=== PATIENT | female | born 1935 | race Caucasian/White ===

== ENCOUNTER 2017-03-17 23:42 | Inpatient (IN) | payer OTHER ==
[~2017-03-17] VITALS: Ht 160 cm; Wt 70.0 kg
[2017-03-17] MEDS ORDERED: LEVO88TA3 PO (23:57)
[2017-03-17] MEDS ORDERED: ATOR-26 PO (23:58)
[2017-03-17] MEDS ORDERED: FRS/40 PO (23:58)
[2017-03-17] MEDS ORDERED: CLOP1TAB15 PO (23:59)
[2017-03-17] MEDS ORDERED: SENN-65 PO (23:59)
[2017-03-17] MEDS ORDERED: CHOL1000 PO (23:59)
[2017-03-18] VITALS (16 sets, daily range): BP systolic 107–155; BP diastolic 60–94; PULSE 68–91; TEMP 36.4–36.7; O2SAT 91–100; Ht 160 cm; Wt 70.0 kg
[2017-03-18] MEDS ORDERED: FENTANYL CITRATE INJ 50 MCG/1 ML 2 ML VIAL IV ONE
[2017-03-18] MEDS ORDERED: AMLO-110 PO
[2017-03-18] MEDS: NITROGLYCERIN 0.4 MG SL PER TAB CHARGE SL PRN ×3 (00:02→00:23)
[2017-03-18] MEDS ORDERED: CARV6.252 PO (00:02)
[2017-03-18] MEDS ORDERED: OXGN (00:04)
[2017-03-18] MEDS ORDERED: CYAN10005 PO (00:04)
[2017-03-18] MEDS ORDERED: NTRGSL/4 UT (00:04)
[2017-03-18] MEDS ORDERED: ISOS60TA2 PO (00:04)
[2017-03-18 00:08] LABS: ISTAT CREATININE 2.8 mg/dl (0.6-1.3); ISTAT HEMOGLOBIN 12.2 g/dl (12.0-16.0); ISTAT IONIZED CALCIUM 1.15 mmol/l (1.12-1.32)
[2017-03-18 00:09] LABS: BASO % 0.2 %; BASO ABS # 0.02 K/uL (0-0.2); COMPLETE YES; EOS % 2.5 %; HEMATOCRIT 36.3 % (37-47); IG% 0.2 %; LYMPH ABS # 1.57 K/uL (1.2-3.4); MEAN CELL VOLUME 95.5 fL (80-100); MEAN CORPUSCULAR HEMOGLOBIN 31.3 pg (25-34); MEAN CORPUSCULAR HGB CONC 32.8 g/dl (32-36); MEAN PLATELET VOLUME 11.3 fL (7.4-10.4); MONO % 8.7 %; NEUT % 69.4 %; PLATELET COUNT 225 K/uL (130-400); WHITE BLOOD COUNT 8.27 K/uL (4.8-10.8)
[2017-03-18 00:21] LABS: PROTHROMBIN TIME (PATIENT) 10.7 SECONDS (9.0-12.0)
[2017-03-18 00:28] LABS: BUN/CREATININE RATIO 19.3 (10-20); CALCIUM 9.4 mg/dl (8.5-10.1); CREATININE 2.8 mg/dl (0.60-1.20); MAGNESIUM 2.3 mg/dl (1.8-2.4); POTASSIUM 5.1 mmol/L (3.5-5.1)
[2017-03-18] MEDS ORDERED: HEPARIN SOD (PORCINE) 1000 UNIT/ML 10 ML VIAL ONE (00:38)
[2017-03-18] MEDS ORDERED: MIDAZOLAM HCL 1 MG/ML 2ML VIAL ONE (00:38)
[2017-03-18] MEDS ORDERED: NiCARDipine HCL INJ 2.5 MG/ML 10 ML AMP ONE (00:38)
[2017-03-18] MEDS ORDERED: NITROGLYCERIN/D5W 100MCG/ML 20ML SYR ONE (00:39)
[2017-03-18 00:40] LABS: CKMB/CK RATIO 5.5 (0-3.0)
[2017-03-18] MEDS ORDERED: FUROSEMIDE 40 MG/4 ML VIAL IV STA (00:56)
[2017-03-18] MEDS ORDERED: NITROGLYCERIN/D5W 100 MCG/ML 500 ML IV STA (00:56)
[2017-03-18] MEDS ORDERED: HEPARIN SOD 5000 UNIT/0.5 ML CARP ONE (01:25)
[2017-03-18] MEDS ORDERED: HEPARIN 25000 UNIT/500 ML D5W ONE (01:25)
--- NOTE | 2017-03-18 01:29 | Critical Care Consultation ---
Critical Care Consultation Date of Consultation: Mar 18, 2017. Attending Physician: Family History No pertinent family history Social History Smoking Status: Never Smoker Allergies Coded Allergies: No Known Allergies (Unverified , 03/17/17) Home Medications Scheduled Amlodipine (Norvasc), 5 MG PO DAILY Atorvastatin (Lipitor), 80 MG PO DAILY Carvedilol (Coreg), 6.25 MG PO AMPM Cholecalciferol (Vitamin D3), 2,000 UNIT PO DAILY Clopidogrel (Plavix), 75 MG PO DAILY Cyanocobalamin (Vitamin B-12), 1,000 MCG PO DAILY Furosemide (Lasix), 40 MG PO DAILY Home O2 Therapy (Oxygen), 2 LITERS NA HS Isosorbide Mononitrate (Imdur Ext Rel), 60 MG PO QAM Levothyroxine Sodium (Levothyroxine Sodium), 88 MCG PO DAILY Senna/Docusate Sod (Senokot S), 2 TAB PO DAILY Scheduled PRN Nitroglycerin (Nitrostat), 0.4 MG UT UD PRN for Chest Pain Current Inpatient Medications Current Inpatient Medications Medications (Trade) Dose Ordered Sig/Izaiah Route Start Time Stop Time Status Last Admin Dose Admin Nitroglycerin (Nitrostat Tab) 0.4 mg PRN PRN SL 03/18/17 00:00 04/17/17 00:00 03/18/17 00:23 0.4 MG Physical Exam Date Time Temp Pulse Resp B/P (MAP) Pulse Ox O2 Delivery O2 Flow Rate FiO2 03/18/17 00:39 89 98 30 03/18/17 00:32 BiPAP 03/18/17 00:27 92 22 97 03/18/17 00:26 128/85 03/18/17 00:24 140/83 Oxymask 8.0 03/18/17 00:22 94 27 92 03/18/17 00:21 126/76 03/18/17 00:17 90 18 134/87 91 03/18/17 00:15 95 Nasal Cannula 4.0 03/18/17 00:14 121/66 03/18/17 00:12 88 21 95 03/18/17 00:07 92 18 94 03/18/17 00:03 115/77 03/18/17 00:02 98 23 91 Nasal Cannula 4.0 03/17/17 23:59 103 03/17/17 23:58 36.3 97 26 129/80 92 Nasal Cannula 4.0 03/17/17 23:58 91 Nasal Cannula 4.0 03/17/17 23:57 102 19 95 High Flow Oxygen 15.0 03/17/17 23:56 129/80 Laboratory Results Last 24 Hours Test 03/17/17 23:21 03/17/17 23:57 03/18/17 01:23 White Blood Count 8.27 K/uL Red Blood Count 3.80 M/uL Hemoglobin 11.9 g/dL Hematocrit 36.3 % Mean Corpuscular Volume 95.5 fL Mean Corpuscular Hemoglobin 31.3 pg Mean Corpuscular Hemoglobin Concent 32.8 g/dl Platelet Count 225 K/uL Mean Platelet Volume 11.3 fL Neutrophils (%) (Auto) 69.4 % Lymphocytes (%) (Auto) 19.0 % Monocytes (%) (Auto) 8.7 % Eosinophils (%) (Auto) 2.5 % Basophils (%) (Auto) 0.2 % Neutrophils # (Auto) 5.73 K/uL Lymphocytes # (Auto) 1.57 K/uL Monocytes # (Auto) 0.72 K/uL Eosinophils # (Auto) 0.21 K/uL Basophils # (Auto) 0.02 K/uL RDW Standard Deviation 47.4 fL RDW Coefficient of Variation 13.7 % Immature Granulocyte % (Auto) 0.2 % Immature Granulocyte # (Auto) 0.02 K/uL Prothrombin Time 10.7 SECONDS Prothromb Time International Ratio 1.0 Activated Partial Thromboplast Time 26.0 SECONDS Partial Thromboplastin Ratio 1.0 Sodium Level 140 mmol/L Potassium Level 5.1 mmol/L Chloride Level 103 mmol/L Carbon Dioxide Level 28 mmol/L Anion Gap 9.0 mmol/L 16.0 mmol/L Blood Urea Nitrogen 54 mg/dl Creatinine 2.80 mg/dl Est Creatinine Clear Calc Drug Dose 14.9 ml/min Estimated GFR () 17.6 Estimated GFR (Non- 15.2 BUN/Creatinine Ratio 19.3 Random Glucose 171 mg/dl Calcium Level 9.4 mg/dl Magnesium Level 2.3 mg/dl Total Creatine Kinase 40 U/L Creatine Kinase MB 2.2 ng/ml Creatine Kinase MB Ratio 5.5 Troponin I 0.933 ng/ml Bedside Hemoglobin 12.2 g/dl Bedside Hematocrit 36 % Bedside Sodium 139 mEq/L Bedside Potassium 4.9 mEq/L Bedside Chloride 102 mEq/L Bedside Total CO2 28 mEq/l Bedside Blood Urea Nitrogen 48 mg/dl Bedside Creatinine 2.8 mg/dl Bedside Glucose (other) 177 mg/dl Bedside Ionized Calcium (Zeynep) 1.15 mmol/l
[2017-03-18] MEDS ORDERED: NITROGLYCERIN OINT 2% 1GM PACKET ONE (01:46)
[2017-03-18 02:08] LABS: ARTERIAL BLD GAS O2 SATURATION 95.1 % (90-95); ARTERIAL BLOOD GAS BASE EXCESS 0.9 mEq/L (-9-1.8); ARTERIAL BLOOD GAS HCO3 26 mmol/L (19-24); ARTERIAL BLOOD GAS PO2 84 mm/Hg (80-95); ARTERIAL BLOOD GAS pH 7.37 (7.35-7.45)
[2017-03-18 02:10] LABS: ALLEN TEST POS (POS); O2 ADMINISTRATION 30% BIPAP
[2017-03-18] MEDS ORDERED: ALBUT/IPRATROP 3MG/0.5MG NEB 3 ML VIAL INH STA (02:21)
[2017-03-18] MEDS ORDERED: ONDANSETRON INJ 2 MG/ML 2 ML VIAL IV PRN (02:30)
[2017-03-18] MEDS ORDERED: DEXTROSE 50% 50 ML SYR IV PRN (02:30)
[2017-03-18] MEDS ORDERED: GLUCOSE 40% GEL 15 GM TUBE PO PRN (02:30)
[2017-03-18] MEDS ORDERED: NITROGLYCERIN 0.4 MG SL PER TAB CHARGE SL PRN (02:30)
[2017-03-18] MEDS ORDERED: GLUCAGON FOR INJ 1 MG VIAL SQ PRN (02:30)
[2017-03-18] MEDS ORDERED: GLUCOSE 10 TABS/TUBE PO PRN (02:30)
[2017-03-18] MEDS ORDERED: HEPARIN IV LOW DOSE NO BOLUS STA (03:16)
[2017-03-18] MEDS ORDERED: HEPARIN 25,000 UNIT/500ML D5W 500 ML IV PRN (03:30)
--- NOTE | 2017-03-18 04:39 | CARDIOLOGY CONSULTATION ---
DATE OF CONSULTATION: 03/18/2017 CONSULTATION REQUESTED BY: Dr. Webber. REASON FOR CONSULTATION: Heart alert/suspected acute coronary syndrome. HISTORY OF PRESENT ILLNESS: Ms. Perdue is an 81-year-old woman with a complex past medical history who presented tonight to the Emergency Department in the setting of intermittent chest pain over the better part of last 3 days and worsening shortness of breath. Cardiac history is long with the majority of her prior care having been done in [place]. The patient recently moved to the area. She has known severe multivessel coronary disease with prior multivessel stenting. Her most recent cardiac course occurred in November 2016 at [facility] where she presented with an NSTEMI with troponin up to 33. She underwent cardiac catheterization and was found to have severe mid left main ostial LAD and ostial circumflex disease as well as severe 99% RCA disease with in-stent restenosis. She eventually underwent high risk PCI after deemed to be not a surgical candidate due to comorbidities. With the assistance of an Impella device had 2 drug-eluting stents placed from her left main and LAD and into ostial circumflex. The procedure was complicated by a small residual mid LAD dissection which was managed without further stenting. She had a prolonged hospitalization following her PCI in part due to heart failure, and her chronic kidney disease with a baseline creatinine around 2-2.5. She also had issues with anemia and thrombocytopenia. She was diuresed during last hospitalization and last echocardiogram reportedly showed an EF of 40% with moderate aortic stenosis, moderate mitral regurgitation, mild AI and moderate to severe pulmonary hypertension with an estimated PASP of 61. Since over the last 3 days to a week, the patient has noted increased chest tightness. She is a difficult historian but states this is similar to what she has had in the past, although seems to endorse that her shortness of breath is her worst symptom at this time. Her daughter who was at her bedside tonight states that she has noticed worsening swelling in her legs over this time period. The patient denies any fevers, chills, palpitations or presyncope. PAST MEDICAL HISTORY: 1. Coronary artery disease as discussed above. 2. Moderate aortic stenosis. 3. Moderate mitral regurgitation. 4. Type 2 diabetes. 5. Chronic kidney disease, stage IV, baseline creatinine around 2-2.5. 6. Chronic systolic heart failure, EF around 40% with inferior apical and mid septum akinetic segment on last echocardiogram, anemia and thrombocytopenia. 7. Hypothyroidism. 8. Dyslipidemia. ALLERGIES: CAPTOPRIL. HOME MEDICATIONS: Include amlodipine 5, atorvastatin 80, carvedilol 6.25, cholecalciferol, Plavix 75, vitamin B12, furosemide 40 daily, isosorbide mononitrate 60 mg, levothyroxine 88 mcg, nitro tabs and aspirin 81 mg. FAMILY HISTORY: Noncontributory due to patient's age and known severe disease. SOCIAL HISTORY: Currently living with her daughter, unable to provide any other significant relevant social history. PHYSICAL EXAMINATION: VITAL SIGNS: Temperature on admission 36.3. Her pulse was 97. Her blood pressure was 129/80. She was satting 91% on 4 liters. She is now on BiPAP. GENERAL: The patient appears in mild respiratory distress. HEENT: Sclerae are anicteric. Her oropharynx is clear. NECK: JVD difficult to assess. LUNGS: She has decreased breath sounds at her bases bilaterally and has crackles anteriorly. CARDIAC: She has a regular rate and rhythm with a 2/6 systolic ejection murmur heard best at the right upper sternal border. ABDOMEN: Soft, nontender with positive bowel sounds. EXTREMITIES: Warm. She has intact radial and DP pulses. She has 1+ lower extremity edema up to her mid [place] and signs of chronic venous stasis. NEUROLOGIC: Nonfocal. PSYCHIATRIC: She is alert and oriented. LABORATORY DATA: Sodium 139, potassium 5.1, BUN 54, creatinine of 2.8. Her CK-MB was 2.2. Her troponin was 9.33. Hemoglobin 11.9, platelets of 225, her INR was 1.0. Chest x-ray shows bilateral pulmonary edema. EKG shows sinus rhythm with a ventricular rate of 98. She had evidence of inferior infarct as well as anterior old infarct. She has ST elevations in V1 through V3 on some T-wave inversions in I, aVL and V5 and V6. In comparison to old EKG from [facility] in November of 2016, there is minimal change, although Q waves in inferior leads are more pronounced. IMPRESSION AND PLAN: 1. Acute respiratory distress. 2. Acute coronary syndrome. 3. Acute systolic heart failure. 4. Known severe multivessel coronary artery disease status post recent high risk complex percutaneous coronary intervention to left main, LAD and circumflex, and known residual severe RCA disease. 5. Acute on chronic renal insufficiency. 6. Type 2 diabetes. 7. Anemia. The patient here with worsening shortness of breath, chest pain over the last week or so. Initially, heart alert team was activated in the setting of questionable ST elevations in V1 and V3. Review of prior EKGs shows that ST findings appear to be chronic. The patient does have an elevated troponin, although CK-MB is within normal limits. Suspicion that this represents late stent thrombosis/ACS is relatively low and at present the patient is hemodynamically and electrically stable. As such, no emergent indication for cardiac catheterization at this time. We will defer in the setting of patient's comorbidities, most notably her renal insufficiency with a creatinine of 2.8. I do feel that the patient is in acute heart failure with pulmonary and systemic venous congestion on exam. Recommend starting IV diuresis. I agree with initiation of nitroglycerin infusion, as well as continuation of BiPAP. Reasonable to start on heparin infusion as trending troponins overnight. Would repeat echo in a.m. Continue dual antiplatelet therapy with aspirin and Plavix. Cardiology to continue to follow while in hospital. If EKG changes/hemodynamic instability, please recontact regarding need for cardiac catheterization. SANDRO
--- NOTE | 2017-03-18 05:04 | EMERGENCY ROOM VISIT NOTE ---
History Report prepared by Sarahy: Annita Lawrence Under the Supervision of: Dr. Byron Webber M.D. First contact with patient: 23:46 Chief Complaint: CHEST PAIN Stated Complaint: CHEST PAIN History of Present Illness The patient is an 81 year old female who presents to the Emergency Room with complaints of worsening chest pain over the past 3 days. The patient states that she has been having chest pain for a few weeks now, but states that it has increasingly worsened over the past few days. She reports that the pain is central and feels like a pressure. She reports that she took several Nitroglycerin and Aspirin with mild relief. She states that she has not been to see her PCP because she moved to the area 2 months ago. The patient reports that she has a cardiac history. She states that she had stents placed in November of this year at [facility] in [place]. The patient complains of shortness of breath, fatigue, and weakness. The patient denies the pain radiating elsewhere and loss of consciousness. Source of History: patient Onset: 3 days Position: chest Quality: pressure Timing: worsening Modifying Factors (Relieving): other (Nitroglycerin, Aspirin) Associated Symptoms: + SOB, + fatigue, + weakness, No LOC Note: The patient denies pain radiating elsewhere. Review of Systems See HPI for pertinent positives & negatives. A total of 10 systems reviewed and were otherwise negative. Past Medical & Surgical Medical Problems: (1) Diabetes (2) History of heart disease (3) Myocardial infarction (4) Renal failure (5) Respiratory failure, acute Surgical Problems: (1) History of intravascular stent placement Family History No pertinent family history Social History Drug Use: none Marital Status: single Housing Status: lives alone Current/Historical Medications Scheduled Amlodipine (Norvasc), 5 MG PO DAILY Atorvastatin (Lipitor), 80 MG PO DAILY Carvedilol (Coreg), 6.25 MG PO AMPM Cholecalciferol (Vitamin D3), 2,000 UNIT PO DAILY Clopidogrel (Plavix), 75 MG PO DAILY Cyanocobalamin (Vitamin B-12), 1,000 MCG PO DAILY Furosemide (Lasix), 40 MG PO DAILY Home O2 Therapy (Oxygen), 2 LITERS NA HS Isosorbide Mononitrate (Imdur Ext Rel), 60 MG PO QAM Levothyroxine Sodium (Levothyroxine Sodium), 88 MCG PO DAILY Senna/Docusate Sod (Senokot S), 2 TAB PO DAILY Scheduled PRN Nitroglycerin (Nitrostat), 0.4 MG UT UD PRN for Chest Pain Allergies Coded Allergies: No Known Allergies (Unverified , 03/17/17) Physical Exam Vital Signs Date Time Temp Pulse Resp B/P (MAP) Pulse Ox O2 Delivery O2 Flow Rate FiO2 03/18/17 01:26 86 19 140/74 94 03/18/17 01:21 82 15 142/85 03/18/17 01:16 85 17 158/73 96 03/18/17 01:11 87 19 134/97 94 03/18/17 01:11 86 17 134/97 96 03/18/17 01:06 88 21 140/87 94 03/18/17 01:01 124/83 03/18/17 00:58 142/74 03/18/17 00:57 89 19 96 03/18/17 00:52 92 20 129/80 96 03/18/17 00:47 91 23 95 03/18/17 00:46 138/90 03/18/17 00:42 90 18 98 03/18/17 00:41 139/91 03/18/17 00:39 89 98 30 03/18/17 00:37 89 22 98 03/18/17 00:36 127/81 03/18/17 00:32 BiPAP 03/18/17 00:32 90 21 97 03/18/17 00:27 92 22 97 03/18/17 00:26 128/85 03/18/17 00:24 140/83 Oxymask 8.0 03/18/17 00:22 94 27 92 03/18/17 00:21 126/76 03/18/17 00:17 90 18 134/87 91 03/18/17 00:15 95 Nasal Cannula 4.0 03/18/17 00:14 121/66 03/18/17 00:12 88 21 95 03/18/17 00:07 92 18 94 03/18/17 00:03 115/77 03/18/17 00:02 98 23 91 Nasal Cannula 4.0 03/17/17 23:59 103 03/17/17 23:58 36.3 97 26 129/80 92 Nasal Cannula 4.0 03/17/17 23:58 91 Nasal Cannula 4.0 03/17/17 23:57 102 19 95 High Flow Oxygen 15.0 03/17/17 23:56 129/80 Physical Exam GENERAL: Patient is anxious appearing and in moderate distress. Deconditioned. HEENT: No acute trauma, normocephalic atraumatic, mucous membranes moist, no nasal congestion, no scleral icterus. NECK: No stridor, no adenopathy, no meningismus, trachea is midline. LUNGS: Tachypneic, dyspnea. Tight lung sounds bilaterally at the bases. Mild wheezing at apexes, no rhonchi. HEART: Regular rate and rhythm. No murmurs, rubs, gallops appreciated. ABDOMEN: Soft, nontender, bowel sounds positive, no masses appreciated, no peritonitis. BACK: No midline tenderness, no CVA tenderness EXTREMITIES: Normal motion all extremities, no cyanosis, no edema. NEUROLOGIC: Alert and oriented, no acute motor or sensory deficits, no focal weakness, cranial nerves grossly intact. SKIN: No rash, no jaundice, no diaphoresis. Medical Decision & Procedures ER Provider Diagnostic Interpretation: CHEST X-RAY 1 VIEW: Findings: The results were interpreted by me. Enlarged heart. Diffuse congestive findings. Bilateral effusions. Unable to appreciate if underlying infiltrates. Laboratory Results Test 03/17/17 23:21 03/17/17 23:57 RDW Standard Deviation 47.4 fL (36.4-46.3) RDW Coefficient of Variation 13.7 % (11.5-14.5) White Blood Count 8.27 K/uL (4.8-10.8) Red Blood Count 3.80 M/uL (4.2-5.4) Hemoglobin 11.9 g/dL (12.0-16.0) Hematocrit 36.3 % (37-47) Mean Corpuscular Volume 95.5 fL (80-100) Mean Corpuscular Hemoglobin 31.3 pg (25-34) Mean Corpuscular Hemoglobin Concent 32.8 g/dl (32-36) Platelet Count 225 K/uL (130-400) Mean Platelet Volume 11.3 fL (7.4-10.4) Neutrophils (%) (Auto) 69.4 % Lymphocytes (%) (Auto) 19.0 % Monocytes (%) (Auto) 8.7 % Eosinophils (%) (Auto) 2.5 % Basophils (%) (Auto) 0.2 % Neutrophils # (Auto) 5.73 K/uL (1.4-6.5) Lymphocytes # (Auto) 1.57 K/uL (1.2-3.4) Monocytes # (Auto) 0.72 K/uL (0.11-0.59) Eosinophils # (Auto) 0.21 K/uL (0-0.5) Basophils # (Auto) 0.02 K/uL (0-0.2) Immature Granulocyte % (Auto) 0.2 % Immature Granulocyte # (Auto) 0.02 K/uL (0.00-0.02) Prothrombin Time 10.7 SECONDS (9.0-12.0) Prothromb Time International Ratio 1.0 (0.9-1.1) Activated Partial Thromboplast Time 26.0 SECONDS (21.0-31.0) Partial Thromboplastin Ratio 1.0 Est Creatinine Clear Calc Drug Dose 14.9 ml/min Magnesium Level 2.3 mg/dl (1.8-2.4) Total Creatine Kinase 40 U/L (26-192) Creatine Kinase MB 2.2 ng/ml (0.5-3.6) Creatine Kinase MB Ratio 5.5 (0-3.0) Bedside Hemoglobin 12.2 g/dl (12.0-16.0) Bedside Hematocrit 36 % (37-47) Bedside Sodium 139 mEq/L (135-144) Bedside Potassium 4.9 mEq/L (3.3-5.0) Bedside Chloride 102 mEq/L (101-112) Bedside Total CO2 28 mEq/l (24-31) Bedside Blood Urea Nitrogen 48 mg/dl (7-18) Bedside Creatinine 2.8 mg/dl (0.6-1.3) Bedside Glucose (other) 177 mg/dl (70-99) Bedside Ionized Calcium (Zeynep) 1.15 mmol/l (1.12-1.32) Laboratory results as reviewed by me. Medications Administered Medications (Trade) Dose Ordered Sig/Izaiah Route Start Time Stop Time Status Last Admin Dose Admin Nitroglycerin (Nitrostat Tab) 0.4 mg PRN PRN SL 03/18/17 00:00 03/18/17 02:49 DC 03/18/17 00:23 0.4 MG Fentanyl Citrate (Fentanyl Inj) 50 mcg NOW ONCE IV 03/18/17 00:00 03/18/17 00:01 DC 03/18/17 00:02 50 MCG Nitroglycerin/ Dextrose 500 ml @ 0 mls/hr Q0M STAT IV 03/18/17 00:56 03/18/17 00:57 DC 03/18/17 01:05 6 MLS/HR Furosemide (Lasix Inj) 40 mg NOW STAT IV 03/18/17 00:56 03/18/17 00:57 DC 03/18/17 01:03 40 MG Heparin Sodium (Porcine) (Heparin Sq 5000 Unit/0.5ml) 5,000 unit STK-MED ONCE .ROUTE 03/18/17 01:25 03/18/17 01:26 DC 03/18/17 01:34 4,000 UNIT Heparin Sodium/ Dextrose (Heparin 25,000 Unit/500ml D5W) 25,000 unit STK-MED ONCE .ROUTE 03/18/17 01:25 03/18/17 01:26 DC 03/18/17 01:25 700 UNIT ECG Indication: chest pain Rate (beats per minute): 98 Rhythm: normal sinus Findings: Q waves (significant), ST depression (Septal), ST elevation (Septal) , no ectopy, other (questionable flipped leads between lead I, II, III) Comparison ECG Date: no prior available ED Course 2347: The patient was evaluated in room C9. A complete history and physical exam was performed. 0000: Ordered Fentanyl Inj 50 mcg IV, Nitroglycerin 0.4 mg PRN SL Chest Pain. 0004: I discussed the patient's case with Dr. Amato- Cardiology. The plan is to await troponin levels and if significant, to call a Heart Alert. 0021: I talked to the patient's daughter who reports that her mother has been taking multiple Nitroglycerin for the past 3 days. She states that her mother has been seen by Dr. Hercules. The patient notes that she is feeling better after a sublingual nitroglycerin and Fentanyl. Her daughter states that her mother has had multiple myocardial infarctions and many stents. She reports that she has been told many times that she is too ill to have open heart surgery. She states that in November she had a cardiac catheterization done with possible stenting. The daughter notes that they had to use a any tip drill to open her arteries. She states her mother is diabetic, in renal failure, and has chronic breathing issues, though it is unknown if she has COPD or CHF. 0022: Case management is attempting to get information on the patient's history from [facility]. 0032: I placed the patient on Bi-PAP. She is still quite dyspneic with tight lung sounds. She has increasing wheezing though. 0039: Ordered Heparin Drip 3000 unit .ROUTE, Nitro Drip 2000 mcg .ROUTE. 0043: Dr. Amato is currently at bedside. 0056: Ordered Lasix Inj 40 mg IV, Nitroglycerin/ Dextrose 500 ml @ 0 mls/hr IV. 0057: I reviewed at length the patient's previous admission to [facility]. Dr. Amato advised a Nitro drip and IV Lasix. 0107: Dr. Amato advised that we start a Heparin drip. 0108: Ordered Heparin Sodium/ Dextrose 1 ea N/A. 0124: I spoke with MONY Paulino on the patient's case to make her aware of the patient. 0140: Discussed the patient's case with Dr. Sam. The patient will be evaluated for further treatment and disposition. Medical Decision Differential: Cardiac Ischemia (STEMI, NSTEMI, Unstable Angina, etc), Aortic Dissection, Arrhythmia, Pulmonary Embolism, Pneumonia, Pneumothorax, MSK, Infectious, Pericarditis/Myocarditis, Esophageal Rupture, Gastrointestinal, amongst other pathologies entertained. 81 yr old female with complex PMH though minimal knowledge of it due to her just moving to area and not having records. Arrives with ST elevation in septal leads and reciprocal changes without previous EKG for comparison. Pain ongoing for at least 3 days with recurrent use of SLNTG to keep under control. She is in acute respiratory failure with very poor lung exam. CXR consistent with pulm edema and after SL Nitro and continued SHOB felt the BiPAP necessary which greatly improved her breathing. May have element COPD though with improvement on BiPAP and not wanting to add further confusion will hold on steroids/nebs. She has modestly elevated Trop, though Cr is 2.8. I called Heart Alert after reviewing case over phone with Dr Amato while still awaiting info from outside hospital. He was shortly at bedside and further reviewed case. By this time special education secretary had been able to get patient's recent DC summary from [facility] in [place] and by comparing EKGs it is clear that it is only mildly changed from previous, furthermore her cath summary makes clear she is very high risk. At this point it was decided to hold on emergent cath, medically manage with nitro, heparin, etc. Multiple rechecks of patient and she is doing much better, breathing comfortably on bipap and tachypnea resolved. Notes periodic discomfort, but not persistent and clearly much improved from earlier. Medication Reconcilliation Current Medication List: was personally reviewed by me Blood Pressure Screening Patient's blood pressure: Normal blood pressure Consults Time Called: [phone] Consulting Physician: Dr. Amato- Cardiology Returned Call: [phone] I discussed the patient's case with Dr. Amato- Cardiology. The plan is to await troponin levels and if significant, to call a Heart Alert. Additional Consults: Time Called: [phone] Consulted Physician: MONY Paulino Returned Call: [phone] Additional Comments: I spoke with MONY Paulino on the patient's case to make her aware of the patient. Time Called: [phone] Consulted Physician: Dr. Sam Returned Call: [phone] Additional Comments: Discussed the patient's case with Dr. Sam. The patient will be evaluated for further treatment and disposition. Impression Primary Impression: Respiratory failure, acute Additional Impressions: Acute myocardial infarction Pulmonary edema Renal failure (ARF), acute on chronic Critical Care I have personally spent greater than 90 minutes of critical care time in the direct management of this patient. This was a life/limb threatening event. This includes time spent evaluating patient, direct bedside care, chart review, placing orders, interpretation of diagnostic studies, discussion with consultants, patient, and family members, as well as other required patient management activities. This 90 minutes is in excess of all separately billable procedures. Scribe Attestation The scribe's documentation has been prepared under my direction and personally reviewed by me in its entirety. I confirm that the note above accurately reflects all work, treatment, procedures, and medical decision making performed by me. Departure Information Dispostion Being Evaluated By Hospitalist Patient Instructions My [facility] Problem Qualifiers
[2017-03-18 05:32] LABS: URINE APPEARANCE CLEAR (CLEAR); URINE BILIRUBIN NEG (NEG); URINE COLOR YELLOW; URINE EPITHELIAL CELL AUTO >30 /lpf (0-5); URINE NITRITE NEG (NEG); URINE SPECIFIC GRAVITY 1.016 (1.000-1.030); UROBILINOGEN NEG (NEG); ZZUR CULT IF INDIC CLEAN CATCH YES
[2017-03-18 05:37] LABS: MANUAL MICROSCOPIC REQUIRED? NO; REVIEW REQ? NO
[2017-03-18] MEDS: NITROGLYCERIN OINT 2% 1GM PACKET EXT SCH ×3 (06:02→17:54)
[2017-03-18] MEDS: LEVOTHYROXINE 88 MCG TAB PO SCH (06:02)
[2017-03-18] MEDS: INSULIN ASPART 100 UNITS/ML 3 ML PEN SC SCH ×4 (07:00→20:19)
[2017-03-18 07:13] LABS: BASO % 0.2 %; BASO ABS # 0.01 K/uL (0-0.2); COMPLETE YES; EOS % 0.7 %; HEMATOCRIT 30.7 % (37-47); IG% 0.4 %; LYMPH % 16.4 %; LYMPH ABS # 0.88 K/uL (1.2-3.4); MEAN CELL VOLUME 93.3 fL (80-100); MEAN CORPUSCULAR HEMOGLOBIN 30.7 pg (25-34); MEAN CORPUSCULAR HGB CONC 32.9 g/dl (32-36); MEAN PLATELET VOLUME 10.8 fL (7.4-10.4); MONO % 8.2 %; NEUT % 74.1 %; PLATELET COUNT 148 K/uL (130-400); RED BLOOD COUNT 3.29 M/uL (4.2-5.4); WHITE BLOOD COUNT 5.38 K/uL (4.8-10.8)
--- NOTE | 2017-03-18 07:14 | DIAGNOSTIC IMAGING REPORT ---
CHEST ONE VIEW PORTABLE CLINICAL HISTORY: 81 years-old Female presenting with Chest Pain. TECHNIQUE: Portable upright AP view of the chest was obtained. COMPARISON: None. FINDINGS: Prominent pulmonary vasculature. Cardiomediastinal silhouette otherwise normal. Bibasilar hazy opacities with bilateral small pleural effusions. Pleural thickening noted at the lung apices. No pneumothorax. Osseous structures normal. Upper abdomen normal. IMPRESSION: 1. Apparent pulmonary vascular congestion with bibasilar opacities and bilateral effusions concerning for volume overload with mild pulmonary edema. Differential considerations include aspiration and infection. Electronically signed by: Jorge Luis Richardson M.D. 03/18/2017 7:12 AM Dictated Date/Time: 03/18/2017 7:11 AM
[2017-03-18 07:30] LABS: BUN/CREATININE RATIO 21.6 (10-20); CALCIUM 9.1 mg/dl (8.5-10.1); CREATININE 2.6 mg/dl (0.60-1.20); POTASSIUM 4.3 mmol/L (3.5-5.1)
[2017-03-18 07:36] LABS: PARTIAL THROMBOPLASTIN RATIO 1.9
[2017-03-18 07:39] LABS: FERRITIN 40.9 ng/ml (8.0-388.0)
[2017-03-18] MEDS ORDERED: FUROSEMIDE INJ 80 MG in SYRINGE 0 ML IV ONE (08:00)
--- NOTE | 2017-03-18 08:12 | HISTORY & PHYSICAL EXAMINATION ---
DATE OF ADMISSION: 03/18/2017 PRIMARY CARE DOCTOR: Avila Hercules MD CHIEF COMPLAINT: Chest pain and shortness of breath. HISTORY OF PRESENT ILLNESS: History obtained from patient and records. Medical history significant for chronic systolic heart failure secondary to ischemic cardiomyopathy (EF of 40% from a 2D echo from November 2016); CAD status post stenting, hypertension, hyperlipidemia, hypothyroidism, chronic renal insufficiency (baseline creatinine of 2 to 2.5), chronic anemia (baseline hemoglobin 10). nocturnal hypoxemia on home O2 at night as per records. Shaw is a previous resident of [place] who moved moved to [place] to be with her daughter in December 2016. Recent confinement at [facility] in [place] in October 2016 for non-ST elevation MD. 2D echo at that time showed LVH, EF of 40%, hypokinetic LV in the inferior and mid segment, mild MS, moderate MR, moderate . Emergent catheterization done showed left main calcification 70%, luminal irregularities proximal LAD, discrete calcified 90% ostial lesion; left circumflex, in-stent restenosis; proximal RCA in 1998. CABG was recommended, but the patient was deemed to be poor surgical candidate. High-risk PCI done. Successful PCI of the distal left main. Patient underwent high-risk PCI of left main, LAD, and left circumflex. Post PCI course complicated by CHF. Shaw subsequently transferred to rehab facility then relocated to [place] under the care of her daughter in December 2016. In the last few days; anginal episodes, chest discomfort, worsening, short-term incomplete relief with nitroglycerin tabs. No unusual cough symptoms. Patient admits to some leg swelling. Patient brought to the Emergency Room, noted to be in respiratory distress. BiPAP initiated, Lasix given for CHF. IV Heparin, Nitroglycerin drip initiated for ACS. Patient currently more comfortable. Nitro drip currently being down titrated. MEDICAL HISTORY: As above. SURGERIES: Hysterectomy. HOME MEDICATIONS: Include amlodipine, Lipitor, Coreg, vitamin D3, Plavix, vitamin B12, Lasix, home O2, Imdur ER, levothyroxine, Nitrostat, Senokot-S. ALLERGIES: No known drug allergies. FAMILY HISTORY: Diabetes, hypertension. PERSONAL AND SOCIAL HISTORY: Nonsmoker, no chronic intake of alcohol. 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 REVIEW OF SYSTEMS: As per HPI. All other ROS negative. PHYSICAL EXAMINATION: VITAL SIGNS: Blood pressure was noted to be 129/80, pulse 102, RR 26 later 18, temperature 37 sats 91 on 4 liters, later 97 on BiPAP. GENERAL: Noted to be anxious. Minimal respiratory distress SKIN: Pallor. HEENT: Pale palpebral mucosa. Dry buccal mucosa. BiPAP in place. NECK: Short neck. LUNGS: Decreased breath sounds. HEART: Regular rate and rhythm, systolic murmur. ABDOMEN: Some distention. NT EXTREMITIES: Some lower extremity edema, no tenderness. NEUROLOGIC: No gross focality. LABS: Hemoglobin was noted to be 11.9, hematocrit 36.2, white blood cell 8.37, and platelets 225. Sodium 140, potassium 5.1, chloride 103, CO2 28, BUN 54, creatinine 2.8, glucose 171. Troponin was noted to be 0.923. ABG; pH 7.37, pCO2 46, pO2 84, 95 on 30% BiPAP. Outpatient hemoglobin A1c in December 2015 was 5.7. Lipid profile : cholesterol 148, triglycerides 135, HDL 56, LDL 65. Chest x-ray per my interpretation; congestion, right greater than the left with effusion, bilateral right greater than the left; and cardiomegaly. EKG as per my interpretation; rate 100, normal sinus rhythm, normal axis, Q-waves in the inferior leads and anterior leads, T-wave inversion lateral leads , PRWP. ASSESSMENT: 1. Acute hypoxemic respiratory failure secondary to decompensated heart failure. hx ischemic cardiomyopathy (ejection fraction 40%, TTE 10/2016) 2. Acute coronary syndrome. History of coronary artery disease, status post recent high-risk PCI at [facility], [place], [place] last 10/2016) Patient was deemed to be a poor surgical candidate for CABG for multivessel CAD found on diagnostic cardiac cath.) 3. Hypertension, stable 4. Hyperlipidemia on statin therapy 5. Moderate aortic stenosis on recent TTE 6. DM2, diet controlled, well controlled as of recent HgA1c. 7. Hypothyroidism, abnormal TFTs on recent outpatient testing status post recent adjustment in dose by PCP. Repeat TSH recommended next month. 8. Acute renal failure on CRI. Question of cardiorenal syndrome. 9. Anemia secondary to CKD, hemoglobin at baseline. PLAN: PCU continue BiPAP diuretic therapy Daily renal function strict IOs, daily weights, CHF education. Follow troponin. Continue antiplatelets, beta-brian, statins meds Topical Nitro for now in place of Nitro drip. 2D echo, Cardiology consult. RE ACS, CHF. (Patient has already been seen by Dr. Amato at the Emergency Room.) ISS BG goal 140-180 DVT prophylaxis, Heparin. Full code. MTDD
--- NOTE | 2017-03-18 09:04 | Progress Note ---
Subjective Date of Service: Mar 18, 2017. Subjective Pt evaluation today including: conversation w/ patient, physical exam, lab review, review of studies, review of inpatient medication list Saw/examined the patient in room 240 She is off of bipap and on supplemental O2 via nasal cannula In no respiratory distress, states her breathing is much improved from yesterday Denies chest pain/palpitations c/o abdominal cramping/bloating - states she needs a laxative or stool softener Problem List Medical Problems: (1) Acute myocardial infarction Status: Acute (2) Pulmonary edema Status: Acute (3) Renal failure (ARF), acute on chronic Status: Acute Review of Systems Constitutional: + weakness, No fever, No chills Respiratory: + shortness of breath (improving), + dyspnea on exertion, + dyspnea at rest, No cough, No sputum, No wheezing, No hemoptysis Cardiac: No chest pain, No edema, No palpitations Abdomen: + pain (crampy epigastric/midabdominal pain), + constipation, No nausea, No vomiting, No diarrhea Heme: No abnormal bleeding/bruising Medications Current Inpatient Medications Medications (Trade) Dose Ordered Sig/Izaiah Route Start Time Stop Time Status Last Admin Dose Admin Nitroglycerin (Nitroglycerin 2% Oint) 0.5 inch Q6H EXT 03/18/17 06:00 04/17/17 05:59 03/18/17 06:02 0.5 INCH Albuterol/ Ipratropium (Duoneb) 3 ml Q2H PRN INH 03/18/17 02:30 04/17/17 02:29 Acetaminophen (Tylenol Tab) 650 mg Q4H PRN PO 03/18/17 02:30 04/17/17 02:29 Nitroglycerin (Nitrostat Tab) 0.4 mg UD PRN SL 03/18/17 02:30 04/17/17 02:29 Insulin Aspart (novoLOG ASPART) SLIDING SCALE If C... ACHS SC 03/18/17 07:00 04/17/17 06:59 Glucose (Glucose 40% Gel) 15-30 GRAMS 15 GRAMS... UD PRN PO 03/18/17 02:30 04/17/17 02:29 Glucose (Glucose Chew Tab) 4-8 Tablets 4 Tabl... UD PRN PO 03/18/17 02:30 04/17/17 02:29 Dextrose (Dextrose 50% 50ML Syringe) 25-50ML OF 50% DW IV FOR... UD PRN IV 03/18/17 02:30 04/17/17 02:29 Glucagon (Glucagon Inj) 1 mg UD PRN SQ 03/18/17 02:30 04/17/17 02:29 Hydromorphone HCl (Dilaudid Inj) 0.5 mg Q3H PRN IV 03/18/17 02:30 04/01/17 02:29 Tramadol HCl (Ultram Tab) 25 mg Q6H PRN PO 03/18/17 02:30 04/17/17 02:29 Ondansetron HCl (Zofran Inj) 4 mg Q6H PRN IV 03/18/17 02:30 04/17/17 02:29 Amlodipine Besylate (Norvasc Tab) 5 mg DAILY PO 03/18/17 09:00 04/17/17 08:59 Atorvastatin Calcium (Lipitor Tab) 80 mg DAILY PO 03/18/17 09:00 04/17/17 08:59 Carvedilol (Coreg Tab) 6.25 mg BID PO 03/18/17 09:00 04/17/17 08:59 Clopidogrel Bisulfate (plAVix TAB) 75 mg DAILY PO 03/18/17 09:00 04/17/17 08:59 Isosorbide Mononitrate (Imdur Ext Rel Tab) 60 mg QAM PO 03/18/17 09:00 04/17/17 08:59 Levothyroxine Sodium (Synthroid Tab) 88 mcg DAILYBB PO 03/18/17 06:00 04/17/17 06:59 03/18/17 06:02 88 MCG Senna/Docusate Sodium (Senokot S Tab) 2 tab DAILY PO 03/18/17 09:00 04/17/17 08:59 Heparin Sodium/ Dextrose 500 ml @ 14 mls/hr Q24H PRN IV 03/18/17 03:30 04/17/17 03:29 Objective Vital Signs Date Time Temp Pulse Resp B/P (MAP) Pulse Ox O2 Delivery O2 Flow Rate FiO2 03/18/17 07:45 Nasal Cannula 4.0 03/18/17 07:36 36.6 79 19 108/70 (83) 96 Nasal Cannula 4.0 03/18/17 05:45 97 BiPAP 4.0 03/18/17 05:30 36.7 75 24 135/85 (102) 97 BiPAP 30 03/18/17 05:16 74 97 30 03/18/17 03:10 36.7 89 24 155/94 100 BiPAP 30 03/18/17 02:59 91 24 98 BiPAP/CPAP 30 03/18/17 02:26 84 15 130/75 03/18/17 02:26 87 96 30 03/18/17 02:21 88 17 96 03/18/17 02:16 88 25 96 03/18/17 02:11 85 27 95 03/18/17 02:06 84 14 136/74 95 03/18/17 02:01 80 14 138/81 96 03/18/17 01:56 83 21 136/75 96 03/18/17 01:51 83 16 122/68 94 03/18/17 01:46 84 16 130/88 96 03/18/17 01:41 88 17 115/73 95 03/18/17 01:36 83 19 141/78 96 03/18/17 01:31 84 17 146/75 03/18/17 01:26 86 19 140/74 94 03/18/17 01:21 82 15 142/85 03/18/17 01:16 85 17 158/73 96 03/18/17 01:11 87 19 134/97 94 03/18/17 01:11 86 17 134/97 96 03/18/17 01:06 88 21 140/87 94 03/18/17 01:01 124/83 03/18/17 00:58 142/74 03/18/17 00:57 89 19 96 03/18/17 00:52 92 20 129/80 96 03/18/17 00:47 91 23 95 03/18/17 00:46 138/90 03/18/17 00:42 90 18 98 03/18/17 00:41 139/91 03/18/17 00:39 89 98 30 03/18/17 00:37 89 22 98 03/18/17 00:36 127/81 03/18/17 00:32 BiPAP 03/18/17 00:32 90 21 97 03/18/17 00:27 92 22 97 03/18/17 00:26 128/85 03/18/17 00:24 140/83 Oxymask 8.0 03/18/17 00:22 94 27 92 03/18/17 00:21 126/76 03/18/17 00:17 90 18 134/87 91 03/18/17 00:15 95 Nasal Cannula 4.0 03/18/17 00:14 121/66 03/18/17 00:12 88 21 95 03/18/17 00:07 92 18 94 03/18/17 00:03 115/77 03/18/17 00:02 98 23 91 Nasal Cannula 4.0 03/17/17 23:59 103 03/17/17 23:58 36.3 97 26 129/80 92 Nasal Cannula 4.0 03/17/17 23:58 91 Nasal Cannula 4.0 03/17/17 23:57 102 19 95 High Flow Oxygen 15.0 03/17/17 23:56 129/80 Physical Exam General Appearance: no apparent distress Respiratory/Chest: no respiratory distress, no accessory muscle use, + decreased breath sounds Cardiovascular: regular rate, rhythm, no edema, no murmur Abdomen: normal bowel sounds, non tender, soft Extremities: + pertinent finding (venous stasis dermatitis, no edema) Neurologic/Psychiatric: no motor/sensory deficits, alert, normal mood/affect Skin: normal color Laboratory Results Last 24 Hours Test 03/17/17 23:21 03/17/17 23:57 03/18/17 01:59 03/18/17 05:10 White Blood Count 8.27 K/uL Red Blood Count 3.80 M/uL Hemoglobin 11.9 g/dL Hematocrit 36.3 % Mean Corpuscular Volume 95.5 fL Mean Corpuscular Hemoglobin 31.3 pg Mean Corpuscular Hemoglobin Concent 32.8 g/dl Platelet Count 225 K/uL Mean Platelet Volume 11.3 fL Neutrophils (%) (Auto) 69.4 % Lymphocytes (%) (Auto) 19.0 % Monocytes (%) (Auto) 8.7 % Eosinophils (%) (Auto) 2.5 % Basophils (%) (Auto) 0.2 % Neutrophils # (Auto) 5.73 K/uL Lymphocytes # (Auto) 1.57 K/uL Monocytes # (Auto) 0.72 K/uL Eosinophils # (Auto) 0.21 K/uL Basophils # (Auto) 0.02 K/uL RDW Standard Deviation 47.4 fL RDW Coefficient of Variation 13.7 % Immature Granulocyte % (Auto) 0.2 % Immature Granulocyte # (Auto) 0.02 K/uL Prothrombin Time 10.7 SECONDS Prothromb Time International Ratio 1.0 Activated Partial Thromboplast Time 26.0 SECONDS Partial Thromboplastin Ratio 1.0 Sodium Level 140 mmol/L Potassium Level 5.1 mmol/L Chloride Level 103 mmol/L Carbon Dioxide Level 28 mmol/L Anion Gap 9.0 mmol/L 16.0 mmol/L Blood Urea Nitrogen 54 mg/dl Creatinine 2.80 mg/dl Est Creatinine Clear Calc Drug Dose 14.9 ml/min Estimated GFR () 17.6 Estimated GFR (Non- 15.2 BUN/Creatinine Ratio 19.3 Random Glucose 171 mg/dl Calcium Level 9.4 mg/dl Magnesium Level 2.3 mg/dl Total Creatine Kinase 40 U/L Creatine Kinase MB 2.2 ng/ml Creatine Kinase MB Ratio 5.5 Troponin I 0.933 ng/ml 0.933 ng/ml Bedside Hemoglobin 12.2 g/dl Bedside Hematocrit 36 % Bedside Sodium 139 mEq/L Bedside Potassium 4.9 mEq/L Bedside Chloride 102 mEq/L Bedside Total CO2 28 mEq/l Bedside Blood Urea Nitrogen 48 mg/dl Bedside Creatinine 2.8 mg/dl Bedside Glucose (other) 177 mg/dl Bedside Ionized Calcium (Zeynep) 1.15 mmol/l Arterial Blood pH 7.37 Arterial Blood Partial Pressure CO2 46 mmHg Arterial Blood Partial Pressure O2 84 mm/Hg Arterial Blood HCO3 26 mmol/L Arterial Blood Oxygen Saturation 95.1 % Arterial Blood Base Excess 0.9 mEq/L Arterial Blood Gas Delivery 30% BIPAP Alfredo Test POS Urine Color YELLOW Urine Appearance CLEAR Urine pH 5.0 Urine Specific [place] 1.016 Urine Protein 2+ Urine Glucose (UA) NEG Urine Ketones NEG Urine Occult Blood NEG Urine Nitrite NEG Urine Bilirubin NEG Urine Urobilinogen NEG Urine Leukocyte Esterase MODERATE Urine WBC (Auto) >30 /hpf Urine RBC (Auto) 0-4 /hpf Urine Hyaline Casts (Auto) 5-10 /lpf Urine Epithelial Cells (Auto) >30 /lpf Urine Bacteria (Auto) NEG Test 03/18/17 06:55 White Blood Count 5.38 K/uL Red Blood Count 3.29 M/uL Hemoglobin 10.1 g/dL Hematocrit 30.7 % Mean Corpuscular Volume 93.3 fL Mean Corpuscular Hemoglobin 30.7 pg Mean Corpuscular Hemoglobin Concent 32.9 g/dl Platelet Count 148 K/uL Mean Platelet Volume 10.8 fL Neutrophils (%) (Auto) 74.1 % Lymphocytes (%) (Auto) 16.4 % Monocytes (%) (Auto) 8.2 % Eosinophils (%) (Auto) 0.7 % Basophils (%) (Auto) 0.2 % Neutrophils # (Auto) 3.99 K/uL Lymphocytes # (Auto) 0.88 K/uL Monocytes # (Auto) 0.44 K/uL Eosinophils # (Auto) 0.04 K/uL Basophils # (Auto) 0.01 K/uL RDW Standard Deviation 46.8 fL RDW Coefficient of Variation 13.6 % Immature Granulocyte % (Auto) 0.4 % Immature Granulocyte # (Auto) 0.02 K/uL Absolute Reticulocyte Count 0.05 10^6/uL Percent Reticulocyte Count 1.5 % Activated Partial Thromboplast Time 49.5 SECONDS Partial Thromboplastin Ratio 1.9 Sodium Level 140 mmol/L Potassium Level 4.3 mmol/L Chloride Level 105 mmol/L Carbon Dioxide Level 28 mmol/L Anion Gap 7.0 mmol/L Blood Urea Nitrogen 56 mg/dl Creatinine 2.60 mg/dl Est Creatinine Clear Calc Drug Dose 14.8 ml/min Estimated GFR () 19.3 Estimated GFR (Non- 16.6 BUN/Creatinine Ratio 21.6 Random Glucose 133 mg/dl Calcium Level 9.1 mg/dl Iron Level 31 mcg/dl Total Iron Binding Capacity 280 mcg/dl Transferrin 223 mg/dl Transferrin % Saturation 10 % Ferritin 40.9 ng/ml Troponin I 1.050 ng/ml Assessment and Plan This is an 81 year old female with a PMH of CAD s/p stenting, ischemic cardiomyopathy, chronic systolic CHF with EF ~40%, HTN, HLD, Hypothyroidism, CKD stage 4 with baseline creatinine around mid 2's presents with shortness of breath and weakness Acute Hypoxemic Respiratory Failure secondary to Acute on Chronic Systolic CHF underlying ischemic cardiomyopathy with hx. of CAD patient presented to the ER with acute shortness of breath placed on bipap initially, nitroglycerin drip was started the nitro drip has since been weaned off, bipap has been weaned off currently with a nitro patch IV Lasix given Matos placed for accurate I's and O's and for patient comfort clinically improving Acute Coronary Syndrome in the setting of CAD s/p stenting patient has elevated troponin level; multifactorial, including acute coronary disease, CHF exacerbation, kidney disease placed on IV heparin for now continue current medications for CAD, including aspirin, Plavix, statin, Imdur, Coreg appreciate cardiology input CKD stage 4 patient with creatinine up to 2.8 on admission improved with Lasix likely due to mobilizing fluids monitor kidney function, avoid nephrotoxic agents if possible if further diuresis required, may need nephrology consulted HTN blood pressure stable currently has a nitro patch on continue amlodipine and Coreg Hypothyroidism continue Synthroid DVT ppx IV heparin FULL CODE
[2017-03-18] MEDS: DOCUSATE SODIUM/SENNA 50/8.6MG TAB PO SCH (09:41)
[2017-03-18] MEDS: ASPIRIN 81 MG ECTAB PO SCH (09:41)
[2017-03-18] MEDS: CLOPIDOGREL BISULFATE 75 MG TAB PO SCH (09:42)
[2017-03-18] MEDS: AMLODIPINE BESYLATE 5 MG TAB PO SCH (09:42)
[2017-03-18] MEDS: CARVEDILOL 6.25 MG TAB PO SCH ×2 (09:42→20:12)
[2017-03-18] MEDS: ISOSORBIDE MONONITRATE 60 MG TABCR PO SCH (09:42)
[2017-03-18] MEDS: ATORVASTATIN 40 MG TAB PO SCH (09:43)
--- NOTE | 2017-03-18 17:09 | Cardiology Follow-Up ---
Subjective Subjective Date of Service: Mar 18, 2017. Pt evaluation today including: conversation w/ patient, physical exam, chart review, lab review, review of studies, review of inpatient medication list Additional Details: Breathing improved this AM. Now off Bipap No recurrent chest pain. Tele reviewed -- no events overnight Problem List Medical Problems: (1) Acute myocardial infarction Status: Acute (2) Pulmonary edema Status: Acute (3) Renal failure (ARF), acute on chronic Status: Acute Review of Systems Constitutional: + weakness, No fever, No chills Respiratory: + shortness of breath (improving), + dyspnea on exertion, + dyspnea at rest, No cough, No sputum, No wheezing, No hemoptysis Cardiac: No chest pain, No edema, No palpitations Abdomen: + pain (crampy epigastric/midabdominal pain), + constipation, No nausea, No vomiting, No diarrhea Heme: No abnormal bleeding/bruising Objective Vital Signs Last Vital Signs Documentation Date Time Temp Pulse Resp B/P (MAP) Pulse Ox O2 Delivery O2 Flow Rate FiO2 03/18/17 16:00 Nasal Cannula 4.0 03/18/17 15:28 36.4 69 20 107/60 (76) 96 03/18/17 05:30 30 Physical Exam: General Appearance: no apparent distress ENT: hearing grossly normal Neck: no JVD (difficult to assess) Respiratory/Chest: no respiratory distress, no accessory muscle use, + decreased breath sounds, + crackles (at bases bilaterally) Cardiovascular: regular rate, rhythm, no edema, + systolic murmur Abdomen: normal bowel sounds, non tender, soft Extremities: + pertinent finding (well perfused, intact distal pulses, trace-1 + LE edema) Neurologic/Psychiatric: no motor/sensory deficits, alert, normal mood/affect Skin: normal color Assessment and Plan 1. Acute respiratory distress. 2. Acute systolic heart failure 3. Acute on chronic renal insufficiency 4. NSTEMI 5. Known severe multivessel coronary artery disease status post recent high risk complex percutaneous coronary intervention to left main, LAD and circumflex, and known residual severe RCA disease. 6. Type 2 diabetes. 7. Anemia. Respiratory status improved this AM after diuresis. Now off bypass. Well perfused today, still with mild pulmonary congestion. Troponin trend flat. Elevation unlikely to represent true plaque rupture/stent thrombosis ACS. -- Continue diuresis with 40 IV daily -- Follow-up I/Os, BMP -- Continue heparin infusion for 48 hours -- Continue DAPT with ASA/Plavix -- Continue beta-brian, nitrates -- repeat echo at some point. Will continue to follow. Medications: Current Inpatient Medications Medications (Trade) Dose Ordered Sig/Izaiah Route Start Time Stop Time Status Last Admin Dose Admin Nitroglycerin (Nitroglycerin 2% Oint) 0.5 inch Q6H EXT 03/18/17 06:00 04/17/17 05:59 03/18/17 12:43 0.5 INCH Albuterol/ Ipratropium (Duoneb) 3 ml Q2H PRN INH 03/18/17 02:30 04/17/17 02:29 Acetaminophen (Tylenol Tab) 650 mg Q4H PRN PO 03/18/17 02:30 04/17/17 02:29 Nitroglycerin (Nitrostat Tab) 0.4 mg UD PRN SL 03/18/17 02:30 04/17/17 02:29 Insulin Aspart (novoLOG ASPART) SLIDING SCALE If C... ACHS SC 03/18/17 07:00 04/17/17 06:59 Glucose (Glucose 40% Gel) 15-30 GRAMS 15 GRAMS... UD PRN PO 03/18/17 02:30 04/17/17 02:29 Glucose (Glucose Chew Tab) 4-8 Tablets 4 Tabl... UD PRN PO 03/18/17 02:30 04/17/17 02:29 Dextrose (Dextrose 50% 50ML Syringe) 25-50ML OF 50% DW IV FOR... UD PRN IV 03/18/17 02:30 04/17/17 02:29 Glucagon (Glucagon Inj) 1 mg UD PRN SQ 03/18/17 02:30 04/17/17 02:29 Hydromorphone HCl (Dilaudid Inj) 0.5 mg Q3H PRN IV 03/18/17 02:30 04/01/17 02:29 Tramadol HCl (Ultram Tab) 25 mg Q6H PRN PO 03/18/17 02:30 04/17/17 02:29 Ondansetron HCl (Zofran Inj) 4 mg Q6H PRN IV 03/18/17 02:30 04/17/17 02:29 Amlodipine Besylate (Norvasc Tab) 5 mg DAILY PO 03/18/17 09:00 04/17/17 08:59 03/18/17 09:42 5 MG Atorvastatin Calcium (Lipitor Tab) 80 mg DAILY PO 03/18/17 09:00 04/17/17 08:59 03/18/17 09:43 80 MG Carvedilol (Coreg Tab) 6.25 mg BID PO 03/18/17 09:00 04/17/17 08:59 03/18/17 09:42 6.25 MG Clopidogrel Bisulfate (plAVix TAB) 75 mg DAILY PO 03/18/17 09:00 04/17/17 08:59 03/18/17 09:42 75 MG Isosorbide Mononitrate (Imdur Ext Rel Tab) 60 mg QAM PO 03/18/17 09:00 04/17/17 08:59 03/18/17 09:42 60 MG Levothyroxine Sodium (Synthroid Tab) 88 mcg DAILYBB PO 03/18/17 06:00 04/17/17 06:59 03/18/17 06:02 88 MCG Senna/Docusate Sodium (Senokot S Tab) 2 tab DAILY PO 03/18/17 09:00 04/17/17 08:59 03/18/17 09:41 2 TAB Heparin Sodium/ Dextrose 500 ml @ 14 mls/hr Q24H PRN IV 03/18/17 03:30 04/17/17 03:29 Aspirin (Ecotrin Tab) 81 mg QAM PO 03/18/17 09:00 04/17/17 08:59 03/18/17 09:41 81 MG Lab Results: 03/18/17 06:55 Red Blood Count 3.29, Mean Corpuscular Volume 93.3, Mean Corpuscular Hemoglobin 30.7, Mean Corpuscular Hemoglobin Concent 32.9, Mean Platelet Volume 10.8, Neutrophils (%) (Auto) 74.1, Lymphocytes (%) (Auto) 16.4, Monocytes (%) (Auto) 8.2, Eosinophils (%) (Auto) 0.7, Basophils (%) (Auto) 0.2, Neutrophils # (Auto) 3.99, Lymphocytes # (Auto) 0.88, Monocytes # (Auto) 0.44, Eosinophils # (Auto) 0.04, Basophils # (Auto) 0.01 03/18/17 06:55 Test 03/17/17 23:21 03/17/17 23:57 03/18/17 01:59 03/18/17 05:10 Prothrombin Time 10.7 SECONDS (9.0-12.0) Prothromb Time International Ratio 1.0 (0.9-1.1) Magnesium Level 2.3 mg/dl (1.8-2.4) Total Creatine Kinase 40 U/L (26-192) Creatine Kinase MB 2.2 ng/ml (0.5-3.6) Creatine Kinase MB Ratio 5.5 (0-3.0) Bedside Hemoglobin 12.2 g/dl (12.0-16.0) Bedside Hematocrit 36 % (37-47) Bedside Sodium 139 mEq/L (135-144) Bedside Potassium 4.9 mEq/L (3.3-5.0) Bedside Chloride 102 mEq/L (101-112) Bedside Total CO2 28 mEq/l (24-31) Bedside Blood Urea Nitrogen 48 mg/dl (7-18) Bedside Creatinine 2.8 mg/dl (0.6-1.3) Bedside Glucose (other) 177 mg/dl (70-99) Bedside Ionized Calcium (Zeynep) 1.15 mmol/l (1.12-1.32) Bedside Troponin I 0.980 ng/ml (0-0.045) Arterial Blood pH 7.37 (7.35-7.45) Arterial Blood Partial Pressure CO2 46 mmHg (35-46) Arterial Blood Partial Pressure O2 84 mm/Hg (80-95) Arterial Blood HCO3 26 mmol/L (19-24) Arterial Blood Oxygen Saturation 95.1 % (90-95) Arterial Blood Base Excess 0.9 mEq/L (-9-1.8) Arterial Blood Gas Delivery 30% BIPAP Alfredo Test POS (POS) Urine Color YELLOW Urine Appearance CLEAR (CLEAR) Urine pH 5.0 (4.5-7.5) Urine Specific [place] 1.016 (1.000-1.030) Urine Protein 2+ (NEG) Urine Glucose (UA) NEG (NEG) Urine Ketones NEG (NEG) Urine Occult Blood NEG (NEG) Urine Nitrite NEG (NEG) Urine Bilirubin NEG (NEG) Urine Urobilinogen NEG (NEG) Urine Leukocyte Esterase MODERATE (NEG) Urine WBC (Auto) >30 /hpf (0-5) Urine RBC (Auto) 0-4 /hpf (0-4) Urine Hyaline Casts (Auto) 5-10 /lpf (0-5) Urine Epithelial Cells (Auto) >30 /lpf (0-5) Urine Bacteria (Auto) NEG (NEG) Test 03/18/17 06:55 03/18/17 11:11 White Blood Count 5.38 K/uL (4.8-10.8) Red Blood Count 3.29 M/uL (4.2-5.4) Hemoglobin 10.1 g/dL (12.0-16.0) Hematocrit 30.7 % (37-47) Mean Corpuscular Volume 93.3 fL (80-100) Mean Corpuscular Hemoglobin 30.7 pg (25-34) Mean Corpuscular Hemoglobin Concent 32.9 g/dl (32-36) Platelet Count 148 K/uL (130-400) Mean Platelet Volume 10.8 fL (7.4-10.4) Neutrophils (%) (Auto) 74.1 % Lymphocytes (%) (Auto) 16.4 % Monocytes (%) (Auto) 8.2 % Eosinophils (%) (Auto) 0.7 % Basophils (%) (Auto) 0.2 % Neutrophils # (Auto) 3.99 K/uL (1.4-6.5) Lymphocytes # (Auto) 0.88 K/uL (1.2-3.4) Monocytes # (Auto) 0.44 K/uL (0.11-0.59) Eosinophils # (Auto) 0.04 K/uL (0-0.5) Basophils # (Auto) 0.01 K/uL (0-0.2) RDW Standard Deviation 46.8 fL (36.4-46.3) RDW Coefficient of Variation 13.6 % (11.5-14.5) Immature Granulocyte % (Auto) 0.4 % Immature Granulocyte # (Auto) 0.02 K/uL (0.00-0.02) Absolute Reticulocyte Count 0.05 10^6/uL (0.02-0.10) Percent Reticulocyte Count 1.5 % (0.5-2.0) Activated Partial Thromboplast Time 49.5 SECONDS (21.0-31.0) Partial Thromboplastin Ratio 1.9 Anion Gap 7.0 mmol/L (3-11) Est Creatinine Clear Calc Drug Dose 14.8 ml/min Estimated GFR () 19.3 Estimated GFR (Non- 16.6 BUN/Creatinine Ratio 21.6 (10-20) Calcium Level 9.1 mg/dl (8.5-10.1) Iron Level 31 mcg/dl (35-150) Total Iron Binding Capacity 280 mcg/dl (250-450) Transferrin 223 mg/dl (200-360) Transferrin % Saturation 10 % (15-50) Ferritin 40.9 ng/ml (8.0-388.0) Troponin I 1.050 ng/ml (0-0.045) Vitamin B12 Level > 2000 pg/mL (211-911) Folate 15.10 ng/mL (>5.38) Bedside Glucose 118 mg/dl (70-90)
[2017-03-18] MEDS ORDERED: PANTOprazole SOD 40 MG TAB PO STA (17:59)
--- NOTE | 2017-03-18 18:20 | ECHOCARDIOGRAM REPORT ---
*NOTICE TO RECEIVING [employer] This information is strictly Confidential and protected under [place] law. [place] law prohibits you from making any further disclosure of this information unless further disclosure is expressly permitted by the written consent of the person to whom it pertains or is authorized by law. A general authorization for the release of medical or other information is not sufficient for this purpose. Hospital accepts no responsibility if the information is made available to any other person, INCLUDING THE PATIENT. Interpretation Summary * Name: RENEE LARIOS Study Date: 03/18/2017 01:31 PM BP: 111/65 mmHg * Patient Location: C.2T\S\S240\S\2 * : 1935 (M/d/yyyy) Gender: Female Height: 60 in * Age: 81 yrs Ethnicity: [place] Weight: 154 lb * Ordering Physician: Rafi Up * Referring Physician: Self, Referred * Performed By: Taylor Benoit RCS * * Reason For Study: CHF * BSA: 1.7 m2 * -- Conclusions -- * The left ventricle is mildly dilated. * There is mild concentric left ventricular hypertrophy. * Grade I diastolic dysfunction, (abnormal relaxation pattern). * Left ventricular systolic function is severely reduced. * There are regional wall motion abnormalities as specified. * The left atrium is moderately dilated. * The right atrium is mildly dilated. * Mild to moderate aortic regurgitation. * Mild valvular aortic stenosis. * There is mild to moderate mitral regurgitation. * Right ventricular systolic pressure is elevated at 50-60mmHg. Procedure Details * A complete two-dimensional transthoracic echocardiogram was performed (2D, M-mode, Doppler and color flow Doppler). Left Ventricle * The left ventricle is mildly dilated. * There is mild concentric left ventricular hypertrophy. * Left ventricular systolic function is severely reduced. * Grade I diastolic dysfunction, (abnormal relaxation pattern). * Ejection Fraction = 25-30%. * There are regional wall motion abnormalities as specified. * The patient is moderately hypokinetic but the basal anterior wall is moderately hypokinetic with akinetic distal portion. The lateral wall is moderately hypokinetic with akinesis of the apex. The septum is moderately hypokinetic Right Ventricle * The right ventricle is normal in size and function. Atria * The left atrium is moderately dilated. * The right atrium is mildly dilated. Mitral Valve * The mitral valve leaflets appear thickened, but open well. * There is mild to moderate mitral regurgitation. Tricuspid Valve * The tricuspid valve is not well visualized, but is grossly normal. * There is mild tricuspid regurgitation. * Right ventricular systolic pressure is elevated at 50-60mmHg. Aortic Valve * Aortic valve is moderately calcified * Mild valvular aortic stenosis. * Mild to moderate aortic regurgitation. * There is an eccentric jet of aortic insufficiency directed against the anterior mitral leaflet. Great Vessels * The aortic root is normal size. Pericardium/Pleural * There is no pericardial effusion. Great Vessels * The inferior vena cava is mildly dilated. MMode 2D Measurements and Calculations IVSd 1.4 cm IVSs 1.5 cm LVIDd 5.9 cm LVIDs 5.1 cm LVPWd 1.2 cm LVPWs 1.4 cm IVS/LVPW 1.2 FS 14.0 % EDV(Teich) 174.4 ml ESV(Teich) 123.1 ml EF(Teich) 29.4 % EDV(cubed) 207.3 ml ESV(cubed) 131.7 ml EF(cubed) 36.5 % % IVS thick 4.5 % % LVPW thick 8.6 % LV mass(C)d 358.2 grams LV mass(C)dI 214.4 grams/m\S\2 LV mass(C)s 308.6 grams LV mass(C)sI 184.7 grams/m\S\2 SV(Teich) 51.3 ml SI(Teich) 30.7 ml/m\S\2 SV(cubed) 75.6 ml SI(cubed) 45.3 ml/m\S\2 Ao root diam 2.7 cm Ao root area 5.9 cm\S\2 LA dimension 5.1 cm LA/Ao 1.9 LVOT diam 2.0 cm LVOT area 3.0 cm\S\2 Doppler Measurements and Calculations Ao V2 max 261.4 cm/sec Ao max PG 27.4 mmHg Ao max PG (full) 23.3 mmHg NESTOR(V,A) 1.2 cm\S\2 NESTOR(V,D) 1.2 cm\S\2 AI max jelena 320.6 cm/sec AI max PG 41.1 mmHg AI dec slope 286.4 cm/sec\S\2 AI P1/2t 327.9 msec LV V1 max PG 4.1 mmHg LV V1 max 100.8 cm/sec MR max jelena 473.4 cm/sec MR max PG 89.6 mmHg TR max jelena 344.6 cm/sec
[2017-03-18] MEDS: ALBUT/IPRATROP 3MG/0.5MG NEB 3 ML VIAL INH PRN (19:59)
[2017-03-19] VITALS (14 sets, daily range): BP systolic 109–143; BP diastolic 64–84; PULSE 68–81; TEMP 36–36.9; O2SAT 90–100
[2017-03-19] MEDS: NITROGLYCERIN OINT 2% 1GM PACKET EXT SCH ×4 (01:08→17:08)
[2017-03-19] MEDS: LEVOTHYROXINE 88 MCG TAB PO SCH (06:23)
[2017-03-19 06:39] LABS: BASO % 0.4 %; BASO ABS # 0.02 K/uL (0-0.2); COMPLETE YES; EOS % 2.5 %; HEMATOCRIT 29.9 % (37-47); IG% 0.4 %; LYMPH % 11.2 %; LYMPH ABS # 0.59 K/uL (1.2-3.4); MEAN CELL VOLUME 94.6 fL (80-100); MEAN CORPUSCULAR HGB CONC 32.8 g/dl (32-36); MEAN PLATELET VOLUME 10.6 fL (7.4-10.4); NEUT % 75.5 %; PLATELET COUNT 141 K/uL (130-400); RED BLOOD COUNT 3.16 M/uL (4.2-5.4); WHITE BLOOD COUNT 5.28 K/uL (4.8-10.8)
[2017-03-19 06:52] LABS: PARTIAL THROMBOPLASTIN RATIO 1.4
[2017-03-19 07:13] LABS: BUN/CREATININE RATIO 21.8 (10-20); CREATININE 2.7 mg/dl (0.60-1.20); POTASSIUM 4.2 mmol/L (3.5-5.1)
[2017-03-19] MEDS ORDERED: HEPARIN IV BOLUS 4,000 UNIT in SYRINGE 0 ML IV ONE (08:00)
[2017-03-19] MEDS: ATORVASTATIN 40 MG TAB PO SCH (08:43)
[2017-03-19] MEDS: DOCUSATE SODIUM/SENNA 50/8.6MG TAB PO SCH (08:43)
[2017-03-19] MEDS: ASPIRIN 81 MG ECTAB PO SCH (08:43)
[2017-03-19] MEDS: CARVEDILOL 6.25 MG TAB PO SCH ×2 (08:43→21:36)
[2017-03-19] MEDS: CLOPIDOGREL BISULFATE 75 MG TAB PO SCH (08:43)
[2017-03-19] MEDS: AMLODIPINE BESYLATE 5 MG TAB PO SCH (08:43)
[2017-03-19] MEDS: ISOSORBIDE MONONITRATE 60 MG TABCR PO SCH (08:44)
[2017-03-19] MEDS: PANTOprazole SOD 40 MG TAB PO SCH (08:44)
[2017-03-19] MEDS: INSULIN ASPART 100 UNITS/ML 3 ML PEN SC SCH ×4 (08:45→20:59)
--- NOTE | 2017-03-19 12:16 | Cardiology Follow-Up ---
Subjective Subjective Date of Service: Mar 19, 2017. Pt evaluation today including: conversation w/ patient, physical exam, lab review, review of studies, review of inpatient medication list Additional Details: Increased dyspnea this AM. Denies idalmis chest pain. Back on Bipap overnight. Tele reviewed -- occasional PVCs Echo reviewed -- severe LV dysfunction. LAD distribution wall motion abnormalities. Problem List Medical Problems: (1) Acute myocardial infarction Status: Acute (2) Pulmonary edema Status: Acute (3) Renal failure (ARF), acute on chronic Status: Acute Review of Systems Constitutional: + weakness, No fever, No chills Respiratory: + shortness of breath (improving), + dyspnea on exertion, + dyspnea at rest, No cough, No sputum, No wheezing, No hemoptysis Cardiac: No chest pain, No edema, No palpitations Abdomen: + pain (crampy epigastric/midabdominal pain), + constipation, No nausea, No vomiting, No diarrhea Heme: No abnormal bleeding/bruising Objective Vital Signs Last Vital Signs Documentation Date Time Temp Pulse Resp B/P (MAP) Pulse Ox O2 Delivery O2 Flow Rate FiO2 03/19/17 11:26 78 96 30 03/19/17 08:25 36.5 20 127/77 (94) Diffusion Mask 5.0 Physical Exam: General Appearance: no apparent distress ENT: hearing grossly normal Neck: no JVD (difficult to assess) Respiratory/Chest: + decreased breath sounds (at bases bilaterally left > right ), + accessory muscle use, + crackles (scant ) Cardiovascular: regular rate, rhythm, no edema, + systolic murmur Abdomen: normal bowel sounds, non tender, soft Extremities: + pertinent finding (well perfused, intact distal pulses, trace LE edema) Neurologic/Psychiatric: no motor/sensory deficits, alert, normal mood/affect Skin: normal color Assessment and Plan 1. Acute respiratory distress. 2. Acute systolic heart failure/ICM -- severe LV dysfunction with LAD distribution infarc 3. Acute on chronic renal insufficiency 4. NSTEMI 5. Known severe multivessel coronary artery disease status post recent high risk complex percutaneous coronary intervention to left main, LAD and circumflex, and known residual severe RCA disease. 6. Type 2 diabetes. 7. Anemia. Breathing more difficult this AM. Back on Bipap She remains well perfused today. Persistent mild pulmonary congestion. Troponin trend flat. ECG unchanged, largely chest pain free. Renal function stable -- Continued medical management of patients ACS/CAD -- heparin infusion for 48 hrs, continued nitrates -- Recommend additional diuresis --> repeat 40 mg IV today -- Continued close follow-up I/Os, BMP -- Continue DAPT with ASA/Plavix -- Continue beta-brian Will continue to follow. Medications: Current Inpatient Medications Medications (Trade) Dose Ordered Sig/Izaiah Route Start Time Stop Time Status Last Admin Dose Admin Nitroglycerin (Nitroglycerin 2% Oint) 0.5 inch Q6H EXT 03/18/17 06:00 04/17/17 05:59 03/19/17 11:40 0.5 INCH Albuterol/ Ipratropium (Duoneb) 3 ml Q2H PRN INH 03/18/17 02:30 04/17/17 02:29 03/18/17 19:59 3 ML Acetaminophen (Tylenol Tab) 650 mg Q4H PRN PO 03/18/17 02:30 04/17/17 02:29 Nitroglycerin (Nitrostat Tab) 0.4 mg UD PRN SL 03/18/17 02:30 04/17/17 02:29 Insulin Aspart (novoLOG ASPART) SLIDING SCALE If C... ACHS SC 03/18/17 07:00 04/17/17 06:59 Glucose (Glucose 40% Gel) 15-30 GRAMS 15 GRAMS... UD PRN PO 03/18/17 02:30 04/17/17 02:29 Glucose (Glucose Chew Tab) 4-8 Tablets 4 Tabl... UD PRN PO 03/18/17 02:30 04/17/17 02:29 Dextrose (Dextrose 50% 50ML Syringe) 25-50ML OF 50% DW IV FOR... UD PRN IV 03/18/17 02:30 04/17/17 02:29 Glucagon (Glucagon Inj) 1 mg UD PRN SQ 03/18/17 02:30 04/17/17 02:29 Hydromorphone HCl (Dilaudid Inj) 0.5 mg Q3H PRN IV 03/18/17 02:30 04/01/17 02:29 Tramadol HCl (Ultram Tab) 25 mg Q6H PRN PO 03/18/17 02:30 04/17/17 02:29 Ondansetron HCl (Zofran Inj) 4 mg Q6H PRN IV 03/18/17 02:30 04/17/17 02:29 Amlodipine Besylate (Norvasc Tab) 5 mg DAILY PO 03/18/17 09:00 04/17/17 08:59 03/19/17 08:43 5 MG Atorvastatin Calcium (Lipitor Tab) 80 mg DAILY PO 03/18/17 09:00 04/17/17 08:59 03/19/17 08:43 80 MG Carvedilol (Coreg Tab) 6.25 mg BID PO 03/18/17 09:00 04/17/17 08:59 03/19/17 08:43 6.25 MG Clopidogrel Bisulfate (plAVix TAB) 75 mg DAILY PO 03/18/17 09:00 04/17/17 08:59 03/19/17 08:43 75 MG Isosorbide Mononitrate (Imdur Ext Rel Tab) 60 mg QAM PO 03/18/17 09:00 04/17/17 08:59 03/19/17 08:44 60 MG Levothyroxine Sodium (Synthroid Tab) 88 mcg DAILYBB PO 03/18/17 06:00 04/17/17 06:59 03/19/17 06:23 88 MCG Senna/Docusate Sodium (Senokot S Tab) 2 tab DAILY PO 03/18/17 09:00 04/17/17 08:59 03/19/17 08:43 2 TAB Heparin Sodium/ Dextrose 500 ml @ 16 mls/hr Q24H PRN IV 03/18/17 03:30 04/17/17 03:29 03/19/17 09:31 16 MLS/HR Aspirin (Ecotrin Tab) 81 mg QAM PO 03/18/17 09:00 04/17/17 08:59 03/19/17 08:43 81 MG Pantoprazole Sodium (Protonix Tab) 40 mg QAM PO 03/19/17 09:00 04/18/17 08:59 03/19/17 08:44 40 MG Lab Results: 03/19/17 06:14 Red Blood Count 3.16, Mean Corpuscular Volume 94.6, Mean Corpuscular Hemoglobin 31.0, Mean Corpuscular Hemoglobin Concent 32.8, Mean Platelet Volume 10.6, Neutrophils (%) (Auto) 75.5, Lymphocytes (%) (Auto) 11.2, Monocytes (%) (Auto) 10.0, Eosinophils (%) (Auto) 2.5, Basophils (%) (Auto) 0.4, Neutrophils # (Auto ) 3.99, Lymphocytes # (Auto) 0.59, Monocytes # (Auto) 0.53, Eosinophils # (Auto ) 0.13, Basophils # (Auto) 0.02 03/19/17 06:14 Test 03/19/17 06:14 03/19/17 11:15 White Blood Count 5.28 K/uL (4.8-10.8) Red Blood Count 3.16 M/uL (4.2-5.4) Hemoglobin 9.8 g/dL (12.0-16.0) Hematocrit 29.9 % (37-47) Mean Corpuscular Volume 94.6 fL (80-100) Mean Corpuscular Hemoglobin 31.0 pg (25-34) Mean Corpuscular Hemoglobin Concent 32.8 g/dl (32-36) Platelet Count 141 K/uL (130-400) Mean Platelet Volume 10.6 fL (7.4-10.4) Neutrophils (%) (Auto) 75.5 % Lymphocytes (%) (Auto) 11.2 % Monocytes (%) (Auto) 10.0 % Eosinophils (%) (Auto) 2.5 % Basophils (%) (Auto) 0.4 % Neutrophils # (Auto) 3.99 K/uL (1.4-6.5) Lymphocytes # (Auto) 0.59 K/uL (1.2-3.4) Monocytes # (Auto) 0.53 K/uL (0.11-0.59) Eosinophils # (Auto) 0.13 K/uL (0-0.5) Basophils # (Auto) 0.02 K/uL (0-0.2) RDW Standard Deviation 47.3 fL (36.4-46.3) RDW Coefficient of Variation 13.8 % (11.5-14.5) Immature Granulocyte % (Auto) 0.4 % Immature Granulocyte # (Auto) 0.02 K/uL (0.00-0.02) Activated Partial Thromboplast Time 36.0 SECONDS (21.0-31.0) Partial Thromboplastin Ratio 1.4 Anion Gap 7.0 mmol/L (3-11) Est Creatinine Clear Calc Drug Dose 15.1 ml/min Estimated GFR () 18.4 Estimated GFR (Non- 15.9 BUN/Creatinine Ratio 21.8 (10-20) Calcium Level 9.0 mg/dl (8.5-10.1) Bedside Glucose 147 mg/dl (70-90)
[2017-03-19] MEDS ORDERED: LORAZEPAM INJ 0.5 MG in SYRINGE 0.75 ML IV PRN (13:30)
[2017-03-19] MEDS ORDERED: FUROSEMIDE 40 MG/4 ML VIAL IV ONE (13:30)
[2017-03-19] MEDS ORDERED: LORAZEPAM 2 MG/ML 1 ML VIAL IV ONE (13:30)
--- NOTE | 2017-03-19 14:08 | Progress Note ---
Subjective Date of Service: Mar 19, 2017. Subjective Pt evaluation today including: conversation w/ patient, physical exam, lab review, review of studies, review of inpatient medication list Saw/examined the patient in room 240-2 She is short of breath; had bipap on, but did not tolerate it, now with simple mask She is using her accessory muscles to breath - but tells me she feels better than she did the day she came in +respiratory distress +chest congestion States she feels very anxious Problem List Medical Problems: (1) Acute myocardial infarction Status: Acute (2) Pulmonary edema Status: Acute (3) Renal failure (ARF), acute on chronic Status: Acute Review of Systems Constitutional: No fever, No chills Respiratory: + cough, + sputum, + shortness of breath, + dyspnea on exertion, + dyspnea at rest Cardiac: + edema, No chest pain, No palpitations Abdomen: No pain, No nausea, No vomiting, No diarrhea Psychiatric: + anxiety Medications Current Inpatient Medications Medications (Trade) Dose Ordered Sig/Izaiah Route Start Time Stop Time Status Last Admin Dose Admin Nitroglycerin (Nitroglycerin 2% Oint) 0.5 inch Q6H EXT 03/18/17 06:00 04/17/17 05:59 03/19/17 11:40 0.5 INCH Albuterol/ Ipratropium (Duoneb) 3 ml Q2H PRN INH 03/18/17 02:30 04/17/17 02:29 03/18/17 19:59 3 ML Acetaminophen (Tylenol Tab) 650 mg Q4H PRN PO 03/18/17 02:30 04/17/17 02:29 Nitroglycerin (Nitrostat Tab) 0.4 mg UD PRN SL 03/18/17 02:30 04/17/17 02:29 Insulin Aspart (novoLOG ASPART) SLIDING SCALE If C... ACHS SC 03/18/17 07:00 04/17/17 06:59 Glucose (Glucose 40% Gel) 15-30 GRAMS 15 GRAMS... UD PRN PO 03/18/17 02:30 04/17/17 02:29 Glucose (Glucose Chew Tab) 4-8 Tablets 4 Tabl... UD PRN PO 03/18/17 02:30 04/17/17 02:29 Dextrose (Dextrose 50% 50ML Syringe) 25-50ML OF 50% DW IV FOR... UD PRN IV 03/18/17 02:30 04/17/17 02:29 Glucagon (Glucagon Inj) 1 mg UD PRN SQ 03/18/17 02:30 04/17/17 02:29 Hydromorphone HCl (Dilaudid Inj) 0.5 mg Q3H PRN IV 03/18/17 02:30 04/01/17 02:29 Tramadol HCl (Ultram Tab) 25 mg Q6H PRN PO 03/18/17 02:30 04/17/17 02:29 Ondansetron HCl (Zofran Inj) 4 mg Q6H PRN IV 03/18/17 02:30 04/17/17 02:29 Amlodipine Besylate (Norvasc Tab) 5 mg DAILY PO 03/18/17 09:00 04/17/17 08:59 03/19/17 08:43 5 MG Atorvastatin Calcium (Lipitor Tab) 80 mg DAILY PO 03/18/17 09:00 04/17/17 08:59 03/19/17 08:43 80 MG Carvedilol (Coreg Tab) 6.25 mg BID PO 03/18/17 09:00 04/17/17 08:59 03/19/17 08:43 6.25 MG Clopidogrel Bisulfate (plAVix TAB) 75 mg DAILY PO 03/18/17 09:00 04/17/17 08:59 03/19/17 08:43 75 MG Isosorbide Mononitrate (Imdur Ext Rel Tab) 60 mg QAM PO 03/18/17 09:00 04/17/17 08:59 03/19/17 08:44 60 MG Levothyroxine Sodium (Synthroid Tab) 88 mcg DAILYBB PO 03/18/17 06:00 04/17/17 06:59 03/19/17 06:23 88 MCG Senna/Docusate Sodium (Senokot S Tab) 2 tab DAILY PO 03/18/17 09:00 04/17/17 08:59 03/19/17 08:43 2 TAB Heparin Sodium/ Dextrose 500 ml @ 16 mls/hr Q24H PRN IV 03/18/17 03:30 04/17/17 03:29 03/19/17 09:31 16 MLS/HR Aspirin (Ecotrin Tab) 81 mg QAM PO 03/18/17 09:00 04/17/17 08:59 03/19/17 08:43 81 MG Pantoprazole Sodium (Protonix Tab) 40 mg QAM PO 03/19/17 09:00 04/18/17 08:59 03/19/17 08:44 40 MG Lorazepam (Ativan Inj) 0.5 mg Q4H PRN IV 03/19/17 13:15 04/18/17 13:14 Lorazepam 0.5 mg/ Syringe 1 ml @ 1 mls/min Q4H PRN IV 03/19/17 13:30 04/18/17 13:29 Objective Vital Signs Date Time Temp Pulse Resp B/P (MAP) Pulse Ox O2 Delivery O2 Flow Rate FiO2 03/19/17 12:39 36.0 68 20 135/84 (101) 96 BiPAP 68 03/19/17 12:00 BiPAP 30 03/19/17 11:26 78 96 30 03/19/17 08:25 36.5 73 20 127/77 (94) 100 Diffusion Mask 5.0 73 03/19/17 08:15 BiPAP 30 03/19/17 07:35 81 95 30 03/19/17 05:15 75 96 30 03/19/17 04:00 Nasal Cannula 4.0 30 BiPAP 03/19/17 03:35 36.5 69 20 109/71 (84) 96 BiPAP 03/19/17 02:08 77 95 30 03/19/17 00:00 Nasal Cannula 4.0 30 BiPAP 03/18/17 23:22 36.7 74 20 124/79 (94) 97 BiPAP 03/18/17 22:32 74 93 30 03/18/17 20:01 85 93 30 03/18/17 20:00 85 26 94 BiPAP/CPAP 30 03/18/17 20:00 Nasal Cannula 4.0 03/18/17 19:48 36.7 89 22 113/70 (84) 91 Nasal Cannula 4.0 03/18/17 16:00 Nasal Cannula 4.0 03/18/17 15:28 36.4 69 20 107/60 (76) 96 Nasal Cannula 3.0 Physical Exam General Appearance: + moderate distress (respiratory distress), + obese Respiratory/Chest: + respiratory distress, + decreased breath sounds, + accessory muscle use, + wheezing Cardiovascular: regular rate, rhythm Abdomen: normal bowel sounds, non tender, soft Extremities: + pertinent finding (trace pitting edema) Neurologic/Psychiatric: no motor/sensory deficits, alert, + pertinent finding ( +anxious) Laboratory Results Last 24 Hours Test 03/18/17 16:06 03/18/17 20:19 03/19/17 06:14 03/19/17 06:33 Bedside Glucose 132 mg/dl 130 mg/dl 141 mg/dl White Blood Count 5.28 K/uL Red Blood Count 3.16 M/uL Hemoglobin 9.8 g/dL Hematocrit 29.9 % Mean Corpuscular Volume 94.6 fL Mean Corpuscular Hemoglobin 31.0 pg Mean Corpuscular Hemoglobin Concent 32.8 g/dl Platelet Count 141 K/uL Mean Platelet Volume 10.6 fL Neutrophils (%) (Auto) 75.5 % Lymphocytes (%) (Auto) 11.2 % Monocytes (%) (Auto) 10.0 % Eosinophils (%) (Auto) 2.5 % Basophils (%) (Auto) 0.4 % Neutrophils # (Auto) 3.99 K/uL Lymphocytes # (Auto) 0.59 K/uL Monocytes # (Auto) 0.53 K/uL Eosinophils # (Auto) 0.13 K/uL Basophils # (Auto) 0.02 K/uL RDW Standard Deviation 47.3 fL RDW Coefficient of Variation 13.8 % Immature Granulocyte % (Auto) 0.4 % Immature Granulocyte # (Auto) 0.02 K/uL Activated Partial Thromboplast Time 36.0 SECONDS Partial Thromboplastin Ratio 1.4 Sodium Level 138 mmol/L Potassium Level 4.2 mmol/L Chloride Level 102 mmol/L Carbon Dioxide Level 29 mmol/L Anion Gap 7.0 mmol/L Blood Urea Nitrogen 59 mg/dl Creatinine 2.70 mg/dl Est Creatinine Clear Calc Drug Dose 15.1 ml/min Estimated GFR () 18.4 Estimated GFR (Non- 15.9 BUN/Creatinine Ratio 21.8 Random Glucose 132 mg/dl Calcium Level 9.0 mg/dl Test 03/19/17 11:15 Bedside Glucose 147 mg/dl Assessment and Plan This is an 81 year old female with a PMH of CAD s/p stenting, ischemic cardiomyopathy, chronic systolic CHF with EF ~40%, HTN, HLD, Hypothyroidism, CKD stage 4 with baseline creatinine around mid 2's presents with shortness of breath and weakness Acute Hypoxemic Respiratory Failure secondary to Acute on Chronic Systolic CHF 03/19 patient's breathing status worsened overnight and today will give one dose of Lasix 40mg IV added Ativan continue IV heparin for one day, then d/c as per cardio 03/18 underlying ischemic cardiomyopathy with hx. of CAD patient presented to the ER with acute shortness of breath placed on bipap initially, nitroglycerin drip was started the nitro drip has since been weaned off, bipap has been weaned off currently with a nitro patch IV Lasix given Matos placed for accurate I's and O's and for patient comfort clinically improving Acute Coronary Syndrome in the setting of CAD s/p stenting 03/19 IV heparin drip for 48 hours then we'll stop (at the end of today) continue aspirin and Plavix 03/18 patient has elevated troponin level; multifactorial, including acute coronary disease, CHF exacerbation, kidney disease placed on IV heparin for now continue current medications for CAD, including aspirin, Plavix, statin, Imdur, Coreg appreciate cardiology input CKD stage 4 03/19 monitor kidney function giving another dose of IV Lasix 03/18 patient with creatinine up to 2.8 on admission improved with Lasix likely due to mobilizing fluids monitor kidney function, avoid nephrotoxic agents if possible if further diuresis required, may need nephrology consulted HTN blood pressure stable currently has a nitro patch on continue amlodipine and Coreg Hypothyroidism continue Synthroid DVT ppx IV heparin FULL CODE
[2017-03-19 16:16] LABS: PARTIAL THROMBOPLASTIN RATIO 2.3
[2017-03-19] MEDS: LORAZEPAM 2 MG/ML 1 ML VIAL IV PRN (21:43)
[2017-03-19] MEDS: ALBUT/IPRATROP 3MG/0.5MG NEB 3 ML VIAL INH PRN (21:47)
[2017-03-20] VITALS (12 sets, daily range): BP systolic 106–122; BP diastolic 69–77; PULSE 61–84; TEMP 36.3–36.9; O2SAT 91–98
[2017-03-20] MEDS: LEVOTHYROXINE 88 MCG TAB PO SCH ×2 (06:00→07:55)
[2017-03-20] MEDS: NITROGLYCERIN OINT 2% 1GM PACKET EXT SCH ×4 (06:33→17:23)
[2017-03-20 06:52] LABS: BASO % 0.2 %; BASO ABS # 0.01 K/uL (0-0.2); COMPLETE YES; EOS % 2.8 %; HEMATOCRIT 29.7 % (37-47); IG% 0.4 %; LYMPH % 16.9 %; LYMPH ABS # 0.79 K/uL (1.2-3.4); MEAN CELL VOLUME 93.1 fL (80-100); MEAN CORPUSCULAR HEMOGLOBIN 30.7 pg (25-34); MEAN PLATELET VOLUME 10.6 fL (7.4-10.4); MONO % 11.1 %; NEUT % 68.6 %; PLATELET COUNT 137 K/uL (130-400); RED BLOOD COUNT 3.19 M/uL (4.2-5.4); WHITE BLOOD COUNT 4.67 K/uL (4.8-10.8)
[2017-03-20 07:10] LABS: PARTIAL THROMBOPLASTIN RATIO 1.8
[2017-03-20 07:29] LABS: BUN/CREATININE RATIO 22.9 (10-20); CALCIUM 8.9 mg/dl (8.5-10.1); CREATININE 2.7 mg/dl (0.60-1.20); POTASSIUM 4.1 mmol/L (3.5-5.1)
[2017-03-20] MEDS: DOCUSATE SODIUM/SENNA 50/8.6MG TAB PO SCH (07:54)
[2017-03-20] MEDS: CARVEDILOL 6.25 MG TAB PO SCH ×2 (07:54→21:00)
[2017-03-20] MEDS: AMLODIPINE BESYLATE 5 MG TAB PO SCH (07:54)
[2017-03-20] MEDS: CLOPIDOGREL BISULFATE 75 MG TAB PO SCH (07:55)
[2017-03-20] MEDS: ATORVASTATIN 40 MG TAB PO SCH (07:55)
[2017-03-20] MEDS: ASPIRIN 81 MG ECTAB PO SCH (07:55)
[2017-03-20] MEDS: PANTOprazole SOD 40 MG TAB PO SCH (07:56)
[2017-03-20] MEDS: ISOSORBIDE MONONITRATE 60 MG TABCR PO SCH (07:56)
[2017-03-20] MEDS: LORAZEPAM 2 MG/ML 1 ML VIAL IV PRN ×2 (08:02→17:23)
[2017-03-20] MEDS: INSULIN ASPART 100 UNITS/ML 3 ML PEN SC SCH ×4 (08:08→20:54)
[2017-03-20] MEDS ORDERED: FUROSEMIDE INJ 40 MG in SYRINGE 0 ML IV ONE (09:15)
--- NOTE | 2017-03-20 09:16 | Progress Note ---
Subjective Date of Service: Mar 20, 2017. Subjective Pt evaluation today including: conversation w/ patient, physical exam, lab review, review of studies, review of inpatient medication list Saw/examined the patient in room 240 Simple mask is on her face She denies chest pain Tells me she feels better than yesterday; still using accessory muscle for respiration Denies fevers/chills Problem List Medical Problems: (1) Acute myocardial infarction Status: Acute (2) Pulmonary edema Status: Acute (3) Renal failure (ARF), acute on chronic Status: Acute Review of Systems Constitutional: No fever, No chills Respiratory: + shortness of breath, + dyspnea on exertion, + dyspnea at rest Cardiac: No chest pain, No edema, No palpitations Medications Current Inpatient Medications Medications (Trade) Dose Ordered Sig/Izaiah Route Start Time Stop Time Status Last Admin Dose Admin Nitroglycerin (Nitroglycerin 2% Oint) 0.5 inch Q6H EXT 03/18/17 06:00 04/17/17 05:59 03/20/17 06:33 0.5 INCH Albuterol/ Ipratropium (Duoneb) 3 ml Q2H PRN INH 03/18/17 02:30 04/17/17 02:29 03/19/17 21:47 3 ML Acetaminophen (Tylenol Tab) 650 mg Q4H PRN PO 03/18/17 02:30 04/17/17 02:29 Nitroglycerin (Nitrostat Tab) 0.4 mg UD PRN SL 03/18/17 02:30 04/17/17 02:29 Insulin Aspart (novoLOG ASPART) SLIDING SCALE If C... ACHS SC 03/18/17 07:00 04/17/17 06:59 Glucose (Glucose 40% Gel) 15-30 GRAMS 15 GRAMS... UD PRN PO 03/18/17 02:30 04/17/17 02:29 Glucose (Glucose Chew Tab) 4-8 Tablets 4 Tabl... UD PRN PO 03/18/17 02:30 04/17/17 02:29 Dextrose (Dextrose 50% 50ML Syringe) 25-50ML OF 50% DW IV FOR... UD PRN IV 03/18/17 02:30 04/17/17 02:29 Glucagon (Glucagon Inj) 1 mg UD PRN SQ 03/18/17 02:30 04/17/17 02:29 Hydromorphone HCl (Dilaudid Inj) 0.5 mg Q3H PRN IV 03/18/17 02:30 04/01/17 02:29 Tramadol HCl (Ultram Tab) 25 mg Q6H PRN PO 03/18/17 02:30 04/17/17 02:29 Ondansetron HCl (Zofran Inj) 4 mg Q6H PRN IV 03/18/17 02:30 04/17/17 02:29 Amlodipine Besylate (Norvasc Tab) 5 mg DAILY PO 03/18/17 09:00 04/17/17 08:59 03/20/17 07:54 5 MG Atorvastatin Calcium (Lipitor Tab) 80 mg DAILY PO 03/18/17 09:00 04/17/17 08:59 03/20/17 07:55 80 MG Carvedilol (Coreg Tab) 6.25 mg BID PO 03/18/17 09:00 04/17/17 08:59 03/20/17 07:54 6.25 MG Clopidogrel Bisulfate (plAVix TAB) 75 mg DAILY PO 03/18/17 09:00 04/17/17 08:59 03/20/17 07:55 75 MG Isosorbide Mononitrate (Imdur Ext Rel Tab) 60 mg QAM PO 03/18/17 09:00 04/17/17 08:59 03/20/17 07:56 60 MG Levothyroxine Sodium (Synthroid Tab) 88 mcg DAILYBB PO 03/18/17 06:00 04/17/17 06:59 03/20/17 07:55 88 MCG Senna/Docusate Sodium (Senokot S Tab) 2 tab DAILY PO 03/18/17 09:00 04/17/17 08:59 03/20/17 07:54 2 TAB Aspirin (Ecotrin Tab) 81 mg QAM PO 03/18/17 09:00 04/17/17 08:59 03/20/17 07:55 81 MG Pantoprazole Sodium (Protonix Tab) 40 mg QAM PO 03/19/17 09:00 04/18/17 08:59 03/20/17 07:56 40 MG Lorazepam (Ativan Inj) 0.5 mg Q4H PRN IV 03/19/17 13:15 04/18/17 13:14 03/20/17 08:02 0.5 MG Lorazepam 0.5 mg/ Syringe 1 ml @ 1 mls/min Q4H PRN IV 03/19/17 13:30 04/18/17 13:29 Objective Vital Signs Date Time Temp Pulse Resp B/P (MAP) Pulse Ox O2 Delivery O2 Flow Rate FiO2 03/20/17 07:55 36.4 68 22 119/72 (88) 94 BiPAP 30 03/20/17 07:17 64 93 30 03/20/17 05:19 67 94 30 03/20/17 04:55 36.5 61 20 106/73 (84) 91 BiPAP 03/20/17 04:00 BiPAP 30 03/20/17 02:03 68 93 30 03/20/17 00:00 BiPAP 30 03/19/17 23:29 36.3 75 20 116/64 (81) 90 BiPAP 03/19/17 23:00 74 94 30 03/19/17 21:49 78 97 30 03/19/17 21:48 78 19 97 BiPAP/CPAP 30 03/19/17 20:00 BiPAP 30 03/19/17 19:04 36.7 71 18 143/83 (103) 96 BiPAP 03/19/17 19:00 70 96 30 03/19/17 16:00 Oxymask 03/19/17 15:48 36.9 77 20 121/76 (91) 99 Mask 11.0 03/19/17 12:39 36.0 68 20 135/84 (101) 96 BiPAP 68 03/19/17 12:00 BiPAP 30 03/19/17 11:26 78 96 30 Physical Exam General Appearance: + mild distress (respiratory distress) Respiratory/Chest: + respiratory distress, + decreased breath sounds, + accessory muscle use Cardiovascular: regular rate, rhythm, no edema, no JVD, no murmur Abdomen: normal bowel sounds, non tender, soft Neurologic/Psychiatric: no motor/sensory deficits, alert, normal mood/affect Laboratory Results Last 24 Hours Test 03/19/17 11:15 03/19/17 15:39 03/19/17 16:56 03/19/17 20:13 Bedside Glucose 147 mg/dl 110 mg/dl 117 mg/dl Activated Partial Thromboplast Time 59.8 SECONDS Partial Thromboplastin Ratio 2.3 Test 03/20/17 06:14 03/20/17 06:50 White Blood Count 4.67 K/uL Red Blood Count 3.19 M/uL Hemoglobin 9.8 g/dL Hematocrit 29.7 % Mean Corpuscular Volume 93.1 fL Mean Corpuscular Hemoglobin 30.7 pg Mean Corpuscular Hemoglobin Concent 33.0 g/dl Platelet Count 137 K/uL Mean Platelet Volume 10.6 fL Neutrophils (%) (Auto) 68.6 % Lymphocytes (%) (Auto) 16.9 % Monocytes (%) (Auto) 11.1 % Eosinophils (%) (Auto) 2.8 % Basophils (%) (Auto) 0.2 % Neutrophils # (Auto) 3.20 K/uL Lymphocytes # (Auto) 0.79 K/uL Monocytes # (Auto) 0.52 K/uL Eosinophils # (Auto) 0.13 K/uL Basophils # (Auto) 0.01 K/uL RDW Standard Deviation 46.5 fL RDW Coefficient of Variation 13.6 % Immature Granulocyte % (Auto) 0.4 % Immature Granulocyte # (Auto) 0.02 K/uL Activated Partial Thromboplast Time 46.5 SECONDS Partial Thromboplastin Ratio 1.8 Sodium Level 139 mmol/L Potassium Level 4.1 mmol/L Chloride Level 102 mmol/L Carbon Dioxide Level 29 mmol/L Anion Gap 8.0 mmol/L Blood Urea Nitrogen 62 mg/dl Creatinine 2.70 mg/dl Est Creatinine Clear Calc Drug Dose 15.1 ml/min Estimated GFR () 18.4 Estimated GFR (Non- 15.9 BUN/Creatinine Ratio 22.9 Random Glucose 107 mg/dl Calcium Level 8.9 mg/dl Bedside Glucose 117 mg/dl Assessment and Plan This is an 81 year old female with a PMH of CAD s/p stenting, ischemic cardiomyopathy, chronic systolic CHF with EF ~40%, HTN, HLD, Hypothyroidism, CKD stage 4 with baseline creatinine around mid 2's presents with shortness of breath and weakness Acute Hypoxemic Respiratory Failure secondary to Acute on Chronic Systolic CHF 03/20 continues to have shortness of breath Ativan has helped her will give one more dose of IV Lasix, but cautiously, due to her kidney function stopped IV heparin 9/2 patient's breathing status worsened overnight and today will give one dose of Lasix 40mg IV added Ativan continue IV heparin for one day, then d/c as per cardio 03/18 underlying ischemic cardiomyopathy with hx. of CAD patient presented to the ER with acute shortness of breath placed on bipap initially, nitroglycerin drip was started the nitro drip has since been weaned off, bipap has been weaned off currently with a nitro patch IV Lasix given Matos placed for accurate I's and O's and for patient comfort clinically improving Elevated Troponin in the setting of CAD s/p stenting 03/20 unlikely related to an acute coronary syndrome either way, stopped IV heparin continue aspirin + Plavix appreciate cardiology input 03/19 IV heparin drip for 48 hours then we'll stop (at the end of today) continue aspirin and Plavix 03/18 patient has elevated troponin level; multifactorial, including acute coronary disease, CHF exacerbation, kidney disease placed on IV heparin for now continue current medications for CAD, including aspirin, Plavix, statin, Imdur, Coreg appreciate cardiology input CKD stage 4 03/19 monitor kidney function giving another dose of IV Lasix 03/18 patient with creatinine up to 2.8 on admission improved with Lasix likely due to mobilizing fluids monitor kidney function, avoid nephrotoxic agents if possible if further diuresis required, may need nephrology consulted HTN blood pressure stable currently has a nitro patch on continue amlodipine and Coreg Hypothyroidism continue Synthroid DVT ppx IV heparin FULL CODE
[2017-03-20] MEDS: DOXYCYCLINE IV 100 MG in DEXTROSE 5% 100ML 100 ML IV SCH ×2 (10:29→20:53)
--- NOTE | 2017-03-20 14:55 | Cardiology Follow-Up ---
Subjective Subjective Date of Service: Mar 20, 2017. Pt evaluation today including: conversation w/ patient, physical exam, chart review, lab review, review of studies, review of inpatient medication list Additional Details: Still dyspneic. Increased work of breathing currently on face mask. Denies chest pain. Tele Problem List Medical Problems: (1) Acute myocardial infarction Status: Acute (2) Pulmonary edema Status: Acute (3) Renal failure (ARF), acute on chronic Status: Acute Review of Systems Constitutional: No fever, No chills Respiratory: + shortness of breath, + dyspnea on exertion, + dyspnea at rest Cardiac: No chest pain, No edema, No palpitations Abdomen: No pain, No nausea, No vomiting, No diarrhea Neurologic: No numbness/tingling Psychiatric: + anxiety Heme: No abnormal bleeding/bruising Skin: No rash Objective Vital Signs Last Vital Signs Documentation Date Time Temp Pulse Resp B/P (MAP) Pulse Ox O2 Delivery O2 Flow Rate FiO2 03/20/17 12:15 BiPAP 30 03/20/17 12:05 36.5 70 24 116/69 (85) 94 5.0 Physical Exam: General Appearance: + moderate distress ENT: hearing grossly normal Neck: no JVD (difficult to assess) Respiratory/Chest: + respiratory distress, + decreased breath sounds, + accessory muscle use Cardiovascular: regular rate, rhythm, no edema, no JVD, no murmur Abdomen: normal bowel sounds, non tender, soft Extremities: + pertinent finding (extremities are warm) Neurologic/Psychiatric: no motor/sensory deficits, alert, normal mood/affect Skin: normal color Assessment and Plan 1. Acute respiratory distress. 2. Acute systolic heart failure/ICM -- severe LV dysfunction with LAD distribution infarc 3. Acute on chronic renal insufficiency 4. NSTEMI 5. Known severe multivessel coronary artery disease status post recent high risk complex percutaneous coronary intervention to left main, LAD and circumflex, and known residual severe RCA disease. 6. Type 2 diabetes. 7. Anemia. Decreased breath sounds/air movement bilaterally. Increased work of breathing on face mask. Persistent respiratory symptoms despite diuresis She remains well perfused today, with minimal congestion on exam. Renal function stable Do not feel respiratory symptoms are all heart failure. -- will begin work-up with repeat chest xray, ABG; may need higher level of care. Full code -- Continued gentle diuresis but approaching euvolemia --> repeat 40 mg IV today -- Continued close follow-up I/Os, BMP -- Continue DAPT with ASA/Plavix. Heparin discontinued Discussed with Dr. Carlin. Will continue to follow. Medications: Current Inpatient Medications Medications (Trade) Dose Ordered Sig/Izaiah Route Start Time Stop Time Status Last Admin Dose Admin Nitroglycerin (Nitroglycerin 2% Oint) 0.5 inch Q6H EXT 03/18/17 06:00 04/17/17 05:59 03/20/17 11:51 0.5 INCH Albuterol/ Ipratropium (Duoneb) 3 ml Q2H PRN INH 03/18/17 02:30 04/17/17 02:29 03/19/17 21:47 3 ML Acetaminophen (Tylenol Tab) 650 mg Q4H PRN PO 03/18/17 02:30 04/17/17 02:29 Nitroglycerin (Nitrostat Tab) 0.4 mg UD PRN SL 03/18/17 02:30 04/17/17 02:29 Insulin Aspart (novoLOG ASPART) SLIDING SCALE If C... ACHS SC 03/18/17 07:00 04/17/17 06:59 Glucose (Glucose 40% Gel) 15-30 GRAMS 15 GRAMS... UD PRN PO 03/18/17 02:30 04/17/17 02:29 Glucose (Glucose Chew Tab) 4-8 Tablets 4 Tabl... UD PRN PO 03/18/17 02:30 04/17/17 02:29 Dextrose (Dextrose 50% 50ML Syringe) 25-50ML OF 50% DW IV FOR... UD PRN IV 03/18/17 02:30 04/17/17 02:29 Glucagon (Glucagon Inj) 1 mg UD PRN SQ 03/18/17 02:30 04/17/17 02:29 Hydromorphone HCl (Dilaudid Inj) 0.5 mg Q3H PRN IV 03/18/17 02:30 04/01/17 02:29 Tramadol HCl (Ultram Tab) 25 mg Q6H PRN PO 03/18/17 02:30 04/17/17 02:29 Ondansetron HCl (Zofran Inj) 4 mg Q6H PRN IV 03/18/17 02:30 04/17/17 02:29 Amlodipine Besylate (Norvasc Tab) 5 mg DAILY PO 03/18/17 09:00 04/17/17 08:59 03/20/17 07:54 5 MG Atorvastatin Calcium (Lipitor Tab) 80 mg DAILY PO 03/18/17 09:00 04/17/17 08:59 03/20/17 07:55 80 MG Carvedilol (Coreg Tab) 6.25 mg BID PO 03/18/17 09:00 04/17/17 08:59 03/20/17 07:54 6.25 MG Clopidogrel Bisulfate (plAVix TAB) 75 mg DAILY PO 03/18/17 09:00 04/17/17 08:59 03/20/17 07:55 75 MG Isosorbide Mononitrate (Imdur Ext Rel Tab) 60 mg QAM PO 03/18/17 09:00 04/17/17 08:59 03/20/17 07:56 60 MG Levothyroxine Sodium (Synthroid Tab) 88 mcg DAILYBB PO 03/18/17 06:00 04/17/17 06:59 03/20/17 07:55 88 MCG Senna/Docusate Sodium (Senokot S Tab) 2 tab DAILY PO 03/18/17 09:00 04/17/17 08:59 03/20/17 07:54 2 TAB Aspirin (Ecotrin Tab) 81 mg QAM PO 03/18/17 09:00 04/17/17 08:59 03/20/17 07:55 81 MG Pantoprazole Sodium (Protonix Tab) 40 mg QAM PO 03/19/17 09:00 04/18/17 08:59 03/20/17 07:56 40 MG Lorazepam (Ativan Inj) 0.5 mg Q4H PRN IV 03/19/17 13:15 04/18/17 13:14 03/20/17 08:02 0.5 MG Lorazepam 0.5 mg/ Syringe 1 ml @ 1 mls/min Q4H PRN IV 03/19/17 13:30 04/18/17 13:29 Doxycycline Hyclate 100 mg/ Dextrose 110 ml @ 50 mls/hr BID@1000,2200 IV 03/20/17 10:00 03/27/17 09:59 03/20/17 10:29 50 MLS/HR Lab Results: 03/20/17 06:14 Red Blood Count 3.19, Mean Corpuscular Volume 93.1, Mean Corpuscular Hemoglobin 30.7, Mean Corpuscular Hemoglobin Concent 33.0, Mean Platelet Volume 10.6, Neutrophils (%) (Auto) 68.6, Lymphocytes (%) (Auto) 16.9, Monocytes (%) (Auto) 11.1, Eosinophils (%) (Auto) 2.8, Basophils (%) (Auto) 0.2, Neutrophils # (Auto ) 3.20, Lymphocytes # (Auto) 0.79, Monocytes # (Auto) 0.52, Eosinophils # (Auto ) 0.13, Basophils # (Auto) 0.01 03/20/17 06:14 Test 03/20/17 06:14 03/20/17 11:12 03/20/17 14:44 White Blood Count 4.67 K/uL (4.8-10.8) Red Blood Count 3.19 M/uL (4.2-5.4) Hemoglobin 9.8 g/dL (12.0-16.0) Hematocrit 29.7 % (37-47) Mean Corpuscular Volume 93.1 fL (80-100) Mean Corpuscular Hemoglobin 30.7 pg (25-34) Mean Corpuscular Hemoglobin Concent 33.0 g/dl (32-36) Platelet Count 137 K/uL (130-400) Mean Platelet Volume 10.6 fL (7.4-10.4) Neutrophils (%) (Auto) 68.6 % Lymphocytes (%) (Auto) 16.9 % Monocytes (%) (Auto) 11.1 % Eosinophils (%) (Auto) 2.8 % Basophils (%) (Auto) 0.2 % Neutrophils # (Auto) 3.20 K/uL (1.4-6.5) Lymphocytes # (Auto) 0.79 K/uL (1.2-3.4) Monocytes # (Auto) 0.52 K/uL (0.11-0.59) Eosinophils # (Auto) 0.13 K/uL (0-0.5) Basophils # (Auto) 0.01 K/uL (0-0.2) RDW Standard Deviation 46.5 fL (36.4-46.3) RDW Coefficient of Variation 13.6 % (11.5-14.5) Immature Granulocyte % (Auto) 0.4 % Immature Granulocyte # (Auto) 0.02 K/uL (0.00-0.02) Activated Partial Thromboplast Time 46.5 SECONDS (21.0-31.0) Partial Thromboplastin Ratio 1.8 Anion Gap 8.0 mmol/L (3-11) Est Creatinine Clear Calc Drug Dose 15.1 ml/min Estimated GFR () 18.4 Estimated GFR (Non- 15.9 BUN/Creatinine Ratio 22.9 (10-20) Calcium Level 8.9 mg/dl (8.5-10.1) Bedside Glucose 143 mg/dl (70-90)
[2017-03-20] MEDS ORDERED: METHYLPREDNISOLONE IV 40 MG in SYRINGE 0 ML IV ONE (15:00)
--- NOTE | 2017-03-20 15:07 | DIAGNOSTIC IMAGING REPORT ---
CHEST ONE VIEW PORTABLE HISTORY: dyspnea COMPARISON: Chest 03/18/2017. FINDINGS: The heart remains mildly enlarged. Small bilateral pleural effusions and mild interstitial pulmonary edema have slightly improved. Bibasilar densities persist. No pneumothorax. A few scattered calcified granulomas within the lungs. IMPRESSION: Improvement in the mild pulmonary edema and small bilateral pleural effusions. Bibasilar densities persist and may represent atelectasis from the pleural effusions. Electronically signed by: Rivera Gambino M.D. 03/20/2017 3:06 PM Dictated Date/Time: 03/20/2017 3:05 PM
[2017-03-20 15:16] LABS: ARTERIAL BLD GAS O2 SATURATION 87.9 % (90-95); ARTERIAL BLOOD GAS BASE EXCESS 2.8 mEq/L (-9-1.8); ARTERIAL BLOOD GAS HCO3 28 mmol/L (19-24); ARTERIAL BLOOD GAS PO2 61 mm/Hg (80-95); ARTERIAL BLOOD GAS pH 7.41 (7.35-7.45)
[2017-03-20 15:17] LABS: O2 ADMINISTRATION 6L
[2017-03-20 15:18] LABS: ALLEN TEST POS (POS)
--- NOTE | 2017-03-20 17:42 | Pulmonary Consultation ---
History General Date of Service: Mar 20, 2017. Stated Complaint: Respiratory Failure, Acute HPI The patient is a 81 year old female who presents to [facility] with complaints of Respiratory Failure, Acute. The patient's primary care provider is No Doctor, Assigned. Ms. Perdue is 81-year-old female who presented to the ER on 03/17/2017 with complaints of intermittent chest pain lasting 3 days associated with shortness of breath. Per EMR, patient had increased chest tightness associated with bilateral lower extremity swelling. She had no fevers, chills, palpitations, or coughing. She denied any recent travel or sick contacts. She has a complex cardiac history associated with CAD, moderate aortic stenosis, moderate mitral regurgitation, elevated pulmonary artery pressures, non-STEMI in October 2016 status post cardiac catheterization with severe LAD and ostial circumflex disease. At that time, underwent PCI, however bypass surgery was deferred due to comorbidities. She is status post 2 drug-eluting stent in the left main or LAD. She also has history of chronic kidney disease with a baseline creatinine of around 2-2.5, anemia and thrombocytopenia. Upon arrival to the ER her vital signs were temperature 36.3, pulse 97, blood pressure 129/80, saturating 91% on 4 L. Laboratory data on admission showed a sodium 139, potassium 5.1 and was also significant for BUNs of 54 and creatinine of 2.8. Hemoglobin 11.99, platelets 225. Her troponin was elevated to 0.933 which increased to 1.05 A Heart alert CODE was activated secondary to possible ST elevations in leads V1 and V3, associated with T-wave inversions in lead 1 aVL, V5 and V6. This was canceled due to patient's comorbidities and increased creatinine of 2.8. Initial, Chest x-ray showed bilateral pulmonary edema. Patient was admitted for acute respiratory distress secondary to acute systolic heart failure. She was placed on BiPAP and given Lasix, heparin and nitroglycerin drip. She was admitted to telemetry for further monitoring. Pulmonary consultation today for worsening respiratory distress. She is now currently on BiPAP of FiO2 30%, 10/5 with a respiratory rate of 12. ABG this morning showed 7.4/45/61/28/87.9% on 6L NC Most recent vital signs show temperature is 36.3, pulse 65, blood pressure 122/ 77, respiratory rate of 24, saturating 91-95%. Repeat chest x-ray reviewed by me shows bilateral pulmonary edema with improving pleural effusions. Medications reviewed. From a respiratory standpoint she is currently on DuoNeb every 6 hours, and doxycycline 100 mg twice a day. Heparin drip was discontinued on 03/19/2017 Lasix drip was discontinued today. Her cumulative output has about 2725 ML since admission. She is currently 1200 mL negative balance. Historian: other Onset: last week Severity: moderate Complaint Status: persistent Modifying Factors: none Review of Systems Constitutional: reports: as stated in HPI Eyes: reports: as stated in HPI ENT: reports: as stated in HPI Cardiovascular: reports: as stated in HPI Respiratory: reports: as stated in HPI Gastrointestinal: reports: as stated in HPI Genitourinary - Female: reports: as stated in HPI Musculoskeletal: reports: as stated in HPI Neurologic: reports: as stated in HPI Psychiatric: reports: as stated in HPI Endocrine: as stated in HPI Hematologic / Lymphatic: as stated in HPI Allergic / Immunologic: as stated in HPI All Other Symptoms All Other Systems: Reviewed and Negative Past Medical History Past Medical History: 1. Coronary artery disease status post stent 2. Moderate aortic stenosis. 3. Moderate mitral regurgitation. 4. Type 2 diabetes. 5. Chronic kidney disease, stage IV, baseline creatinine around 2-2.5. 6. Chronic systolic heart failure. 7. Hypothyroidism. 8. Dyslipidemia. 9. Nocturnal hypoxemia 10. Hypertension 11. Anemia 12. Thrombocytopenia. Past Surgical History: Hysterectomy Family History No pertinent family history Diabetes and hypertension. Social History Currently lives with daughter. Recently moved from [place] in December 2016. She is a nonsmoker, denies any alcohol or illicit drug use. 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 Hx Tobacco Use In Past Year?: No Smoking Status: Never Smoker Marital status: single Allergies Coded Allergies: No Known Allergies (Unverified , 03/17/17) Current Medications Reported Home Medications Medications Dose Route/Sig Max Daily Dose Days Date Category Dose Instructions Nitrostat (Nitroglycerin) 0.4 Mg Tab 0.4 Mg UT UD PRN 03/18/17 Reported Imdur Ext Rel (Isosorbide Mononitrate) 60 Mg Tab 60 Mg PO QAM 03/18/17 Reported Oxygen Gas 2 Liters NA HS 03/18/17 Reported Vitamin B-12 (Cyanocobalamin) 1,000 Mcg Tab 1,000 Mcg PO DAILY 03/18/17 Reported Coreg (Carvedilol) 6.25 Mg Tab 6.25 Mg PO AMPM 03/18/17 Reported take with meals hold for sbp <100 or hr <60 Norvasc (Amlodipine Besylate) 5 Mg Tab 5 Mg PO DAILY 03/18/17 Reported hold for sbp <90 mmhg Vitamin D3 (Cholecalciferol) 1,000 Unit Tab 2,000 Unit PO DAILY 03/17/17 Reported Senokot S (Senna/Docusate Sodium) 1 Tab Tab 2 Tab PO DAILY 03/17/17 Reported Plavix (Clopidogrel Bisulfate) 75 Mg Tab 75 Mg PO DAILY 03/17/17 Reported Lasix (Furosemide) 40 Mg Tab 40 Mg PO DAILY 03/17/17 Reported Lipitor (Atorvastatin Calcium) 80 Mg Tab 80 Mg PO DAILY 03/17/17 Reported Levothyroxine Sodium 88 Mcg Tab 88 Mcg PO DAILY 03/17/17 Reported Physical Physical Exam Vital Signs: Date Time Temp Pulse Resp B/P (MAP) Pulse Ox O2 Delivery O2 Flow Rate FiO2 03/20/17 16:22 36.3 65 20 122/77 (92) 95 BiPAP 30 03/20/17 16:15 BiPAP 30 03/20/17 12:15 BiPAP 30 03/20/17 12:05 36.5 70 24 116/69 (85) 94 Nasal Cannula 5.0 03/20/17 11:15 71 92 30 03/20/17 08:00 Oxymask 12.0 03/20/17 07:55 36.4 68 22 119/72 (88) 94 BiPAP 30 03/20/17 07:17 64 93 30 03/20/17 05:19 67 94 30 03/20/17 04:55 36.5 61 20 106/73 (84) 91 BiPAP 03/20/17 04:00 BiPAP 30 03/20/17 02:03 68 93 30 03/20/17 00:00 BiPAP 30 03/19/17 23:29 36.3 75 20 116/64 (81) 90 BiPAP 03/19/17 23:00 74 94 30 03/19/17 21:49 78 97 30 03/19/17 21:48 78 19 97 BiPAP/CPAP 30 03/19/17 20:00 BiPAP 30 03/19/17 19:04 36.7 71 18 143/83 (103) 96 BiPAP 03/19/17 19:00 70 96 30 General Appearance: NO APPARENT DISTRESS Head: NORMOCEPHALIC, ATRAUMATIC Eyes: PERRLA Neck: SUPPLE, other (no JVD) Respiratory: NO RESPIRATORY DISTRESS, other (Decreased breath sounds ) Cardiovasular: REGULAR RATE/RHYTHM, NORMAL S1S2, NORMAL PERIPHERAL PULSES Abdomen: NON TENDER, NORMAL BOWEL SOUNDS Upper Extremities: other (No cyanosis, No clubbing) Edema: Bilateral LE (trace edema, with bilateral chronic venous changes.) Pulses: dorsalis pedis (R) (2+), dorsalis pedis (L) (2+) Neuro: lethargic Diagnostics Labs Results Past 24 Hours Test 03/19/17 16:56 03/19/17 20:13 03/20/17 06:14 03/20/17 06:50 Range/Units Bedside Glucose 110 117 117 70-90 mg/dl White Blood Count 4.67 4.8-10.8 K/uL Red Blood Count 3.19 4.2-5.4 M/uL Hemoglobin 9.8 12.0-16.0 g/dL Hematocrit 29.7 37-47 % Mean Corpuscular Volume 93.1 80-100 fL Mean Corpuscular Hemoglobin 30.7 25-34 pg Mean Corpuscular Hemoglobin Concent 33.0 32-36 g/dl Platelet Count 137 130-400 K/uL Mean Platelet Volume 10.6 7.4-10.4 fL Neutrophils (%) (Auto) 68.6 % Lymphocytes (%) (Auto) 16.9 % Monocytes (%) (Auto) 11.1 % Eosinophils (%) (Auto) 2.8 % Basophils (%) (Auto) 0.2 % Neutrophils # (Auto) 3.20 1.4-6.5 K/uL Lymphocytes # (Auto) 0.79 1.2-3.4 K/uL Monocytes # (Auto) 0.52 0.11-0.59 K/uL Eosinophils # (Auto) 0.13 0-0.5 K/uL Basophils # (Auto) 0.01 0-0.2 K/uL RDW Standard Deviation 46.5 36.4-46.3 fL RDW Coefficient of Variation 13.6 11.5-14.5 % Immature Granulocyte % (Auto) 0.4 % Immature Granulocyte # (Auto) 0.02 0.00-0.02 K/uL Activated Partial Thromboplast Time 46.5 21.0-31.0 SECONDS Partial Thromboplastin Ratio 1.8 Sodium Level 139 136-145 mmol/L Potassium Level 4.1 3.5-5.1 mmol/L Chloride Level 102 98-107 mmol/L Carbon Dioxide Level 29 21-32 mmol/L Anion Gap 8.0 3-11 mmol/L Blood Urea Nitrogen 62 7-18 mg/dl Creatinine 2.70 0.60-1.20 mg/dl Est Creatinine Clear Calc Drug Dose 15.1 ml/min Estimated GFR () 18.4 Estimated GFR (Non- 15.9 BUN/Creatinine Ratio 22.9 10-20 Random Glucose 107 70-99 mg/dl Calcium Level 8.9 8.5-10.1 mg/dl Test 03/20/17 11:12 03/20/17 14:55 Range/Units Bedside Glucose 143 70-90 mg/dl Arterial Blood pH 7.41 7.35-7.45 Arterial Blood Partial Pressure CO2 45 35-46 mmHg Arterial Blood Partial Pressure O2 61 80-95 mm/Hg Arterial Blood HCO3 28 19-24 mmol/L Arterial Blood Oxygen Saturation 87.9 90-95 % Arterial Blood Base Excess 2.8 -9-1.8 mEq/L Arterial Blood Gas Delivery 6L Alfredo Test POS POS Diagnostic Radiology Chest x-ray 03/20/2017 FINDINGS: The heart remains mildly enlarged. Small bilateral pleural effusions and mild interstitial pulmonary edema have slightly improved. Bibasilar densities persist. No pneumothorax. A few scattered calcified granulomas within the lungs. IMPRESSION: Improvement in the mild pulmonary edema and small bilateral pleural effusions. Bibasilar densities persist and may represent atelectasis from the pleural effusions. Chest x-ray 03/18/2017 FINDINGS: Prominent pulmonary vasculature. Cardiomediastinal silhouette otherwise normal. Bibasilar hazy opacities with bilateral small pleural effusions. Pleural thickening noted at the lung apices. No pneumothorax. Osseous structures normal. Upper abdomen normal. IMPRESSION: 1. Apparent pulmonary vascular congestion with bibasilar opacities and bilateral effusions concerning for volume overload with mild pulmonary edema. Differential considerations include aspiration and infection. TTE 03/18/2017 * -- Conclusions -- * The left ventricle is mildly dilated. * There is mild concentric left ventricular hypertrophy. * Grade I diastolic dysfunction, (abnormal relaxation pattern). * Left ventricular systolic function is severely reduced. * There are regional wall motion abnormalities as specified. * The left atrium is moderately dilated. * The right atrium is mildly dilated. * Mild to moderate aortic regurgitation. * Mild valvular aortic stenosis. * There is mild to moderate mitral regurgitation. * Right ventricular systolic pressure is elevated at 50-60mmHg. Impression Assessment and Plan Hypoxic respiratory failure Pulmonary edema Pleural effusion Combined systolic and diastolic heart failure Elevated troponins Pulmonary hypertension Acute on chronic kidney insufficiency History of nocturnal hypoxemia Patient has acute hypoxic respiratory failure most likely secondary to underlying cardiac disease. She has a component of systolic and diastolic heart failure which may be contributing to elevated troponins. Patient's cardiac status is being optimized by cardiology who is actively following. She also has elevated pulmonary artery pressures seen on most recent transthoracic echocardiogram. I suppose this is most likely a combination of type II and type III she does have a significant cardiac history as well as nocturnal hypoxemia. She has been on heparin drip since admission so pulmonary embolism is lower on the differential for hypoxemia with respiratory distress, however I would like to rule out DVT with LE doppler. Continue with BiPAP settings as this will help give positive pressure, decrease preload and also assist with the work of breathing. She appears to be comfortable. Patient's status is tenuous as she also has a combined acute on chronic kidney insufficiency and does not appear to be diuresing adequately. At this point I would recommend a nephrology consult optimize kidney function. Patient is currently a full code so if respiratory status further declines a trial of intubation should be considered. I appreciate the consult. Dr. Concepcion will be taking over service as of tomorrow and will continue to follow.
--- NOTE | 2017-03-20 19:46 | DIAGNOSTIC IMAGING REPORT ---
BILATERAL LOWER EXTREMITY VENOUS DOPPLER HISTORY: rule of DVT COMPARISON STUDY: None. FINDINGS: There is normal compressibility, flow, and augmentation within the right lower extremity deep venous system. The left common femoral, superficial femoral, popliteal, posterior tibial, and anterior tibial veins are patent. There is thrombus identified within the proximal to mid left peroneal veins. IMPRESSION: No DVT within the right lower extremity. Thrombus identified within the left peroneal veins consistent with deep vein thrombosis. Electronically signed by: Rivera Gambino M.D. 03/20/2017 7:44 PM Dictated Date/Time: 03/20/2017 7:44 PM
[2017-03-20] MEDS ORDERED: ALBUT/IPRATROP 3MG/0.5MG NEB 3 ML VIAL INH STA (19:54)
[2017-03-20 20:16] LABS: ALLEN TEST POS (POS); ARTERIAL BLOOD GAS BASE EXCESS 1.4 mEq/L (-9-1.8); ARTERIAL BLOOD GAS HCO3 26 mmol/L (19-24); ARTERIAL BLOOD GAS PO2 94 mm/Hg (80-95); ARTERIAL BLOOD GAS pH 7.43 (7.35-7.45)
--- NOTE | 2017-03-20 20:17 | DIAGNOSTIC IMAGING REPORT ---
CHEST ONE VIEW PORTABLE HISTORY: Respiratory distress. COMPARISON: Chest 03/20/2017 FINDINGS: No pneumothorax. Mild pulmonary edema, small bilateral pleural effusions, bibasilar densities, and cardiomegaly are not significantly changed. No new focal lung consolidations. Calcified hilar lymph nodes. IMPRESSION: No change in the mild pulmonary edema, small bilateral pleural effusions, and bibasilar densities. Electronically signed by: Rivera Gambino M.D. 03/20/2017 8:16 PM Dictated Date/Time: 03/20/2017 8:15 PM
[2017-03-20] MEDS: ALBUT/IPRATROP 3MG/0.5MG NEB 3 ML VIAL INH SCH (20:22)
[2017-03-20 20:27] LABS: O2 ADMINISTRATION 30%
[2017-03-20] MEDS ORDERED: FUROSEMIDE INJ 80 MG in SYRINGE 0 ML IV ONE (20:30)
[2017-03-20 20:42] LABS: BUN/CREATININE RATIO 24.5 (10-20); CALCIUM 8.9 mg/dl (8.5-10.1); CREATININE 2.7 mg/dl (0.60-1.20); MAGNESIUM 2.1 mg/dl (1.8-2.4); POTASSIUM 4.4 mmol/L (3.5-5.1)
[2017-03-20 21:12] LABS: PARTIAL THROMBOPLASTIN RATIO 1.1
[2017-03-20] MEDS ORDERED: LORAZEPAM 2 MG/ML 1 ML VIAL IV PRN (21:15)
[2017-03-20 23:45] LABS: THYROID STIMULATING HORMONE 0.23 uIu/ml (0.300-4.500)
[2017-03-21] VITALS (12 sets, daily range): BP systolic 108–143; BP diastolic 68–83; PULSE 62–80; TEMP 36–36.7; O2SAT 93–100
[2017-03-21] MEDS: NITROGLYCERIN OINT 2% 1GM PACKET EXT SCH ×4 (00:49→16:49)
[2017-03-21] MEDS: HEPARIN SOD 5000 UNIT/0.5 ML CARP SQ SCH ×2 (00:50→05:53)
[2017-03-21] MEDS ORDERED: hydrOXYzine HCL 10 MG TAB PO ONE (05:00)
[2017-03-21 05:22] LABS: URINE APPEARANCE CLOUDY (CLEAR); URINE BILIRUBIN NEG (NEG); URINE COLOR YELLOW; URINE EPITHELIAL CELL AUTO >30 /lpf (0-5); URINE NITRITE NEG (NEG); UROBILINOGEN NEG (NEG); ZZUR CULT IF INDIC CLEAN CATCH YES
[2017-03-21 05:42] LABS: MANUAL MICROSCOPIC REQUIRED? NO; REVIEW REQ? YES
[2017-03-21] MEDS: LEVOTHYROXINE 75 MCG TAB PO SCH (05:50)
[2017-03-21 06:24] LABS: COMPLETE YES; HEMATOCRIT 30.9 % (37-47); IG% 0.3 %; LYMPH ABS # 0.39 K/uL (1.2-3.4); MEAN CELL VOLUME 93.1 fL (80-100); MEAN CORPUSCULAR HEMOGLOBIN 30.7 pg (25-34); MEAN PLATELET VOLUME 10.6 fL (7.4-10.4); MONO % 2.5 %; NEUT % 86.2 %; PLATELET COUNT 161 K/uL (130-400); RED BLOOD COUNT 3.32 M/uL (4.2-5.4); WHITE BLOOD COUNT 3.56 K/uL (4.8-10.8)
[2017-03-21 06:53] LABS: BUN/CREATININE RATIO 26.7 (10-20); CALCIUM 9.2 mg/dl (8.5-10.1); CREATININE 2.9 mg/dl (0.60-1.20); POTASSIUM 4.3 mmol/L (3.5-5.1)
[2017-03-21] MEDS: ALBUT/IPRATROP 3MG/0.5MG NEB 3 ML VIAL INH SCH ×4 (07:15→19:30)
[2017-03-21] MEDS: INSULIN ASPART 100 UNITS/ML 3 ML PEN SC SCH ×4 (08:21→21:52)
[2017-03-21] MEDS: ASPIRIN 81 MG ECTAB PO SCH (08:23)
[2017-03-21] MEDS: ISOSORBIDE MONONITRATE 60 MG TABCR PO SCH (08:23)
[2017-03-21] MEDS: CARVEDILOL 6.25 MG TAB PO SCH ×2 (08:23→20:14)
[2017-03-21] MEDS: DOCUSATE SODIUM/SENNA 50/8.6MG TAB PO SCH (08:24)
[2017-03-21] MEDS: PANTOprazole SOD 40 MG TAB PO SCH (08:24)
[2017-03-21] MEDS: AMLODIPINE BESYLATE 5 MG TAB PO SCH (08:24)
[2017-03-21] MEDS: ATORVASTATIN 40 MG TAB PO SCH (08:24)
[2017-03-21] MEDS: CLOPIDOGREL BISULFATE 75 MG TAB PO SCH (08:24)
[2017-03-21] MEDS: DOXYCYCLINE IV 100 MG in DEXTROSE 5% 100ML 100 ML IV SCH ×2 (09:04→22:45)
--- NOTE | 2017-03-21 10:16 | Progress Note ---
Subjective Date of Service: Mar 21, 2017. Subjective Pt evaluation today including: conversation w/ patient, physical exam, lab review, review of studies, review of inpatient medication list Saw/examined the patient in room 240-2 Patient had breathing difficulties at night Was given an extra dose of Lasix She feels more comfortable this morning States she has continued chest pain; since the beginning of the admission Currently on a face mask, tolerating it better than bipap Problem List Medical Problems: (1) Acute myocardial infarction Status: Acute (2) Pulmonary edema Status: Acute (3) Renal failure (ARF), acute on chronic Status: Acute Review of Systems Constitutional: No fever, No chills Respiratory: + cough, + sputum, + shortness of breath Cardiac: + chest pain Abdomen: No pain, No nausea, No vomiting, No diarrhea Medications Current Inpatient Medications Medications (Trade) Dose Ordered Sig/Izaiah Route Start Time Stop Time Status Last Admin Dose Admin Nitroglycerin (Nitroglycerin 2% Oint) 0.5 inch Q6H EXT 03/18/17 06:00 04/17/17 05:59 03/21/17 05:50 0.5 INCH Albuterol/ Ipratropium (Duoneb) 3 ml Q2H PRN INH 03/18/17 02:30 04/17/17 02:29 03/19/17 21:47 3 ML Acetaminophen (Tylenol Tab) 650 mg Q4H PRN PO 03/18/17 02:30 04/17/17 02:29 Nitroglycerin (Nitrostat Tab) 0.4 mg UD PRN SL 03/18/17 02:30 04/17/17 02:29 Insulin Aspart (novoLOG ASPART) SLIDING SCALE If C... ACHS SC 03/18/17 07:00 04/17/17 06:59 Glucose (Glucose 40% Gel) 15-30 GRAMS 15 GRAMS... UD PRN PO 03/18/17 02:30 04/17/17 02:29 Glucose (Glucose Chew Tab) 4-8 Tablets 4 Tabl... UD PRN PO 03/18/17 02:30 04/17/17 02:29 Dextrose (Dextrose 50% 50ML Syringe) 25-50ML OF 50% DW IV FOR... UD PRN IV 03/18/17 02:30 04/17/17 02:29 Glucagon (Glucagon Inj) 1 mg UD PRN SQ 03/18/17 02:30 04/17/17 02:29 Hydromorphone HCl (Dilaudid Inj) 0.5 mg Q3H PRN IV 03/18/17 02:30 04/01/17 02:29 Tramadol HCl (Ultram Tab) 25 mg Q6H PRN PO 03/18/17 02:30 04/17/17 02:29 Ondansetron HCl (Zofran Inj) 4 mg Q6H PRN IV 03/18/17 02:30 04/17/17 02:29 Amlodipine Besylate (Norvasc Tab) 5 mg DAILY PO 03/18/17 09:00 04/17/17 08:59 03/21/17 08:24 5 MG Atorvastatin Calcium (Lipitor Tab) 80 mg DAILY PO 03/18/17 09:00 04/17/17 08:59 03/21/17 08:24 80 MG Carvedilol (Coreg Tab) 6.25 mg BID PO 03/18/17 09:00 04/17/17 08:59 03/21/17 08:23 6.25 MG Clopidogrel Bisulfate (plAVix TAB) 75 mg DAILY PO 03/18/17 09:00 04/17/17 08:59 03/21/17 08:24 75 MG Isosorbide Mononitrate (Imdur Ext Rel Tab) 60 mg QAM PO 03/18/17 09:00 04/17/17 08:59 03/21/17 08:23 60 MG Senna/Docusate Sodium (Senokot S Tab) 2 tab DAILY PO 03/18/17 09:00 04/17/17 08:59 03/21/17 08:24 2 TAB Aspirin (Ecotrin Tab) 81 mg QAM PO 03/18/17 09:00 04/17/17 08:59 03/21/17 08:23 81 MG Pantoprazole Sodium (Protonix Tab) 40 mg QAM PO 03/19/17 09:00 04/18/17 08:59 03/21/17 08:24 40 MG Doxycycline Hyclate 100 mg/ Dextrose 110 ml @ 50 mls/hr BID@1000,2200 IV 03/20/17 10:00 03/27/17 09:59 03/21/17 09:04 50 MLS/HR Albuterol/ Ipratropium (Duoneb) 3 ml QIDR INH 03/20/17 20:00 04/19/17 19:59 03/21/17 07:15 3 ML Heparin Sodium (Porcine) (Heparin Sq 5000 Unit/0.5ml) 5,000 unit Q8 SQ 03/20/17 22:00 04/19/17 21:59 03/21/17 05:53 5,000 UNIT Levothyroxine Sodium (Synthroid Tab) 75 mcg DAILYBB PO 03/21/17 06:00 04/17/17 06:59 03/21/17 05:50 75 MCG Objective Vital Signs Date Time Temp Pulse Resp B/P (MAP) Pulse Ox O2 Delivery O2 Flow Rate FiO2 03/21/17 08:00 Mask 6.0 03/21/17 07:56 36.5 80 22 143/83 (103) 99 Oxymask 9.0 03/21/17 07:16 80 22 98 Mask 9.0 03/21/17 05:24 74 96 30 03/21/17 04:00 BiPAP 30 03/21/17 03:57 36.0 67 16 114/68 (83) 95 BiPAP 40 03/21/17 01:37 62 93 30 03/21/17 00:00 BiPAP 30 03/21/17 00:00 36.6 64 14 122/69 (86) 96 BiPAP 30 03/20/17 22:23 66 93 30 03/20/17 20:12 84 20 98 BiPAP/CPAP 30 03/20/17 20:00 BiPAP 30 03/20/17 19:40 36.9 72 20 118/76 (90) 93 BiPAP 03/20/17 19:20 65 94 30 03/20/17 16:22 36.3 65 20 122/77 (92) 95 BiPAP 30 03/20/17 16:15 BiPAP 30 03/20/17 12:15 BiPAP 30 03/20/17 12:05 36.5 70 24 116/69 (85) 94 Nasal Cannula 5.0 03/20/17 11:15 71 92 30 Physical Exam General Appearance: + mild distress (respiratory distress with accessory muscle use) Respiratory/Chest: + respiratory distress, + decreased breath sounds, + accessory muscle use Cardiovascular: regular rate, rhythm, no edema, no murmur Laboratory Results Last 24 Hours Test 03/20/17 11:12 03/20/17 14:55 03/20/17 16:40 03/20/17 20:06 Bedside Glucose 143 mg/dl 113 mg/dl Arterial Blood pH 7.41 7.43 Arterial Blood Partial Pressure CO2 45 mmHg 40 mmHg Arterial Blood Partial Pressure O2 61 mm/Hg 94 mm/Hg Arterial Blood HCO3 28 mmol/L 26 mmol/L Arterial Blood Oxygen Saturation 87.9 % 96.0 % Arterial Blood Base Excess 2.8 mEq/L 1.4 mEq/L Arterial Blood Gas Delivery 6L 30% Alfredo Test POS POS Activated Partial Thromboplast Time 27.8 SECONDS Partial Thromboplastin Ratio 1.1 Sodium Level 137 mmol/L Potassium Level 4.4 mmol/L Chloride Level 100 mmol/L Carbon Dioxide Level 28 mmol/L Anion Gap 9.0 mmol/L Blood Urea Nitrogen 66 mg/dl Creatinine 2.70 mg/dl Est Creatinine Clear Calc Drug Dose 15.1 ml/min Estimated GFR () 18.4 Estimated GFR (Non- 15.9 BUN/Creatinine Ratio 24.5 Random Glucose 152 mg/dl Calcium Level 8.9 mg/dl Magnesium Level 2.1 mg/dl Troponin I 1.150 ng/ml Thyroid Stimulating Hormone (TSH) 0.230 uIu/ml Free Thyroxine 1.66 ng/dl Test 03/20/17 20:11 03/20/17 23:13 03/21/17 00:00 03/21/17 06:11 Bedside Glucose 168 mg/dl Ammonia < 10.0 umol/L Troponin I 0.985 ng/ml 0.812 ng/ml Urine Color YELLOW Urine Appearance CLOUDY Urine pH 5.0 Urine Specific [place] 1.020 Urine Protein 1+ Urine Glucose (UA) NEG Urine Ketones NEG Urine Occult Blood NEG Urine Nitrite NEG Urine Bilirubin NEG Urine Urobilinogen NEG Urine Leukocyte Esterase MODERATE Urine WBC (Auto) >30 /hpf Urine RBC (Auto) 5-10 /hpf Urine Hyaline Casts (Auto) 5-10 /lpf Urine Epithelial Cells (Auto) >30 /lpf Urine Bacteria (Auto) NEG Urine Renal Epithelial Cells /lpf Urine Pathogenic Casts /lpf Urine Yeast (Auto) White Blood Count 3.56 K/uL Red Blood Count 3.32 M/uL Hemoglobin 10.2 g/dL Hematocrit 30.9 % Mean Corpuscular Volume 93.1 fL Mean Corpuscular Hemoglobin 30.7 pg Mean Corpuscular Hemoglobin Concent 33.0 g/dl Platelet Count 161 K/uL Mean Platelet Volume 10.6 fL Neutrophils (%) (Auto) 86.2 % Lymphocytes (%) (Auto) 11.0 % Monocytes (%) (Auto) 2.5 % Eosinophils (%) (Auto) 0.0 % Basophils (%) (Auto) 0.0 % Neutrophils # (Auto) 3.07 K/uL Lymphocytes # (Auto) 0.39 K/uL Monocytes # (Auto) 0.09 K/uL Eosinophils # (Auto) 0.00 K/uL Basophils # (Auto) 0.00 K/uL RDW Standard Deviation 45.7 fL RDW Coefficient of Variation 13.5 % Immature Granulocyte % (Auto) 0.3 % Immature Granulocyte # (Auto) 0.01 K/uL Activated Partial Thromboplast Time 26.2 SECONDS Partial Thromboplastin Ratio 1.0 Sodium Level 137 mmol/L Potassium Level 4.3 mmol/L Chloride Level 98 mmol/L Carbon Dioxide Level 28 mmol/L Anion Gap 11.0 mmol/L Blood Urea Nitrogen 78 mg/dl Creatinine 2.90 mg/dl Est Creatinine Clear Calc Drug Dose 14.0 ml/min Estimated GFR () 16.9 Estimated GFR (Non- 14.6 BUN/Creatinine Ratio 26.7 Random Glucose 146 mg/dl Calcium Level 9.2 mg/dl Total Triiodothyronine 0.49 ng/ml Test 03/21/17 06:50 Bedside Glucose 148 mg/dl Assessment and Plan This is an 81 year old female with a PMH of CAD s/p stenting, ischemic cardiomyopathy, chronic systolic CHF with EF ~40%, HTN, HLD, Hypothyroidism, CKD stage 4 with baseline creatinine around mid 2's presents with shortness of breath and weakness Acute Hypoxemic Respiratory Failure secondary to Acute on Chronic Systolic CHF 03/21 appreciate cardiology and pulmonary input she continues to have shortness of breath; currently on face mask was given IV Lasix x2 yesterday seems euvolemic, there is no edema, no rhonchi, no crackles or wheezing noted consult nephrology due to kidney disease and Lasix use was given one dose of Solu-medrol yesterday; may need steroids? Started IV Doxycycline for now, though no obvious sign of infection is noted 03/20 continues to have shortness of breath Ativan has helped her will give one more dose of IV Lasix, but cautiously, due to her kidney function stopped IV heparin 03/19 patient's breathing status worsened overnight and today will give one dose of Lasix 40mg IV added Ativan continue IV heparin for one day, then d/c as per cardio 03/18 underlying ischemic cardiomyopathy with hx. of CAD patient presented to the ER with acute shortness of breath placed on bipap initially, nitroglycerin drip was started the nitro drip has since been weaned off, bipap has been weaned off currently with a nitro patch IV Lasix given Matos placed for accurate I's and O' s and for patient comfort clinically improving NSTEMI, likely demand ischemia in the setting of CAD s/p stenting 03/21 appreciate cardiology input on this IV heparin is now stopped continue dual antiplatets - aspirin and Plavix continue Coreg & Lipitor as well Nitro paste 03/20 unlikely related to an acute coronary syndrome either way, stopped IV heparin continue aspirin + Plavix appreciate cardiology input 03/19 IV heparin drip for 48 hours then we'll stop (at the end of today) continue aspirin and Plavix 03/18 patient has elevated troponin level; multifactorial, including acute coronary disease, CHF exacerbation, kidney disease placed on IV heparin for now continue current medications for CAD, including aspirin, Plavix, statin, Imdur, Coreg appreciate cardiology input CKD stage 4 03/21 trending up with diuretic use holding further diuresis for now nephrology consulted 03/19 monitor kidney function giving another dose of IV Lasix 03/18 patient with creatinine up to 2.8 on admission improved with Lasix likely due to mobilizing fluids monitor kidney function, avoid nephrotoxic agents if possible if further diuresis required, may need nephrology consulted HTN blood pressure stable currently has a nitro patch on continue amlodipine and Coreg Hypothyroidism TSH is low Synthroid decreased to 75mcg DVT ppx subq heparin FULL CODE
--- NOTE | 2017-03-21 12:09 | Cardiology Follow-Up ---
Subjective Subjective Date of Service: Mar 21, 2017. Pt evaluation today including: conversation w/ patient, physical exam, chart review, lab review, review of studies, review of inpatient medication list Additional Details: Still dyspneic but states feels a little better this AM. Still feels tired and weak. Off bipap on facemask. Tele reviewed -- no events. Problem List Medical Problems: (1) Acute myocardial infarction Status: Acute (2) Pulmonary edema Status: Acute (3) Renal failure (ARF), acute on chronic Status: Acute Review of Systems Constitutional: No fever, No chills Respiratory: + cough, + sputum, + shortness of breath Cardiac: + chest pain Abdomen: No pain, No nausea, No vomiting, No diarrhea Neurologic: No numbness/tingling Psychiatric: + anxiety Heme: No abnormal bleeding/bruising Skin: No rash Objective Vital Signs Last Vital Signs Documentation Date Time Temp Pulse Resp B/P (MAP) Pulse Ox O2 Delivery O2 Flow Rate FiO2 03/21/17 11:30 75 24 98 Mask 6.0 03/21/17 07:56 36.5 143/83 (103) 03/21/17 05:24 30 Physical Exam: General Appearance: + mild distress (respiratory distress with accessory muscle use) ENT: hearing grossly normal Neck: no JVD (difficult to assess) Respiratory/Chest: + respiratory distress, + decreased breath sounds ( increased air movement from yesterday), + accessory muscle use, + crackles (few at basess) Cardiovascular: regular rate, rhythm, no edema, + systolic murmur (2/6 systolic murmur) Abdomen: normal bowel sounds, non tender, soft Extremities: + pertinent finding (extremities are warm) Neurologic/Psychiatric: no motor/sensory deficits, alert, normal mood/affect Skin: normal color Assessment and Plan 1. Respiratory failure 2. Acute systolic heart failure/ICM -- severe LV dysfunction with LAD distribution infarct 3. Acute on chronic renal insufficiency 4. NSTEMI -- demand ischemia in setting of known severe multivessel coronary artery disease status post recent high risk complex PCI to left main/LAD/circumflex, and known residual severe RCA disease. 5. Type 2 diabetes. 6. Anemia. Mild improvement in respiratory status today. Improved air movement on exam. Remains well perfused. Minimal congestion on exam. Mild residual edema/effusions on chest xray BUN/Scr trending up -- Agree with holding on further diuretics today. -- Continue DAPT with ASA/Plavix. Heparin discontinued -- Pulmonary and renal consulted -- Possible RHC at some point to evaluate filling pressures/cardiac output. Will continue to follow. Medications: Current Inpatient Medications Medications (Trade) Dose Ordered Sig/Izaiah Route Start Time Stop Time Status Last Admin Dose Admin Nitroglycerin (Nitroglycerin 2% Oint) 0.5 inch Q6H EXT 03/18/17 06:00 04/17/17 05:59 03/21/17 05:50 0.5 INCH Albuterol/ Ipratropium (Duoneb) 3 ml Q2H PRN INH 03/18/17 02:30 04/17/17 02:29 03/19/17 21:47 3 ML Acetaminophen (Tylenol Tab) 650 mg Q4H PRN PO 03/18/17 02:30 04/17/17 02:29 Nitroglycerin (Nitrostat Tab) 0.4 mg UD PRN SL 03/18/17 02:30 04/17/17 02:29 Insulin Aspart (novoLOG ASPART) SLIDING SCALE If C... ACHS SC 03/18/17 07:00 04/17/17 06:59 Glucose (Glucose 40% Gel) 15-30 GRAMS 15 GRAMS... UD PRN PO 03/18/17 02:30 04/17/17 02:29 Glucose (Glucose Chew Tab) 4-8 Tablets 4 Tabl... UD PRN PO 03/18/17 02:30 04/17/17 02:29 Dextrose (Dextrose 50% 50ML Syringe) 25-50ML OF 50% DW IV FOR... UD PRN IV 03/18/17 02:30 04/17/17 02:29 Glucagon (Glucagon Inj) 1 mg UD PRN SQ 03/18/17 02:30 04/17/17 02:29 Hydromorphone HCl (Dilaudid Inj) 0.5 mg Q3H PRN IV 03/18/17 02:30 04/01/17 02:29 Tramadol HCl (Ultram Tab) 25 mg Q6H PRN PO 03/18/17 02:30 04/17/17 02:29 Ondansetron HCl (Zofran Inj) 4 mg Q6H PRN IV 03/18/17 02:30 04/17/17 02:29 Amlodipine Besylate (Norvasc Tab) 5 mg DAILY PO 03/18/17 09:00 04/17/17 08:59 03/21/17 08:24 5 MG Atorvastatin Calcium (Lipitor Tab) 80 mg DAILY PO 03/18/17 09:00 04/17/17 08:59 03/21/17 08:24 80 MG Carvedilol (Coreg Tab) 6.25 mg BID PO 03/18/17 09:00 04/17/17 08:59 03/21/17 08:23 6.25 MG Clopidogrel Bisulfate (plAVix TAB) 75 mg DAILY PO 03/18/17 09:00 04/17/17 08:59 03/21/17 08:24 75 MG Isosorbide Mononitrate (Imdur Ext Rel Tab) 60 mg QAM PO 03/18/17 09:00 04/17/17 08:59 03/21/17 08:23 60 MG Senna/Docusate Sodium (Senokot S Tab) 2 tab DAILY PO 03/18/17 09:00 04/17/17 08:59 03/21/17 08:24 2 TAB Aspirin (Ecotrin Tab) 81 mg QAM PO 03/18/17 09:00 04/17/17 08:59 03/21/17 08:23 81 MG Pantoprazole Sodium (Protonix Tab) 40 mg QAM PO 03/19/17 09:00 04/18/17 08:59 03/21/17 08:24 40 MG Doxycycline Hyclate 100 mg/ Dextrose 110 ml @ 50 mls/hr BID@1000,2200 IV 03/20/17 10:00 03/27/17 09:59 03/21/17 09:04 50 MLS/HR Albuterol/ Ipratropium (Duoneb) 3 ml QIDR INH 03/20/17 20:00 04/19/17 19:59 03/21/17 11:30 3 ML Heparin Sodium (Porcine) (Heparin Sq 5000 Unit/0.5ml) 5,000 unit Q8 SQ 03/20/17 22:00 04/19/17 21:59 03/21/17 05:53 5,000 UNIT Levothyroxine Sodium (Synthroid Tab) 75 mcg DAILYBB PO 03/21/17 06:00 04/17/17 06:59 03/21/17 05:50 75 MCG Lab Results: 03/21/17 06:11 Red Blood Count 3.32, Mean Corpuscular Volume 93.1, Mean Corpuscular Hemoglobin 30.7, Mean Corpuscular Hemoglobin Concent 33.0, Mean Platelet Volume 10.6, Neutrophils (%) (Auto) 86.2, Lymphocytes (%) (Auto) 11.0, Monocytes (%) (Auto) 2.5, Eosinophils (%) (Auto) 0.0, Basophils (%) (Auto) 0.0, Neutrophils # (Auto) 3.07, Lymphocytes # (Auto) 0.39, Monocytes # (Auto) 0.09, Eosinophils # (Auto) 0.00, Basophils # (Auto) 0.00 03/21/17 06:11 Test 03/20/17 20:06 03/20/17 23:13 03/21/17 00:00 03/21/17 06:11 Arterial Blood pH 7.43 (7.35-7.45) Arterial Blood Partial Pressure CO2 40 mmHg (35-46) Arterial Blood Partial Pressure O2 94 mm/Hg (80-95) Arterial Blood HCO3 26 mmol/L (19-24) Arterial Blood Oxygen Saturation 96.0 % (90-95) Arterial Blood Base Excess 1.4 mEq/L (-9-1.8) Arterial Blood Gas Delivery 30% Alfredo Test POS (POS) Magnesium Level 2.1 mg/dl (1.8-2.4) Thyroid Stimulating Hormone (TSH) 0.230 uIu/ml (0.300-4.500) Free Thyroxine 1.66 ng/dl (0.80-1.60) Ammonia < 10.0 umol/L (11-32) Urine Color YELLOW Urine Appearance CLOUDY (CLEAR) Urine pH 5.0 (4.5-7.5) Urine Specific [place] 1.020 (1.000-1.030) Urine Protein 1+ (NEG) Urine Glucose (UA) NEG (NEG) Urine Ketones NEG (NEG) Urine Occult Blood NEG (NEG) Urine Nitrite NEG (NEG) Urine Bilirubin NEG (NEG) Urine Urobilinogen NEG (NEG) Urine Leukocyte Esterase MODERATE (NEG) Urine WBC (Auto) >30 /hpf (0-5) Urine RBC (Auto) 5-10 /hpf (0-4) Urine Hyaline Casts (Auto) 5-10 /lpf (0-5) Urine Epithelial Cells (Auto) >30 /lpf (0-5) Urine Bacteria (Auto) NEG (NEG) Urine Renal Epithelial Cells /lpf (0-5) Urine Pathogenic Casts /lpf (0) Urine Yeast (Auto) (NONE PRSENT) White Blood Count 3.56 K/uL (4.8-10.8) Red Blood Count 3.32 M/uL (4.2-5.4) Hemoglobin 10.2 g/dL (12.0-16.0) Hematocrit 30.9 % (37-47) Mean Corpuscular Volume 93.1 fL (80-100) Mean Corpuscular Hemoglobin 30.7 pg (25-34) Mean Corpuscular Hemoglobin Concent 33.0 g/dl (32-36) Platelet Count 161 K/uL (130-400) Mean Platelet Volume 10.6 fL (7.4-10.4) Neutrophils (%) (Auto) 86.2 % Lymphocytes (%) (Auto) 11.0 % Monocytes (%) (Auto) 2.5 % Eosinophils (%) (Auto) 0.0 % Basophils (%) (Auto) 0.0 % Neutrophils # (Auto) 3.07 K/uL (1.4-6.5) Lymphocytes # (Auto) 0.39 K/uL (1.2-3.4) Monocytes # (Auto) 0.09 K/uL (0.11-0.59) Eosinophils # (Auto) 0.00 K/uL (0-0.5) Basophils # (Auto) 0.00 K/uL (0-0.2) RDW Standard Deviation 45.7 fL (36.4-46.3) RDW Coefficient of Variation 13.5 % (11.5-14.5) Immature Granulocyte % (Auto) 0.3 % Immature Granulocyte # (Auto) 0.01 K/uL (0.00-0.02) Activated Partial Thromboplast Time 26.2 SECONDS (21.0-31.0) Partial Thromboplastin Ratio 1.0 Anion Gap 11.0 mmol/L (3-11) Est Creatinine Clear Calc Drug Dose 14.0 ml/min Estimated GFR () 16.9 Estimated GFR (Non- 14.6 BUN/Creatinine Ratio 26.7 (10-20) Calcium Level 9.2 mg/dl (8.5-10.1) Troponin I 0.812 ng/ml (0-0.045) Total Triiodothyronine 0.49 ng/ml (0.60-1.81) Test 03/21/17 11:06 Bedside Glucose 155 mg/dl (70-90)
[2017-03-21] MEDS ORDERED: HEPARIN 25,000 UNIT/500ML D5W 500 ML IV PRN (13:30)
--- NOTE | 2017-03-21 13:44 | Pulmonology Progress Note ---
Pulmonary Progress Note Date of Service Mar 21, 2017. Attending Dr. Concepcion Subjective Patient notes continued dyspnea even at rest but appears most associated with anxiety. She does note overall improvement in the last 24 hours per Objective Patient showing any signs respiratory fatigue or failure during our conversation. There is no signs of tachypnea or excessive work of breathing. She still is requiring aggressive mount of oxygen support. I/O: -1.5L WT: 67.4Kg RR: 14-24 SaO2: 93-98% FiO2: 6-9L HR: 60-80 RESP: Crackles at the bases bilaterally CARD: S1-S2 distant heart sounds ABD: Positive bowel sounds soft nontender EXT: Stasis dermatitis but no clubbing cyanosis or edema noted Medications 1. Furosemide 2. Metolazone 3. Heparin drip 4. Levothyroxine 5. DuoNeb 6. Doxycycline 100 milligrams p.o. b.i.d. 7. Plavix 75 milligrams daily Labs: Cr: 2.90 Radiology Bilateral lower extremity venous Doppler studies 03/20/2017: Left lower extremity primarily vein thrombosis/deep venous thrombosis Assessment & Plan 81-year-old female admitted acute on chronic respiratory insufficiency and notable hypoxemia: 1. Hypoxemia: Patient's hypoxemia is most likely combination of volume overload with chronic CHF, renal insufficiency as well as possible pneumonia and now positive distal DVT study in the left lower extremity. I should also at the lowest pulmonary hypertension from group 2, group 3 and now possibly group 4/chronic thromboembolic pulmonary hypertension is adding to our patients hypoxia. As there is a distal DVT on this patient in the left lower extremity in the can probably gait to significant proximal possibly even pulmonary emboli in 20-25% of the cases I suggest we initiate Coumadin at this time. I have spoken to the patient's primary hospitalist and he agrees so I will write the order. Data Medications: Current Inpatient Medications Medications (Trade) Dose Ordered Sig/Izaiah Route Start Time Stop Time Status Last Admin Dose Admin Nitroglycerin (Nitroglycerin 2% Oint) 0.5 inch Q6H EXT 03/18/17 06:00 04/17/17 05:59 03/21/17 12:27 0.5 INCH Albuterol/ Ipratropium (Duoneb) 3 ml Q2H PRN INH 03/18/17 02:30 04/17/17 02:29 03/19/17 21:47 3 ML Acetaminophen (Tylenol Tab) 650 mg Q4H PRN PO 03/18/17 02:30 04/17/17 02:29 Nitroglycerin (Nitrostat Tab) 0.4 mg UD PRN SL 03/18/17 02:30 04/17/17 02:29 Insulin Aspart (novoLOG ASPART) SLIDING SCALE If C... ACHS SC 03/18/17 07:00 04/17/17 06:59 Glucose (Glucose 40% Gel) 15-30 GRAMS 15 GRAMS... UD PRN PO 03/18/17 02:30 04/17/17 02:29 Glucose (Glucose Chew Tab) 4-8 Tablets 4 Tabl... UD PRN PO 03/18/17 02:30 04/17/17 02:29 Dextrose (Dextrose 50% 50ML Syringe) 25-50ML OF 50% DW IV FOR... UD PRN IV 03/18/17 02:30 04/17/17 02:29 Glucagon (Glucagon Inj) 1 mg UD PRN SQ 03/18/17 02:30 04/17/17 02:29 Hydromorphone HCl (Dilaudid Inj) 0.5 mg Q3H PRN IV 03/18/17 02:30 04/01/17 02:29 Tramadol HCl (Ultram Tab) 25 mg Q6H PRN PO 03/18/17 02:30 04/17/17 02:29 Ondansetron HCl (Zofran Inj) 4 mg Q6H PRN IV 03/18/17 02:30 04/17/17 02:29 Atorvastatin Calcium (Lipitor Tab) 80 mg DAILY PO 03/18/17 09:00 04/17/17 08:59 03/21/17 08:24 80 MG Carvedilol (Coreg Tab) 6.25 mg BID PO 03/18/17 09:00 04/17/17 08:59 03/21/17 08:23 6.25 MG Clopidogrel Bisulfate (plAVix TAB) 75 mg DAILY PO 03/18/17 09:00 04/17/17 08:59 03/21/17 08:24 75 MG Isosorbide Mononitrate (Imdur Ext Rel Tab) 60 mg QAM PO 03/18/17 09:00 04/17/17 08:59 03/21/17 08:23 60 MG Senna/Docusate Sodium (Senokot S Tab) 2 tab DAILY PO 03/18/17 09:00 04/17/17 08:59 03/21/17 08:24 2 TAB Aspirin (Ecotrin Tab) 81 mg QAM PO 03/18/17 09:00 04/17/17 08:59 03/21/17 08:23 81 MG Pantoprazole Sodium (Protonix Tab) 40 mg QAM PO 03/19/17 09:00 04/18/17 08:59 03/21/17 08:24 40 MG Doxycycline Hyclate 100 mg/ Dextrose 110 ml @ 50 mls/hr BID@1000,2200 IV 03/20/17 10:00 03/27/17 09:59 03/21/17 09:04 50 MLS/HR Albuterol/ Ipratropium (Duoneb) 3 ml QIDR INH 03/20/17 20:00 04/19/17 19:59 03/21/17 11:30 3 ML Levothyroxine Sodium (Synthroid Tab) 75 mcg DAILYBB PO 03/21/17 06:00 04/17/17 06:59 03/21/17 05:50 75 MCG Furosemide 100 mg/ Syringe 10 ml @ 4 mls/min TODAY@1345 IV 03/21/17 13:45 03/21/17 13:48 Metolazone (Zaroxolyn Tab) 5 mg 1345 ONCE PO 03/21/17 13:45 03/21/17 13:46 Heparin Sodium/ Dextrose 500 ml @ 21 mls/hr [id number] PRN IV 03/21/17 13:30 04/20/17 13:29 Vital Signs: Date Time Temp Pulse Resp B/P (MAP) Pulse Ox O2 Delivery O2 Flow Rate FiO2 03/21/17 12:07 36.6 73 18 108/69 (82) 98 Oxymask 6.0 03/21/17 12:00 Mask 6.0 03/21/17 11:30 75 24 98 Mask 6.0 03/21/17 08:00 Mask 6.0 03/21/17 07:56 36.5 80 22 143/83 (103) 99 Oxymask 9.0 03/21/17 07:16 80 22 98 Mask 9.0 03/21/17 05:24 74 96 30 03/21/17 04:00 BiPAP 30 03/21/17 03:57 36.0 67 16 114/68 (83) 95 BiPAP 40 03/21/17 01:37 62 93 30 03/21/17 00:00 BiPAP 30 03/21/17 00:00 36.6 64 14 122/69 (86) 96 BiPAP 30 03/20/17 22:23 66 93 30 03/20/17 20:12 84 20 98 BiPAP/CPAP 30 03/20/17 20:00 BiPAP 30 03/20/17 19:40 36.9 72 20 118/76 (90) 93 BiPAP 03/20/17 19:20 65 94 30 03/20/17 16:22 36.3 65 20 122/77 (92) 95 BiPAP 30 03/20/17 16:15 BiPAP 30 Laboratory Results: Last 24 Hours Test 03/20/17 14:55 03/20/17 16:40 03/20/17 20:06 03/20/17 20:11 Arterial Blood pH 7.41 7.43 Arterial Blood Partial Pressure CO2 45 mmHg 40 mmHg Arterial Blood Partial Pressure O2 61 mm/Hg 94 mm/Hg Arterial Blood HCO3 28 mmol/L 26 mmol/L Arterial Blood Oxygen Saturation 87.9 % 96.0 % Arterial Blood Base Excess 2.8 mEq/L 1.4 mEq/L Arterial Blood Gas Delivery 6L 30% Alfredo Test POS POS Bedside Glucose 113 mg/dl 168 mg/dl Activated Partial Thromboplast Time 27.8 SECONDS Partial Thromboplastin Ratio 1.1 Sodium Level 137 mmol/L Potassium Level 4.4 mmol/L Chloride Level 100 mmol/L Carbon Dioxide Level 28 mmol/L Anion Gap 9.0 mmol/L Blood Urea Nitrogen 66 mg/dl Creatinine 2.70 mg/dl Est Creatinine Clear Calc Drug Dose 15.1 ml/min Estimated GFR () 18.4 Estimated GFR (Non- 15.9 BUN/Creatinine Ratio 24.5 Random Glucose 152 mg/dl Calcium Level 8.9 mg/dl Magnesium Level 2.1 mg/dl Troponin I 1.150 ng/ml Thyroid Stimulating Hormone (TSH) 0.230 uIu/ml Free Thyroxine 1.66 ng/dl Test 03/20/17 23:13 03/21/17 00:00 03/21/17 06:11 03/21/17 06:50 Ammonia < 10.0 umol/L Troponin I 0.985 ng/ml 0.812 ng/ml Urine Color YELLOW Urine Appearance CLOUDY Urine pH 5.0 Urine Specific [place] 1.020 Urine Protein 1+ Urine Glucose (UA) NEG Urine Ketones NEG Urine Occult Blood NEG Urine Nitrite NEG Urine Bilirubin NEG Urine Urobilinogen NEG Urine Leukocyte Esterase MODERATE Urine WBC (Auto) >30 /hpf Urine RBC (Auto) 5-10 /hpf Urine Hyaline Casts (Auto) 5-10 /lpf Urine Epithelial Cells (Auto) >30 /lpf Urine Bacteria (Auto) NEG Urine Renal Epithelial Cells /lpf Urine Pathogenic Casts /lpf Urine Yeast (Auto) White Blood Count 3.56 K/uL Red Blood Count 3.32 M/uL Hemoglobin 10.2 g/dL Hematocrit 30.9 % Mean Corpuscular Volume 93.1 fL Mean Corpuscular Hemoglobin 30.7 pg Mean Corpuscular Hemoglobin Concent 33.0 g/dl Platelet Count 161 K/uL Mean Platelet Volume 10.6 fL Neutrophils (%) (Auto) 86.2 % Lymphocytes (%) (Auto) 11.0 % Monocytes (%) (Auto) 2.5 % Eosinophils (%) (Auto) 0.0 % Basophils (%) (Auto) 0.0 % Neutrophils # (Auto) 3.07 K/uL Lymphocytes # (Auto) 0.39 K/uL Monocytes # (Auto) 0.09 K/uL Eosinophils # (Auto) 0.00 K/uL Basophils # (Auto) 0.00 K/uL RDW Standard Deviation 45.7 fL RDW Coefficient of Variation 13.5 % Immature Granulocyte % (Auto) 0.3 % Immature Granulocyte # (Auto) 0.01 K/uL Activated Partial Thromboplast Time 26.2 SECONDS Partial Thromboplastin Ratio 1.0 Sodium Level 137 mmol/L Potassium Level 4.3 mmol/L Chloride Level 98 mmol/L Carbon Dioxide Level 28 mmol/L Anion Gap 11.0 mmol/L Blood Urea Nitrogen 78 mg/dl Creatinine 2.90 mg/dl Est Creatinine Clear Calc Drug Dose 14.0 ml/min Estimated GFR () 16.9 Estimated GFR (Non- 14.6 BUN/Creatinine Ratio 26.7 Random Glucose 146 mg/dl Calcium Level 9.2 mg/dl Total Triiodothyronine 0.49 ng/ml Bedside Glucose 148 mg/dl Test 03/21/17 11:06 03/21/17 13:16 Bedside Glucose 155 mg/dl
[2017-03-21] MEDS ORDERED: FUROSEMIDE INJ 100 MG in SYRINGE 0 ML IV SCH (13:45)
[2017-03-21] MEDS ORDERED: METOLAZONE 5 MG TAB PO ONE (13:45)
--- NOTE | 2017-03-21 13:45 | NEPHROLOGY CONSULTATION ---
DATE OF CONSULTATION: 03/21/2017 REASON FOR CONSULT: Acute renal failure on a background CKD 4. HISTORY OF PRESENT ILLNESS: The patient is an 81-year-old female who recently moved to [place] from the [facility] 3 months ago to live with her daughter. The patient has known extensive medical problems including chronic kidney disease stage 4 with a baseline creatinine of around 2.5, ischemic cardiomyopathy with an ejection fraction of 40% as well as diastolic congestive heart failure, coronary artery disease, history of nocturnal hypoxemia on home oxygen at night. The patient presented to the hospital 3 days ago with a chief complaint of chest pain and shortness of breath. It appears patient was getting progressively more short of breath for the week preceding the hospital admission and was requiring more and more oxygen.She was in fact using oxygen even during the daytime. The patient is too short of breath to give me history and history was constructed by asking the daughter who was at the bedside. The patient was having cough with some sputum, but denied having any fever, chills or rigors. Her appetite has been poor and she has not been gaining any weight. In fact, for the last 1 year, she has lost a lot of weight. Since admission, the patient was put on IV heparin as well as nitroglycerin drip for acute coronary syndrome. Troponin was elevated and she was felt to have non-ST elevation ID too. She did have an echocardiogram done which showed ejection fraction had dropped to 25%. All the cardiac chambers were dilated. Since admission, the patient has received some Lasix but her diuresis has been almost nonexistent. In the last 4 days, she has only made 2700 mL of urine. Her last dose of Lasix was last night and was 80 mg IV x1 dose. Creatinine was 2.8 at the time of admission and is 2.9 today. She essentially has fluctuated between 2.6 and 2.9 for the last 5 days. The patient only reports she is about 10% better than on admission. She is still requiring significantly high-flow oxygen and looks ill. REVIEW OF SYSTEMS: As detailed in HPI unless stated otherwise, 12 systems reviewed. PAST MEDICAL AND SURGICAL HISTORY: Coronary artery disease status post stent, ischemic cardiomyopathy with a previous ejection fraction of 40%, but it seems it is down to 25% on the most recent echo 3 days ago; type 2 diabetes, previously on insulin, now not so; history of hypertension in the past; congestive heart failure, both systolic and diastolic; hypothyroidism; nocturnal hypoxemia; hypertension anemia, most likely related with chronic kidney disease; history of thrombocytopenia; history of hysterectomy. FAMILY HISTORY: Negative for renal disease or dialysis. SOCIAL HISTORY: She is currently living with her daughter, recently moved from [place] in December 2016. She is a nonsmoker, denies any alcohol or illicit drugs. 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 ALLERGIES: None. HOME MEDICATIONS: Included nitroglycerin as needed, Imdur, oxygen at nighttime 2 liters, vitamin B12, Coreg 6.25 twice daily, amlodipine 5 daily, vitamin D, Senokot, Plavix, Lasix 40 mg once daily, Lipitor, levothyroxine 88 mcg daily. PHYSICAL EXAMINATION: GENERAL: Elderly white female who appears ill. She is short of breath and really could not speak a long sentence. She is requiring 6 liters of oxygen at this time. She was just on BiPAP few hours ago. HEENT: Normocephalic, atraumatic. NECK: Supple. No jugular venous distension noted. RESPIRATORY: Decreased breath sounds bilateral with basal crackles. CARDIOVASCULAR: Regular rate and rhythm, normal S1 and S2. ABDOMEN: Soft, nontender. EXTREMITIES: Shows bilateral trace edema with chronic venous skin changes. NEUROLOGIC: She is generalized weak. LABORATORY TESTS AND IMAGING DATA: From this morning shows sodium 137, potassium 4.3, BUN 78, creatinine 2.9, calcium 9.2. Troponin was positive. Chest x-ray still shows clear cut congestive heart failure as pulmonary edema. A venous Doppler that was done yesterday showed no DVT within the right lower extremity, but there was a thrombus in the left peroneal vein consistent with DVT. Echocardiogram done on March 18 during this hospitalization was reviewed and there has been significant drop in her left ventricular ejection fraction from 40%-25%. Right ventricular systolic pressure is elevated. ASSESSMENT AND PLAN: An 81-year-old female who has known baseline chronic kidney disease stage 4 with a baseline creatinine of around 2.5, presented with chest pain as well as shortness of breath. She did have acute non-ST elevation myocardial infarction as well as possible pulmonary embolism, deep venous thrombosis and was noted to have pulmonary edema. She is still requiring lot higher oxygen than baseline. I was called for evaluation of acute renal failure on the background chronic kidney disease 4. 1. Acute renal failure. The acute component of her underlying kidney disease is very minimal as from a baseline of 2.5 it has gone to 2.9 in the setting of non-ST elevation myocardial infarction, congestive heart failure and possible pulmonary embolism and deep venous thrombosis. But she is still struggling to breathe. She can barely speak 2 sentences. She thinks she is only better by 10% and she has really had had no diuresis. In the last 4 days, a 2700 urine output in 4 days is not adequate diuresis. I would not stop the Lasix yet. I will give 100 mg IV Lasix 1 dose now with metolazone 5 mg. She is not responding to diuretics very well which is not a good sign. I think the big reason why her kidneys are somewhat worse now is because of the big drop in the ejection fraction from 40% to 25% and there is definitely pulmonary hypertension secondary to possible acute pulmonary embolism and because of these 2 new events, her renal function is not the same and may continue to get worse. MTDD
[2017-03-21 13:58] LABS: BASO % 0.2 %; BASO ABS # 0.01 K/uL (0-0.2); HEMATOCRIT 29.4 % (37-47); IG% 0.4 %; LYMPH % 10.1 %; LYMPH ABS # 0.53 K/uL (1.2-3.4); MEAN CELL VOLUME 93.3 fL (80-100); MEAN CORPUSCULAR HEMOGLOBIN 30.8 pg (25-34); MEAN PLATELET VOLUME 10.4 fL (7.4-10.4); MONO % 6.6 %; NEUT % 82.7 %; PLATELET COUNT 171 K/uL (130-400); RED BLOOD COUNT 3.15 M/uL (4.2-5.4); WHITE BLOOD COUNT 5.27 K/uL (4.8-10.8)
[2017-03-21 14:11] LABS: COMPLETE YES
[2017-03-21] MEDS: LOW INTENSITY WARFARIN NOMOGRAM SCH (14:11)
[2017-03-21] MEDS ORDERED: WARFARIN SOD 3 MG TAB PO SCH (16:00)
[2017-03-21 20:46] LABS: PARTIAL THROMBOPLASTIN RATIO 1.9
[2017-03-22] VITALS (31 sets, daily range): BP systolic 95–131; BP diastolic 51–73; PULSE 62–82; TEMP 36.4–36.8; O2SAT 92–99
--- NOTE | 2017-03-22 00:27 | Progress Note ---
Internal Med Progress Note Date of Service: Mar 22, 2017. Provider Documentation: Made aware by RN of "bleeding" IV and venipuncture sites. Hold heparin, Coumadin for now. Check CBC, coags now. Vital Signs: Date Time Temp Pulse Resp B/P (MAP) Pulse Ox O2 Delivery O2 Flow Rate FiO2 03/22/17 07:40 36.7 68 20 114/73 (87) 99 BiPAP 30 03/22/17 06:17 74 95 30 03/22/17 05:55 82 18 95 Nasal Cannula 3.0 03/22/17 04:00 BiPAP 30 03/22/17 03:51 36.4 75 22 108/70 (83) 94 BiPAP 03/22/17 00:09 36.4 80 26 111/72 (85) 93 Nasal Cannula 6.0 03/22/17 00:00 BiPAP 30 03/21/17 20:23 36.5 80 18 117/71 (86) 99 Nasal Cannula 3.0 03/21/17 20:00 Nasal Cannula 3.0 03/21/17 19:30 80 18 95 Nasal Cannula 3.0 03/21/17 16:00 Nasal Cannula 3.0 03/21/17 15:27 36.7 76 18 121/72 (88) 100 Nasal Cannula 3.0 03/21/17 14:34 71 20 96 Mask 3.0 03/21/17 12:07 36.6 73 18 108/69 (82) 98 Oxymask 6.0 03/21/17 12:00 Mask 6.0 03/21/17 11:30 75 24 98 Mask 6.0 Lab Results: Results Past 24 Hours Test 03/21/17 11:06 03/21/17 13:43 03/21/17 16:13 03/21/17 19:58 Range/Units Bedside Glucose 155 182 70-90 mg/dl White Blood Count 5.27 4.8-10.8 K/uL Red Blood Count 3.15 4.2-5.4 M/uL Hemoglobin 9.7 12.0-16.0 g/dL Hematocrit 29.4 37-47 % Mean Corpuscular Volume 93.3 80-100 fL Mean Corpuscular Hemoglobin 30.8 25-34 pg Mean Corpuscular Hemoglobin Concent 33.0 32-36 g/dl Platelet Count 171 130-400 K/uL Mean Platelet Volume 10.4 7.4-10.4 fL Neutrophils (%) (Auto) 82.7 % Lymphocytes (%) (Auto) 10.1 % Monocytes (%) (Auto) 6.6 % Eosinophils (%) (Auto) 0.0 % Basophils (%) (Auto) 0.2 % Neutrophils # (Auto) 4.36 1.4-6.5 K/uL Lymphocytes # (Auto) 0.53 1.2-3.4 K/uL Monocytes # (Auto) 0.35 0.11-0.59 K/uL Eosinophils # (Auto) 0.00 0-0.5 K/uL Basophils # (Auto) 0.01 0-0.2 K/uL RDW Standard Deviation 46.3 36.4-46.3 fL RDW Coefficient of Variation 13.7 11.5-14.5 % Immature Granulocyte % (Auto) 0.4 % Immature Granulocyte # (Auto) 0.02 0.00-0.02 K/uL Prothrombin Time 11.0 9.0-12.0 SECONDS Prothromb Time International Ratio 1.0 0.9-1.1 Activated Partial Thromboplast Time 25.7 48.9 21.0-31.0 SECONDS Partial Thromboplastin Ratio 1.0 1.9 Test 03/21/17 20:42 03/22/17 00:33 03/22/17 06:36 03/22/17 06:56 Range/Units Bedside Glucose 205 157 70-90 mg/dl White Blood Count 7.48 5.40 4.8-10.8 K/uL Red Blood Count 3.06 3.38 4.2-5.4 M/uL Hemoglobin 9.5 10.1 12.0-16.0 g/dL Hematocrit 28.1 31.6 37-47 % Mean Corpuscular Volume 91.8 93.5 80-100 fL Mean Corpuscular Hemoglobin 31.0 29.9 25-34 pg Mean Corpuscular Hemoglobin Concent 33.8 32.0 32-36 g/dl Platelet Count 183 173 130-400 K/uL Mean Platelet Volume 10.2 10.8 7.4-10.4 fL Neutrophils (%) (Auto) 77.0 76.0 % Lymphocytes (%) (Auto) 12.0 11.7 % Monocytes (%) (Auto) 9.6 10.2 % Eosinophils (%) (Auto) 0.9 1.5 % Basophils (%) (Auto) 0.1 0.2 % Neutrophils # (Auto) 5.75 4.11 1.4-6.5 K/uL Lymphocytes # (Auto) 0.90 0.63 1.2-3.4 K/uL Monocytes # (Auto) 0.72 0.55 0.11-0.59 K/uL Eosinophils # (Auto) 0.07 0.08 0-0.5 K/uL Basophils # (Auto) 0.01 0.01 0-0.2 K/uL RDW Standard Deviation 45.7 46.3 36.4-46.3 fL RDW Coefficient of Variation 13.9 13.9 11.5-14.5 % Immature Granulocyte % (Auto) 0.4 0.4 % Immature Granulocyte # (Auto) 0.03 0.02 0.00-0.02 K/uL Prothrombin Time 11.3 10.9 9.0-12.0 SECONDS Prothromb Time International Ratio 1.1 1.0 0.9-1.1 Activated Partial Thromboplast Time 57.4 25.7 21.0-31.0 SECONDS Partial Thromboplastin Ratio 2.2 1.0 Sodium Level 135 136-145 mmol/L Potassium Level 3.7 3.5-5.1 mmol/L Chloride Level 95 98-107 mmol/L Carbon Dioxide Level 27 21-32 mmol/L Anion Gap 13.0 3-11 mmol/L Blood Urea Nitrogen 88 7-18 mg/dl Creatinine 3.20 0.60-1.20 mg/dl Est Creatinine Clear Calc Drug Dose 12.8 ml/min Estimated GFR () 15.0 Estimated GFR (Non- 12.9 BUN/Creatinine Ratio 27.6 10-20 Random Glucose 152 70-99 mg/dl Calcium Level 9.1 8.5-10.1 mg/dl
[2017-03-22 00:49] LABS: BASO % 0.1 %; BASO ABS # 0.01 K/uL (0-0.2); COMPLETE YES; EOS % 0.9 %; HEMATOCRIT 28.1 % (37-47); IG% 0.4 %; MEAN CELL VOLUME 91.8 fL (80-100); MEAN CORPUSCULAR HGB CONC 33.8 g/dl (32-36); MEAN PLATELET VOLUME 10.2 fL (7.4-10.4); MONO % 9.6 %; PLATELET COUNT 183 K/uL (130-400); RED BLOOD COUNT 3.06 M/uL (4.2-5.4); WHITE BLOOD COUNT 7.48 K/uL (4.8-10.8)
[2017-03-22 01:15] LABS: INR 1.1 (0.9-1.1); PARTIAL THROMBOPLASTIN RATIO 2.2; PROTHROMBIN TIME (PATIENT) 11.3 SECONDS (9.0-12.0)
[2017-03-22] MEDS: NITROGLYCERIN OINT 2% 1GM PACKET EXT SCH ×3 (05:42→11:28)
[2017-03-22] MEDS: LEVOTHYROXINE 75 MCG TAB PO SCH (05:43)
[2017-03-22] MEDS: ALBUT/IPRATROP 3MG/0.5MG NEB 3 ML VIAL INH SCH ×2 (05:55→11:24)
[2017-03-22 06:56] LABS: BASO % 0.2 %; BASO ABS # 0.01 K/uL (0-0.2); COMPLETE YES; EOS % 1.5 %; HEMATOCRIT 31.6 % (37-47); IG% 0.4 %; LYMPH % 11.7 %; LYMPH ABS # 0.63 K/uL (1.2-3.4); MEAN CELL VOLUME 93.5 fL (80-100); MEAN CORPUSCULAR HEMOGLOBIN 29.9 pg (25-34); MEAN PLATELET VOLUME 10.8 fL (7.4-10.4); MONO % 10.2 %; PLATELET COUNT 173 K/uL (130-400); RED BLOOD COUNT 3.38 M/uL (4.2-5.4)
[2017-03-22 07:04] LABS: PROTHROMBIN TIME (PATIENT) 10.9 SECONDS (9.0-12.0)
[2017-03-22 07:31] LABS: BUN/CREATININE RATIO 27.6 (10-20); CALCIUM 9.1 mg/dl (8.5-10.1); CREATININE 3.2 mg/dl (0.60-1.20); POTASSIUM 3.7 mmol/L (3.5-5.1)
[2017-03-22] MEDS: INSULIN ASPART 100 UNITS/ML 3 ML PEN SC SCH ×4 (08:49→20:40)
--- NOTE | 2017-03-22 09:08 | Nephrology Progress Note ---
Nephrology Progress Note Date of Service: Mar 22, 2017. Subjective got 100mg iV lasix yesterday and 5 mg metolazone and some UOP but minimal with this. remains very tired and dyspneic this am. heparin/coumadin on hold d/t at IV sites bleeding overnight. Objective Date Time Temp Pulse Resp B/P (MAP) Pulse Ox O2 Delivery O2 Flow Rate FiO2 03/22/17 08:00 Nasal Cannula 6.0 03/22/17 07:40 36.7 68 20 114/73 (87) 99 BiPAP 30 03/22/17 06:17 74 95 30 03/22/17 05:55 82 18 95 Nasal Cannula 3.0 03/22/17 04:00 BiPAP 30 03/22/17 03:51 36.4 75 22 108/70 (83) 94 BiPAP 03/22/17 00:09 36.4 80 26 111/72 (85) 93 Nasal Cannula 6.0 03/22/17 00:00 BiPAP 30 03/21/17 20:23 36.5 80 18 117/71 (86) 99 Nasal Cannula 3.0 03/21/17 20:00 Nasal Cannula 3.0 03/21/17 19:30 80 18 95 Nasal Cannula 3.0 03/21/17 16:00 Nasal Cannula 3.0 03/21/17 15:27 36.7 76 18 121/72 (88) 100 Nasal Cannula 3.0 03/21/17 14:34 71 20 96 Mask 3.0 03/21/17 12:07 36.6 73 18 108/69 (82) 98 Oxymask 6.0 03/21/17 12:00 Mask 6.0 03/21/17 11:30 75 24 98 Mask 6.0 Physical Exam: GEN: ill appearing F w/ increased wob, mild resp distress, tired, cant finish sentence w/o taking a breath HEENT: Normocephalic, atraumatic. NECK: Supple. RESPIRATORY: Decreased breath sounds bilaterally sigrid R with crackles 1[address] CARDIOVASCULAR: Regular rate and rhythm, distant ABDOMEN: Soft, nontender, goodson w/ some urine EXTREMITIES: at most trace edema with chronic venous skin changes. NEUROLOGIC: generalized weakness, tired, oriented x 3 but not ready/able to interact much Current Inpatient Medications Medications (Trade) Dose Ordered Sig/Izaiah Route Start Time Stop Time Status Last Admin Dose Admin Nitroglycerin (Nitroglycerin 2% Oint) 0.5 inch Q6H EXT 03/18/17 06:00 04/17/17 05:59 03/22/17 05:42 0.5 INCH Albuterol/ Ipratropium (Duoneb) 3 ml Q2H PRN INH 03/18/17 02:30 04/17/17 02:29 03/19/17 21:47 3 ML Acetaminophen (Tylenol Tab) 650 mg Q4H PRN PO 03/18/17 02:30 04/17/17 02:29 Nitroglycerin (Nitrostat Tab) 0.4 mg UD PRN SL 03/18/17 02:30 04/17/17 02:29 Insulin Aspart (novoLOG ASPART) SLIDING SCALE If C... ACHS SC 03/18/17 07:00 04/17/17 06:59 03/21/17 21:52 1 UNITS Glucose (Glucose 40% Gel) 15-30 GRAMS 15 GRAMS... UD PRN PO 03/18/17 02:30 04/17/17 02:29 Glucose (Glucose Chew Tab) 4-8 Tablets 4 Tabl... UD PRN PO 03/18/17 02:30 04/17/17 02:29 Dextrose (Dextrose 50% 50ML Syringe) 25-50ML OF 50% DW IV FOR... UD PRN IV 03/18/17 02:30 04/17/17 02:29 Glucagon (Glucagon Inj) 1 mg UD PRN SQ 03/18/17 02:30 04/17/17 02:29 Hydromorphone HCl (Dilaudid Inj) 0.5 mg Q3H PRN IV 03/18/17 02:30 04/01/17 02:29 Tramadol HCl (Ultram Tab) 25 mg Q6H PRN PO 03/18/17 02:30 04/17/17 02:29 Ondansetron HCl (Zofran Inj) 4 mg Q6H PRN IV 03/18/17 02:30 04/17/17 02:29 Atorvastatin Calcium (Lipitor Tab) 80 mg DAILY PO 03/18/17 09:00 04/17/17 08:59 03/21/17 08:24 80 MG Carvedilol (Coreg Tab) 6.25 mg BID PO 03/18/17 09:00 04/17/17 08:59 03/21/17 20:14 6.25 MG Clopidogrel Bisulfate (plAVix TAB) 75 mg DAILY PO 03/18/17 09:00 04/17/17 08:59 03/21/17 08:24 75 MG Isosorbide Mononitrate (Imdur Ext Rel Tab) 60 mg QAM PO 03/18/17 09:00 04/17/17 08:59 03/21/17 08:23 60 MG Senna/Docusate Sodium (Senokot S Tab) 2 tab DAILY PO 03/18/17 09:00 04/17/17 08:59 03/21/17 08:24 2 TAB Aspirin (Ecotrin Tab) 81 mg QAM PO 03/18/17 09:00 04/17/17 08:59 03/21/17 08:23 81 MG Pantoprazole Sodium (Protonix Tab) 40 mg QAM PO 03/19/17 09:00 04/18/17 08:59 03/21/17 08:24 40 MG Doxycycline Hyclate 100 mg/ Dextrose 110 ml @ 50 mls/hr BID@1000,2200 IV 03/20/17 10:00 03/27/17 09:59 03/21/17 22:45 50 MLS/HR Albuterol/ Ipratropium (Duoneb) 3 ml QIDR INH 03/20/17 20:00 04/19/17 19:59 03/22/17 05:55 3 ML Levothyroxine Sodium (Synthroid Tab) 75 mcg DAILYBB PO 03/21/17 06:00 04/17/17 06:59 03/22/17 05:43 75 MCG Heparin Sodium/ Dextrose 500 ml @ 21 mls/hr [id number] PRN IV 03/21/17 13:30 04/20/17 13:29 Future Hold 03/21/17 13:52 21 MLS/HR Miscellaneous Information (Low Intensity Warfarin Nomogram) 1 ea DAILY@14 N/A 03/21/17 14:00 03/27/17 13:59 03/21/17 14:11 1 EA Warfarin Sodium (Coumadin Tab) 3 mg DAILY@16 PO 03/21/17 16:00 03/22/17 23:59 Future Hold 03/21/17 16:21 3 MG Last 24 Hours Test 03/21/17 11:06 03/21/17 13:43 03/21/17 16:13 03/21/17 19:58 Bedside Glucose 155 mg/dl 182 mg/dl White Blood Count 5.27 K/uL Red Blood Count 3.15 M/uL Hemoglobin 9.7 g/dL Hematocrit 29.4 % Mean Corpuscular Volume 93.3 fL Mean Corpuscular Hemoglobin 30.8 pg Mean Corpuscular Hemoglobin Concent 33.0 g/dl Platelet Count 171 K/uL Mean Platelet Volume 10.4 fL Neutrophils (%) (Auto) 82.7 % Lymphocytes (%) (Auto) 10.1 % Monocytes (%) (Auto) 6.6 % Eosinophils (%) (Auto) 0.0 % Basophils (%) (Auto) 0.2 % Neutrophils # (Auto) 4.36 K/uL Lymphocytes # (Auto) 0.53 K/uL Monocytes # (Auto) 0.35 K/uL Eosinophils # (Auto) 0.00 K/uL Basophils # (Auto) 0.01 K/uL RDW Standard Deviation 46.3 fL RDW Coefficient of Variation 13.7 % Immature Granulocyte % (Auto) 0.4 % Immature Granulocyte # (Auto) 0.02 K/uL Prothrombin Time 11.0 SECONDS Prothromb Time International Ratio 1.0 Activated Partial Thromboplast Time 25.7 SECONDS 48.9 SECONDS Partial Thromboplastin Ratio 1.0 1.9 Test 03/21/17 20:42 03/22/17 00:33 03/22/17 06:36 03/22/17 06:56 Bedside Glucose 205 mg/dl 157 mg/dl White Blood Count 7.48 K/uL 5.40 K/uL Red Blood Count 3.06 M/uL 3.38 M/uL Hemoglobin 9.5 g/dL 10.1 g/dL Hematocrit 28.1 % 31.6 % Mean Corpuscular Volume 91.8 fL 93.5 fL Mean Corpuscular Hemoglobin 31.0 pg 29.9 pg Mean Corpuscular Hemoglobin Concent 33.8 g/dl 32.0 g/dl Platelet Count 183 K/uL 173 K/uL Mean Platelet Volume 10.2 fL 10.8 fL Neutrophils (%) (Auto) 77.0 % 76.0 % Lymphocytes (%) (Auto) 12.0 % 11.7 % Monocytes (%) (Auto) 9.6 % 10.2 % Eosinophils (%) (Auto) 0.9 % 1.5 % Basophils (%) (Auto) 0.1 % 0.2 % Neutrophils # (Auto) 5.75 K/uL 4.11 K/uL Lymphocytes # (Auto) 0.90 K/uL 0.63 K/uL Monocytes # (Auto) 0.72 K/uL 0.55 K/uL Eosinophils # (Auto) 0.07 K/uL 0.08 K/uL Basophils # (Auto) 0.01 K/uL 0.01 K/uL RDW Standard Deviation 45.7 fL 46.3 fL RDW Coefficient of Variation 13.9 % 13.9 % Immature Granulocyte % (Auto) 0.4 % 0.4 % Immature Granulocyte # (Auto) 0.03 K/uL 0.02 K/uL Prothrombin Time 11.3 SECONDS 10.9 SECONDS Prothromb Time International Ratio 1.1 1.0 Activated Partial Thromboplast Time 57.4 SECONDS 25.7 SECONDS Partial Thromboplastin Ratio 2.2 1.0 Sodium Level 135 mmol/L Potassium Level 3.7 mmol/L Chloride Level 95 mmol/L Carbon Dioxide Level 27 mmol/L Anion Gap 13.0 mmol/L Blood Urea Nitrogen 88 mg/dl Creatinine 3.20 mg/dl Est Creatinine Clear Calc Drug Dose 12.8 ml/min Estimated GFR () 15.0 Estimated GFR (Non- 12.9 BUN/Creatinine Ratio 27.6 Random Glucose 152 mg/dl Calcium Level 9.1 mg/dl Assessment & Plan 81-year-old female with chronic kidney disease stage 4 with a baseline creatinine of around 2.5, DM, severe CAD w/ recent high risk lad stent presented 03/18 with chest pain as well as shortness of breath and found to have acute non-ST elevation myocardial infarction as well as possible pulmonary embolism, + deep venous thrombosis and pulmonary edema/hypoxemic respiratory failure. -acute on advanced chronic renal failure. from a baseline of 2.5 her creatinine has increased to 3.2; minimal acute failure in setting of very severe illness. -I have ordered standing lasix 80 mg IV tid and 5 mg daily metolazone -She is not responding to diuretics very well so far which is not a good sign > > high risk to need dialysis and other invasive care; she is in no condition to discuss this currently; will reach out to hospitalist -cont daily bmp and strict I/O -not currently on a fluid limit >> she is however hardly eating -acute heart failure/ ischemic WELLNESS RN she has had a drop in the ejection fraction from 40% to 25%; severe underlying CAD w/ recent intervention and still diffuse disease -multifactorial hypoxemia pulm following appreciate consult; will follow with you. care coordinated w/ Dr Cruz
[2017-03-22] MEDS ORDERED: METOLAZONE 5 MG TAB PO ONE (09:45)
[2017-03-22] MEDS: DOXYCYCLINE IV 100 MG in DEXTROSE 5% 100ML 100 ML IV SCH ×2 (09:59→22:10)
[2017-03-22] MEDS ORDERED: FUROSEMIDE INJ 80 MG in SYRINGE 0 ML IV ONE (10:00)
[2017-03-22] MEDS: ISOSORBIDE MONONITRATE 60 MG TABCR PO SCH (10:58)
[2017-03-22] MEDS: ATORVASTATIN 40 MG TAB PO SCH (10:58)
[2017-03-22] MEDS: CLOPIDOGREL BISULFATE 75 MG TAB PO SCH (10:58)
[2017-03-22] MEDS: CARVEDILOL 6.25 MG TAB PO SCH (10:58)
[2017-03-22] MEDS: ASPIRIN 81 MG ECTAB PO SCH (10:58)
[2017-03-22] MEDS: PANTOprazole SOD 40 MG TAB PO SCH (10:59)
[2017-03-22] MEDS: DOCUSATE SODIUM/SENNA 50/8.6MG TAB PO SCH (10:59)
--- NOTE | 2017-03-22 11:12 | Cardiology Follow-Up ---
Subjective Subjective Date of Service: Mar 22, 2017. Pt evaluation today including: conversation w/ patient, physical exam, chart review, lab review, review of studies, review of inpatient medication list Additional Details: Remains dyspneic. States he just feels tired. This morning on 6 liters nasal cannula alone, BiPAP overnight. Denies any chest pain. Reports decreased appetite. Tele reviewed--brief episode of SVT overnight, 12 beats Problem List Medical Problems: (1) Acute myocardial infarction Status: Acute (2) Pulmonary edema Status: Acute (3) Renal failure (ARF), acute on chronic Status: Acute Review of Systems Constitutional: No fever, No chills Respiratory: + cough, + sputum, + shortness of breath Abdomen: No pain, No nausea, No vomiting, No diarrhea Neurologic: No numbness/tingling Psychiatric: + anxiety Heme: No abnormal bleeding/bruising Skin: No rash Objective Vital Signs Last Vital Signs Documentation Date Time Temp Pulse Resp B/P (MAP) Pulse Ox O2 Delivery O2 Flow Rate FiO2 03/22/17 08:00 Nasal Cannula 6.0 03/22/17 07:40 36.7 68 20 114/73 (87) 99 30 Physical Exam: General Appearance: + mild distress (respiratory distress with accessory muscle use) ENT: hearing grossly normal Neck: no JVD (difficult to assess) Respiratory/Chest: + respiratory distress, + decreased breath sounds (at bases bilaterally), + crackles (few at basess) Cardiovascular: regular rate, rhythm, no edema, + systolic murmur (2/6 systolic murmur) Abdomen: normal bowel sounds, non tender, soft Extremities: + pertinent finding (extremities are warm) Neurologic/Psychiatric: no motor/sensory deficits, alert, normal mood/affect Skin: normal color Assessment and Plan 1. Hypoxemic respiratory failure 2. Acute systolic heart failure/ICM -- severe LV dysfunction with LAD distribution infarct 3. Acute on chronic renal insufficiency 4. NSTEMI demand ischemia in setting of severe multivessel disease 5. Distal left lower extremity DVT 6. Type 2 diabetes. 7. Anemia. 8 Paroxysmal SVT Escalating diuretics per renal, now on lasix 80 milligrams t.i.d. and metolazone --limited urine output, BUN/creatinine trending up Respiratory status mildly improved, tolerating nasal cannula this morning On exam appears well perfused with minimal congestion -- follow-up response to escalating diuretics -- if limited urine output/continued worsening renal function will consider right heart catheterization tomorrow to assess intracardiac filling pressures and cardiac output -- for now continue DAPT with ASA/Plavix. Heparin on hold in the setting bleeding overnight -- no other changes to cardiac regimen Will continue to follow. Medications: Current Inpatient Medications Medications (Trade) Dose Ordered Sig/Izaiah Route Start Time Stop Time Status Last Admin Dose Admin Nitroglycerin (Nitroglycerin 2% Oint) 0.5 inch Q6H EXT 03/18/17 06:00 04/17/17 05:59 03/22/17 05:42 0.5 INCH Albuterol/ Ipratropium (Duoneb) 3 ml Q2H PRN INH 03/18/17 02:30 04/17/17 02:29 03/19/17 21:47 3 ML Acetaminophen (Tylenol Tab) 650 mg Q4H PRN PO 03/18/17 02:30 04/17/17 02:29 Nitroglycerin (Nitrostat Tab) 0.4 mg UD PRN SL 03/18/17 02:30 04/17/17 02:29 Insulin Aspart (novoLOG ASPART) SLIDING SCALE If C... ACHS SC 03/18/17 07:00 04/17/17 06:59 03/21/17 21:52 1 UNITS Glucose (Glucose 40% Gel) 15-30 GRAMS 15 GRAMS... UD PRN PO 03/18/17 02:30 04/17/17 02:29 Glucose (Glucose Chew Tab) 4-8 Tablets 4 Tabl... UD PRN PO 03/18/17 02:30 04/17/17 02:29 Dextrose (Dextrose 50% 50ML Syringe) 25-50ML OF 50% DW IV FOR... UD PRN IV 03/18/17 02:30 04/17/17 02:29 Glucagon (Glucagon Inj) 1 mg UD PRN SQ 03/18/17 02:30 04/17/17 02:29 Hydromorphone HCl (Dilaudid Inj) 0.5 mg Q3H PRN IV 03/18/17 02:30 04/01/17 02:29 Tramadol HCl (Ultram Tab) 25 mg Q6H PRN PO 03/18/17 02:30 04/17/17 02:29 Ondansetron HCl (Zofran Inj) 4 mg Q6H PRN IV 03/18/17 02:30 04/17/17 02:29 Atorvastatin Calcium (Lipitor Tab) 80 mg DAILY PO 03/18/17 09:00 04/17/17 08:59 03/21/17 08:24 80 MG Carvedilol (Coreg Tab) 6.25 mg BID PO 03/18/17 09:00 04/17/17 08:59 03/21/17 20:14 6.25 MG Clopidogrel Bisulfate (plAVix TAB) 75 mg DAILY PO 03/18/17 09:00 04/17/17 08:59 03/21/17 08:24 75 MG Isosorbide Mononitrate (Imdur Ext Rel Tab) 60 mg QAM PO 03/18/17 09:00 04/17/17 08:59 03/21/17 08:23 60 MG Senna/Docusate Sodium (Senokot S Tab) 2 tab DAILY PO 03/18/17 09:00 04/17/17 08:59 03/21/17 08:24 2 TAB Aspirin (Ecotrin Tab) 81 mg QAM PO 03/18/17 09:00 04/17/17 08:59 03/21/17 08:23 81 MG Pantoprazole Sodium (Protonix Tab) 40 mg QAM PO 03/19/17 09:00 04/18/17 08:59 03/21/17 08:24 40 MG Doxycycline Hyclate 100 mg/ Dextrose 110 ml @ 50 mls/hr BID@1000,2200 IV 03/20/17 10:00 03/27/17 09:59 03/22/17 09:59 50 MLS/HR Albuterol/ Ipratropium (Duoneb) 3 ml QIDR INH 03/20/17 20:00 04/19/17 19:59 03/22/17 05:55 3 ML Levothyroxine Sodium (Synthroid Tab) 75 mcg DAILYBB PO 03/21/17 06:00 04/17/17 06:59 03/22/17 05:43 75 MCG Heparin Sodium/ Dextrose 500 ml @ 21 mls/hr [id number] PRN IV 03/21/17 13:30 04/20/17 13:29 Future Hold 03/21/17 13:52 21 MLS/HR Miscellaneous Information (Low Intensity Warfarin Nomogram) 1 ea DAILY@14 N/A 03/21/17 14:00 03/27/17 13:59 03/21/17 14:11 1 EA Warfarin Sodium (Coumadin Tab) 3 mg DAILY@16 PO 03/21/17 16:00 03/22/17 23:59 Future Hold 03/21/17 16:21 3 MG Furosemide 80 mg/ Syringe 8 ml @ 4 mls/min TID IV 03/22/17 14:00 04/21/17 13:59 Metolazone (Zaroxolyn Tab) 5 mg QAM PO 03/23/17 09:00 04/22/17 08:59 Lab Results: 03/22/17 06:36 Red Blood Count 3.38, Mean Corpuscular Volume 93.5, Mean Corpuscular Hemoglobin 29.9, Mean Corpuscular Hemoglobin Concent 32.0, Mean Platelet Volume 10.8, Neutrophils (%) (Auto) 76.0, Lymphocytes (%) (Auto) 11.7, Monocytes (%) (Auto) 10.2, Eosinophils (%) (Auto) 1.5, Basophils (%) (Auto) 0.2, Neutrophils # (Auto ) 4.11, Lymphocytes # (Auto) 0.63, Monocytes # (Auto) 0.55, Eosinophils # (Auto ) 0.08, Basophils # (Auto) 0.01 03/22/17 06:36 Test 03/22/17 06:36 03/22/17 06:56 White Blood Count 5.40 K/uL (4.8-10.8) Red Blood Count 3.38 M/uL (4.2-5.4) Hemoglobin 10.1 g/dL (12.0-16.0) Hematocrit 31.6 % (37-47) Mean Corpuscular Volume 93.5 fL (80-100) Mean Corpuscular Hemoglobin 29.9 pg (25-34) Mean Corpuscular Hemoglobin Concent 32.0 g/dl (32-36) Platelet Count 173 K/uL (130-400) Mean Platelet Volume 10.8 fL (7.4-10.4) Neutrophils (%) (Auto) 76.0 % Lymphocytes (%) (Auto) 11.7 % Monocytes (%) (Auto) 10.2 % Eosinophils (%) (Auto) 1.5 % Basophils (%) (Auto) 0.2 % Neutrophils # (Auto) 4.11 K/uL (1.4-6.5) Lymphocytes # (Auto) 0.63 K/uL (1.2-3.4) Monocytes # (Auto) 0.55 K/uL (0.11-0.59) Eosinophils # (Auto) 0.08 K/uL (0-0.5) Basophils # (Auto) 0.01 K/uL (0-0.2) RDW Standard Deviation 46.3 fL (36.4-46.3) RDW Coefficient of Variation 13.9 % (11.5-14.5) Immature Granulocyte % (Auto) 0.4 % Immature Granulocyte # (Auto) 0.02 K/uL (0.00-0.02) Prothrombin Time 10.9 SECONDS (9.0-12.0) Prothromb Time International Ratio 1.0 (0.9-1.1) Activated Partial Thromboplast Time 25.7 SECONDS (21.0-31.0) Partial Thromboplastin Ratio 1.0 Anion Gap 13.0 mmol/L (3-11) Est Creatinine Clear Calc Drug Dose 12.8 ml/min Estimated GFR () 15.0 Estimated GFR (Non- 12.9 BUN/Creatinine Ratio 27.6 (10-20) Calcium Level 9.1 mg/dl (8.5-10.1) Bedside Glucose 157 mg/dl (70-90)
--- NOTE | 2017-03-22 11:51 | PULMONARY PROGRESS NOTE ---
DATE: 03/22/2017 TIME: 11:05 a.m. SUBJECTIVE: The patient is very short of breath. This morning, she was taken off BiPAP. She was placed on 6-liter nasal cannula for a period of time. Within the past hour, she developed accessory muscle use and shortness of breath with saturations into the 80s according to her nurse. She was then put back on BiPAP. The patient wants to have a fan running quite high in addition to the BiPAP because of her discomfort. She was barely able to talk to us while having the BiPAP mask in place. Her BiPAP pressures were 15/5 with 30% oxygen. She denies chest pains. She just says she feels heavy in the chest. OBJECTIVE: GENERAL: The patient kept her eyes closed during most of the exam. She looked fairly comfortable now. The BiPAP was in place and thus, we could not examine the nasal passages or the oropharynx. NECK: Palpation of the neck reveals no lymph nodes. VITAL SIGNS: Temperature is 36.7. Heart rate is 70 beats per minute. The rhythm is regular. A systolic murmur grade 2/6 was heard. Blood pressure is 114/73. LUNGS: Lung brown revealed significantly decreased breath sounds bilaterally. No active wheezing was heard. Her respiratory rate at present is 20 breaths per minute. Her saturation at present is 95%. ABDOMEN: Soft and nontender. EXTREMITIES: Showed trace edema. LABORATORY DATA: White count today is 5.4. Hemoglobin 10.1. Platelets 173,000. INR today is 1 and PTT is 25.7. Electrolytes show sodium 135, potassium 3.7, chloride 95, and bicarbonate 27. The BUN was 88 with a creatinine of 3.2. IMPRESSIONS: 1. Acute respiratory failure with hypoxia. 2. Congestive heart failure. 3. Pleural effusions. 4. Renal failure. COMMENTS AND RECOMMENDATIONS: The patient is being seen by myself for the first time. Reportedly, she had a very good day yesterday and was sitting up for several hours. She has had marked worsening this morning such that she had to be put back on BiPAP. She does have some worsening in her renal status. Problem is likely a combination of congestive heart failure and renal failure. Would continue the BiPAP for now and see how she does. Nephrology is considering doing dialysis. Cardiology is also seeing this patient.
--- NOTE | 2017-03-22 12:01 | Progress Note ---
Internal Med Progress Note Date of Service: Mar 22, 2017. Provider Documentation: SUBJECTIVE: developed worsening of respiratory distress this AM using accessory muscles while on 6 L 02 via nasal canula ; became hypoxic spo2 86 % pt is placed on BiPAP evaluated by Nephrology and Cardiology this AM pt continues to have minimum urine out put Lasix dose increased 80 mg IV Q 8hrs /added Metolazone had brisk bleeding episode with Subq heparin site , all anticoagulations were kept on hold very poor prognosis in the morning Movement Therapist briefly discussed regarding Dialysis , pt refused , later wanted to think about it during my interview , she nodded her head , and willing to have dialysis if needed transferred to ICU for ongoing care pt remains full code OBJECTIVE: Vital Signs-as noted below Exam: General-chronically ill appearing elderly female , remains in respiratory distress Eyes-sclera non icteric ENT-no BiPAP Neck-no JVD noted Lungs-diminished with rales at base Heart-regular Abdomen-soft Extremities-+ 1 -2 bilat edema Neuro-no focal deficit . remains in respiratory distress Lab data as noted below. ASSESSMENT & PLAN: Acute Hypoxemic Respiratory Failure-Multifactorial Acute on Chronic Systolic CHF/SEVERE ICM /CARLOS ON CKD Stage 4 /vol overload -developed progressive hypoxia , respiratory distress this AM -pt is placed on BiPAP Diuretics increase to Lasix 80 mg IV Q 8hrs /Metolazone urine out put remains low transferred to ICU for progressive decline in clinical status D/w Cardiology and Nephrology appreciate input very poor prognosis with advance CAD ,decline in EF , progressive renal failure treatment options remains -emergent dialysis , mechanical ventilation if further decline in respiratory failure while on Bipap given pt's multi co morbidities aggressive measures -may not provided favorable out come -D/w Daughter ,aware of the poor prognosis will be in Hospital later today to discuss regarding treatment plan Experimental Psychologist updated regarding transfer of pt SEVERE CAD /ISCHEMIC CARDIOMYOPATHY /NSTEMI multivessel CAD s/p recent high risk PCI to left main /LAD /Circumflex has residual severe RCA disease presented with SOB /Hypoxia, elevated troponin repeat ECHO -shows diminished EF 20 % ( was 40 % on 10/2016 ) was treated on IV heparin for 48 hrs now on Dual antiplatelet - aspirin and Plavix ( pt unable to take PO meds this AM due to hypoxia /respiratory distress) on Coreg /statin will hold Nitro paste for borderline hypotension appreciate cardiology input -possible demand ischemia causing cardiac compromise recommend continue cardiac meds and supportive care no emergent Cardiac intervention -high risk in setting of advanced CKD risk out weights the benefit CARLOS on CKD stage 4 Cr progressively worsening with minimum urine out put - Diuretics dose increased appreciate Nephrology eval if renal function /urine out put dose not improve -may need HD pt is being transferred to ICU for close monitoring of hemodynamics HTN BP borderline low on Coreg and Norvasc ordered for high dose of diuretics will hold Nitro paste for now monitor in ICU Hypothyroidism TSH is low Synthroid decreased to 75mcg DVT ppx hold Sub q as pt had bleeding for sub q heparin site and venipunctures sites last night ordered for SCD and teds FULL CODE DVT PROPHYLAXIS scd and teds Sub q heparin D/cristina due to bleeding episode DISPOSITION to be determined critically ill with on going respiratory and multi organ failure transferred to ICU plan of care D/W daughter Jayshree aware of poor prognosis -pt may not have a good outcome with Mechanical ventilation /Dialysis -aggressive measures pt does not have a living will , no advance directive no active POA remains in full code as per admission assessment will continue to discuss with Pt and family regarding goal of treatment and pt' s prognosis Vital Signs: Date Time Temp Pulse Resp B/P (MAP) Pulse Ox O2 Delivery O2 Flow Rate FiO2 03/22/17 11:36 36.7 68 20 99 6.0 03/22/17 08:00 Nasal Cannula 6.0 03/22/17 07:40 36.7 68 20 114/73 (87) 99 BiPAP 30 03/22/17 06:17 74 95 30 03/22/17 05:55 82 18 95 Nasal Cannula 3.0 03/22/17 04:00 BiPAP 30 03/22/17 03:51 36.4 75 22 108/70 (83) 94 BiPAP 03/22/17 00:09 36.4 80 26 111/72 (85) 93 Nasal Cannula 6.0 03/22/17 00:00 BiPAP 30 03/21/17 20:23 36.5 80 18 117/71 (86) 99 Nasal Cannula 3.0 03/21/17 20:00 Nasal Cannula 3.0 03/21/17 19:30 80 18 95 Nasal Cannula 3.0 03/21/17 16:00 Nasal Cannula 3.0 03/21/17 15:27 36.7 76 18 121/72 (88) 100 Nasal Cannula 3.0 03/21/17 14:34 71 20 96 Mask 3.0 03/21/17 12:07 36.6 73 18 108/69 (82) 98 Oxymask 6.0 Lab Results: Results Past 24 Hours Test 03/21/17 13:43 03/21/17 16:13 03/21/17 19:58 03/21/17 20:42 Range/Units White Blood Count 5.27 4.8-10.8 K/uL Red Blood Count 3.15 4.2-5.4 M/uL Hemoglobin 9.7 12.0-16.0 g/dL Hematocrit 29.4 37-47 % Mean Corpuscular Volume 93.3 80-100 fL Mean Corpuscular Hemoglobin 30.8 25-34 pg Mean Corpuscular Hemoglobin Concent 33.0 32-36 g/dl Platelet Count 171 130-400 K/uL Mean Platelet Volume 10.4 7.4-10.4 fL Neutrophils (%) (Auto) 82.7 % Lymphocytes (%) (Auto) 10.1 % Monocytes (%) (Auto) 6.6 % Eosinophils (%) (Auto) 0.0 % Basophils (%) (Auto) 0.2 % Neutrophils # (Auto) 4.36 1.4-6.5 K/uL Lymphocytes # (Auto) 0.53 1.2-3.4 K/uL Monocytes # (Auto) 0.35 0.11-0.59 K/uL Eosinophils # (Auto) 0.00 0-0.5 K/uL Basophils # (Auto) 0.01 0-0.2 K/uL RDW Standard Deviation 46.3 36.4-46.3 fL RDW Coefficient of Variation 13.7 11.5-14.5 % Immature Granulocyte % (Auto) 0.4 % Immature Granulocyte # (Auto) 0.02 0.00-0.02 K/uL Prothrombin Time 11.0 9.0-12.0 SECONDS Prothromb Time International Ratio 1.0 0.9-1.1 Activated Partial Thromboplast Time 25.7 48.9 21.0-31.0 SECONDS Partial Thromboplastin Ratio 1.0 1.9 Bedside Glucose 182 205 70-90 mg/dl Test 03/22/17 00:33 03/22/17 06:36 03/22/17 06:56 03/22/17 12:02 Range/Units White Blood Count 7.48 5.40 4.8-10.8 K/uL Red Blood Count 3.06 3.38 4.2-5.4 M/uL Hemoglobin 9.5 10.1 12.0-16.0 g/dL Hematocrit 28.1 31.6 37-47 % Mean Corpuscular Volume 91.8 93.5 80-100 fL Mean Corpuscular Hemoglobin 31.0 29.9 25-34 pg Mean Corpuscular Hemoglobin Concent 33.8 32.0 32-36 g/dl Platelet Count 183 173 130-400 K/uL Mean Platelet Volume 10.2 10.8 7.4-10.4 fL Neutrophils (%) (Auto) 77.0 76.0 % Lymphocytes (%) (Auto) 12.0 11.7 % Monocytes (%) (Auto) 9.6 10.2 % Eosinophils (%) (Auto) 0.9 1.5 % Basophils (%) (Auto) 0.1 0.2 % Neutrophils # (Auto) 5.75 4.11 1.4-6.5 K/uL Lymphocytes # (Auto) 0.90 0.63 1.2-3.4 K/uL Monocytes # (Auto) 0.72 0.55 0.11-0.59 K/uL Eosinophils # (Auto) 0.07 0.08 0-0.5 K/uL Basophils # (Auto) 0.01 0.01 0-0.2 K/uL RDW Standard Deviation 45.7 46.3 36.4-46.3 fL RDW Coefficient of Variation 13.9 13.9 11.5-14.5 % Immature Granulocyte % (Auto) 0.4 0.4 % Immature Granulocyte # (Auto) 0.03 0.02 0.00-0.02 K/uL Prothrombin Time 11.3 10.9 9.0-12.0 SECONDS Prothromb Time International Ratio 1.1 1.0 0.9-1.1 Activated Partial Thromboplast Time 57.4 25.7 21.0-31.0 SECONDS Partial Thromboplastin Ratio 2.2 1.0 Sodium Level 135 136-145 mmol/L Potassium Level 3.7 3.5-5.1 mmol/L Chloride Level 95 98-107 mmol/L Carbon Dioxide Level 27 21-32 mmol/L Anion Gap 13.0 3-11 mmol/L Blood Urea Nitrogen 88 7-18 mg/dl Creatinine 3.20 0.60-1.20 mg/dl Est Creatinine Clear Calc Drug Dose 12.8 ml/min Estimated GFR () 15.0 Estimated GFR (Non- 12.9 BUN/Creatinine Ratio 27.6 10-20 Random Glucose 152 70-99 mg/dl Calcium Level 9.1 8.5-10.1 mg/dl Bedside Glucose 157 70-90 mg/dl Test 03/22/17 12:03 Range/Units
[2017-03-22] MEDS ORDERED: NITROGLYCERIN/D5W 100 MCG/ML BTL ONE (12:10)
--- NOTE | 2017-03-22 13:03 | DIAGNOSTIC IMAGING REPORT ---
CHEST ONE VIEW PORTABLE HISTORY: Short of breath. COMPARISON: Chest 03/20/2017. FINDINGS: Cardiomegaly, pulmonary edema, and small bilateral pleural effusions persist. Bibasilar densities are again noted. No pneumothorax. IMPRESSION: No change in the pulmonary edema and small bilateral pleural effusions. Bibasilar densities are also unchanged and favor atelectasis from the pleural effusions. Electronically signed by: Rivera Gambino M.D. 03/22/2017 12:33 PM Dictated Date/Time: 03/22/2017 12:33 PM
[2017-03-22] MEDS ORDERED: HEPARIN IV LOW DOSE NO BOLUS SCH (13:07)
[2017-03-22] MEDS: HYDROmorphone INJ 0.5 MG/0.5 ML SYR IV PRN (13:10)
[2017-03-22] MEDS: LOW INTENSITY WARFARIN NOMOGRAM SCH (14:00)
--- NOTE | 2017-03-22 14:01 | Critical Care Consultation ---
Critical Care Consultation Date of Consultation: Mar 22, 2017. Attending Physician: Nehal Cruz M.D. Reason for Consultation: respiratory failure History of Present Illness Ms. Perdue is 81-year-old female whowas initially admitted 03/17/2017 with complaints of intermittent chest pain lasting 3 days associated with shortness of breath in addition to bilateral lower extremity swelling. Her PMHx is positive for extensive CAD with valvular disease: moderate aortic stenosis, moderate mitral regurgitation, elevated pulmonary artery pressures. She had NSTEMI in October 2016 status post cardiac catheterization in [place] with severe LAD and ostial circumflex disease. She is s/p 2DES and bypass surgery was deferred due to comorbidities. She also has history of chronic kidney disease with a baseline creatinine of around 2-2.5, anemia and thrombocytopenia. [facility] and found to have a STEMI with troponin was elevated to 0.933 which increased to 1.05; ST elevations in leads V1 and V3, associated with T-wave inversions in lead 1 aVL, V5 and V6. Given Cr 2.8 no angiography was performed. Her course has been complicated with pulmonary edema necessitating on and off BIPAP and bilateral pleural effusions. She was placed on BiPAP and given Lasix, heparin and nitroglycerin drip. She was admitted to telemetry for further monitoring. The medical team was unable to transition her to O2 supplementation on sustained basis, she would become hypoxic. Meanwhile her creatinine continued to worsened to 3.2 She was placed on a lasix drip which was then stopped. Dr Fink of nephrology was consulted and started her on lasix 80 mg TID as well as metalozone. Her cumulative fluid balance has been - 2229 since admission. Her weight had dropped by 3.4 Kg over the last 5 days. She was transferred to MICU for refractory respiratory failure CARLOS on CKD and was in chest pain when she came in. The pain is oppressive on the substernal area with SOB and nausea no sweating. She is on BIPAP and lungs are clear. She apparently had bleeding yesterday and her heparin was stopped but given DVT and coumadin is on board with subtherapeutic INR overlap with heparin for 48 hours is imperative. We are restarting the heparin drip. I had a prolonged discussion with her daughter who is not ready yet to change code status to DNR/DNI. She wants to give her mother a chance at intubation and HD if need be. Meanwhile we restarted her NTG drip heparin increased carvidelol t 12,5 BID since BP is 120/65. She is on high dose statin. Essentially she is maxed out on medical therapy BIPAP is 15/5 with decent tidal volumes of 400-650. FiO2 30% and patient has SpO2 94%. Past Medical/Surgical History 1. Coronary artery disease status post stent 2. Moderate aortic stenosis. 3. Moderate mitral regurgitation. 4. Type 2 diabetes. 5. Chronic kidney disease, stage IV, baseline creatinine around 2-2.5. 6. Chronic systolic heart failure. 7. Hypothyroidism. 8. Dyslipidemia. 9. Nocturnal hypoxemia 10. Hypertension 11. Anemia 12. Thrombocytopenia. Past Surgical History: Hysterectomy Family History No pertinent family history No pertinent family history Diabetes and hypertension. Social History Smoking Status: Never Smoker Drug Use: none Marital Status: single Housing Status: lives alone Allergies Coded Allergies: Lorazepam (Verified Adverse Reaction, Mild, 0, 03/21/17) excessive sedation Home Medications Scheduled Amlodipine (Norvasc), 5 MG PO DAILY Atorvastatin (Lipitor), 80 MG PO DAILY Carvedilol (Coreg), 6.25 MG PO AMPM Cholecalciferol (Vitamin D3), 2,000 UNIT PO DAILY Clopidogrel (Plavix), 75 MG PO DAILY Cyanocobalamin (Vitamin B-12), 1,000 MCG PO DAILY Furosemide (Lasix), 40 MG PO DAILY Home O2 Therapy (Oxygen), 2 LITERS NA HS Isosorbide Mononitrate (Imdur Ext Rel), 60 MG PO QAM Levothyroxine Sodium (Levothyroxine Sodium), 88 MCG PO DAILY Senna/Docusate Sod (Senokot S), 2 TAB PO DAILY Scheduled PRN Nitroglycerin (Nitrostat), 0.4 MG UT UD PRN for Chest Pain Current Inpatient Medications Current Inpatient Medications Medications (Trade) Dose Ordered Sig/Izaiah Route Start Time Stop Time Status Last Admin Dose Admin Nitroglycerin (Nitroglycerin 2% Oint) 0.5 inch Q6H EXT 03/18/17 06:00 04/17/17 05:59 Future Hold 03/22/17 05:42 0.5 INCH Acetaminophen (Tylenol Tab) 650 mg Q4H PRN PO 03/18/17 02:30 04/17/17 02:29 Nitroglycerin (Nitrostat Tab) 0.4 mg UD PRN SL 03/18/17 02:30 04/17/17 02:29 Future Hold Insulin Aspart (novoLOG ASPART) SLIDING SCALE If C... ACHS SC 03/18/17 07:00 04/17/17 06:59 03/21/17 21:52 1 UNITS Glucose (Glucose 40% Gel) 15-30 GRAMS 15 GRAMS... UD PRN PO 03/18/17 02:30 04/17/17 02:29 Glucose (Glucose Chew Tab) 4-8 Tablets 4 Tabl... UD PRN PO 03/18/17 02:30 04/17/17 02:29 Dextrose (Dextrose 50% 50ML Syringe) 25-50ML OF 50% DW IV FOR... UD PRN IV 03/18/17 02:30 04/17/17 02:29 Glucagon (Glucagon Inj) 1 mg UD PRN SQ 03/18/17 02:30 04/17/17 02:29 Hydromorphone HCl (Dilaudid Inj) 0.5 mg Q3H PRN IV 03/18/17 02:30 04/01/17 02:29 Tramadol HCl (Ultram Tab) 25 mg Q6H PRN PO 03/18/17 02:30 04/17/17 02:29 Ondansetron HCl (Zofran Inj) 4 mg Q6H PRN IV 03/18/17 02:30 04/17/17 02:29 Atorvastatin Calcium (Lipitor Tab) 80 mg DAILY PO 03/18/17 09:00 04/17/17 08:59 03/21/17 08:24 80 MG Carvedilol (Coreg Tab) 6.25 mg BID PO 03/18/17 09:00 04/17/17 08:59 03/21/17 20:14 6.25 MG Clopidogrel Bisulfate (plAVix TAB) 75 mg DAILY PO 03/18/17 09:00 04/17/17 08:59 03/21/17 08:24 75 MG Isosorbide Mononitrate (Imdur Ext Rel Tab) 60 mg QAM PO 03/18/17 09:00 04/17/17 08:59 03/21/17 08:23 60 MG Senna/Docusate Sodium (Senokot S Tab) 2 tab DAILY PO 03/18/17 09:00 04/17/17 08:59 03/21/17 08:24 2 TAB Aspirin (Ecotrin Tab) 81 mg QAM PO 03/18/17 09:00 04/17/17 08:59 03/21/17 08:23 81 MG Pantoprazole Sodium (Protonix Tab) 40 mg QAM PO 03/19/17 09:00 04/18/17 08:59 03/21/17 08:24 40 MG Doxycycline Hyclate 100 mg/ Dextrose 110 ml @ 50 mls/hr BID@1000,2200 IV 03/20/17 10:00 03/27/17 09:59 03/22/17 09:59 50 MLS/HR Levothyroxine Sodium (Synthroid Tab) 75 mcg DAILYBB PO 03/21/17 06:00 04/17/17 06:59 03/22/17 05:43 75 MCG Heparin Sodium/ Dextrose 500 ml @ 21 mls/hr [id number] PRN IV 03/21/17 13:30 04/20/17 13:29 Future Hold 03/21/17 13:52 21 MLS/HR Miscellaneous Information (Low Intensity Warfarin Nomogram) 1 ea DAILY@14 N/A 03/21/17 14:00 03/27/17 13:59 03/21/17 14:11 1 EA Warfarin Sodium (Coumadin Tab) 3 mg DAILY@16 PO 03/21/17 16:00 03/22/17 23:59 Future Hold 03/21/17 16:21 3 MG Furosemide 80 mg/ Syringe 8 ml @ 4 mls/min TID IV 03/22/17 14:00 04/21/17 13:59 Metolazone (Zaroxolyn Tab) 5 mg QAM PO 03/23/17 09:00 04/22/17 08:59 Nitroglycerin/ Dextrose 250 ml @ 0 mls/hr Q0M PRN IV 03/22/17 12:15 04/21/17 12:14 Heparin Sodium/ Dextrose 1 ea NOW STAT N/A 03/22/17 12:37 03/22/17 12:38 UNV Review of Systems 10 point ROS negative except for what is mentioned in the HPI Physical Exam Date Time Temp Pulse Resp B/P (MAP) Pulse Ox O2 Delivery O2 Flow Rate FiO2 03/22/17 11:36 36.7 68 20 99 6.0 03/22/17 11:25 70 95 30 03/22/17 11:24 70 16 95 BiPAP/CPAP 30 03/22/17 08:00 Nasal Cannula 6.0 03/22/17 07:40 36.7 68 20 114/73 (87) 99 BiPAP 30 03/22/17 06:17 74 95 30 03/22/17 05:55 82 18 95 Nasal Cannula 3.0 03/22/17 04:00 BiPAP 30 03/22/17 03:51 36.4 75 22 108/70 (83) 94 BiPAP 03/22/17 00:09 36.4 80 26 111/72 (85) 93 Nasal Cannula 6.0 03/22/17 00:00 BiPAP 30 03/21/17 20:23 36.5 80 18 117/71 (86) 99 Nasal Cannula 3.0 03/21/17 20:00 Nasal Cannula 3.0 03/21/17 19:30 80 18 95 Nasal Cannula 3.0 03/21/17 16:00 Nasal Cannula 3.0 03/21/17 15:27 36.7 76 18 121/72 (88) 100 Nasal Cannula 3.0 03/21/17 14:34 71 20 96 Mask 3.0 General Appearance: mild distress Head: normocephalic, atraumatic Eyes: PERRLA, no discharge ENT: normal ear exam, other (JVD at 30 degrees up to [address] pale looking; BIPAP mask on.) Neck: normal range of motion, no stridor, supple Respiratory: clear to auscultation, other (her anterior chest auscultation is clear posteriorly on the basis there is diminished air entry) Cardiovasular: regular rate/rhythm, normal S1S2, no M/G/R Abdomen: RUQ TTP, other (substernal tenderness and normal BS) Back: normal inspection Upper Extremities: no edema, normal ROM Lower Extremities: no edema, no deformity Pulses: carotid (R) (2+), carotid (L) (2+), radial (R) (2+), radial (L) (2+), dorsalis pedis (R) (1+), dorsalis pedis (L) (1+) Neuro: alert, oriented x 3, normal motor exam Laboratory Results Last 24 Hours Test 03/21/17 13:43 03/21/17 16:13 03/21/17 19:58 03/21/17 20:42 White Blood Count 5.27 K/uL Red Blood Count 3.15 M/uL Hemoglobin 9.7 g/dL Hematocrit 29.4 % Mean Corpuscular Volume 93.3 fL Mean Corpuscular Hemoglobin 30.8 pg Mean Corpuscular Hemoglobin Concent 33.0 g/dl Platelet Count 171 K/uL Mean Platelet Volume 10.4 fL Neutrophils (%) (Auto) 82.7 % Lymphocytes (%) (Auto) 10.1 % Monocytes (%) (Auto) 6.6 % Eosinophils (%) (Auto) 0.0 % Basophils (%) (Auto) 0.2 % Neutrophils # (Auto) 4.36 K/uL Lymphocytes # (Auto) 0.53 K/uL Monocytes # (Auto) 0.35 K/uL Eosinophils # (Auto) 0.00 K/uL Basophils # (Auto) 0.01 K/uL RDW Standard Deviation 46.3 fL RDW Coefficient of Variation 13.7 % Immature Granulocyte % (Auto) 0.4 % Immature Granulocyte # (Auto) 0.02 K/uL Prothrombin Time 11.0 SECONDS Prothromb Time International Ratio 1.0 Activated Partial Thromboplast Time 25.7 SECONDS 48.9 SECONDS Partial Thromboplastin Ratio 1.0 1.9 Bedside Glucose 182 mg/dl 205 mg/dl Test 03/22/17 00:33 03/22/17 06:36 03/22/17 06:56 03/22/17 12:14 White Blood Count 7.48 K/uL 5.40 K/uL Red Blood Count 3.06 M/uL 3.38 M/uL Hemoglobin 9.5 g/dL 10.1 g/dL Hematocrit 28.1 % 31.6 % Mean Corpuscular Volume 91.8 fL 93.5 fL Mean Corpuscular Hemoglobin 31.0 pg 29.9 pg Mean Corpuscular Hemoglobin Concent 33.8 g/dl 32.0 g/dl Platelet Count 183 K/uL 173 K/uL Mean Platelet Volume 10.2 fL 10.8 fL Neutrophils (%) (Auto) 77.0 % 76.0 % Lymphocytes (%) (Auto) 12.0 % 11.7 % Monocytes (%) (Auto) 9.6 % 10.2 % Eosinophils (%) (Auto) 0.9 % 1.5 % Basophils (%) (Auto) 0.1 % 0.2 % Neutrophils # (Auto) 5.75 K/uL 4.11 K/uL Lymphocytes # (Auto) 0.90 K/uL 0.63 K/uL Monocytes # (Auto) 0.72 K/uL 0.55 K/uL Eosinophils # (Auto) 0.07 K/uL 0.08 K/uL Basophils # (Auto) 0.01 K/uL 0.01 K/uL RDW Standard Deviation 45.7 fL 46.3 fL RDW Coefficient of Variation 13.9 % 13.9 % Immature Granulocyte % (Auto) 0.4 % 0.4 % Immature Granulocyte # (Auto) 0.03 K/uL 0.02 K/uL Prothrombin Time 11.3 SECONDS 10.9 SECONDS Prothromb Time International Ratio 1.1 1.0 Activated Partial Thromboplast Time 57.4 SECONDS 25.7 SECONDS Partial Thromboplastin Ratio 2.2 1.0 Sodium Level 135 mmol/L Potassium Level 3.7 mmol/L Chloride Level 95 mmol/L Carbon Dioxide Level 27 mmol/L Anion Gap 13.0 mmol/L Blood Urea Nitrogen 88 mg/dl Creatinine 3.20 mg/dl Est Creatinine Clear Calc Drug Dose 12.8 ml/min Estimated GFR () 15.0 Estimated GFR (Non- 12.9 BUN/Creatinine Ratio 27.6 Random Glucose 152 mg/dl Calcium Level 9.1 mg/dl Bedside Glucose 157 mg/dl Troponin I 1.310 ng/ml Diagnostic Results ECG still shows ST-t elevation in V3. Q waves in III and aVF, also Q waves in V1 -V2. CXR bilateral costophrenic angle blunting. 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 Patient has a poor prognosis and is not a candidate for cardiac intervention ( discussed with Dr Amato) due to comorbidities and high risk/benefit ratio. Appreciate nephrology input. Extensive end of life care was carried out with her daughter and at this time the patient remains full code pain control with hydromorphone is on board BIPAP 15/5 and titrate FiO2 for SpO2>=94% repeat ABG change duonebs to levalbuterol/ipratropium continue with aspirin and plavix increase carvidelol to 12.5 mg PO BID hold if SBP <100 or HR <55 NTG drip to pain 1-2/10 heparin drip to PTT 49-60 renal lasix and metalozone per nephrology will send urine for FeUrea inotropic support for possible cardiorenal syndrome is contraindicated given the ongoing demand ischemia picture ID UA appears to have + LE will send UCx and treat accordingly. patient seems asymptomatic DVT on heparin drip and coumadin GI heart healthy diet 2 gm Na when off BIPAP will add zantac endocrine maintian BS 140-180 levothyroxine was decreased from 88 to 75 mcg since admission. Will check TSH again. Although she is critically ill and that may alter TSH. However, overtreating with L-thyroxine is imprudent in the setting of cardiac ischemia. no decubiti ulcers she has a goodson and she needs it. no central lines code status she is full code I spent a total of 65 minutes of CCTime managing this lady today exclusive of any procedures.
[2017-03-22] MEDS: HEPARIN 25,000 UNIT/500ML D5W 500 ML IV PRN ×2 (14:35→23:24)
[2017-03-22] MEDS: FUROSEMIDE INJ 80 MG in SYRINGE 0 ML IV SCH ×2 (14:36→20:42)
[2017-03-22] MEDS ORDERED: NURSING VERBAL MED ORDER ONE (14:45)
[2017-03-22 14:58] LABS: IPAP 15; ISTAT ALLEN TEST Pass; ISTAT ARTERIAL BLOOD GAS HCO3 28 meq/L (19-24); ISTAT ARTERIAL BLOOD GAS PCO2 38 mmHg (35-46); ISTAT ARTERIAL BLOOD GAS PO2 72 mmHg (80-95); ISTAT ARTERIAL BLOOD GAS pH 7.47 (7.35-7.45); ISTAT CARBON DIOXIDE 29 mEq/l (24-31); ISTAT DELIVERY SYSTEM BIPAP; ISTAT FIO2 30 %; ISTAT SITE L Radial
[2017-03-22] MEDS ORDERED: WARFARIN SOD 3 MG TAB PO SCH (16:00)
[2017-03-22 19:47] LABS: CKMB/CK RATIO 4.3 (0-3.0)
[2017-03-22] MEDS: IPRATROPIUM BROMIDE NEB SOLN 0.02% 2.5 ML VIAL INH SCH (20:08)
[2017-03-22] MEDS: LEVALBUTEROL 0.63MG/3 ML NEB INH SCH (20:08)
[2017-03-22] MEDS: CARVEDILOL 12.5 MG TAB PO SCH (20:42)
[2017-03-22] MEDS ORDERED: HEPARIN IV BOLUS 4,000 UNIT in SYRINGE 0 ML IV STA (22:58)
[2017-03-23] VITALS (29 sets, daily range): BP systolic 92–133; BP diastolic 42–79; PULSE 58–70; TEMP 36.4–36.9; O2SAT 93–99
[2017-03-23] MEDS: LEVALBUTEROL 0.63MG/3 ML NEB INH SCH ×4 (02:12→20:04)
[2017-03-23] MEDS: IPRATROPIUM BROMIDE NEB SOLN 0.02% 2.5 ML VIAL INH SCH ×4 (02:12→20:04)
[2017-03-23 04:13] LABS: BASO % 0.2 %; BASO ABS # 0.01 K/uL (0-0.2); COMPLETE YES; EOS % 2.9 %; IG% 0.5 %; LYMPH % 18.7 %; LYMPH ABS # 1.02 K/uL (1.2-3.4); MEAN CELL VOLUME 91.8 fL (80-100); MEAN CORPUSCULAR HEMOGLOBIN 30.5 pg (25-34); MEAN CORPUSCULAR HGB CONC 33.2 g/dl (32-36); MEAN PLATELET VOLUME 10.7 fL (7.4-10.4); MONO % 12.3 %; NEUT % 65.4 %; PLATELET COUNT 153 K/uL (130-400); RED BLOOD COUNT 3.05 M/uL (4.2-5.4); WHITE BLOOD COUNT 5.46 K/uL (4.8-10.8)
[2017-03-23 04:31] LABS: INR 1.2 (0.9-1.1); PARTIAL THROMBOPLASTIN RATIO 2.6; PROTHROMBIN TIME (PATIENT) 12.5 SECONDS (9.0-12.0)
[2017-03-23 04:33] LABS: BLOOD UREA NITROGEN 89 mg/dl (7-18); BUN/CREATININE RATIO 28.7 (10-20); CALCIUM 8.7 mg/dl (8.5-10.1); CARBON DIOXIDE 30 mmol/L (21-32); CHLORIDE 94 mmol/L (98-107); GLUCOSE 123 mg/dl (70-99); POTASSIUM 3.6 mmol/L (3.5-5.1); SODIUM 135 mmol/L (136-145)
[2017-03-23 04:46] LABS: CKMB/CK RATIO 3.7 (0-3.0)
[2017-03-23] MEDS: NITROGLYCERIN/D5W 100 MCG/ML 250 ML IV PRN (04:56)
[2017-03-23] MEDS: LEVOTHYROXINE 75 MCG TAB PO SCH (06:13)
[2017-03-23] MEDS: INSULIN ASPART 100 UNITS/ML 3 ML PEN SC SCH ×4 (07:37→21:00)
[2017-03-23] MEDS: CLOPIDOGREL BISULFATE 75 MG TAB PO SCH (07:38)
[2017-03-23] MEDS: CARVEDILOL 12.5 MG TAB PO SCH ×2 (07:38→21:15)
[2017-03-23] MEDS: DOCUSATE SODIUM/SENNA 50/8.6MG TAB PO SCH (07:38)
[2017-03-23] MEDS: ISOSORBIDE MONONITRATE 60 MG TABCR PO SCH (07:38)
[2017-03-23] MEDS: PANTOprazole SOD 40 MG TAB PO SCH (07:38)
[2017-03-23] MEDS: ASPIRIN 81 MG ECTAB PO SCH (07:39)
[2017-03-23] MEDS: METOLAZONE 5 MG TAB PO SCH (07:39)
[2017-03-23] MEDS: ATORVASTATIN 40 MG TAB PO SCH (07:39)
[2017-03-23] MEDS: FUROSEMIDE INJ 80 MG in SYRINGE 0 ML IV SCH ×3 (07:44→21:15)
--- NOTE | 2017-03-23 09:47 | DIAGNOSTIC IMAGING REPORT ---
CHEST ONE VIEW PORTABLE HISTORY: 81 years-old Female CHF acute respiratory failure with history of congestive heart failure. COMPARISON: Chest radiograph 03/22/2017 TECHNIQUE: Portable upright AP view of the chest FINDINGS: Cardiac silhouette is again moderately enlarged. There is atherosclerosis of the aorta. Pulmonary vascular congestion is again noted with mild background interstitial coarsening. There are small bilateral pleural effusions with hazy bibasilar opacities, not significantly changed. There is no pneumothorax identified. The bones are grossly intact. IMPRESSION: Stable exam with cardiomegaly, mild pulmonary edema with small pleural effusions and bibasilar opacities suggesting atelectasis. The above report was generated using voice recognition software. It may contain grammatical, syntax or spelling errors. Electronically signed by: Den Lees M.D. 03/23/2017 9:46 AM Dictated Date/Time: 03/23/2017 9:44 AM
[2017-03-23] MEDS ORDERED: DOBUTamine 500MG / 250ML D5W ONE (10:26)
[2017-03-23 11:08] LABS: ISTAT ARTERIAL BLOOD GAS HCO3 30 meq/L (19-24); ISTAT ARTERIAL BLOOD GAS PCO2 44 mmHg (35-46); ISTAT ARTERIAL BLOOD GAS PO2 < 32 mmHg (80-95); ISTAT ARTERIAL BLOOD GAS pH 7.44 (7.35-7.45); ISTAT CARBON DIOXIDE 31 mEq/l (24-31)
--- NOTE | 2017-03-23 11:16 | Procedure Note ---
Procedure Note Procedure Date Mar 23, 2017. Procedure Description Procedure Name: Right Heart Catheterization Procedure time out: side/site verified, patient ID confirmed, correct procedure Consent obtained: written Time of procedure: 10:00 Indications: diagnostic Contraindications: none Description: Right Heart Catheterization - Ultrasound guided access of right basilic vein with 6Fr slender sheath. - 6Fr swan catheter to heart under fluoroscopic guidance Findings -- RA 5 RV 45/7 PA 43/10 (25) PCW 15 AoSat 97% PaSat 53% Hgb 9.3 HR 59 Mikki CO/CI 3.8/2.2 TPG 10 PVR 2.6 wood units on 5 mcg/kg/min Dobutamine PaSat 57% (JACINDA/CI 4.2/2.5). Summary: 1. Borderline elevated right and left sided filling pressures. 2. Mild pulmonary hypertension (PA mean 25 mmHg) 3. Marginal cardiac output Recommendations: Approaching euvolemia - continue diuresis today, suspect transition to maintenance diuretics soon. Complications: none Patient tolerated procedure: well Post-procedure vital signs: reviewed and stable
[2017-03-23] MEDS: DOXYCYCLINE IV 100 MG in DEXTROSE 5% 100ML 100 ML IV SCH ×2 (11:44→22:36)
--- NOTE | 2017-03-23 14:23 | Cardiology Follow-Up ---
Subjective Subjective Date of Service: Mar 23, 2017. Pt evaluation today including: conversation w/ patient, conversation w/ family , physical exam, chart review, lab review, review of studies, conversation w/ clinical sales consultant, review of inpatient medication list Additional Details: Still fatigued but shortness of breath notably improved. Chest pain resolved this morning. Negative almost 1.5 liters yesterday Telemetry reviewed--no events Problem List Medical Problems: (1) Acute myocardial infarction Status: Acute (2) Pulmonary edema Status: Acute (3) Renal failure (ARF), acute on chronic Status: Acute Review of Systems Constitutional: No fever, No chills Respiratory: + shortness of breath Cardiac: No chest pain Abdomen: No pain, No nausea, No vomiting, No diarrhea Neurologic: No numbness/tingling Psychiatric: + anxiety Heme: No abnormal bleeding/bruising Skin: No rash Objective Vital Signs Last Vital Signs Documentation Date Time Temp Pulse Resp B/P (MAP) Pulse Ox O2 Delivery O2 Flow Rate FiO2 03/23/17 12:00 36.9 65 18 103/53 (70) 98 Nasal Cannula 2.0 03/23/17 05:20 30 Physical Exam: General Appearance: no apparent distress ENT: hearing grossly normal Neck: no JVD (difficult to assess) Respiratory/Chest: + decreased breath sounds, + crackles (few) Cardiovascular: regular rate, rhythm, no edema, + systolic murmur (2/6 systolic murmur) Abdomen: normal bowel sounds, non tender, soft Extremities: + pertinent finding (extremities are warm) Neurologic/Psychiatric: no motor/sensory deficits, alert, normal mood/affect Skin: normal color Assessment and Plan 1. Hypoxemic respiratory failure 2. Acute systolic heart failure/ICM -- severe LV dysfunction with LAD distribution infarct 3. Acute on chronic renal insufficiency 4. NSTEMI demand ischemia in setting of severe multivessel disease 5. Distal left lower extremity DVT 6. Type 2 diabetes. 7. Anemia. 8 Paroxysmal SVT Significant improvement in shortness of breath post diuresis yesterday, now on only 2 liters nasal cannula. Renal function stable Right heart catheterization today shows only minimally elevated left and right- sided filling pressures. Cardiac output marginal Troponin up slightly yesterday. Now chest pain-free. -- additional diuresis today, looks to be approaching euvolemia, possible transition to maintenance diuretics tomorrow -- continue current nitrates and heparin drip for 48 hours -- continue DAPT with ASA/Plavix. --if renal function stabilizes will consider diagnostic coronary angiography at some point. No urgent indication Will continue to follow. Medications: Current Inpatient Medications Medications (Trade) Dose Ordered Sig/Izaiah Route Start Time Stop Time Status Last Admin Dose Admin Nitroglycerin (Nitroglycerin 2% Oint) 0.5 inch Q6H EXT 03/18/17 06:00 04/17/17 05:59 Future Hold 03/22/17 05:42 0.5 INCH Acetaminophen (Tylenol Tab) 650 mg Q4H PRN PO 03/18/17 02:30 04/17/17 02:29 Nitroglycerin (Nitrostat Tab) 0.4 mg UD PRN SL 03/18/17 02:30 04/17/17 02:29 Future Hold Insulin Aspart (novoLOG ASPART) SLIDING SCALE If C... ACHS SC 03/18/17 07:00 04/17/17 06:59 03/21/17 21:52 1 UNITS Glucose (Glucose 40% Gel) 15-30 GRAMS 15 GRAMS... UD PRN PO 03/18/17 02:30 04/17/17 02:29 Glucose (Glucose Chew Tab) 4-8 Tablets 4 Tabl... UD PRN PO 03/18/17 02:30 04/17/17 02:29 Dextrose (Dextrose 50% 50ML Syringe) 25-50ML OF 50% DW IV FOR... UD PRN IV 03/18/17 02:30 04/17/17 02:29 Glucagon (Glucagon Inj) 1 mg UD PRN SQ 03/18/17 02:30 04/17/17 02:29 Hydromorphone HCl (Dilaudid Inj) 0.5 mg Q3H PRN IV 03/18/17 02:30 04/01/17 02:29 03/22/17 13:10 0.5 MG Tramadol HCl (Ultram Tab) 25 mg Q6H PRN PO 03/18/17 02:30 04/17/17 02:29 Ondansetron HCl (Zofran Inj) 4 mg Q6H PRN IV 03/18/17 02:30 04/17/17 02:29 Atorvastatin Calcium (Lipitor Tab) 80 mg DAILY PO 03/18/17 09:00 10/1/17 08:59 03/23/17 07:39 80 MG Clopidogrel Bisulfate (plAVix TAB) 75 mg DAILY PO 03/18/17 09:00 04/17/17 08:59 03/23/17 07:38 75 MG Isosorbide Mononitrate (Imdur Ext Rel Tab) 60 mg QAM PO 03/18/17 09:00 04/17/17 08:59 03/23/17 07:38 60 MG Senna/Docusate Sodium (Senokot S Tab) 2 tab DAILY PO 03/18/17 09:00 04/17/17 08:59 03/23/17 07:38 2 TAB Aspirin (Ecotrin Tab) 81 mg QAM PO 03/18/17 09:00 04/17/17 08:59 03/23/17 07:39 81 MG Pantoprazole Sodium (Protonix Tab) 40 mg QAM PO 03/19/17 09:00 04/18/17 08:59 03/23/17 07:38 40 MG Doxycycline Hyclate 100 mg/ Dextrose 110 ml @ 50 mls/hr BID@1000,2200 IV 03/20/17 10:00 03/27/17 09:59 03/23/17 11:44 50 MLS/HR Levothyroxine Sodium (Synthroid Tab) 75 mcg DAILYBB PO 03/21/17 06:00 04/17/17 06:59 03/23/17 06:13 75 MCG Miscellaneous Information (Low Intensity Warfarin Nomogram) 1 ea DAILY@14 N/A 03/21/17 14:00 03/27/17 13:59 03/22/17 14:00 1 EA Furosemide 80 mg/ Syringe 8 ml @ 4 mls/min TID IV 03/22/17 14:00 04/21/17 13:59 03/23/17 13:49 4 MLS/MIN Metolazone (Zaroxolyn Tab) 5 mg QAM PO 03/23/17 09:00 04/22/17 08:59 03/23/17 07:39 5 MG Nitroglycerin/ Dextrose 250 ml @ 0 mls/hr Q0M PRN IV 03/22/17 12:15 04/21/17 12:14 03/23/17 04:56 15 MLS/HR Carvedilol (Coreg Tab) 12.5 mg BID PO 03/22/17 21:00 04/17/17 08:59 03/23/17 07:38 12.5 MG Heparin Sodium/ Dextrose 500 ml @ 16 mls/hr Q24H PRN IV 03/22/17 14:00 04/21/17 13:59 03/22/17 23:24 16 MLS/HR Levalbuterol (Xopenex 0.63 Mg/ 3 Ml Neb) 0.63 mg Q6R INH 03/22/17 21:00 04/21/17 20:59 03/23/17 07:38 0.63 MG Ipratropium [place] (Atrovent 0.02% 0.5MG/2.5ML Neb) 0.5 mg Q6R INH 03/22/17 21:00 04/21/17 20:59 03/23/17 07:38 0.5 MG Lab Results: 03/23/17 04:05 Red Blood Count 3.05, Mean Corpuscular Volume 91.8, Mean Corpuscular Hemoglobin 30.5, Mean Corpuscular Hemoglobin Concent 33.2, Mean Platelet Volume 10.7, Neutrophils (%) (Auto) 65.4, Lymphocytes (%) (Auto) 18.7, Monocytes (%) (Auto) 12.3, Eosinophils (%) (Auto) 2.9, Basophils (%) (Auto) 0.2, Neutrophils # (Auto ) 3.57, Lymphocytes # (Auto) 1.02, Monocytes # (Auto) 0.67, Eosinophils # (Auto ) 0.16, Basophils # (Auto) 0.01 03/23/17 04:05 Test 03/22/17 14:45 03/22/17 18:00 03/23/17 04:05 03/23/17 10:37 Blood Gas Sample Site L Radial Alfredo Test Pass Oxygen Delivery Device BIPAP Bedside FiO2 30 % Blood Gas IPAP 15 Urine Random Creatinine 27.0 mg/dl Urine Random Urea Nitrogen 188 mg/dl White Blood Count 5.46 K/uL (4.8-10.8) Red Blood Count 3.05 M/uL (4.2-5.4) Hemoglobin 9.3 g/dL (12.0-16.0) Hematocrit 28.0 % (37-47) Mean Corpuscular Volume 91.8 fL (80-100) Mean Corpuscular Hemoglobin 30.5 pg (25-34) Mean Corpuscular Hemoglobin Concent 33.2 g/dl (32-36) Platelet Count 153 K/uL (130-400) Mean Platelet Volume 10.7 fL (7.4-10.4) Neutrophils (%) (Auto) 65.4 % Lymphocytes (%) (Auto) 18.7 % Monocytes (%) (Auto) 12.3 % Eosinophils (%) (Auto) 2.9 % Basophils (%) (Auto) 0.2 % Neutrophils # (Auto) 3.57 K/uL (1.4-6.5) Lymphocytes # (Auto) 1.02 K/uL (1.2-3.4) Monocytes # (Auto) 0.67 K/uL (0.11-0.59) Eosinophils # (Auto) 0.16 K/uL (0-0.5) Basophils # (Auto) 0.01 K/uL (0-0.2) RDW Standard Deviation 44.7 fL (36.4-46.3) RDW Coefficient of Variation 13.6 % (11.5-14.5) Immature Granulocyte % (Auto) 0.5 % Immature Granulocyte # (Auto) 0.03 K/uL (0.00-0.02) Prothrombin Time 12.5 SECONDS (9.0-12.0) Prothromb Time International Ratio 1.2 (0.9-1.1) Activated Partial Thromboplast Time 67.4 SECONDS (21.0-31.0) Partial Thromboplastin Ratio 2.6 Anion Gap 11.0 mmol/L (3-11) Est Creatinine Clear Calc Drug Dose 13.2 ml/min Estimated GFR () 15.6 Estimated GFR (Non- 13.4 BUN/Creatinine Ratio 28.7 (10-20) Calcium Level 8.7 mg/dl (8.5-10.1) Total Creatine Kinase 82 U/L (26-192) Creatine Kinase MB 3.0 ng/ml (0.5-3.6) Creatine Kinase MB Ratio 3.7 (0-3.0) Troponin I 2.180 ng/ml (0-0.045) Pro-B-Type Natriuretic Peptide > 95282 pg/ml (0-1800) Bedside Blood Gas pH (LAB) 7.44 (7.35-7.45) Bedside Blood Gas pCO2 (LAB) 44 mmHg (35-46) Bedside Blood Gas pO2 (LAB) < 32 mmHg (80-95) Bedside Blood Gas HCO3 (LAB) 30 meq/L (19-24) Bedside Blood Gas Total CO2 31 mEq/l (24-31) Bedside Blood Gas Base Excess (LAB) 6.0 meq/L (-9-1.8) Bedside Blood Gas O2 Saturation 57.0 % (90-95) Test 03/23/17 11:50 Bedside Glucose 168 mg/dl (70-90) Date/Time Source Procedure Growth Status 03/22/17 16:20 Nasal MRSA DNA Surveillance Screen - Final Specimen Negative for MRSA by DNA Probe Complete
--- NOTE | 2017-03-23 16:19 | Progress Note ---
Internal Med Progress Note Date of Service: Mar 23, 2017. Provider Documentation: SUBJECTIVE: had right heart cath today breathing much better urine output improved with IV diuretics OBJECTIVE: Vital Signs-as noted below Exam: General-chronically ill appearing elderly female , no sign of distress Eyes-sclera non icteric Neck-no JVD noted Lungs-diminished with rales at base Heart-regular Abdomen-soft Extremities-+ 1 -2 bilat edema Neuro-no focal deficit . remains in respiratory distress Lab data as noted below. ASSESSMENT & PLAN: Acute Hypoxemic Respiratory Failure-Multifactorial Acute on Chronic Systolic CHF/SEVERE ICM /CARLOS ON CKD Stage 4 /vol overload -respiratory status improved with aggressive diuresis off Bipap cont on Lasix 80 mg IV Q 8hrs /Metolazone SEVERE CAD /ISCHEMIC CARDIOMYOPATHY /NSTEMI multivessel CAD s/p recent high risk PCI to left main /LAD /Circumflex has residual severe RCA disease presented with SOB /Hypoxia, elevated troponin repeat ECHO -shows diminished EF 20 % ( was 40 % on 10/2016 ) cont Dual antiplatelet - aspirin and Plavix on Coreg /statin started on Iv nitro gtt as pt continues to have chest heaviness /SOB appreciate cardiology input -possible demand ischemia causing cardiac compromise recommend continue cardiac meds and supportive care no emergent Cardiac intervention -high risk in setting of advanced CKD risk out weights the benefit CARLOS on CKD stage 4 Diuretics dose increased appreciate Nephrology eval if renal function /urine out put dose not improve -may need HD HTN on Coreg and Norvasc on large dose of diuretics for CHF /respiratory failure started on IV Nitro gtt for ongoing angina monitor in tele Hypothyroidism TSH is low Synthroid decreased to 75mcg DVT ppx heparin FULL CODE-as per D/w pt and daughter DISPOSITION plan of care D/W daughter Jayshree by [facility] wants everything to be done -including dialysis pt will continued to be monitored in [facility] Vital Signs: Date Time Temp Pulse Resp B/P (MAP) Pulse Ox O2 Delivery O2 Flow Rate FiO2 03/24/17 13:55 36.7 64 24 106/61 96 BiPAP 3.0 30 03/24/17 13:21 36.7 64 24 101/59 (73) 96 Nasal Cannula 3.0 03/24/17 11:25 92 Nasal Cannula 3.0 30 03/24/17 11:25 36.6 58 24 91/60 (70) 99 Nasal Cannula 3.0 03/24/17 11:01 60 16 94/57 (69) 92 03/24/17 11:00 60 15 92 03/24/17 10:01 57 15 91/60 (70) 03/24/17 10:00 57 15 94 03/24/17 09:30 36.5 57 22 105/66 (79) 99 Nasal Cannula 3.0 03/24/17 09:01 66 19 105/66 (79) 96 03/24/17 09:00 64 20 99 03/24/17 08:01 59 21 105/64 (78) 94 03/24/17 08:00 63 24 96 03/24/17 07:30 36.5 63 26 111/57 (75) 99 Nasal Cannula 3.0 03/24/17 07:30 92 Nasal Cannula 3.0 30 03/24/17 07:15 72 18 96 Nasal Cannula 3.0 03/24/17 07:01 63 29 111/57 (75) 03/24/17 07:00 60 15 97 03/24/17 06:01 61 20 112/60 (77) 92 Nasal Cannula 3.0 61 03/24/17 05:14 55 95 30 03/24/17 05:01 59 14 107/60 (76) BiPAP 30 03/24/17 04:01 36.5 62 16 117/50 (72) 92 BiPAP 30 03/24/17 04:00 BiPAP 30 03/24/17 03:02 66 22 111/60 (77) 93 BiPAP 30 03/24/17 02:01 63 16 115/59 (77) 96 Nasal Cannula 3.0 03/24/17 01:59 64 18 95 Nasal Cannula 3.0 03/24/17 01:01 65 18 115/49 (71) 93 Nasal Cannula 3.0 03/24/17 00:01 36.4 63 22 109/62 (78) Nasal Cannula 3.0 03/24/17 00:00 Nasal Cannula 3.0 03/23/17 23:01 62 19 102/62 (75) 94 Nasal Cannula 3.0 03/23/17 22:01 66 17 109/62 (78) 94 Nasal Cannula 3.0 03/23/17 21:01 70 21 112/68 (83) 94 Nasal Cannula 3.0 03/23/17 20:06 66 18 96 Nasal Cannula 3.0 03/23/17 20:01 36.7 70 18 111/58 (75) 94 Nasal Cannula 3.0 03/23/17 20:00 Nasal Cannula 3.0 03/23/17 19:01 69 18 115/60 (78) 95 Nasal Cannula 3.0 03/23/17 16:00 36.8 67 15 103/54 (70) 97 Nasal Cannula 2.0 Lab Results: Results Past 24 Hours Test 03/23/17 16:22 03/23/17 21:10 03/24/17 06:01 03/24/17 06:07 Range/Units Bedside Glucose 149 135 135 70-90 mg/dl White Blood Count 5.92 4.8-10.8 K/uL Red Blood Count 3.50 4.2-5.4 M/uL Hemoglobin 10.3 12.0-16.0 g/dL Hematocrit 31.9 37-47 % Mean Corpuscular Volume 91.1 80-100 fL Mean Corpuscular Hemoglobin 29.4 25-34 pg Mean Corpuscular Hemoglobin Concent 32.3 32-36 g/dl Platelet Count 183 130-400 K/uL Mean Platelet Volume 11.3 7.4-10.4 fL Neutrophils (%) (Auto) 62.5 % Lymphocytes (%) (Auto) 21.1 % Monocytes (%) (Auto) 11.8 % Eosinophils (%) (Auto) 3.9 % Basophils (%) (Auto) 0.2 % Neutrophils # (Auto) 3.70 1.4-6.5 K/uL Lymphocytes # (Auto) 1.25 1.2-3.4 K/uL Monocytes # (Auto) 0.70 0.11-0.59 K/uL Eosinophils # (Auto) 0.23 0-0.5 K/uL Basophils # (Auto) 0.01 0-0.2 K/uL RDW Standard Deviation 44.4 36.4-46.3 fL RDW Coefficient of Variation 13.4 11.5-14.5 % Immature Granulocyte % (Auto) 0.5 % Immature Granulocyte # (Auto) 0.03 0.00-0.02 K/uL Prothrombin Time 17.0 9.0-12.0 SECONDS Prothromb Time International Ratio 1.6 0.9-1.1 Activated Partial Thromboplast Time 54.9 21.0-31.0 SECONDS Partial Thromboplastin Ratio 2.1 Sodium Level 130 136-145 mmol/L Potassium Level 3.5 3.5-5.1 mmol/L Chloride Level 88 98-107 mmol/L Carbon Dioxide Level 30 21-32 mmol/L Anion Gap 12.0 3-11 mmol/L Blood Urea Nitrogen 93 7-18 mg/dl Creatinine 3.20 0.60-1.20 mg/dl Est Creatinine Clear Calc Drug Dose 12.5 ml/min Estimated GFR () 15.0 Estimated GFR (Non- 12.9 BUN/Creatinine Ratio 29.1 10-20 Random Glucose 110 70-99 mg/dl Calcium Level 8.5 8.5-10.1 mg/dl Phosphorus Level 5.7 2.5-4.9 mg/dl Magnesium Level 1.8 1.8-2.4 mg/dl Total Bilirubin 0.7 0.2-1 mg/dl Direct Bilirubin 0.2 0-0.2 mg/dl Aspartate Amino Transf (AST/SGOT) 20 15-37 U/L Alanine Aminotransferase (ALT/SGPT) 20 12-78 U/L Alkaline Phosphatase 73 45-117 U/L Total Protein 6.5 6.4-8.2 gm/dl Albumin 2.9 3.4-5.0 gm/dl Thyroid Stimulating Hormone (TSH) 1.010 0.300-4.500 uIu/ml Test 03/24/17 10:52 03/24/17 14:04 Range/Units Bedside Glucose 180 70-90 mg/dl Troponin I 1.080 0-0.045 ng/ml
[2017-03-23] MEDS ORDERED: POLYETHYLENE (MIRALAX) 17 GM PACK ONE (16:49)
[2017-03-23] MEDS: LOW INTENSITY WARFARIN NOMOGRAM SCH (17:05)
--- NOTE | 2017-03-23 17:42 | Nephrology Progress Note ---
Nephrology Progress Note Date of Service: Mar 23, 2017. Subjective moved to ICU yesterday for closer monitoring of respiratory status particularly as we try to diurese her and possibly in preparation for urgent dialysis; goals of care being carefully d/w pt and family; 900mL negative yesterday on standing lasix; taking pills better today; for RHCath as well Objective Date Time Temp Pulse Resp B/P (MAP) Pulse Ox O2 Delivery O2 Flow Rate FiO2 03/23/17 07:52 36.8 65 14 121/79 (93) 03/23/17 07:38 63 18 99 Nasal Cannula 4.0 03/23/17 06:10 61 21 101/46 (64) 98 03/23/17 05:31 59 14 105/42 (63) 95 03/23/17 05:20 58 96 30 03/23/17 04:31 59 13 101/54 (70) 95 03/23/17 04:02 36.4 66 15 110/55 (73) 96 BiPAP 30 03/23/17 03:31 61 12 112/56 (74) 96 BiPAP 30 03/23/17 03:01 59 15 92/50 (64) 94 BiPAP 30 03/23/17 02:31 60 14 92/52 (65) 99 BiPAP 30 03/23/17 02:14 65 95 30 03/23/17 02:14 65 15 95 BiPAP/CPAP 30 03/23/17 02:01 62 16 105/54 (71) 98 BiPAP 30 03/23/17 01:31 62 13 102/56 (71) 94 BiPAP 30 03/23/17 01:01 64 14 97/57 (70) 93 BiPAP 30 03/23/17 00:01 36.4 63 15 98/54 (69) 95 BiPAP 30 03/22/17 23:31 62 13 95/55 (68) 95 Nasal Cannula 5.0 03/22/17 23:25 65 95 30 03/22/17 23:01 65 21 103/54 (70) 96 Nasal Cannula 5.0 03/22/17 22:31 65 14 104/52 (69) 95 Nasal Cannula 5.0 03/22/17 22:02 67 16 95/51 (66) 92 Nasal Cannula 5.0 03/22/17 21:01 80 21 109/62 (78) 98 Nasal Cannula 5.0 03/22/17 20:32 72 18 99/61 (74) 97 Nasal Cannula 5.0 03/22/17 20:11 72 16 95 Nasal Cannula 4.0 03/22/17 20:01 36.7 71 13 106/54 (71) 96 Nasal Cannula 5.0 03/22/17 18:00 69 12 104/52 (69) 95 BiPAP 30 03/22/17 16:00 BiPAP 30 03/22/17 16:00 36.8 65 13 109/51 (70) 97 BiPAP 30 03/22/17 15:29 68 95 30 03/22/17 14:00 64 21 118/60 (79) 95 BiPAP 30 03/22/17 12:56 67 18 122/70 (87) 94 BiPAP 30 03/22/17 12:51 68 14 131/61 (84) 93 BiPAP 30 03/22/17 12:46 63 18 119/71 (87) 97 BiPAP 30 03/22/17 12:41 65 14 120/64 (82) 96 BiPAP 30 03/22/17 12:36 66 14 124/64 (84) 96 BiPAP 30 03/22/17 12:31 64 16 120/66 (84) 95 BiPAP 30 03/22/17 12:26 67 16 124/62 (82) 96 BiPAP 30 03/22/17 12:23 69 16 126/64 (84) 96 BiPAP 30 03/22/17 12:01 36.8 70 18 120/68 (85) 94 BiPAP 30 03/22/17 12:00 70 15 95 BiPAP 30 03/22/17 12:00 BiPAP 30 03/22/17 11:36 36.7 68 20 99 6.0 03/22/17 11:25 70 95 30 03/22/17 11:24 70 16 95 BiPAP/CPAP 30 Physical Exam: GEN: ill appearing F w/ today no longer w/ increased wob, still tired but calmer HEENT: Normocephalic, atraumatic. NECK: Supple. RESPIRATORY: Decreased breath sounds bilaterally with finer crackles today compared to yesterday CARDIOVASCULAR: Regular rate and rhythm, distant ABDOMEN: Soft, nontender, goodson w/ some urine EXTREMITIES: at most trace edema with chronic venous skin changes. NEUROLOGIC: generalized weakness, tired, oriented x 3 Current Inpatient Medications Medications (Trade) Dose Ordered Sig/Izaiah Route Start Time Stop Time Status Last Admin Dose Admin Nitroglycerin (Nitroglycerin 2% Oint) 0.5 inch Q6H EXT 03/18/17 06:00 04/17/17 05:59 Future Hold 03/22/17 05:42 0.5 INCH Acetaminophen (Tylenol Tab) 650 mg Q4H PRN PO 03/18/17 02:30 04/17/17 02:29 Nitroglycerin (Nitrostat Tab) 0.4 mg UD PRN SL 03/18/17 02:30 04/17/17 02:29 Future Hold Insulin Aspart (novoLOG ASPART) SLIDING SCALE If C... ACHS SC 03/18/17 07:00 04/17/17 06:59 03/21/17 21:52 1 UNITS Glucose (Glucose 40% Gel) 15-30 GRAMS 15 GRAMS... UD PRN PO 03/18/17 02:30 04/17/17 02:29 Glucose (Glucose Chew Tab) 4-8 Tablets 4 Tabl... UD PRN PO 03/18/17 02:30 04/17/17 02:29 Dextrose (Dextrose 50% 50ML Syringe) 25-50ML OF 50% DW IV FOR... UD PRN IV 03/18/17 02:30 04/17/17 02:29 Glucagon (Glucagon Inj) 1 mg UD PRN SQ 03/18/17 02:30 04/17/17 02:29 Hydromorphone HCl (Dilaudid Inj) 0.5 mg Q3H PRN IV 03/18/17 02:30 04/01/17 02:29 03/22/17 13:10 0.5 MG Tramadol HCl (Ultram Tab) 25 mg Q6H PRN PO 03/18/17 02:30 04/17/17 02:29 Ondansetron HCl (Zofran Inj) 4 mg Q6H PRN IV 03/18/17 02:30 04/17/17 02:29 Atorvastatin Calcium (Lipitor Tab) 80 mg DAILY PO 03/18/17 09:00 04/17/17 08:59 03/23/17 07:39 80 MG Clopidogrel Bisulfate (plAVix TAB) 75 mg DAILY PO 03/18/17 09:00 04/17/17 08:59 03/23/17 07:38 75 MG Isosorbide Mononitrate (Imdur Ext Rel Tab) 60 mg QAM PO 03/18/17 09:00 04/17/17 08:59 03/23/17 07:38 60 MG Senna/Docusate Sodium (Senokot S Tab) 2 tab DAILY PO 03/18/17 09:00 04/17/17 08:59 03/23/17 07:38 2 TAB Aspirin (Ecotrin Tab) 81 mg QAM PO 03/18/17 09:00 04/17/17 08:59 03/23/17 07:39 81 MG Pantoprazole Sodium (Protonix Tab) 40 mg QAM PO 03/19/17 09:00 04/18/17 08:59 03/23/17 07:38 40 MG Doxycycline Hyclate 100 mg/ Dextrose 110 ml @ 50 mls/hr BID@1000,2200 IV 03/20/17 10:00 03/27/17 09:59 03/22/17 22:10 50 MLS/HR Levothyroxine Sodium (Synthroid Tab) 75 mcg DAILYBB PO 03/21/17 06:00 04/17/17 06:59 03/23/17 06:13 75 MCG Miscellaneous Information (Low Intensity Warfarin Nomogram) 1 ea DAILY@14 N/A 03/21/17 14:00 03/27/17 13:59 03/22/17 14:00 1 EA Furosemide 80 mg/ Syringe 8 ml @ 4 mls/min TID IV 03/22/17 14:00 04/21/17 13:59 03/23/17 07:44 4 MLS/MIN Metolazone (Zaroxolyn Tab) 5 mg QAM PO 03/23/17 09:00 04/22/17 08:59 03/23/17 07:39 5 MG Nitroglycerin/ Dextrose 250 ml @ 0 mls/hr Q0M PRN IV 03/22/17 12:15 04/21/17 12:14 03/23/17 04:56 15 MLS/HR Carvedilol (Coreg Tab) 12.5 mg BID PO 03/22/17 21:00 04/17/17 08:59 03/23/17 07:38 12.5 MG Heparin Sodium/ Dextrose 500 ml @ 16 mls/hr Q24H PRN IV 03/22/17 14:00 04/21/17 13:59 03/22/17 23:24 16 MLS/HR Levalbuterol (Xopenex 0.63 Mg/ 3 Ml Neb) 0.63 mg Q6R INH 03/22/17 21:00 04/21/17 20:59 03/23/17 07:38 0.63 MG Ipratropium [place] (Atrovent 0.02% 0.5MG/2.5ML Neb) 0.5 mg Q6R INH 03/22/17 21:00 04/21/17 20:59 03/23/17 07:38 0.5 MG Last 24 Hours Test 03/22/17 10:38 03/22/17 12:14 03/22/17 14:45 03/22/17 17:52 Bedside Glucose 169 mg/dl 141 mg/dl Troponin I 1.310 ng/ml Heparin-PF4 Antibody Screen NEG Blood Gas Sample Site L Radial Bedside Blood Gas pH (LAB) 7.47 Bedside Blood Gas pCO2 (LAB) 38 mmHg Bedside Blood Gas pO2 (LAB) 72 mmHg Bedside Blood Gas HCO3 (LAB) 28 meq/L Bedside Blood Gas Total CO2 29 mEq/l Bedside Blood Gas Base Excess (LAB) 4.0 meq/L Bedside Blood Gas O2 Saturation 95.0 % Alfredo Test Pass Oxygen Delivery Device BIPAP Bedside FiO2 30 % Blood Gas IPAP 15 Test 03/22/17 18:00 03/22/17 19:00 03/22/17 20:38 03/22/17 22:03 Urine Random Creatinine 27.0 mg/dl Urine Random Urea Nitrogen 188 mg/dl Total Creatine Kinase 89 U/L Creatine Kinase MB 3.8 ng/ml Creatine Kinase MB Ratio 4.3 Troponin I 2.210 ng/ml Bedside Glucose 136 mg/dl Activated Partial Thromboplast Time 26.8 SECONDS Partial Thromboplastin Ratio 1.0 Test 03/23/17 04:05 03/23/17 06:15 White Blood Count 5.46 K/uL Red Blood Count 3.05 M/uL Hemoglobin 9.3 g/dL Hematocrit 28.0 % Mean Corpuscular Volume 91.8 fL Mean Corpuscular Hemoglobin 30.5 pg Mean Corpuscular Hemoglobin Concent 33.2 g/dl Platelet Count 153 K/uL Mean Platelet Volume 10.7 fL Neutrophils (%) (Auto) 65.4 % Lymphocytes (%) (Auto) 18.7 % Monocytes (%) (Auto) 12.3 % Eosinophils (%) (Auto) 2.9 % Basophils (%) (Auto) 0.2 % Neutrophils # (Auto) 3.57 K/uL Lymphocytes # (Auto) 1.02 K/uL Monocytes # (Auto) 0.67 K/uL Eosinophils # (Auto) 0.16 K/uL Basophils # (Auto) 0.01 K/uL RDW Standard Deviation 44.7 fL RDW Coefficient of Variation 13.6 % Immature Granulocyte % (Auto) 0.5 % Immature Granulocyte # (Auto) 0.03 K/uL Prothrombin Time 12.5 SECONDS Prothromb Time International Ratio 1.2 Activated Partial Thromboplast Time 67.4 SECONDS Partial Thromboplastin Ratio 2.6 Sodium Level 135 mmol/L Potassium Level 3.6 mmol/L Chloride Level 94 mmol/L Carbon Dioxide Level 30 mmol/L Anion Gap 11.0 mmol/L Blood Urea Nitrogen 89 mg/dl Creatinine 3.10 mg/dl Est Creatinine Clear Calc Drug Dose 13.2 ml/min Estimated GFR () 15.6 Estimated GFR (Non- 13.4 BUN/Creatinine Ratio 28.7 Random Glucose 123 mg/dl Calcium Level 8.7 mg/dl Total Creatine Kinase 82 U/L Creatine Kinase MB 3.0 ng/ml Creatine Kinase MB Ratio 3.7 Troponin I 2.180 ng/ml Pro-B-Type Natriuretic Peptide > 70860 pg/ml Bedside Glucose 134 mg/dl Date/Time Source Procedure Growth Status 03/22/17 16:20 Nasal MRSA DNA Surveillance Screen - Final Specimen Negative for MRSA by DNA Probe Complete 03/22/17 18:00 Urine,Catheterized Urine Culture Pending Received Assessment & Plan 81-year-old female with chronic kidney disease stage 4 with a baseline creatinine of around 2.5, DM, severe CAD w/ recent high risk lad stent presented 03/18 with chest pain as well as shortness of breath and found to have acute non-ST elevation myocardial infarction as well as possible pulmonary embolism, + deep venous thrombosis and pulmonary edema/hypoxemic respiratory failure. -acute on advanced chronic renal failure. from a baseline of 2.5 her creatinine has increased to peak yesterday at 3.2; now with stable renal function as we have intensified diuretics. very severe illness and may yet need dialysis -continue standing lasix 80 mg IV tid and 5 mg daily metolazone -She and daughter have been discussing goals of care > pt remains full code for now; may not tolerate dialysis well should need arise but for now remains a possibility -cont daily bmp and strict I/O -not currently on a fluid limit >> she is however hardly eating -acute heart failure/ ischemic [employer] she has had a drop in the ejection fraction from 40% to 25%; severe underlying CAD w/ recent intervention and still diffuse disease > f/u results of RHC and cardiac caths -multifactorial hypoxemia pulm following appreciate consult; will follow with you. care coordinated w/ Dr Birmingham
--- NOTE | 2017-03-23 17:43 | Critical Care Progress Note ---
Critical Care Progress Note Date of Service Mar 23, 2017. Attending Dr. Genao Subjective The patient feels better. Her pain is totally gone but she is on 20 mcg of NTG and on heparin. Her Carvidelol was increased to 12.5 and her Hr is in the low 60s. Creatinine stabilized 3.1-3.2 level. UO is 1125 ml since am. She is 23 ml positive only so far today and was in negative balance over the prior 24 hours. She is on 3 lit/min O2 saturating 97% She asked not to be placed on BIPAP at night. I explained she would benefit from it in terms of augmenting her cardiac output and maintaining good oxygenation. She agrees to use BIPAP tonight She had right sided heart cath with PCWP of 15, MPAP of 25. Objective General no acute distress Lungs b/l CTA with basal decrease in breath sounds heart nl s1 s2 no murmurs heard abdomen soft non tender no megalies. ext she has no pitting edema in the LE. 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 Patient is on medical therapy per cardiology recommendation given risk benefit ratio. Appreciate nephrology input. Extensive end of life care was carried out with her daughter and at this time the patient remains full code pain control with hydromorphone is on board On 3 lit/min O2. Will use BIPAP at night 10/5 with FiO2 28% levalbuterol/ipratropium continue with aspirin and plavix continue carvidelol to 12.5 mg PO BID hold if SBP <100 or HR <55 NTG drip to pain 1-2/10 heparin drip to PTT 49-60 renal lasix and metalozone per nephrology FeUrea was 24.7 suggesting prerenal which is what effectively cardiorenal syndrome may produce. inotropic support for possible cardiorenal syndrome is contraindicated given the ongoing demand ischemia picture ID UA appears to have + LE will resend UCx and treat accordingly. patient seems asymptomatic. She had a contaminated culture 03/21/17 DVT on heparin drip and coumadin GI heart healthy diet 2 gm Na when off BIPAP on pantoprazole endocrine maintian BS 140-180 levothyroxine was decreased from 88 to 75 mcg since admission. Will check TSH again. Although she is critically ill and that may alter TSH. However, overtreating with L-thyroxine is imprudent in the setting of cardiac ischemia. no decubiti ulcers she has a goodson and she needs it. no central lines code status she is full code I spent a total of 45 minutes of CCTime managing this lady today exclusive of any procedures. Consults & Procedures Consultants: cardiology pulmonary Procedures: right sided heart cath Data Medications: Current Inpatient Medications Medications (Trade) Dose Ordered Sig/Izaiah Route Start Time Stop Time Status Last Admin Dose Admin Nitroglycerin (Nitroglycerin 2% Oint) 0.5 inch Q6H EXT 03/18/17 06:00 04/17/17 05:59 Future Hold 03/22/17 05:42 0.5 INCH Acetaminophen (Tylenol Tab) 650 mg Q4H PRN PO 03/18/17 02:30 04/17/17 02:29 Nitroglycerin (Nitrostat Tab) 0.4 mg UD PRN SL 03/18/17 02:30 04/17/17 02:29 Future Hold Insulin Aspart (novoLOG ASPART) SLIDING SCALE If C... ACHS SC 03/18/17 07:00 04/17/17 06:59 03/21/17 21:52 1 UNITS Glucose (Glucose 40% Gel) 15-30 GRAMS 15 GRAMS... UD PRN PO 03/18/17 02:30 04/17/17 02:29 Glucose (Glucose Chew Tab) 4-8 Tablets 4 Tabl... UD PRN PO 03/18/17 02:30 04/17/17 02:29 Dextrose (Dextrose 50% 50ML Syringe) 25-50ML OF 50% DW IV FOR... UD PRN IV 03/18/17 02:30 04/17/17 02:29 Glucagon (Glucagon Inj) 1 mg UD PRN SQ 03/18/17 02:30 04/17/17 02:29 Hydromorphone HCl (Dilaudid Inj) 0.5 mg Q3H PRN IV 03/18/17 02:30 04/01/17 02:29 03/22/17 13:10 0.5 MG Tramadol HCl (Ultram Tab) 25 mg Q6H PRN PO 03/18/17 02:30 04/17/17 02:29 Ondansetron HCl (Zofran Inj) 4 mg Q6H PRN IV 03/18/17 02:30 04/17/17 02:29 Atorvastatin Calcium (Lipitor Tab) 80 mg DAILY PO 03/18/17 09:00 04/17/17 08:59 03/23/17 07:39 80 MG Clopidogrel Bisulfate (plAVix TAB) 75 mg DAILY PO 03/18/17 09:00 04/17/17 08:59 03/23/17 07:38 75 MG Isosorbide Mononitrate (Imdur Ext Rel Tab) 60 mg QAM PO 03/18/17 09:00 04/17/17 08:59 03/23/17 07:38 60 MG Senna/Docusate Sodium (Senokot S Tab) 2 tab DAILY PO 03/18/17 09:00 04/17/17 08:59 03/23/17 07:38 2 TAB Aspirin (Ecotrin Tab) 81 mg QAM PO 03/18/17 09:00 04/17/17 08:59 03/23/17 07:39 81 MG Pantoprazole Sodium (Protonix Tab) 40 mg QAM PO 03/19/17 09:00 04/18/17 08:59 03/23/17 07:38 40 MG Doxycycline Hyclate 100 mg/ Dextrose 110 ml @ 50 mls/hr BID@1000,2200 IV 03/20/17 10:00 03/27/17 09:59 03/23/17 11:44 50 MLS/HR Levothyroxine Sodium (Synthroid Tab) 75 mcg DAILYBB PO 03/21/17 06:00 04/17/17 06:59 03/23/17 06:13 75 MCG Miscellaneous Information (Low Intensity Warfarin Nomogram) 1 ea DAILY@14 N/A 03/21/17 14:00 03/27/17 13:59 03/22/17 14:00 1 EA Furosemide 80 mg/ Syringe 8 ml @ 4 mls/min TID IV 03/22/17 14:00 04/21/17 13:59 03/23/17 13:49 4 MLS/MIN Metolazone (Zaroxolyn Tab) 5 mg QAM PO 03/23/17 09:00 04/22/17 08:59 03/23/17 07:39 5 MG Nitroglycerin/ Dextrose 250 ml @ 0 mls/hr Q0M PRN IV 03/22/17 12:15 04/21/17 12:14 03/23/17 04:56 15 MLS/HR Carvedilol (Coreg Tab) 12.5 mg BID PO 03/22/17 21:00 04/17/17 08:59 03/23/17 07:38 12.5 MG Heparin Sodium/ Dextrose 500 ml @ 16 mls/hr Q24H PRN IV 03/22/17 14:00 04/21/17 13:59 03/22/17 23:24 16 MLS/HR Levalbuterol (Xopenex 0.63 Mg/ 3 Ml Neb) 0.63 mg Q6R INH 03/22/17 21:00 04/21/17 20:59 03/23/17 14:49 0.63 MG Ipratropium Elmer (Atrovent 0.02% 0.5MG/2.5ML Neb) 0.5 mg Q6R INH 03/22/17 21:00 04/21/17 20:59 03/23/17 14:49 0.5 MG Polyethylene (Miralax Powder Packet) 17 gm DAILY PO 03/24/17 09:00 04/23/17 08:59 I & O: 24-Hour Column 03/24/17 08:00 Intake Total 903 ml Output Total 425 ml Balance 478 ml Vital Signs: Date Time Temp Pulse Resp B/P (MAP) Pulse Ox O2 Delivery O2 Flow Rate FiO2 03/23/17 14:49 65 18 96 Nasal Cannula 3.0 03/23/17 14:00 67 18 95/51 (66) 98 Nasal Cannula 2.0 03/23/17 12:00 36.9 65 18 103/53 (70) 98 Nasal Cannula 2.0 03/23/17 11:00 60 17 133/51 (78) 98 Nasal Cannula 2.0 03/23/17 10:35 60 18 88/48 (61) 97 Nasal Cannula 2 03/23/17 09:00 66 14 03/23/17 08:00 65 14 93/46 (62) 03/23/17 07:38 63 18 99 Nasal Cannula 4.0 03/23/17 07:30 36.8 65 14 121/79 (93) 03/23/17 06:10 61 21 101/46 (64) 98 03/23/17 05:31 59 14 105/42 (63) 95 03/23/17 05:20 58 96 30 03/23/17 04:31 59 13 101/54 (70) 95 03/23/17 04:02 36.4 66 15 110/55 (73) 96 BiPAP 30 03/23/17 03:31 61 12 112/56 (74) 96 BiPAP 30 03/23/17 03:01 59 15 92/50 (64) 94 BiPAP 30 03/23/17 02:31 60 14 92/52 (65) 99 BiPAP 30 03/23/17 02:14 65 95 30 03/23/17 02:14 65 15 95 BiPAP/CPAP 30 03/23/17 02:01 62 16 105/54 (71) 98 BiPAP 30 03/23/17 01:31 62 13 102/56 (71) 94 BiPAP 30 03/23/17 01:01 64 14 97/57 (70) 93 BiPAP 30 03/23/17 00:01 36.4 63 15 98/54 (69) 95 BiPAP 30 03/22/17 23:31 62 13 95/55 (68) 95 Nasal Cannula 5.0 03/22/17 23:25 65 95 30 03/22/17 23:01 65 21 103/54 (70) 96 Nasal Cannula 5.0 03/22/17 22:31 65 14 104/52 (69) 95 Nasal Cannula 5.0 03/22/17 22:02 67 16 95/51 (66) 92 Nasal Cannula 5.0 03/22/17 21:01 80 21 109/62 (78) 98 Nasal Cannula 5.0 03/22/17 20:32 72 18 99/61 (74) 97 Nasal Cannula 5.0 03/22/17 20:11 72 16 95 Nasal Cannula 4.0 03/22/17 20:01 36.7 71 13 106/54 (71) 96 Nasal Cannula 5.0 03/22/17 18:00 69 12 104/52 (69) 95 BiPAP 30 Laboratory Results: Last 24 Hours Test 03/22/17 17:52 03/22/17 18:00 03/22/17 19:00 03/22/17 20:38 Bedside Glucose 141 mg/dl 136 mg/dl Urine Random Creatinine 27.0 mg/dl Urine Random Urea Nitrogen 188 mg/dl Total Creatine Kinase 89 U/L Creatine Kinase MB 3.8 ng/ml Creatine Kinase MB Ratio 4.3 Troponin I 2.210 ng/ml Test 03/22/17 22:03 03/23/17 04:05 03/23/17 06:15 03/23/17 10:37 Activated Partial Thromboplast Time 26.8 SECONDS 67.4 SECONDS Partial Thromboplastin Ratio 1.0 2.6 White Blood Count 5.46 K/uL Red Blood Count 3.05 M/uL Hemoglobin 9.3 g/dL Hematocrit 28.0 % Mean Corpuscular Volume 91.8 fL Mean Corpuscular Hemoglobin 30.5 pg Mean Corpuscular Hemoglobin Concent 33.2 g/dl Platelet Count 153 K/uL Mean Platelet Volume 10.7 fL Neutrophils (%) (Auto) 65.4 % Lymphocytes (%) (Auto) 18.7 % Monocytes (%) (Auto) 12.3 % Eosinophils (%) (Auto) 2.9 % Basophils (%) (Auto) 0.2 % Neutrophils # (Auto) 3.57 K/uL Lymphocytes # (Auto) 1.02 K/uL Monocytes # (Auto) 0.67 K/uL Eosinophils # (Auto) 0.16 K/uL Basophils # (Auto) 0.01 K/uL RDW Standard Deviation 44.7 fL RDW Coefficient of Variation 13.6 % Immature Granulocyte % (Auto) 0.5 % Immature Granulocyte # (Auto) 0.03 K/uL Prothrombin Time 12.5 SECONDS Prothromb Time International Ratio 1.2 Sodium Level 135 mmol/L Potassium Level 3.6 mmol/L Chloride Level 94 mmol/L Carbon Dioxide Level 30 mmol/L Anion Gap 11.0 mmol/L Blood Urea Nitrogen 89 mg/dl Creatinine 3.10 mg/dl Est Creatinine Clear Calc Drug Dose 13.2 ml/min Estimated GFR () 15.6 Estimated GFR (Non- 13.4 BUN/Creatinine Ratio 28.7 Random Glucose 123 mg/dl Calcium Level 8.7 mg/dl Total Creatine Kinase 82 U/L Creatine Kinase MB 3.0 ng/ml Creatine Kinase MB Ratio 3.7 Troponin I 2.180 ng/ml Pro-B-Type Natriuretic Peptide > 28799 pg/ml Bedside Glucose 134 mg/dl Bedside Blood Gas pH (LAB) 7.44 Bedside Blood Gas pCO2 (LAB) 44 mmHg Bedside Blood Gas pO2 (LAB) < 32 mmHg Bedside Blood Gas HCO3 (LAB) 30 meq/L Bedside Blood Gas Total CO2 31 mEq/l Bedside Blood Gas Base Excess (LAB) 6.0 meq/L Bedside Blood Gas O2 Saturation 57.0 % Test 03/23/17 11:50 03/23/17 16:22 Bedside Glucose 168 mg/dl 149 mg/dl
[2017-03-23] MEDS ORDERED: WARFARIN SOD 6 MG TAB PO ONE (18:30)
[2017-03-23] MEDS ORDERED: MILK AND MOLASSES ENEMA PR ONE (20:00)
[2017-03-24] VITALS (37 sets, daily range): BP systolic 91–124; BP diastolic 48–69; PULSE 54–72; TEMP 36.4–36.7; O2SAT 92–99
[2017-03-24] MEDS: HEPARIN 25,000 UNIT/500ML D5W 500 ML IV PRN (00:03)
[2017-03-24] MEDS: IPRATROPIUM BROMIDE NEB SOLN 0.02% 2.5 ML VIAL INH SCH ×4 (01:58→19:11)
[2017-03-24] MEDS: LEVALBUTEROL 0.63MG/3 ML NEB INH SCH ×4 (01:58→19:11)
[2017-03-24] MEDS: LEVOTHYROXINE 75 MCG TAB PO SCH (06:19)
[2017-03-24 06:32] LABS: BASO % 0.2 %; BASO ABS # 0.01 K/uL (0-0.2); COMPLETE YES; EOS % 3.9 %; HEMATOCRIT 31.9 % (37-47); IG% 0.5 %; LYMPH % 21.1 %; LYMPH ABS # 1.25 K/uL (1.2-3.4); MEAN CELL VOLUME 91.1 fL (80-100); MEAN CORPUSCULAR HEMOGLOBIN 29.4 pg (25-34); MEAN CORPUSCULAR HGB CONC 32.3 g/dl (32-36); MEAN PLATELET VOLUME 11.3 fL (7.4-10.4); MONO % 11.8 %; NEUT % 62.5 %; PLATELET COUNT 183 K/uL (130-400); WHITE BLOOD COUNT 5.92 K/uL (4.8-10.8)
[2017-03-24] MEDS: INSULIN ASPART 100 UNITS/ML 3 ML PEN SC SCH ×4 (06:45→20:50)
[2017-03-24 06:58] LABS: BUN/CREATININE RATIO 29.1 (10-20); CALCIUM 8.5 mg/dl (8.5-10.1); CREATININE 3.2 mg/dl (0.60-1.20); MAGNESIUM 1.8 mg/dl (1.8-2.4); POTASSIUM 3.5 mmol/L (3.5-5.1)
[2017-03-24 07:09] LABS: PHOSPHORUS 5.7 mg/dl (2.5-4.9); THYROID STIMULATING HORMONE 1.01 uIu/ml (0.300-4.500)
--- NOTE | 2017-03-24 07:30 | DIAGNOSTIC IMAGING REPORT ---
SINGLE VIEW CHEST CLINICAL HISTORY: Pulmonary edema. FINDINGS: An AP, portable, upright chest radiograph is compared to study dated 03/23/2017. The examination is degraded by portable technique and patient rotation. The heart is enlarged and there is atherosclerotic calcification of the thoracic aorta. Mild pulmonary vascular congestion persists. There are small pleural effusions with bibasilar consolidation. Scattered calcified granulomas are observed. No pneumothorax is seen. The skeletal structures are osteopenic. The bony thorax is grossly intact. IMPRESSION: 1. Cardiomegaly with mild congestive change. This is similar to yesterday. 2. Small pleural effusions with bibasilar consolidation persist. Electronically signed by: Eder Bone M.D. 03/24/2017 7:29 AM Dictated Date/Time: 03/24/2017 7:28 AM
[2017-03-24 07:40] LABS: INR 1.6 (0.9-1.1); PARTIAL THROMBOPLASTIN RATIO 2.1
[2017-03-24] MEDS: CLOPIDOGREL BISULFATE 75 MG TAB PO SCH (08:27)
[2017-03-24] MEDS: ATORVASTATIN 40 MG TAB PO SCH (08:27)
[2017-03-24] MEDS: DOCUSATE SODIUM/SENNA 50/8.6MG TAB PO SCH (08:27)
[2017-03-24] MEDS: ISOSORBIDE MONONITRATE 60 MG TABCR PO SCH (08:28)
[2017-03-24] MEDS: CARVEDILOL 12.5 MG TAB PO SCH ×2 (08:28→20:51)
[2017-03-24] MEDS: ASPIRIN 81 MG ECTAB PO SCH (08:28)
[2017-03-24] MEDS: PANTOprazole SOD 40 MG TAB PO SCH (08:28)
[2017-03-24] MEDS: FUROSEMIDE INJ 80 MG in SYRINGE 0 ML IV SCH ×3 (08:44→20:52)
[2017-03-24] MEDS ORDERED: POLYETHYLENE (MIRALAX) 17 GM PACK PO SCH (09:00)
[2017-03-24] MEDS: METOLAZONE 5 MG TAB PO SCH (09:27)
[2017-03-24] MEDS: DOXYCYCLINE IV 100 MG in DEXTROSE 5% 100ML 100 ML IV SCH ×2 (09:27→22:05)
[2017-03-24] MEDS ORDERED: POTASSIUM CHLORIDE 20 MEQ/15 ML UDC PO STA (11:53)
[2017-03-24] MEDS ORDERED: MAGNESIUM SULFATE 1GM / D5W 1 GM in PREMIXED IN D5W 100 ML IV ONE (12:00)
[2017-03-24] MEDS ORDERED: SOD PHOSPHATE/SOD BIPHOSPHATE ENEMA 132 ML BTL PR PRN (12:30)
[2017-03-24 12:40] LABS: ISTAT CARBON DIOXIDE VENOUS 31 mEq/l (24-31); ISTAT VENOUS BLOOD GAS HCO3 30 meq/L (23-28); ISTAT VENOUS BLOOD GAS PCO2 42 mmHg (38.0-50.0); ISTAT VENOUS BLOOD GAS PO2 < 32 mmHg (30-55); ISTAT VENOUS BLOOD GAS pH 7.46 (7.36-7.41)
[2017-03-24] MEDS: LOW INTENSITY WARFARIN NOMOGRAM SCH (13:27)
--- NOTE | 2017-03-24 13:43 | Critical Care Progress Note ---
Critical Care Progress Note Date of Service Mar 24, 2017. Attending Dr. Genao Subjective The patient feels better. Her pain is totally gone but she is on 20 mcg of NTG and on heparin. Her Carvidelol was increased to 12.5 and her Hr is in the low 60s. Creatinine stabilized 3.1-3.2 level. She was fine on 3 lit/min O2 saturating 97% until this am after the NTG was totally stopped and she developed crushing chest pain at that time She refused BIPAP last night after 2 hours. She had right sided heart cath with PCWP of 15, MPAP of 25. She is going to cardiac cath per Dr Amato given the CP Dr. Small was consulted for possible HD after the cath Objective General no acute distress Lungs b/l CTA with basal decrease in breath sounds heart nl s1 s2 no murmurs heard abdomen soft non tender no megalies. ext she has no pitting edema in the LE. 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 Patient is on medical therapy per cardiology recommendation given risk benefit ratio. Appreciate nephrology input. Extensive end of life care was carried out with her daughter and at this time the patient remains full code. Again with chest pain pain control with hydromorphone is on board On 3 lit/min O2. levalbuterol/ipratropium continue with aspirin and plavix continue carvidelol to 12.5 mg PO BID hold if SBP <100 or HR <55 NTG drip to pain 1-2/10 heparin drip to PTT 49-60 serial troponin renal lasix and metalozone per nephrology FeUrea was 24.7 suggesting prerenal which is what effectively cardiorenal syndrome may produce. inotropic support for possible cardiorenal syndrome is contraindicated given the ongoing demand ischemia picture replaced K and Mg today ID UA appears to have + LE will resend UCx and treat accordingly. patient seems asymptomatic. She had a contaminated culture 03/21/17 DVT on heparin drip and coumadin GI NPO for cath on pantoprazole endocrine maintian BS 140-180 levothyroxine was decreased from 88 to 75 mcg since admission. TSH within normal maintain same dose no decubiti ulcers she has a goodson and she needs it. no central lines code status she is full code I spent a total of 40 minutes of CCTime managing this lady today exclusive of any procedures. Consults & Procedures Consultants: cardiology pulmonary Procedures: right sided heart cath Data Medications: Current Inpatient Medications Medications (Trade) Dose Ordered Sig/Izaiah Route Start Time Stop Time Status Last Admin Dose Admin Acetaminophen (Tylenol Tab) 650 mg Q4H PRN PO 03/18/17 02:30 04/17/17 02:29 Nitroglycerin (Nitrostat Tab) 0.4 mg UD PRN SL 03/18/17 02:30 04/17/17 02:29 Future Hold Insulin Aspart (novoLOG ASPART) SLIDING SCALE If C... ACHS SC 03/18/17 07:00 04/17/17 06:59 03/21/17 21:52 1 UNITS Glucose (Glucose 40% Gel) 15-30 GRAMS 15 GRAMS... UD PRN PO 03/18/17 02:30 04/17/17 02:29 Glucose (Glucose Chew Tab) 4-8 Tablets 4 Tabl... UD PRN PO 03/18/17 02:30 04/17/17 02:29 Dextrose (Dextrose 50% 50ML Syringe) 25-50ML OF 50% DW IV FOR... UD PRN IV 03/18/17 02:30 04/17/17 02:29 Glucagon (Glucagon Inj) 1 mg UD PRN SQ 03/18/17 02:30 04/17/17 02:29 Hydromorphone HCl (Dilaudid Inj) 0.5 mg Q3H PRN IV 03/18/17 02:30 04/01/17 02:29 03/22/17 13:10 0.5 MG Tramadol HCl (Ultram Tab) 25 mg Q6H PRN PO 03/18/17 02:30 04/17/17 02:29 Ondansetron HCl (Zofran Inj) 4 mg Q6H PRN IV 03/18/17 02:30 04/17/17 02:29 03/23/17 16:50 4 MG Atorvastatin Calcium (Lipitor Tab) 80 mg DAILY PO 03/18/17 09:00 04/17/17 08:59 03/24/17 08:27 80 MG Clopidogrel Bisulfate (plAVix TAB) 75 mg DAILY PO 03/18/17 09:00 04/17/17 08:59 03/24/17 08:27 75 MG Isosorbide Mononitrate (Imdur Ext Rel Tab) 60 mg QAM PO 03/18/17 09:00 04/17/17 08:59 03/24/17 08:28 60 MG Senna/Docusate Sodium (Senokot S Tab) 2 tab DAILY PO 03/18/17 09:00 04/17/17 08:59 03/24/17 08:27 2 TAB Aspirin (Ecotrin Tab) 81 mg QAM PO 03/18/17 09:00 04/17/17 08:59 03/24/17 08:28 81 MG Pantoprazole Sodium (Protonix Tab) 40 mg QAM PO 03/19/17 09:00 04/18/17 08:59 03/24/17 08:28 40 MG Doxycycline Hyclate 100 mg/ Dextrose 110 ml @ 50 mls/hr BID@1000,2200 IV 03/20/17 10:00 03/27/17 09:59 03/24/17 09:27 50 MLS/HR Levothyroxine Sodium (Synthroid Tab) 75 mcg DAILYBB PO 03/21/17 06:00 04/17/17 06:59 03/24/17 06:19 75 MCG Miscellaneous Information (Low Intensity Warfarin Nomogram) 1 ea DAILY@14 N/A 03/21/17 14:00 03/27/17 13:59 03/24/17 13:27 1 EA Furosemide 80 mg/ Syringe 8 ml @ 4 mls/min TID IV 03/22/17 14:00 04/21/17 13:59 03/24/17 08:44 4 MLS/MIN Metolazone (Zaroxolyn Tab) 5 mg QAM PO 03/23/17 09:00 04/22/17 08:59 03/24/17 09:27 5 MG Nitroglycerin/ Dextrose 250 ml @ 0 mls/hr Q0M PRN IV 03/22/17 12:15 04/21/17 12:14 03/23/17 04:56 15 MLS/HR Carvedilol (Coreg Tab) 12.5 mg BID PO 03/22/17 21:00 04/17/17 08:59 03/24/17 08:28 12.5 MG Heparin Sodium/ Dextrose 500 ml @ 16 mls/hr Q24H PRN IV 03/22/17 14:00 04/21/17 13:59 03/24/17 00:03 16 MLS/HR Levalbuterol (Xopenex 0.63 Mg/ 3 Ml Neb) 0.63 mg Q6R INH 03/22/17 21:00 04/21/17 20:59 03/24/17 07:20 0.63 MG Ipratropium Lander (Atrovent 0.02% 0.5MG/2.5ML Neb) 0.5 mg Q6R INH 03/22/17 21:00 04/21/17 20:59 03/24/17 07:20 0.5 MG Polyethylene (Miralax Powder Packet) 17 gm BID PO 03/24/17 21:00 04/23/17 08:59 Sodium Biphosphate/ Sodium Phosphate (Fleet Enema) 132 ml DAILY PRN MO 03/24/17 12:30 04/23/17 12:29 Miscellaneous Information (Nursing Standard Warfarin Nomogram Dose) 1 ea TODAY N/A 03/24/17 13:30 03/24/17 13:31 UNV I & O: 24-Hour Column 03/25/17 07:59 Intake Total 893 ml Output Total 500 ml Balance 393 ml Vital Signs: Date Time Temp Pulse Resp B/P (MAP) Pulse Ox O2 Delivery O2 Flow Rate FiO2 03/24/17 13:21 36.7 64 24 101/59 (73) 96 Nasal Cannula 3.0 03/24/17 11:25 92 Nasal Cannula 3.0 30 03/24/17 11:25 36.6 58 24 91/60 (70) 99 Nasal Cannula 3.0 03/24/17 11:01 60 16 94/57 (69) 92 03/24/17 11:00 60 15 92 03/24/17 10:01 57 15 91/60 (70) 03/24/17 10:00 57 15 94 03/24/17 09:30 36.5 57 22 105/66 (79) 99 Nasal Cannula 3.0 03/24/17 09:01 66 19 105/66 (79) 96 03/24/17 09:00 64 20 99 03/24/17 08:01 59 21 105/64 (78) 94 03/24/17 08:00 63 24 96 03/24/17 07:30 36.5 63 26 111/57 (75) 99 Nasal Cannula 3.0 03/24/17 07:30 92 Nasal Cannula 3.0 30 03/24/17 07:15 72 18 96 Nasal Cannula 3.0 03/24/17 07:01 63 29 111/57 (75) 03/24/17 07:00 60 15 97 03/24/17 06:01 61 20 112/60 (77) 92 Nasal Cannula 3.0 61 03/24/17 05:14 55 95 30 03/24/17 05:01 59 14 107/60 (76) BiPAP 30 03/24/17 04:01 36.5 62 16 117/50 (72) 92 BiPAP 30 03/24/17 04:00 BiPAP 30 03/24/17 03:02 66 22 111/60 (77) 93 BiPAP 30 03/24/17 02:01 63 16 115/59 (77) 96 Nasal Cannula 3.0 03/24/17 01:59 64 18 95 Nasal Cannula 3.0 03/24/17 01:01 65 18 115/49 (71) 93 Nasal Cannula 3.0 03/24/17 00:01 36.4 63 22 109/62 (78) Nasal Cannula 3.0 03/24/17 00:00 Nasal Cannula 3.0 03/23/17 23:01 62 19 102/62 (75) 94 Nasal Cannula 3.0 03/23/17 22:01 66 17 109/62 (78) 94 Nasal Cannula 3.0 03/23/17 21:01 70 21 112/68 (83) 94 Nasal Cannula 3.0 03/23/17 20:06 66 18 96 Nasal Cannula 3.0 03/23/17 20:01 36.7 70 18 111/58 (75) 94 Nasal Cannula 3.0 03/23/17 20:00 Nasal Cannula 3.0 03/23/17 19:01 69 18 115/60 (78) 95 Nasal Cannula 3.0 03/23/17 16:00 36.8 67 15 103/54 (70) 97 Nasal Cannula 2.0 03/23/17 14:49 65 18 96 Nasal Cannula 3.0 03/23/17 14:00 67 18 95/51 (66) 98 Nasal Cannula 2.0 Laboratory Results: Last 24 Hours Test 03/23/17 16:22 03/23/17 21:10 03/24/17 06:01 03/24/17 06:07 Bedside Glucose 149 mg/dl 135 mg/dl 135 mg/dl White Blood Count 5.92 K/uL Red Blood Count 3.50 M/uL Hemoglobin 10.3 g/dL Hematocrit 31.9 % Mean Corpuscular Volume 91.1 fL Mean Corpuscular Hemoglobin 29.4 pg Mean Corpuscular Hemoglobin Concent 32.3 g/dl Platelet Count 183 K/uL Mean Platelet Volume 11.3 fL Neutrophils (%) (Auto) 62.5 % Lymphocytes (%) (Auto) 21.1 % Monocytes (%) (Auto) 11.8 % Eosinophils (%) (Auto) 3.9 % Basophils (%) (Auto) 0.2 % Neutrophils # (Auto) 3.70 K/uL Lymphocytes # (Auto) 1.25 K/uL Monocytes # (Auto) 0.70 K/uL Eosinophils # (Auto) 0.23 K/uL Basophils # (Auto) 0.01 K/uL RDW Standard Deviation 44.4 fL RDW Coefficient of Variation 13.4 % Immature Granulocyte % (Auto) 0.5 % Immature Granulocyte # (Auto) 0.03 K/uL Prothrombin Time 17.0 SECONDS Prothromb Time International Ratio 1.6 Activated Partial Thromboplast Time 54.9 SECONDS Partial Thromboplastin Ratio 2.1 Sodium Level 130 mmol/L Potassium Level 3.5 mmol/L Chloride Level 88 mmol/L Carbon Dioxide Level 30 mmol/L Anion Gap 12.0 mmol/L Blood Urea Nitrogen 93 mg/dl Creatinine 3.20 mg/dl Est Creatinine Clear Calc Drug Dose 12.5 ml/min Estimated GFR () 15.0 Estimated GFR (Non- 12.9 BUN/Creatinine Ratio 29.1 Random Glucose 110 mg/dl Calcium Level 8.5 mg/dl Phosphorus Level 5.7 mg/dl Magnesium Level 1.8 mg/dl Total Bilirubin 0.7 mg/dl Direct Bilirubin 0.2 mg/dl Aspartate Amino Transf (AST/SGOT) 20 U/L Alanine Aminotransferase (ALT/SGPT) 20 U/L Alkaline Phosphatase 73 U/L Total Protein 6.5 gm/dl Albumin 2.9 gm/dl Thyroid Stimulating Hormone (TSH) 1.010 uIu/ml Test 03/24/17 10:52 Bedside Glucose 180 mg/dl
--- NOTE | 2017-03-24 14:23 | Nephrology Progress Note ---
Nephrology Progress Note Date of Service: Mar 24, 2017. Subjective 81 yo female with ollie on ckd, chest pain requiring nitro drip, sob on diuretics. pt urinating about 1300 to 2 liters a day. chest xray shows basilar effusions. pt comfortable but sob. daughter in the room. Objective Date Time Temp Pulse Resp B/P (MAP) Pulse Ox O2 Delivery O2 Flow Rate FiO2 03/24/17 13:55 36.7 64 24 106/61 96 BiPAP 3.0 30 03/24/17 13:21 36.7 64 24 101/59 (73) 96 Nasal Cannula 3.0 03/24/17 11:25 92 Nasal Cannula 3.0 30 03/24/17 11:25 36.6 58 24 91/60 (70) 99 Nasal Cannula 3.0 03/24/17 11:01 60 16 94/57 (69) 92 03/24/17 11:00 60 15 92 03/24/17 10:01 57 15 91/60 (70) 03/24/17 10:00 57 15 94 03/24/17 09:30 36.5 57 22 105/66 (79) 99 Nasal Cannula 3.0 03/24/17 09:01 66 19 105/66 (79) 96 03/24/17 09:00 64 20 99 03/24/17 08:01 59 21 105/64 (78) 94 03/24/17 08:00 63 24 96 03/24/17 07:30 36.5 63 26 111/57 (75) 99 Nasal Cannula 3.0 03/24/17 07:30 92 Nasal Cannula 3.0 30 03/24/17 07:15 72 18 96 Nasal Cannula 3.0 03/24/17 07:01 63 29 111/57 (75) 03/24/17 07:00 60 15 97 03/24/17 06:01 61 20 112/60 (77) 92 Nasal Cannula 3.0 61 03/24/17 05:14 55 95 30 03/24/17 05:01 59 14 107/60 (76) BiPAP 30 03/24/17 04:01 36.5 62 16 117/50 (72) 92 BiPAP 30 03/24/17 04:00 BiPAP 30 03/24/17 03:02 66 22 111/60 (77) 93 BiPAP 30 03/24/17 02:01 63 16 115/59 (77) 96 Nasal Cannula 3.0 03/24/17 01:59 64 18 95 Nasal Cannula 3.0 03/24/17 01:01 65 18 115/49 (71) 93 Nasal Cannula 3.0 03/24/17 00:01 36.4 63 22 109/62 (78) Nasal Cannula 3.0 03/24/17 00:00 Nasal Cannula 3.0 03/23/17 23:01 62 19 102/62 (75) 94 Nasal Cannula 3.0 03/23/17 22:01 66 17 109/62 (78) 94 Nasal Cannula 3.0 03/23/17 21:01 70 21 112/68 (83) 94 Nasal Cannula 3.0 03/23/17 20:06 66 18 96 Nasal Cannula 3.0 03/23/17 20:01 36.7 70 18 111/58 (75) 94 Nasal Cannula 3.0 03/23/17 20:00 Nasal Cannula 3.0 03/23/17 19:01 69 18 115/60 (78) 95 Nasal Cannula 3.0 03/23/17 16:00 36.8 67 15 103/54 (70) 97 Nasal Cannula 2.0 03/23/17 14:49 65 18 96 Nasal Cannula 3.0 Physical Exam: General-aaox3, mild distress Eyes-no scleral icterus ENT-mmm Neck-supple Lungs-decreased at bases Heart-rrr Abdomen-bs+ s/nt/nd Extremities-no c/c/e Neuro-nonfocal Current Inpatient Medications Medications (Trade) Dose Ordered Sig/Izaiah Route Start Time Stop Time Status Last Admin Dose Admin Acetaminophen (Tylenol Tab) 650 mg Q4H PRN PO 03/18/17 02:30 04/17/17 02:29 Nitroglycerin (Nitrostat Tab) 0.4 mg UD PRN SL 03/18/17 02:30 04/17/17 02:29 Future Hold Insulin Aspart (novoLOG ASPART) SLIDING SCALE If C... ACHS SC 03/18/17 07:00 04/17/17 06:59 03/21/17 21:52 1 UNITS Glucose (Glucose 40% Gel) 15-30 GRAMS 15 GRAMS... UD PRN PO 03/18/17 02:30 04/17/17 02:29 Glucose (Glucose Chew Tab) 4-8 Tablets 4 Tabl... UD PRN PO 03/18/17 02:30 04/17/17 02:29 Dextrose (Dextrose 50% 50ML Syringe) 25-50ML OF 50% DW IV FOR... UD PRN IV 03/18/17 02:30 04/17/17 02:29 Glucagon (Glucagon Inj) 1 mg UD PRN SQ 03/18/17 02:30 04/17/17 02:29 Hydromorphone HCl (Dilaudid Inj) 0.5 mg Q3H PRN IV 03/18/17 02:30 04/01/17 02:29 03/22/17 13:10 0.5 MG Tramadol HCl (Ultram Tab) 25 mg Q6H PRN PO 03/18/17 02:30 04/17/17 02:29 Ondansetron HCl (Zofran Inj) 4 mg Q6H PRN IV 03/18/17 02:30 04/17/17 02:29 03/23/17 16:50 4 MG Atorvastatin Calcium (Lipitor Tab) 80 mg DAILY PO 03/18/17 09:00 04/17/17 08:59 03/24/17 08:27 80 MG Clopidogrel Bisulfate (plAVix TAB) 75 mg DAILY PO 03/18/17 09:00 04/17/17 08:59 03/24/17 08:27 75 MG Isosorbide Mononitrate (Imdur Ext Rel Tab) 60 mg QAM PO 03/18/17 09:00 04/17/17 08:59 03/24/17 08:28 60 MG Senna/Docusate Sodium (Senokot S Tab) 2 tab DAILY PO 03/18/17 09:00 04/17/17 08:59 03/24/17 08:27 2 TAB Aspirin (Ecotrin Tab) 81 mg QAM PO 03/18/17 09:00 04/17/17 08:59 03/24/17 08:28 81 MG Pantoprazole Sodium (Protonix Tab) 40 mg QAM PO 03/19/17 09:00 04/18/17 08:59 03/24/17 08:28 40 MG Doxycycline Hyclate 100 mg/ Dextrose 110 ml @ 50 mls/hr BID@1000,2200 IV 03/20/17 10:00 03/27/17 09:59 03/24/17 09:27 50 MLS/HR Levothyroxine Sodium (Synthroid Tab) 75 mcg DAILYBB PO 03/21/17 06:00 04/17/17 06:59 03/24/17 06:19 75 MCG Miscellaneous Information (Low Intensity Warfarin Nomogram) 1 ea DAILY@14 N/A 03/21/17 14:00 03/27/17 13:59 03/24/17 13:27 1 EA Furosemide 80 mg/ Syringe 8 ml @ 4 mls/min TID IV 03/22/17 14:00 04/21/17 13:59 03/24/17 08:44 4 MLS/MIN Metolazone (Zaroxolyn Tab) 5 mg QAM PO 03/23/17 09:00 04/22/17 08:59 03/24/17 09:27 5 MG Nitroglycerin/ Dextrose 250 ml @ 0 mls/hr Q0M PRN IV 03/22/17 12:15 04/21/17 12:14 03/23/17 04:56 15 MLS/HR Carvedilol (Coreg Tab) 12.5 mg BID PO 03/22/17 21:00 04/17/17 08:59 03/24/17 08:28 12.5 MG Heparin Sodium/ Dextrose 500 ml @ 16 mls/hr Q24H PRN IV 03/22/17 14:00 04/21/17 13:59 03/24/17 00:03 16 MLS/HR Levalbuterol (Xopenex 0.63 Mg/ 3 Ml Neb) 0.63 mg Q6R INH 03/22/17 21:00 04/21/17 20:59 03/24/17 07:20 0.63 MG Ipratropium [place] (Atrovent 0.02% 0.5MG/2.5ML Neb) 0.5 mg Q6R INH 03/22/17 21:00 04/21/17 20:59 03/24/17 07:20 0.5 MG Polyethylene (Miralax Powder Packet) 17 gm BID PO 03/24/17 21:00 04/23/17 08:59 Sodium Biphosphate/ Sodium Phosphate (Fleet Enema) 132 ml DAILY PRN [place] 03/24/17 12:30 04/23/17 12:29 Miscellaneous Information (Nursing Standard Warfarin Nomogram Dose) 1 ea TODAY N/A 03/24/17 13:30 03/24/17 13:31 UNV Warfarin Sodium (Coumadin Tab) 5 mg DAILY@16 PO 03/24/17 16:00 04/23/17 15:59 UNV Last 24 Hours Test 03/23/17 16:22 03/23/17 21:10 03/24/17 06:01 03/24/17 06:07 Bedside Glucose 149 mg/dl 135 mg/dl 135 mg/dl White Blood Count 5.92 K/uL Red Blood Count 3.50 M/uL Hemoglobin 10.3 g/dL Hematocrit 31.9 % Mean Corpuscular Volume 91.1 fL Mean Corpuscular Hemoglobin 29.4 pg Mean Corpuscular Hemoglobin Concent 32.3 g/dl Platelet Count 183 K/uL Mean Platelet Volume 11.3 fL Neutrophils (%) (Auto) 62.5 % Lymphocytes (%) (Auto) 21.1 % Monocytes (%) (Auto) 11.8 % Eosinophils (%) (Auto) 3.9 % Basophils (%) (Auto) 0.2 % Neutrophils # (Auto) 3.70 K/uL Lymphocytes # (Auto) 1.25 K/uL Monocytes # (Auto) 0.70 K/uL Eosinophils # (Auto) 0.23 K/uL Basophils # (Auto) 0.01 K/uL RDW Standard Deviation 44.4 fL RDW Coefficient of Variation 13.4 % Immature Granulocyte % (Auto) 0.5 % Immature Granulocyte # (Auto) 0.03 K/uL Prothrombin Time 17.0 SECONDS Prothromb Time International Ratio 1.6 Activated Partial Thromboplast Time 54.9 SECONDS Partial Thromboplastin Ratio 2.1 Sodium Level 130 mmol/L Potassium Level 3.5 mmol/L Chloride Level 88 mmol/L Carbon Dioxide Level 30 mmol/L Anion Gap 12.0 mmol/L Blood Urea Nitrogen 93 mg/dl Creatinine 3.20 mg/dl Est Creatinine Clear Calc Drug Dose 12.5 ml/min Estimated GFR () 15.0 Estimated GFR (Non- 12.9 BUN/Creatinine Ratio 29.1 Random Glucose 110 mg/dl Calcium Level 8.5 mg/dl Phosphorus Level 5.7 mg/dl Magnesium Level 1.8 mg/dl Total Bilirubin 0.7 mg/dl Direct Bilirubin 0.2 mg/dl Aspartate Amino Transf (AST/SGOT) 20 U/L Alanine Aminotransferase (ALT/SGPT) 20 U/L Alkaline Phosphatase 73 U/L Total Protein 6.5 gm/dl Albumin 2.9 gm/dl Thyroid Stimulating Hormone (TSH) 1.010 uIu/ml Test 03/24/17 10:52 03/24/17 14:04 Bedside Glucose 180 mg/dl Assessment & Plan ollie on ckd with creatinine up to 3.0-zkv-bkkurgkg-pt with coronary disease requiring nitro drip. pt going for cath today in the setting of ollie and aggressive diuresis. pt at high risk for contrast induced nephrotoxicity. perhaps her sob is more cardiac related as suppose to pulmonary edema. continue current diuretics. expect creatinine to worsen but may or may not require dialysis. will follow her closely. at this time, no urgent need for dialysis. urinating well. volume status is acceptable. pt with mild distress which I feel is more cardiac in nature as suppose to pulmonary.
[2017-03-24] MEDS ORDERED: NiCARDipine HCL INJ 2.5 MG/ML 10 ML AMP ONE (14:32)
[2017-03-24] MEDS ORDERED: HEPARIN SOD (PORCINE) 1000 UNIT/ML 10 ML VIAL ONE (14:32)
[2017-03-24] MEDS ORDERED: NITROGLYCERIN/D5W 100MCG/ML 20ML SYR ONE (14:32)
--- NOTE | 2017-03-24 16:01 | Progress Note ---
Internal Med Progress Note Date of Service: Mar 24, 2017. Provider Documentation: SUBJECTIVE: started on have excruciating substernal chest pain with SOB as Nitro gtt was weaned off D/w Cardiology Dr Amato given ongoing symptom of unstable angina , unable to tolerate to be off Iv Nitro gtt pt will need elective cardiac cath to assess worsening of coronary atherosclerosis ( pt has severe underlying CAD ) remains high risk for post contrast renal failure -requiring dialysis initially pt was unsure of the procedure , later wants to proceed -as can not tolerate the chest pain any more , knows that she may need dialysis D/w daughter Jayshree -willing for cardiac cath , aware the risk of possible dialysis 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 remains in respiratory distress Lab data as noted below. ASSESSMENT & PLAN: UNSTABLE ANGINA/IN SETTING OF SEVER CAD : -plan for cardiac cath today -pt will continue with IV heparin /Nitro gtt -renal function will be monitored post procedure -high risk for post contrast nephropathy -may need dialysis -continue to monitor pt in ICU Acute Hypoxemic Respiratory Failure-Multifactorial Acute on Chronic Systolic CHF/SEVERE ICM /CARLOS ON CKD Stage 4 /vol overload -respiratory status improved with aggressive diuresis off Bipap cont on Lasix 80 mg IV Q 8hrs /Metolazone SEVERE CAD /ISCHEMIC CARDIOMYOPATHY /NSTEMI multivessel CAD s/p recent high risk PCI to left main /LAD /Circumflex has residual severe RCA disease presented with SOB /Hypoxia, elevated troponin repeat ECHO -shows diminished EF 20 % ( was 40 % on 10/2016 ) cont Dual antiplatelet - aspirin and Plavix ; IV heparin wt based protocol on Coreg /statin started on Iv nitro gtt as pt continues to have chest heaviness /SOB scheduled for cardiac cath today CARLOS on CKD stage 4 Diuretics dose increased appreciate Nephrology eval if renal function /urine out put dose not improve -may need HD HTN on Coreg and Norvasc on large dose of diuretics for CHF /respiratory failure started on IV Nitro gtt for ongoing angina monitor in tele Hypothyroidism TSH is low Synthroid decreased to 75mcg DVT ppx heparin FULL CODE-as per D/w pt and daughter DISPOSITION scheduled for cardiac cath today pt will continued to be monitored in Icu Vital Signs: Date Time Temp Pulse Resp B/P (MAP) Pulse Ox O2 Delivery O2 Flow Rate FiO2 03/24/17 13:55 36.7 64 24 106/61 96 BiPAP 3.0 30 03/24/17 13:21 36.7 64 24 101/59 (73) 96 Nasal Cannula 3.0 03/24/17 11:25 92 Nasal Cannula 3.0 30 03/24/17 11:25 36.6 58 24 91/60 (70) 99 Nasal Cannula 3.0 03/24/17 11:01 60 16 94/57 (69) 92 03/24/17 11:00 60 15 92 03/24/17 10:01 57 15 91/60 (70) 03/24/17 10:00 57 15 94 03/24/17 09:30 36.5 57 22 105/66 (79) 99 Nasal Cannula 3.0 03/24/17 09:01 66 19 105/66 (79) 96 03/24/17 09:00 64 20 99 03/24/17 08:01 59 21 105/64 (78) 94 03/24/17 08:00 63 24 96 03/24/17 07:30 36.5 63 26 111/57 (75) 99 Nasal Cannula 3.0 03/24/17 07:30 92 Nasal Cannula 3.0 30 03/24/17 07:15 72 18 96 Nasal Cannula 3.0 03/24/17 07:01 63 29 111/57 (75) 03/24/17 07:00 60 15 97 03/24/17 06:01 61 20 112/60 (77) 92 Nasal Cannula 3.0 61 03/24/17 05:14 55 95 30 03/24/17 05:01 59 14 107/60 (76) BiPAP 30 03/24/17 04:01 36.5 62 16 117/50 (72) 92 BiPAP 30 03/24/17 04:00 BiPAP 30 03/24/17 03:02 66 22 111/60 (77) 93 BiPAP 30 03/24/17 02:01 63 16 115/59 (77) 96 Nasal Cannula 3.0 03/24/17 01:59 64 18 95 Nasal Cannula 3.0 03/24/17 01:01 65 18 115/49 (71) 93 Nasal Cannula 3.0 03/24/17 00:01 36.4 63 22 109/62 (78) Nasal Cannula 3.0 03/24/17 00:00 Nasal Cannula 3.0 03/23/17 23:01 62 19 102/62 (75) 94 Nasal Cannula 3.0 03/23/17 22:01 66 17 109/62 (78) 94 Nasal Cannula 3.0 03/23/17 21:01 70 21 112/68 (83) 94 Nasal Cannula 3.0 03/23/17 20:06 66 18 96 Nasal Cannula 3.0 03/23/17 20:01 36.7 70 18 111/58 (75) 94 Nasal Cannula 3.0 03/23/17 20:00 Nasal Cannula 3.0 03/23/17 19:01 69 18 115/60 (78) 95 Nasal Cannula 3.0 03/23/17 16:00 36.8 67 15 103/54 (70) 97 Nasal Cannula 2.0 Lab Results: Results Past 24 Hours Test 03/23/17 16:22 03/23/17 21:10 03/24/17 06:01 03/24/17 06:07 Range/Units Bedside Glucose 149 135 135 70-90 mg/dl White Blood Count 5.92 4.8-10.8 K/uL Red Blood Count 3.50 4.2-5.4 M/uL Hemoglobin 10.3 12.0-16.0 g/dL Hematocrit 31.9 37-47 % Mean Corpuscular Volume 91.1 80-100 fL Mean Corpuscular Hemoglobin 29.4 25-34 pg Mean Corpuscular Hemoglobin Concent 32.3 32-36 g/dl Platelet Count 183 130-400 K/uL Mean Platelet Volume 11.3 7.4-10.4 fL Neutrophils (%) (Auto) 62.5 % Lymphocytes (%) (Auto) 21.1 % Monocytes (%) (Auto) 11.8 % Eosinophils (%) (Auto) 3.9 % Basophils (%) (Auto) 0.2 % Neutrophils # (Auto) 3.70 1.4-6.5 K/uL Lymphocytes # (Auto) 1.25 1.2-3.4 K/uL Monocytes # (Auto) 0.70 0.11-0.59 K/uL Eosinophils # (Auto) 0.23 0-0.5 K/uL Basophils # (Auto) 0.01 0-0.2 K/uL RDW Standard Deviation 44.4 36.4-46.3 fL RDW Coefficient of Variation 13.4 11.5-14.5 % Immature Granulocyte % (Auto) 0.5 % Immature Granulocyte # (Auto) 0.03 0.00-0.02 K/uL Prothrombin Time 17.0 9.0-12.0 SECONDS Prothromb Time International Ratio 1.6 0.9-1.1 Activated Partial Thromboplast Time 54.9 21.0-31.0 SECONDS Partial Thromboplastin Ratio 2.1 Sodium Level 130 136-145 mmol/L Potassium Level 3.5 3.5-5.1 mmol/L Chloride Level 88 98-107 mmol/L Carbon Dioxide Level 30 21-32 mmol/L Anion Gap 12.0 3-11 mmol/L Blood Urea Nitrogen 93 7-18 mg/dl Creatinine 3.20 0.60-1.20 mg/dl Est Creatinine Clear Calc Drug Dose 12.5 ml/min Estimated GFR () 15.0 Estimated GFR (Non- 12.9 BUN/Creatinine Ratio 29.1 10-20 Random Glucose 110 70-99 mg/dl Calcium Level 8.5 8.5-10.1 mg/dl Phosphorus Level 5.7 2.5-4.9 mg/dl Magnesium Level 1.8 1.8-2.4 mg/dl Total Bilirubin 0.7 0.2-1 mg/dl Direct Bilirubin 0.2 0-0.2 mg/dl Aspartate Amino Transf (AST/SGOT) 20 15-37 U/L Alanine Aminotransferase (ALT/SGPT) 20 12-78 U/L Alkaline Phosphatase 73 45-117 U/L Total Protein 6.5 6.4-8.2 gm/dl Albumin 2.9 3.4-5.0 gm/dl Thyroid Stimulating Hormone (TSH) 1.010 0.300-4.500 uIu/ml Test 03/24/17 10:52 03/24/17 14:04 Range/Units Bedside Glucose 180 70-90 mg/dl Troponin I 1.080 0-0.045 ng/ml
[2017-03-24] MEDS ORDERED: FENTANYL CITRATE INJ 50 MCG/1 ML 2 ML VIAL ONE (16:04)
[2017-03-24] MEDS ORDERED: CLOPIDOGREL BISULFATE 300 MG TAB PO ONE (16:09)
--- NOTE | 2017-03-24 16:13 | Procedure Note ---
Pre-Mod Sedation Assessment General Date of Moderate Sedation: Mar 24, 2017. Vital Signs: Vital Signs Past 12 Hours Date Time Temp Pulse Resp B/P (MAP) Pulse Ox O2 Delivery O2 Flow Rate FiO2 03/24/17 13:55 36.7 64 24 106/61 96 BiPAP 3.0 30 03/24/17 13:21 36.7 64 24 101/59 (73) 96 Nasal Cannula 3.0 03/24/17 11:25 92 Nasal Cannula 3.0 30 03/24/17 11:25 36.6 58 24 91/60 (70) 99 Nasal Cannula 3.0 03/24/17 11:01 60 16 94/57 (69) 92 03/24/17 11:00 60 15 92 03/24/17 10:01 57 15 91/60 (70) 03/24/17 10:00 57 15 94 03/24/17 09:30 36.5 57 22 105/66 (79) 99 Nasal Cannula 3.0 03/24/17 09:01 66 19 105/66 (79) 96 03/24/17 09:00 64 20 99 03/24/17 08:01 59 21 105/64 (78) 94 03/24/17 08:00 63 24 96 03/24/17 07:30 36.5 63 26 111/57 (75) 99 Nasal Cannula 3.0 03/24/17 07:30 92 Nasal Cannula 3.0 30 03/24/17 07:15 72 18 96 Nasal Cannula 3.0 03/24/17 07:01 63 29 111/57 (75) 03/24/17 07:00 60 15 97 03/24/17 06:01 61 20 112/60 (77) 92 Nasal Cannula 3.0 61 03/24/17 05:14 55 95 30 03/24/17 05:01 59 14 107/60 (76) BiPAP 30 Review Cardiovascular: regular rate, rhythm, no edema Abdomen: normal bowel sounds, non tender Lungs: chest non-tender, lungs clear Airway Class: III Pre-Sedation Airway Assessment Oral Cavity: WNL Able to Visualize Vocal Cords: No Short Thick Neck: No Hx of Sleep Apnea: No Smoking Status: Never Smoker Mallampati Classification: Class III ASA Classification: Class III Procedure Planning Contraindications-for Mod Sed: None Yes Notes The planned sedation has been discussed with the patient and consent obtained. I have identified the patient, determined the appropriateness of sedation and have assessed the patient immediately prior to the procedure. All medicine(s) and interventions are by my order.
--- NOTE | 2017-03-24 16:15 | Procedure Note ---
Post-Mod Sedation Assessment General Date of Moderate Sedation Mar 24, 2017. Vital Signs: Vital Signs Past 12 Hours Date Time Temp Pulse Resp B/P (MAP) Pulse Ox O2 Delivery O2 Flow Rate FiO2 03/24/17 13:55 36.7 64 24 106/61 96 BiPAP 3.0 30 03/24/17 13:21 36.7 64 24 101/59 (73) 96 Nasal Cannula 3.0 03/24/17 11:25 92 Nasal Cannula 3.0 30 03/24/17 11:25 36.6 58 24 91/60 (70) 99 Nasal Cannula 3.0 03/24/17 11:01 60 16 94/57 (69) 92 03/24/17 11:00 60 15 92 03/24/17 10:01 57 15 91/60 (70) 03/24/17 10:00 57 15 94 03/24/17 09:30 36.5 57 22 105/66 (79) 99 Nasal Cannula 3.0 03/24/17 09:01 66 19 105/66 (79) 96 03/24/17 09:00 64 20 99 03/24/17 08:01 59 21 105/64 (78) 94 03/24/17 08:00 63 24 96 03/24/17 07:30 36.5 63 26 111/57 (75) 99 Nasal Cannula 3.0 03/24/17 07:30 92 Nasal Cannula 3.0 30 03/24/17 07:15 72 18 96 Nasal Cannula 3.0 03/24/17 07:01 63 29 111/57 (75) 03/24/17 07:00 60 15 97 03/24/17 06:01 61 20 112/60 (77) 92 Nasal Cannula 3.0 61 03/24/17 05:14 55 95 30 03/24/17 05:01 59 14 107/60 (76) BiPAP 30 Review - Discharge Criteria Vital Signs Stable: Yes Alert/Oriented/Conversant: Yes Returned to Baseline Mental St: Yes Nausea Absent/Minimal: Yes Pain/Discomfort/Absent/Minimal: Yes Normal/Baseline Respirations: Yes Active Bleeding?: No Pt Received D/C Instructions: N/A Prescriptions Given: None Specific Proced. D/C Criteria Distal Pulses Present (Cardiac: Yes Groin site assessed-Card Cath: N/A Voided Prior To Discharge: N/A Discharged Patients Adult Escort/Transportation: Yes
--- NOTE | 2017-03-24 16:47 | Cardiac Catheterization ---
Procedure Note Procedure Date Mar 24, 2017. Pre-Procedure Diagnosis Non STEMI AUC Score 8 Post-Procedure Diagnosis Severe CAD, Successful PCI, Elevated Intracardiac Pressures Procedure(s) Performed Coronary Angiography, Left Heart Cath, Drug Eluting Stent, IVUS Associate Art Director Lm [employer]ian Underground(s) [place] Estimated Blood Loss 20 Medication(s) Clopidogrel, Fentanyl, Heparin, Nicardipine, Nitroglycerin, Lidocaine 1% Summary of Findings Indication: High-Risk NSTEMI, ICM/CHF Access: 6Fr Right Radial Artery Catheters: [place]; EBU 3.5 guide Findings: LM - Widely patent stent LAD - Widely patent proximal stent; 95% early-mid focal stenosis at take-off of small 1st diagonal, ectatic post stenosis; Diffuse moderate disease in mid segment; distal luminal irregularities as wraps around apex. 2nd diagonal with mild diffuse disease. Circumflex - Large caliber vessel, widely patent overlapping stents from ostium to mid segment; Luminal irregularities in moderate size OM2, OM3. RCA - Dominant, proximal to distal segment overlapping stents with severe in- stent restenosis, 100% occlusion in distal stent. PDA, PLB fill via left to right collaterals. LVEDP - 29 -- PCI -- Antithrombotic therapy: Heparin, Clopidogrel Procedure: LM cannulated with EBU 3.5 guide Marketing Sales Manager 50 wire passed across lesion into distal vessel Mid LAD lesion predilated with 2.5 compliant balloon IVUS used to assess calcification, vessel size and stent landing zones Dilated lesion stented with 3.0 x 18 [place] Resolute JASMYNE from proximal segment to mid segment overlapping D1 and D2. IVUS showed under-expansion in the mid segment Stent post-dilated with 3.25 noncompliant balloon Post dilation apparent edge dissection in mid LAD after stent Mid segment dilated with 2.5 balloon. 2.5 x 18 [place] resolute placed to mid segment overlapping with distal aspect of prior stent. IC vasodilators administered for spasm Diffuse disease in mid segment, IVUS confirmed no mid to distal dissection. No flow in small 1st diagonal post procedure. In LAD JAZMIN 3 flow, stent well expanded with minimal residual stenosis and no apparent cardiac complications. Arterial Closure: TR Band Summary: 1. Severe multivessel coronary artery disease - 95% early-mid LAD stenosis - 100% occluded distal RCA stent. PDA/PLB fills via left to right collaterals. - Widely patent LM, prox LAD and circumflex stents. 2. Elevated intracardiac filling pressure 3. Successful PCI of mid LAD with 2 overlapping drug-eluting stents (3.0 x 18 [place] Resolute, 2.5 x 18 [place] Resolute) Recommendations: Return to ICU for continued monitoring Reloaded with 300 mg plavix in laborer gold leaf Wean off nitroglycerin infusion. Titrate oral anti-anginals as able. Continued diuresis and/or dialysis per Renal service Continue dual-antiplatelet therapy likely indefinitely Hemodynamics Rest Ao: 109/48/72 Final Ao: 103/42/66 LV: 104// Recommendations PCI without planned CABG Specimens None Radiation Exposure (mGy) 3136 Contrast (mls) 45 ml Visipaque Fluids (cc crystalloids) 20 Drains None Anesthesia Local Procedural Complication(s) None Disposition ICU ACC Data Cardiac Status Clinical evaluation leading to the procedure CAD Presntation: Non STEMI Anginal Classification: CCS IV Heart Failure: NYHA Class: CCS IV Cardiogenic Shock w/in 24Hrs: No Cardiac Arrest w/in 24Hrs: No Imaging studies past 6 months: Yes Stress studies past 6 months: No Standard Exercise Stress Test: No Stress Echocardiogram: No Stress Testing w/SPECT MPI: No Cardiac CTA: No Coronary Anatomy Dominant: Right LAD (% Stenosis): Mid (95%) RCA (% Stenosis): Distal (100) Diagnostic Physician's Name: Hira Amato MD Status: Urgent Closure Device Percutaneous Entry Location: Radial Closure Device: Radial Band Recommendations: PCI without planned CABG PCI Indication: PCI for high risk Non-STEMI Lesion Segment Name: Mid LAD Culprit Artery: Yes Stenosis Prior to Rx (%): 95 Chronic Total Occlusion: No IVUS: Yes FFR: No Pre-Procedure JAZMIN Flow: 3 Previously Treated Lesion: No Lesion Complexity: High/C Lesion Length (mm): 20 Thrombus Present: No Bifurcation Lesion: Yes Guidewire Across Lesion: No Intraprocedure Events Significant Dissection: No Perforation: No
[2017-03-24] MEDS: WARFARIN SOD 5 MG TAB PO SCH (17:00)
[2017-03-24] MEDS: HYDROmorphone INJ 0.5 MG/0.5 ML SYR IV PRN (17:34)
[2017-03-24] MEDS: NITROGLYCERIN/D5W 100 MCG/ML 250 ML IV PRN (19:16)
[2017-03-24 19:59] LABS: BUN/CREATININE RATIO 30.6 (10-20); CALCIUM 8.5 mg/dl (8.5-10.1); CREATININE 3.2 mg/dl (0.60-1.20); POTASSIUM 4.1 mmol/L (3.5-5.1)
[2017-03-24] MEDS: POLYETHYLENE (MIRALAX) 17 GM PACK PO SCH ×2 (20:52→21:00)
[2017-03-25] VITALS (21 sets, daily range): BP systolic 103–129; BP diastolic 50–82; PULSE 54–71; TEMP 36.3–36.7; O2SAT 94–99
[2017-03-25] MEDS: IPRATROPIUM BROMIDE NEB SOLN 0.02% 2.5 ML VIAL INH SCH ×4 (01:46→20:12)
[2017-03-25] MEDS: LEVALBUTEROL 0.63MG/3 ML NEB INH SCH ×3 (01:46→14:14)
[2017-03-25] MEDS: LEVOTHYROXINE 75 MCG TAB PO SCH (06:03)
[2017-03-25] MEDS: ACETAMINOPHEN 325 MG TAB PO PRN (06:06)
[2017-03-25 06:20] LABS: BASO % 0.3 %; BASO ABS # 0.02 K/uL (0-0.2); COMPLETE YES; EOS % 3.2 %; IG% 0.3 %; LYMPH % 10.8 %; LYMPH ABS # 0.68 K/uL (1.2-3.4); MEAN CELL VOLUME 90.6 fL (80-100); MEAN CORPUSCULAR HEMOGLOBIN 31.3 pg (25-34); MEAN CORPUSCULAR HGB CONC 34.5 g/dl (32-36); MONO % 12.9 %; NEUT % 72.5 %; PLATELET COUNT 176 K/uL (130-400); WHITE BLOOD COUNT 6.27 K/uL (4.8-10.8)
[2017-03-25] MEDS: INSULIN ASPART 100 UNITS/ML 3 ML PEN SC SCH ×4 (06:45→20:44)
[2017-03-25 06:49] LABS: BUN/CREATININE RATIO 28.1 (10-20); CALCIUM 8.8 mg/dl (8.5-10.1); CREATININE 3.4 mg/dl (0.60-1.20); MAGNESIUM 2.4 mg/dl (1.8-2.4)
[2017-03-25 06:56] LABS: PHOSPHORUS 6.6 mg/dl (2.5-4.9)
--- NOTE | 2017-03-25 07:39 | Nephrology Progress Note ---
Nephrology Progress Note Date of Service: Mar 25, 2017. Subjective 81 yo female with ollie on ckd, chest pain requiring nitro drip, sob on diuretics. pt went for cath yesterday and had two stents placed. pt breathing easier this morning. still with soreness of the chest but overall looks much more comfortable. requiring nitro drip. used minimal contrast given placement of two stents. Objective Date Time Temp Pulse Resp B/P (MAP) Pulse Ox O2 Delivery O2 Flow Rate FiO2 03/25/17 06:59 60 14 98 Nasal Cannula 3.0 03/25/17 06:00 61 12 117/82 (94) 96 Nasal Cannula 3.0 03/25/17 05:00 57 129/60 (83) 03/25/17 04:00 36.7 58 14 108/62 (77) 97 Nasal Cannula 3.0 03/25/17 04:00 Nasal Cannula 3.0 03/25/17 03:00 57 129/60 (83) 03/25/17 02:00 36.6 57 12 114/58 (76) 97 Nasal Cannula 3.0 03/25/17 01:46 55 14 99 Nasal Cannula 3.0 03/25/17 00:00 Nasal Cannula 3.0 03/25/17 00:00 36.6 54 13 115/66 (82) 96 Nasal Cannula 3.0 03/24/17 22:00 55 19 124/69 (87) 97 Nasal Cannula 3.0 03/24/17 21:00 56 16 118/61 (80) 97 Nasal Cannula 3.0 03/24/17 20:00 36.7 55 12 120/61 (80) 96 Nasal Cannula 3.0 03/24/17 20:00 Nasal Cannula 3.0 30 03/24/17 19:12 54 14 99 Nasal Cannula 4.0 03/24/17 19:00 55 10 108/53 (71) 99 Nasal Cannula 3.0 03/24/17 18:15 55 12 95/48 (64) 98 Nasal Cannula 3.0 03/24/17 18:00 36.6 54 12 98/50 (66) 99 Nasal Cannula 3.0 03/24/17 17:45 56 16 93/58 (70) 98 Nasal Cannula 3.0 03/24/17 17:15 57 16 107/53 (71) 96 Nasal Cannula 3.0 03/24/17 17:00 58 14 111/51 (71) 97 Nasal Cannula 3.0 03/24/17 16:45 56 21 109/58 (75) 98 Nasal Cannula 3.0 03/24/17 16:30 36.6 56 21 117/56 (76) 92 Nasal Cannula 3.0 03/24/17 16:30 36.4 59 20 100/55 (70) 95 Nasal Cannula 3.0 03/24/17 16:20 58 114/54 (74) 03/24/17 16:07 58 105/54 (71) 03/24/17 13:55 36.7 64 24 106/61 96 BiPAP 3.0 30 03/24/17 13:21 36.7 64 24 101/59 (73) 96 Nasal Cannula 3.0 03/24/17 11:25 92 Nasal Cannula 3.0 30 03/24/17 11:25 36.6 58 24 91/60 (70) 99 Nasal Cannula 3.0 03/24/17 11:01 60 16 94/57 (69) 92 03/24/17 11:00 60 15 92 03/24/17 10:01 57 15 91/60 (70) 03/24/17 10:00 57 15 94 03/24/17 09:30 36.5 57 22 105/66 (79) 99 Nasal Cannula 3.0 03/24/17 09:01 66 19 105/66 (79) 96 03/24/17 09:00 64 20 99 03/24/17 08:01 59 21 105/64 (78) 94 03/24/17 08:00 63 24 96 Physical Exam: General-aaox3, comfortable Eyes-no scleral icterus ENT-mmm Neck-supple Lungs-decreased at bases Heart-regular Abdomen-bs+ s/nt/nd Extremities-no c/c/e Neuro-nonfocal Current Inpatient Medications Medications (Trade) Dose Ordered Sig/Izaiah Route Start Time Stop Time Status Last Admin Dose Admin Acetaminophen (Tylenol Tab) 650 mg Q4H PRN PO 03/18/17 02:30 04/17/17 02:29 03/25/17 06:06 650 MG Nitroglycerin (Nitrostat Tab) 0.4 mg UD PRN SL 03/18/17 02:30 04/17/17 02:29 Future Hold Insulin Aspart (novoLOG ASPART) SLIDING SCALE If C... ACHS SC 03/18/17 07:00 04/17/17 06:59 03/21/17 21:52 1 UNITS Glucose (Glucose 40% Gel) 15-30 GRAMS 15 GRAMS... UD PRN PO 03/18/17 02:30 04/17/17 02:29 Glucose (Glucose Chew Tab) 4-8 Tablets 4 Tabl... UD PRN PO 03/18/17 02:30 04/17/17 02:29 Dextrose (Dextrose 50% 50ML Syringe) 25-50ML OF 50% DW IV FOR... UD PRN IV 03/18/17 02:30 04/17/17 02:29 Glucagon (Glucagon Inj) 1 mg UD PRN SQ 03/18/17 02:30 04/17/17 02:29 Hydromorphone HCl (Dilaudid Inj) 0.5 mg Q3H PRN IV 03/18/17 02:30 04/01/17 02:29 03/24/17 17:34 0.5 MG Tramadol HCl (Ultram Tab) 25 mg Q6H PRN PO 03/18/17 02:30 04/17/17 02:29 Ondansetron HCl (Zofran Inj) 4 mg Q6H PRN IV 03/18/17 02:30 04/17/17 02:29 03/23/17 16:50 4 MG Atorvastatin Calcium (Lipitor Tab) 80 mg DAILY PO 03/18/17 09:00 04/17/17 08:59 03/24/17 08:27 80 MG Clopidogrel Bisulfate (plAVix TAB) 75 mg DAILY PO 03/18/17 09:00 04/17/17 08:59 03/24/17 08:27 75 MG Isosorbide Mononitrate (Imdur Ext Rel Tab) 60 mg QAM PO 03/18/17 09:00 04/17/17 08:59 03/24/17 08:28 60 MG Senna/Docusate Sodium (Senokot S Tab) 2 tab DAILY PO 03/18/17 09:00 04/17/17 08:59 03/24/17 08:27 2 TAB Aspirin (Ecotrin Tab) 81 mg QAM PO 03/18/17 09:00 04/17/17 08:59 03/24/17 08:28 81 MG Pantoprazole Sodium (Protonix Tab) 40 mg QAM PO 03/19/17 09:00 04/18/17 08:59 03/24/17 08:28 40 MG Doxycycline Hyclate 100 mg/ Dextrose 110 ml @ 50 mls/hr BID@1000,2200 IV 03/20/17 10:00 03/27/17 09:59 03/24/17 22:05 50 MLS/HR Levothyroxine Sodium (Synthroid Tab) 75 mcg DAILYBB PO 03/21/17 06:00 04/17/17 06:59 03/25/17 06:03 75 MCG Nitroglycerin/ Dextrose 250 ml @ 0 mls/hr Q0M PRN IV 03/22/17 12:15 04/21/17 12:14 03/24/17 19:16 10.8 MLS/HR Carvedilol (Coreg Tab) 12.5 mg BID PO 03/22/17 21:00 04/17/17 08:59 03/24/17 08:28 12.5 MG Heparin Sodium/ Dextrose 500 ml @ 16 mls/hr Q24H PRN IV 03/22/17 14:00 04/21/17 13:59 03/24/17 00:03 16 MLS/HR Levalbuterol (Xopenex 0.63 Mg/ 3 Ml Neb) 0.63 mg Q6R INH 03/22/17 21:00 04/21/17 20:59 03/25/17 06:59 0.63 MG Ipratropium [place] (Atrovent 0.02% 0.5MG/2.5ML Neb) 0.5 mg Q6R INH 03/22/17 21:00 04/21/17 20:59 03/25/17 06:58 0.5 MG Polyethylene (Miralax Powder Packet) 17 gm BID PO 03/24/17 21:00 04/23/17 08:59 Sodium Biphosphate/ Sodium Phosphate (Fleet Enema) 132 ml DAILY PRN [place] 03/24/17 12:30 04/23/17 12:29 Warfarin Sodium (Coumadin Tab) 5 mg DAILY@16 PO 03/24/17 16:00 04/23/17 15:59 03/24/17 17:00 5 MG Last 24 Hours Test 03/24/17 10:52 03/24/17 14:04 03/24/17 15:09 03/24/17 15:37 Bedside Glucose 180 mg/dl Troponin I 1.080 ng/ml Kaolin Activated Coagulation Time 142 SECONDS 252 SECONDS Test 03/24/17 16:57 03/24/17 19:27 03/24/17 20:44 03/24/17 22:22 Bedside Glucose 161 mg/dl 145 mg/dl Sodium Level 128 mmol/L Potassium Level 4.1 mmol/L Chloride Level 87 mmol/L Carbon Dioxide Level 29 mmol/L Anion Gap 12.0 mmol/L Blood Urea Nitrogen 98 mg/dl Creatinine 3.20 mg/dl Est Creatinine Clear Calc Drug Dose 12.5 ml/min Estimated GFR () 15.0 Estimated GFR (Non- 12.9 BUN/Creatinine Ratio 30.6 Random Glucose 130 mg/dl Calcium Level 8.5 mg/dl Troponin I 1.380 ng/ml Test 03/25/17 05:54 03/25/17 06:38 White Blood Count 6.27 K/uL Red Blood Count 3.20 M/uL Hemoglobin 10.0 g/dL Hematocrit 29.0 % Mean Corpuscular Volume 90.6 fL Mean Corpuscular Hemoglobin 31.3 pg Mean Corpuscular Hemoglobin Concent 34.5 g/dl Platelet Count 176 K/uL Mean Platelet Volume 11.0 fL Neutrophils (%) (Auto) 72.5 % Lymphocytes (%) (Auto) 10.8 % Monocytes (%) (Auto) 12.9 % Eosinophils (%) (Auto) 3.2 % Basophils (%) (Auto) 0.3 % Neutrophils # (Auto) 4.54 K/uL Lymphocytes # (Auto) 0.68 K/uL Monocytes # (Auto) 0.81 K/uL Eosinophils # (Auto) 0.20 K/uL Basophils # (Auto) 0.02 K/uL RDW Standard Deviation 43.2 fL RDW Coefficient of Variation 13.1 % Immature Granulocyte % (Auto) 0.3 % Immature Granulocyte # (Auto) 0.02 K/uL Activated Partial Thromboplast Time 26.9 SECONDS Partial Thromboplastin Ratio 1.0 Sodium Level 127 mmol/L Potassium Level 4.0 mmol/L Chloride Level 85 mmol/L Carbon Dioxide Level 30 mmol/L Anion Gap 12.0 mmol/L Blood Urea Nitrogen 95 mg/dl Creatinine 3.40 mg/dl Est Creatinine Clear Calc Drug Dose 11.9 ml/min Estimated GFR () 13.9 Estimated GFR (Non- 12.0 BUN/Creatinine Ratio 28.1 Random Glucose 122 mg/dl Calcium Level 8.8 mg/dl Phosphorus Level 6.6 mg/dl Magnesium Level 2.4 mg/dl Total Bilirubin 0.7 mg/dl Direct Bilirubin 0.3 mg/dl Aspartate Amino Transf (AST/SGOT) 22 U/L Alanine Aminotransferase (ALT/SGPT) 19 U/L Alkaline Phosphatase 73 U/L Troponin I 1.660 ng/ml Total Protein 6.6 gm/dl Albumin 3.0 gm/dl Bedside Glucose 150 mg/dl Assessment & Plan ollie on ckd with creatinine up to 3.1-[id number]-was giving aggressive diuretics to help with her pulmonary function. breathing is much easier now that she has been stented. will stop her diuretic regimen of lasix and metolazone trying to avoid Contrast induced nephrotoxicity. if her breathing worsens later today, can give doses of lasix. hyponatremia-sodium levels slowly trending down likely from renal failure on nitro drip mixed in d5w although only 6cc. may be a consequence of being volume depleted to help optimize lungs.
[2017-03-25] MEDS: POLYETHYLENE (MIRALAX) 17 GM PACK PO SCH ×2 (08:00→20:45)
[2017-03-25] MEDS: PANTOprazole SOD 40 MG TAB PO SCH (08:01)
[2017-03-25] MEDS: CLOPIDOGREL BISULFATE 75 MG TAB PO SCH (08:01)
[2017-03-25] MEDS: DOCUSATE SODIUM/SENNA 50/8.6MG TAB PO SCH (08:01)
[2017-03-25] MEDS: CARVEDILOL 12.5 MG TAB PO SCH ×2 (08:01→20:45)
[2017-03-25] MEDS: ASPIRIN 81 MG ECTAB PO SCH (08:02)
[2017-03-25] MEDS: ISOSORBIDE MONONITRATE 60 MG TABCR PO SCH (08:02)
[2017-03-25] MEDS: ATORVASTATIN 40 MG TAB PO SCH (08:02)
[2017-03-25] MEDS ORDERED: FUROSEMIDE INJ 80 MG in SYRINGE 0 ML IV SCH (09:00)
[2017-03-25 10:02] LABS: PROTHROMBIN TIME (PATIENT) 42.4 SECONDS (9.0-12.0)
[2017-03-25 10:06] LABS: INR 3.8 (0.9-1.1)
[2017-03-25] MEDS: DOXYCYCLINE IV 100 MG in DEXTROSE 5% 100ML 100 ML IV SCH (10:09)
[2017-03-25] MEDS: WARFARIN SOD 5 MG TAB PO SCH (10:22)
--- NOTE | 2017-03-25 15:14 | Progress Note ---
Internal Med Progress Note Date of Service: Mar 25, 2017. Provider Documentation: SUBJECTIVE: feels much better today does not have chest pain , off nitro gtt had back and neck pain earlier better with heating pad denies of dizzy spell or lightheadedness OBJECTIVE: Vital Signs-as noted below Exam: General-chronically ill appearing elderly female , not in distress Eyes-sclera non icteric Neck-no JVD noted Lungs-diminished with rales at base Heart-regular Abdomen-soft Extremities-+ 1 -2 bilat edema Neuro-no focal deficit . Lab data as noted below. ASSESSMENT & PLAN: . UNSTABLE ANGINA/IN SETTING OF SEVER CAD : s/p cardiac cath yesterday FOUND TO HAVE : LM - Widely patent stent LAD - Widely patent proximal stent; 95% early-mid focal stenosis at take-off of small 1st diagonal, ectatic post stenosis; Diffuse moderate disease in mid segment; distal luminal irregularities as wraps around apex. 2nd diagonal with mild diffuse disease. Circumflex - Large caliber vessel, widely patent overlapping stents from ostium to mid segment; Luminal irregularities in moderate size OM2, OM3. RCA - Dominant, proximal to distal segment overlapping stents with severe in- stent restenosis, 100% occlusion in distal stent. PDA, PLB fill via left to right collaterals Pt continue to do well post procedure chest pain /ongoing angina improved Nitro gtt weaned off pt will need to be on dual antiplatelet therapy for assisted stable to be transferred to PCU - Acute Hypoxemic Respiratory Failure-Multifactorial Acute on Chronic Systolic CHF/SEVERE ICM /CARLOS ON CKD Stage 4 /vol overload respiratory status continues to remain stable currently on 2 L 02 vial nasal canula pt denies of any complain of chest pain or SOB SEVERE CAD /ISCHEMIC CARDIOMYOPATHY /NSTEMI multivessel CAD s/p recent high risk PCI to left main /LAD /Circumflex has residual severe RCA disease presented with SOB /Hypoxia, elevated troponin repeat ECHO -shows diminished EF 20 % ( was 40 % on 10/2016 ) cont Dual antiplatelet - aspirin and Plavix ; IV heparin wt based protocol on Coreg /statin s/p cardiac cath with stent placement in LAD CARLOS on CKD stage 4 renal function remains stable post cardiac cath cont to monitor Nephrology following closely HTN on Coreg and Norvasc Hypothyroidism Synthroid 75mcg DVT ppx heparin FULL CODE-as per D/w pt and daughter DISPOSITION stable to be transferred out of ICU ordered for PT/OT eval OOB as tolerated Vital Signs: Date Time Temp Pulse Resp B/P (MAP) Pulse Ox O2 Delivery O2 Flow Rate FiO2 03/25/17 16:18 96 Nasal Cannula 3.0 03/25/17 15:41 36.4 65 20 105/69 (81) 96 Nasal Cannula 3.0 03/25/17 14:14 66 14 98 Nasal Cannula 3.0 03/25/17 11:44 36.7 56 16 99 3.0 03/25/17 11:16 36.7 56 16 103/55 (71) 99 Nasal Cannula 3.0 03/25/17 11:00 Nasal Cannula 3.0 03/25/17 09:40 36.7 54 16 105/50 (68) 99 Nasal Cannula 3.0 03/25/17 07:30 Nasal Cannula 3.0 03/25/17 07:30 36.7 62 14 122/68 (86) 99 Nasal Cannula 3.0 03/25/17 06:59 60 14 98 Nasal Cannula 3.0 03/25/17 06:00 61 12 117/82 (94) 96 Nasal Cannula 3.0 03/25/17 05:00 57 129/60 (83) 03/25/17 04:00 36.7 58 14 108/62 (77) 97 Nasal Cannula 3.0 03/25/17 04:00 Nasal Cannula 3.0 03/25/17 03:00 57 129/60 (83) 03/25/17 02:00 36.6 57 12 114/58 (76) 97 Nasal Cannula 3.0 03/25/17 01:46 55 14 99 Nasal Cannula 3.0 03/25/17 00:00 Nasal Cannula 3.0 03/25/17 00:00 36.6 54 13 115/66 (82) 96 Nasal Cannula 3.0 03/24/17 22:00 55 19 124/69 (87) 97 Nasal Cannula 3.0 03/24/17 21:00 56 16 118/61 (80) 97 Nasal Cannula 3.0 03/24/17 20:00 36.7 55 12 120/61 (80) 96 Nasal Cannula 3.0 03/24/17 20:00 Nasal Cannula 3.0 30 03/24/17 19:12 54 14 99 Nasal Cannula 4.0 03/24/17 19:00 55 10 108/53 (71) 99 Nasal Cannula 3.0 03/24/17 18:15 55 12 95/48 (64) 98 Nasal Cannula 3.0 03/24/17 18:00 36.6 54 12 98/50 (66) 99 Nasal Cannula 3.0 03/24/17 17:45 56 16 93/58 (70) 98 Nasal Cannula 3.0 03/24/17 17:15 57 16 107/53 (71) 96 Nasal Cannula 3.0 Lab Results: Results Past 24 Hours Test 03/24/17 19:27 03/24/17 20:44 03/24/17 22:22 03/25/17 05:54 Range/Units Sodium Level 128 127 136-145 mmol/L Potassium Level 4.1 4.0 3.5-5.1 mmol/L Chloride Level 87 85 98-107 mmol/L Carbon Dioxide Level 29 30 21-32 mmol/L Anion Gap 12.0 12.0 3-11 mmol/L Blood Urea Nitrogen 98 95 7-18 mg/dl Creatinine 3.20 3.40 0.60-1.20 mg/dl Est Creatinine Clear Calc Drug Dose 12.5 11.9 ml/min Estimated GFR () 15.0 13.9 Estimated GFR (Non- 12.9 12.0 BUN/Creatinine Ratio 30.6 28.1 10-20 Random Glucose 130 122 70-99 mg/dl Calcium Level 8.5 8.8 8.5-10.1 mg/dl Bedside Glucose 145 70-90 mg/dl Troponin I 1.380 1.660 0-0.045 ng/ml White Blood Count 6.27 4.8-10.8 K/uL Red Blood Count 3.20 4.2-5.4 M/uL Hemoglobin 10.0 12.0-16.0 g/dL Hematocrit 29.0 37-47 % Mean Corpuscular Volume 90.6 80-100 fL Mean Corpuscular Hemoglobin 31.3 25-34 pg Mean Corpuscular Hemoglobin Concent 34.5 32-36 g/dl Platelet Count 176 130-400 K/uL Mean Platelet Volume 11.0 7.4-10.4 fL Neutrophils (%) (Auto) 72.5 % Lymphocytes (%) (Auto) 10.8 % Monocytes (%) (Auto) 12.9 % Eosinophils (%) (Auto) 3.2 % Basophils (%) (Auto) 0.3 % Neutrophils # (Auto) 4.54 1.4-6.5 K/uL Lymphocytes # (Auto) 0.68 1.2-3.4 K/uL Monocytes # (Auto) 0.81 0.11-0.59 K/uL Eosinophils # (Auto) 0.20 0-0.5 K/uL Basophils # (Auto) 0.02 0-0.2 K/uL RDW Standard Deviation 43.2 36.4-46.3 fL RDW Coefficient of Variation 13.1 11.5-14.5 % Immature Granulocyte % (Auto) 0.3 % Immature Granulocyte # (Auto) 0.02 0.00-0.02 K/uL Activated Partial Thromboplast Time 26.9 21.0-31.0 SECONDS Partial Thromboplastin Ratio 1.0 Phosphorus Level 6.6 2.5-4.9 mg/dl Magnesium Level 2.4 1.8-2.4 mg/dl Total Bilirubin 0.7 0.2-1 mg/dl Direct Bilirubin 0.3 0-0.2 mg/dl Aspartate Amino Transf (AST/SGOT) 22 15-37 U/L Alanine Aminotransferase (ALT/SGPT) 19 12-78 U/L Alkaline Phosphatase 73 45-117 U/L Total Protein 6.6 6.4-8.2 gm/dl Albumin 3.0 3.4-5.0 gm/dl Test 03/25/17 06:38 03/25/17 09:36 03/25/17 10:46 03/25/17 14:20 Range/Units Bedside Glucose 150 156 70-90 mg/dl Prothrombin Time 42.4 9.0-12.0 SECONDS Prothromb Time International Ratio 3.8 0.9-1.1 Troponin I 2.120 0-0.045 ng/ml Test 03/25/17 16:19 Range/Units Bedside Glucose 151 70-90 mg/dl
--- NOTE | 2017-03-25 17:42 | Cardiology Follow-Up ---
Subjective Subjective Date of Service: Mar 25, 2017. Pt evaluation today including: conversation w/ patient, physical exam, chart review, lab review, review of studies, review of inpatient medication list Additional Details: Denies any chest pain, shortness of breath. States overall just feels tired. No other complaints this morning. Telemetry reviewed--no events overnight Problem List Medical Problems: (1) Acute myocardial infarction Status: Acute (2) Pulmonary edema Status: Acute (3) Renal failure (ARF), acute on chronic Status: Acute Review of Systems Constitutional: No fever, No chills Cardiac: No chest pain Abdomen: No pain, No nausea, No vomiting, No diarrhea Neurologic: No numbness/tingling Heme: No abnormal bleeding/bruising Endo: + fatigue Skin: No rash Objective Vital Signs Last Vital Signs Documentation Date Time Temp Pulse Resp B/P (MAP) Pulse Ox O2 Delivery O2 Flow Rate FiO2 03/25/17 16:18 96 Nasal Cannula 3.0 03/25/17 15:41 36.4 65 20 105/69 (81) 03/24/17 20:00 30 Physical Exam: General Appearance: no apparent distress ENT: hearing grossly normal Neck: no JVD (difficult to assess) Respiratory/Chest: + decreased breath sounds (At left base) Cardiovascular: regular rate, rhythm, no edema, + systolic murmur (2/6 systolic murmur) Abdomen: normal bowel sounds, non tender, soft Extremities: + pertinent finding (extremities are warm, right radial artery access site no apparent complications) Neurologic/Psychiatric: no motor/sensory deficits, alert, normal mood/affect Skin: normal color Assessment and Plan 1. NSTEMI--status post PCI with 2 drug-eluting stent to proximal to mid LAD 2. Acute systolic heart failure/ICM -- severe LV dysfunction with LAD distribution hypokinesis 3. Acute on chronic renal insufficiency 4. Hypoxemic respiratory failure 5. Distal left lower extremity DVT 6. Type 2 diabetes. 7. Anemia. 8 Paroxysmal SVT Patient chest pain-free improved shortness of breath off nitroglycerin drip today. She remains hemodynamically and electrically stable. No access site complications from procedure Renal function relatively stable post contrast -- continue dual antiplatelet therapy with aspirin and Plavix -- heparin infusion and nitroglycerin infusion discontinued -- diuretics on hold per Nephrology -- continue home carvedilol, long-acting nitrate --will continue follow Will continue to follow. Medications: Current Inpatient Medications Medications (Trade) Dose Ordered Sig/Izaiah Route Start Time Stop Time Status Last Admin Dose Admin Acetaminophen (Tylenol Tab) 650 mg Q4H PRN PO 03/18/17 02:30 04/17/17 02:29 03/25/17 06:06 650 MG Nitroglycerin (Nitrostat Tab) 0.4 mg UD PRN SL 03/18/17 02:30 04/17/17 02:29 Future Hold Insulin Aspart (novoLOG ASPART) SLIDING SCALE If C... ACHS SC 03/18/17 07:00 04/17/17 06:59 03/21/17 21:52 1 UNITS Glucose (Glucose 40% Gel) 15-30 GRAMS 15 GRAMS... UD PRN PO 03/18/17 02:30 04/17/17 02:29 Glucose (Glucose Chew Tab) 4-8 Tablets 4 Tabl... UD PRN PO 03/18/17 02:30 04/17/17 02:29 Dextrose (Dextrose 50% 50ML Syringe) 25-50ML OF 50% DW IV FOR... UD PRN IV 03/18/17 02:30 04/17/17 02:29 Glucagon (Glucagon Inj) 1 mg UD PRN SQ 03/18/17 02:30 04/17/17 02:29 Hydromorphone HCl (Dilaudid Inj) 0.5 mg Q3H PRN IV 03/18/17 02:30 04/01/17 02:29 03/24/17 17:34 0.5 MG Tramadol HCl (Ultram Tab) 25 mg Q6H PRN PO 03/18/17 02:30 04/17/17 02:29 Ondansetron HCl (Zofran Inj) 4 mg Q6H PRN IV 03/18/17 02:30 04/17/17 02:29 03/23/17 16:50 4 MG Atorvastatin Calcium (Lipitor Tab) 80 mg DAILY PO 03/18/17 09:00 04/17/17 08:59 03/25/17 08:02 80 MG Clopidogrel Bisulfate (plAVix TAB) 75 mg DAILY PO 03/18/17 09:00 04/17/17 08:59 03/25/17 08:01 75 MG Isosorbide Mononitrate (Imdur Ext Rel Tab) 60 mg QAM PO 03/18/17 09:00 04/17/17 08:59 03/25/17 08:02 60 MG Senna/Docusate Sodium (Senokot S Tab) 2 tab DAILY PO 03/18/17 09:00 04/17/17 08:59 03/25/17 08:01 2 TAB Aspirin (Ecotrin Tab) 81 mg QAM PO 03/18/17 09:00 04/17/17 08:59 03/25/17 08:02 81 MG Pantoprazole Sodium (Protonix Tab) 40 mg QAM PO 03/19/17 09:00 04/18/17 08:59 03/25/17 08:01 40 MG Doxycycline Hyclate 100 mg/ Dextrose 110 ml @ 50 mls/hr BID@1000,2200 IV 03/20/17 10:00 03/27/17 09:59 03/25/17 10:09 50 MLS/HR Levothyroxine Sodium (Synthroid Tab) 75 mcg DAILYBB PO 03/21/17 06:00 04/17/17 06:59 03/25/17 06:03 75 MCG Nitroglycerin/ Dextrose 250 ml @ 0 mls/hr Q0M PRN IV 03/22/17 12:15 04/21/17 12:14 03/24/17 19:16 10.8 MLS/HR Carvedilol (Coreg Tab) 12.5 mg BID PO 03/22/17 21:00 04/17/17 08:59 03/25/17 08:01 12.5 MG Heparin Sodium/ Dextrose 500 ml @ 16 mls/hr Q24H PRN IV 03/22/17 14:00 04/21/17 13:59 03/24/17 00:03 16 MLS/HR Levalbuterol (Xopenex 0.63 Mg/ 3 Ml Neb) 0.63 mg Q6R INH 03/22/17 21:00 04/21/17 20:59 03/25/17 14:14 0.63 MG Ipratropium [place] (Atrovent 0.02% 0.5MG/2.5ML Neb) 0.5 mg Q6R INH 03/22/17 21:00 04/21/17 20:59 03/25/17 14:14 0.5 MG Polyethylene (Miralax Powder Packet) 17 gm BID PO 03/24/17 21:00 04/23/17 08:59 Sodium Biphosphate/ Sodium Phosphate (Fleet Enema) 132 ml DAILY PRN [place] 03/24/17 12:30 04/23/17 12:29 Warfarin Sodium (Coumadin Tab) 5 mg DAILY@16 PO 03/24/17 16:00 04/23/17 15:59 03/24/17 17:00 5 MG Lab Results: 03/25/17 05:54 Red Blood Count 3.20, Mean Corpuscular Volume 90.6, Mean Corpuscular Hemoglobin 31.3, Mean Corpuscular Hemoglobin Concent 34.5, Mean Platelet Volume 11.0, Neutrophils (%) (Auto) 72.5, Lymphocytes (%) (Auto) 10.8, Monocytes (%) (Auto) 12.9, Eosinophils (%) (Auto) 3.2, Basophils (%) (Auto) 0.3, Neutrophils # (Auto ) 4.54, Lymphocytes # (Auto) 0.68, Monocytes # (Auto) 0.81, Eosinophils # (Auto ) 0.20, Basophils # (Auto) 0.02 03/25/17 05:54 Test 03/25/17 05:54 03/25/17 09:36 03/25/17 14:20 03/25/17 16:19 White Blood Count 6.27 K/uL (4.8-10.8) Red Blood Count 3.20 M/uL (4.2-5.4) Hemoglobin 10.0 g/dL (12.0-16.0) Hematocrit 29.0 % (37-47) Mean Corpuscular Volume 90.6 fL (80-100) Mean Corpuscular Hemoglobin 31.3 pg (25-34) Mean Corpuscular Hemoglobin Concent 34.5 g/dl (32-36) Platelet Count 176 K/uL (130-400) Mean Platelet Volume 11.0 fL (7.4-10.4) Neutrophils (%) (Auto) 72.5 % Lymphocytes (%) (Auto) 10.8 % Monocytes (%) (Auto) 12.9 % Eosinophils (%) (Auto) 3.2 % Basophils (%) (Auto) 0.3 % Neutrophils # (Auto) 4.54 K/uL (1.4-6.5) Lymphocytes # (Auto) 0.68 K/uL (1.2-3.4) Monocytes # (Auto) 0.81 K/uL (0.11-0.59) Eosinophils # (Auto) 0.20 K/uL (0-0.5) Basophils # (Auto) 0.02 K/uL (0-0.2) RDW Standard Deviation 43.2 fL (36.4-46.3) RDW Coefficient of Variation 13.1 % (11.5-14.5) Immature Granulocyte % (Auto) 0.3 % Immature Granulocyte # (Auto) 0.02 K/uL (0.00-0.02) Activated Partial Thromboplast Time 26.9 SECONDS (21.0-31.0) Partial Thromboplastin Ratio 1.0 Anion Gap 12.0 mmol/L (3-11) Est Creatinine Clear Calc Drug Dose 11.9 ml/min Estimated GFR () 13.9 Estimated GFR (Non- 12.0 BUN/Creatinine Ratio 28.1 (10-20) Calcium Level 8.8 mg/dl (8.5-10.1) Phosphorus Level 6.6 mg/dl (2.5-4.9) Magnesium Level 2.4 mg/dl (1.8-2.4) Total Bilirubin 0.7 mg/dl (0.2-1) Direct Bilirubin 0.3 mg/dl (0-0.2) Aspartate Amino Transf (AST/SGOT) 22 U/L (15-37) Alanine Aminotransferase (ALT/SGPT) 19 U/L (12-78) Alkaline Phosphatase 73 U/L (45-117) Total Protein 6.6 gm/dl (6.4-8.2) Albumin 3.0 gm/dl (3.4-5.0) Prothrombin Time 42.4 SECONDS (9.0-12.0) Prothromb Time International Ratio 3.8 (0.9-1.1) Troponin I 2.120 ng/ml (0-0.045) Bedside Glucose 151 mg/dl (70-90)
[2017-03-25] MEDS ORDERED: NITROGLYCERIN 0.4 MG SL PER TAB CHARGE SL PRN (18:30)
[2017-03-25] MEDS ORDERED: NURSING VERBAL MED ORDER ONE (18:45)
[2017-03-25] MEDS ORDERED: LEVALBUTEROL 0.63MG/3 ML NEB INH PRN (19:00)
[2017-03-25] MEDS ORDERED: ISOSORBIDE MONONITRATE 30 MG TABCR PO ONE (19:00)
[2017-03-25] MEDS ORDERED: NITROGLYCERIN 0.4 MG SL PER TAB CHARGE SL ONE (19:00)
[2017-03-25] MEDS ORDERED: IPRATROPIUM BROMIDE NEB SOLN 0.02% 2.5 ML VIAL INH PRN (19:00)
[2017-03-25] MEDS: LEVALBUTEROL 1.25MG/0.5ML NEB INH SCH (20:12)
--- NOTE | 2017-03-25 20:35 | DIAGNOSTIC IMAGING REPORT ---
CHEST ONE VIEW PORTABLE CLINICAL HISTORY: r/o pulmonary edema pain. Dyspnea. COMPARISON STUDY: 03/24/2017 FINDINGS: Progressive bibasilar parenchymal infiltrative change versus pulmonary edema. Small bilateral pleural effusions. Moderate cardiac megaly. IMPRESSION: Mildly progressive bibasilar infiltrates versus congestive failure The above report was generated using voice recognition software. It may contain grammatical, syntax or spelling errors. Electronically signed by: Ramesh Martinez M.D. 03/25/2017 8:33 PM Dictated Date/Time: 03/25/2017 8:33 PM
--- NOTE | 2017-03-25 20:47 | Progress Note ---
Progress Note Date of Service Mar 25, 2017. Progress Note called by RN as patient was having "chest pain" evaluated at bedside, VS reviewed patient not in distress, reports mild dyspnea but not chest pain anginal type CXR , Cardiac markers ordered CXR reviewed, given Lasix and Nebs Cardiac markers about the same patient re- assess a few hours later, states she is more comfortable Dr. Cruz notified Dani Peters MD
[2017-03-25] MEDS ORDERED: LEVALBUTEROL/IPRATROPIUM NEB INH SCH (21:00)
[2017-03-25] MEDS ORDERED: FUROSEMIDE INJ 40 MG in SYRINGE 0 ML IV ONE (21:30)
[2017-03-25 21:42] LABS: CKMB/CK RATIO 6.6 (0-3.0)
[2017-03-26] VITALS (17 sets, daily range): BP systolic 98–110; BP diastolic 56–66; PULSE 54–68; TEMP 36.4–37.4; O2SAT 96–100
[2017-03-26] MEDS: IPRATROPIUM BROMIDE NEB SOLN 0.02% 2.5 ML VIAL INH SCH ×4 (02:07→19:46)
[2017-03-26] MEDS: LEVALBUTEROL 1.25MG/0.5ML NEB INH SCH ×4 (02:07→19:46)
[2017-03-26] MEDS: LEVOTHYROXINE 75 MCG TAB PO SCH (06:07)
[2017-03-26 06:51] LABS: BUN/CREATININE RATIO 27.1 (10-20); CALCIUM 8.6 mg/dl (8.5-10.1); CREATININE 3.8 mg/dl (0.60-1.20); POTASSIUM 3.6 mmol/L (3.5-5.1)
[2017-03-26 06:58] LABS: PARTIAL THROMBOPLASTIN RATIO 1.4; PROTHROMBIN TIME (PATIENT) 57.1 SECONDS (9.0-12.0)
[2017-03-26] MEDS: INSULIN ASPART 100 UNITS/ML 3 ML PEN SC SCH ×4 (07:00→20:41)
[2017-03-26] MEDS ORDERED: PHYTONADIONE 5 MG TAB PO STA (07:51)
[2017-03-26] MEDS: ASPIRIN 81 MG ECTAB PO SCH (08:23)
[2017-03-26] MEDS: CARVEDILOL 12.5 MG TAB PO SCH ×2 (08:23→20:39)
[2017-03-26] MEDS: ISOSORBIDE MONONITRATE 60 MG TABCR PO SCH (08:24)
[2017-03-26] MEDS: POLYETHYLENE (MIRALAX) 17 GM PACK PO SCH ×2 (08:25→20:40)
[2017-03-26] MEDS: ATORVASTATIN 40 MG TAB PO SCH (08:25)
[2017-03-26] MEDS: CLOPIDOGREL BISULFATE 75 MG TAB PO SCH (08:26)
[2017-03-26] MEDS: DOCUSATE SODIUM/SENNA 50/8.6MG TAB PO SCH (08:26)
[2017-03-26] MEDS: PANTOprazole SOD 40 MG TAB PO SCH (08:26)
--- NOTE | 2017-03-26 10:53 | Nephrology Progress Note ---
Nephrology Progress Note Date of Service: Mar 26, 2017. Subjective 81 yo female with ollie on ckd from contrast induced nephrotoxicity, s/p cath with two stents. has 3/10 chest discomfort. pt was complaining of sob last night requiring bipap and 40 of iv lasix but breathing better today. pt is weak. Objective Date Time Temp Pulse Resp B/P (MAP) Pulse Ox O2 Delivery O2 Flow Rate FiO2 03/26/17 09:09 37.4 59 59 110/66 (81) 100 Nasal Cannula 4.0 03/26/17 07:50 59 16 100 Nasal Cannula 4.0 03/26/17 07:45 96 Nasal Cannula 3.0 03/26/17 04:02 36.4 61 16 107/65 (79) 98 03/26/17 04:00 96 Nasal Cannula 3.0 03/26/17 02:08 54 16 96 BiPAP/CPAP 30 03/26/17 00:01 96 Nasal Cannula 3.0 03/25/17 23:15 36.3 61 18 123/71 (88) 99 BiPAP 03/25/17 20:13 96 30 03/25/17 20:12 68 13 97 BiPAP/CPAP 30 03/25/17 20:00 96 Nasal Cannula 3.0 03/25/17 19:40 36.6 71 24 115/70 (85) 97 03/25/17 18:27 71 20 113/68 (83) 94 Nasal Cannula 3.0 03/25/17 16:18 96 Nasal Cannula 3.0 03/25/17 15:41 36.4 65 20 105/69 (81) 96 Nasal Cannula 3.0 03/25/17 14:14 66 14 98 Nasal Cannula 3.0 03/25/17 11:44 36.7 56 16 99 3.0 03/25/17 11:16 36.7 56 16 103/55 (71) 99 Nasal Cannula 3.0 03/25/17 11:00 Nasal Cannula 3.0 Physical Exam: General-aaox3 Eyes-no scleral icterus ENT-mmm Neck-supple Lungs-basilar rales Heart-reny Abdomen-bs+ s/nt/nd Extremities-no c/c/e Neuro-nonfocal Current Inpatient Medications Medications (Trade) Dose Ordered Sig/Izaiah Route Start Time Stop Time Status Last Admin Dose Admin Acetaminophen (Tylenol Tab) 650 mg Q4H PRN PO 03/18/17 02:30 04/17/17 02:29 03/25/17 06:06 650 MG Insulin Aspart (novoLOG ASPART) SLIDING SCALE If C... ACHS SC 03/18/17 07:00 04/17/17 06:59 03/21/17 21:52 1 UNITS Glucose (Glucose 40% Gel) 15-30 GRAMS 15 GRAMS... UD PRN PO 03/18/17 02:30 04/17/17 02:29 Glucose (Glucose Chew Tab) 4-8 Tablets 4 Tabl... UD PRN PO 03/18/17 02:30 04/17/17 02:29 Dextrose (Dextrose 50% 50ML Syringe) 25-50ML OF 50% DW IV FOR... UD PRN IV 03/18/17 02:30 04/17/17 02:29 Glucagon (Glucagon Inj) 1 mg UD PRN SQ 03/18/17 02:30 04/17/17 02:29 Hydromorphone HCl (Dilaudid Inj) 0.5 mg Q3H PRN IV 03/18/17 02:30 04/01/17 02:29 03/24/17 17:34 0.5 MG Tramadol HCl (Ultram Tab) 25 mg Q6H PRN PO 03/18/17 02:30 04/17/17 02:29 Ondansetron HCl (Zofran Inj) 4 mg Q6H PRN IV 03/18/17 02:30 04/17/17 02:29 03/23/17 16:50 4 MG Atorvastatin Calcium (Lipitor Tab) 80 mg DAILY PO 03/18/17 09:00 04/17/17 08:59 03/26/17 08:25 80 MG Clopidogrel Bisulfate (plAVix TAB) 75 mg DAILY PO 03/18/17 09:00 04/17/17 08:59 03/26/17 08:26 75 MG Senna/Docusate Sodium (Senokot S Tab) 2 tab DAILY PO 03/18/17 09:00 04/17/17 08:59 03/26/17 08:26 2 TAB Aspirin (Ecotrin Tab) 81 mg QAM PO 03/18/17 09:00 04/17/17 08:59 03/26/17 08:23 81 MG Pantoprazole Sodium (Protonix Tab) 40 mg QAM PO 03/19/17 09:00 04/18/17 08:59 03/26/17 08:26 40 MG Levothyroxine Sodium (Synthroid Tab) 75 mcg DAILYBB PO 03/21/17 06:00 04/17/17 06:59 03/26/17 06:07 75 MCG Carvedilol (Coreg Tab) 12.5 mg BID PO 03/22/17 21:00 04/17/17 08:59 03/26/17 08:23 12.5 MG Polyethylene (Miralax Powder Packet) 17 gm BID PO 03/24/17 21:00 04/23/17 08:59 03/26/17 08:25 17 GM Sodium Biphosphate/ Sodium Phosphate (Fleet Enema) 132 ml DAILY PRN NM 03/24/17 12:30 04/23/17 12:29 Warfarin Sodium (Coumadin Tab) 5 mg DAILY@16 PO 03/24/17 16:00 04/23/17 15:59 Future Hold 03/24/17 17:00 5 MG Nitroglycerin (Nitrostat Tab) 0.4 mg PRN PRN SL 03/25/17 18:30 04/24/17 18:29 Isosorbide Mononitrate (Imdur Ext Rel Tab) 90 mg QAM PO 03/26/17 09:00 04/17/17 08:59 03/26/17 08:24 90 MG Ipratropium [place] (Atrovent 0.02% 0.5MG/2.5ML Neb) 0.5 mg Q6H PRN INH 03/25/17 19:00 04/24/17 18:59 03/25/17 20:11 0.5 MG Levalbuterol (Xopenex 0.63 Mg/ 3 Ml Neb) 0.63 mg Q6H PRN INH 03/25/17 19:00 04/24/17 18:59 03/25/17 20:12 0.63 MG Ipratropium [place] (Atrovent 0.02% 0.5MG/2.5ML Neb) 0.5 mg Q6R INH 03/25/17 21:00 04/24/17 20:59 03/26/17 07:50 0.5 MG Levalbuterol (Xopenex 1.25MG/ 0.5ML Neb) 1.25 mg Q6R INH 03/25/17 21:00 04/24/17 20:59 03/26/17 07:50 1.25 MG Last 24 Hours Test 03/25/17 14:20 03/25/17 16:19 03/25/17 20:41 03/25/17 21:02 Troponin I 2.120 ng/ml 1.930 ng/ml Bedside Glucose 151 mg/dl 168 mg/dl Total Creatine Kinase 77 U/L Creatine Kinase MB 5.1 ng/ml Creatine Kinase MB Ratio 6.6 Test 03/26/17 05:30 03/26/17 06:50 Prothrombin Time 57.1 SECONDS Prothromb Time International Ratio 5.0 Activated Partial Thromboplast Time 35.7 SECONDS Partial Thromboplastin Ratio 1.4 Sodium Level 129 mmol/L Potassium Level 3.6 mmol/L Chloride Level 85 mmol/L Carbon Dioxide Level 29 mmol/L Anion Gap 15.0 mmol/L Blood Urea Nitrogen 103 mg/dl Creatinine 3.80 mg/dl Est Creatinine Clear Calc Drug Dose 10.6 ml/min Estimated GFR () 12.2 Estimated GFR (Non- 10.5 BUN/Creatinine Ratio 27.1 Random Glucose 99 mg/dl Calcium Level 8.6 mg/dl Bedside Glucose 147 mg/dl Assessment & Plan ollie on ckd-creatinien continues to worsen. now up to 3.8. currently off diuretics trying to help with renal recovery but getting intermittent doses to help with her breathing. may need dialysis during this hospitilization. no indication at this time. will see if creatinine peaks and starts to trend down. continue supportive measures with intermittent doses of lasix. creatinine went from 3.2 to 3.4 to 3.8. with that rate of change-expect it to be several days before creatinine starts to improve.
--- NOTE | 2017-03-26 11:43 | Cardiology Follow-Up ---
Subjective Subjective Date of Service: Mar 26, 2017. Pt evaluation today including: conversation w/ patient, physical exam, chart review, lab review, review of studies, review of inpatient medication list Additional Details: Had episode of dyspnea/chest pain overnight. CXR showed worsened pulmonary edema. Received 40 IV lasix. This AM breathing easier. No chest pain. Tele reviewed -- No events. Problem List Medical Problems: (1) Acute myocardial infarction Status: Acute (2) Pulmonary edema Status: Acute (3) Renal failure (ARF), acute on chronic Status: Acute Review of Systems Constitutional: No fever, No chills Cardiac: No chest pain Abdomen: No pain, No nausea, No vomiting, No diarrhea Neurologic: No numbness/tingling Heme: No abnormal bleeding/bruising Endo: + fatigue Skin: No rash Objective Vital Signs Last Vital Signs Documentation Date Time Temp Pulse Resp B/P (MAP) Pulse Ox O2 Delivery O2 Flow Rate FiO2 03/26/17 09:09 37.4 59 59 110/66 (81) 100 Nasal Cannula 4.0 03/26/17 02:08 30 Physical Exam: General Appearance: no apparent distress ENT: hearing grossly normal Respiratory/Chest: + decreased breath sounds (At left base > right base) Cardiovascular: regular rate, rhythm, no edema, + systolic murmur (2/6 systolic murmur) Abdomen: normal bowel sounds, non tender, soft Extremities: + pertinent finding (extremities are warm, right radial artery access site no apparent complications. ecchymosis at right basilic vein rhc site.) Neurologic/Psychiatric: no motor/sensory deficits, alert, normal mood/affect Skin: normal color Assessment and Plan 1. NSTEMI--status post PCI with 2 drug-eluting stent to proximal to mid LAD 2. Acute systolic heart failure/ICM -- severe LV dysfunction with LAD distribution hypokinesis 3. Acute on chronic renal insufficiency 4. Hypoxemic respiratory failure 5. Distal left lower extremity DVT 6. Type 2 diabetes. 7. Anemia. 8 Paroxysmal SVT Increased shortness of breath/chest pain overnight in setting of pulmonary edema --> improved after diuretics. LVEDP 29 on cath 03/24 Will defer further diuretics to Dr. Small in setting of progressive renal failure. -- continue dual antiplatelet therapy with aspirin and Plavix -- agree with increasing long-acting nitrates. -- continue home carvedilol --will continue follow Medications: Current Inpatient Medications Medications (Trade) Dose Ordered Sig/Izaiah Route Start Time Stop Time Status Last Admin Dose Admin Acetaminophen (Tylenol Tab) 650 mg Q4H PRN PO 03/18/17 02:30 04/17/17 02:29 03/25/17 06:06 650 MG Insulin Aspart (novoLOG ASPART) SLIDING SCALE If C... ACHS SC 03/18/17 07:00 04/17/17 06:59 03/21/17 21:52 1 UNITS Glucose (Glucose 40% Gel) 15-30 GRAMS 15 GRAMS... UD PRN PO 03/18/17 02:30 04/17/17 02:29 Glucose (Glucose Chew Tab) 4-8 Tablets 4 Tabl... UD PRN PO 03/18/17 02:30 04/17/17 02:29 Dextrose (Dextrose 50% 50ML Syringe) 25-50ML OF 50% DW IV FOR... UD PRN IV 03/18/17 02:30 04/17/17 02:29 Glucagon (Glucagon Inj) 1 mg UD PRN SQ 03/18/17 02:30 04/17/17 02:29 Hydromorphone HCl (Dilaudid Inj) 0.5 mg Q3H PRN IV 03/18/17 02:30 04/01/17 02:29 03/24/17 17:34 0.5 MG Tramadol HCl (Ultram Tab) 25 mg Q6H PRN PO 03/18/17 02:30 04/17/17 02:29 Ondansetron HCl (Zofran Inj) 4 mg Q6H PRN IV 03/18/17 02:30 04/17/17 02:29 03/23/17 16:50 4 MG Atorvastatin Calcium (Lipitor Tab) 80 mg DAILY PO 03/18/17 09:00 04/17/17 08:59 03/26/17 08:25 80 MG Clopidogrel Bisulfate (plAVix TAB) 75 mg DAILY PO 03/18/17 09:00 04/17/17 08:59 03/26/17 08:26 75 MG Senna/Docusate Sodium (Senokot S Tab) 2 tab DAILY PO 03/18/17 09:00 04/17/17 08:59 03/26/17 08:26 2 TAB Aspirin (Ecotrin Tab) 81 mg QAM PO 03/18/17 09:00 04/17/17 08:59 03/26/17 08:23 81 MG Pantoprazole Sodium (Protonix Tab) 40 mg QAM PO 03/19/17 09:00 04/18/17 08:59 03/26/17 08:26 40 MG Levothyroxine Sodium (Synthroid Tab) 75 mcg DAILYBB PO 03/21/17 06:00 04/17/17 06:59 03/26/17 06:07 75 MCG Carvedilol (Coreg Tab) 12.5 mg BID PO 03/22/17 21:00 04/17/17 08:59 03/26/17 08:23 12.5 MG Polyethylene (Miralax Powder Packet) 17 gm BID PO 03/24/17 21:00 04/23/17 08:59 03/26/17 08:25 17 GM Sodium Biphosphate/ Sodium Phosphate (Fleet Enema) 132 ml DAILY PRN SC 03/24/17 12:30 04/23/17 12:29 Warfarin Sodium (Coumadin Tab) 5 mg DAILY@16 PO 03/24/17 16:00 04/23/17 15:59 Future Hold 03/24/17 17:00 5 MG Nitroglycerin (Nitrostat Tab) 0.4 mg PRN PRN SL 03/25/17 18:30 04/24/17 18:29 Isosorbide Mononitrate (Imdur Ext Rel Tab) 90 mg QAM PO 03/26/17 09:00 04/17/17 08:59 03/26/17 08:24 90 MG Ipratropium [place] (Atrovent 0.02% 0.5MG/2.5ML Neb) 0.5 mg Q6H PRN INH 03/25/17 19:00 04/24/17 18:59 03/25/17 20:11 0.5 MG Levalbuterol (Xopenex 0.63 Mg/ 3 Ml Neb) 0.63 mg Q6H PRN INH 03/25/17 19:00 04/24/17 18:59 03/25/17 20:12 0.63 MG Ipratropium [place] (Atrovent 0.02% 0.5MG/2.5ML Neb) 0.5 mg Q6R INH 03/25/17 21:00 04/24/17 20:59 03/26/17 07:50 0.5 MG Levalbuterol (Xopenex 1.25MG/ 0.5ML Neb) 1.25 mg Q6R INH 03/25/17 21:00 04/24/17 20:59 03/26/17 07:50 1.25 MG Lab Results: 03/26/17 05:30 Test 03/25/17 21:02 03/26/17 05:30 03/26/17 06:50 Total Creatine Kinase 77 U/L (26-192) Creatine Kinase MB 5.1 ng/ml (0.5-3.6) Creatine Kinase MB Ratio 6.6 (0-3.0) Troponin I 1.930 ng/ml (0-0.045) Prothrombin Time 57.1 SECONDS (9.0-12.0) Prothromb Time International Ratio 5.0 (0.9-1.1) Activated Partial Thromboplast Time 35.7 SECONDS (21.0-31.0) Partial Thromboplastin Ratio 1.4 Anion Gap 15.0 mmol/L (3-11) Est Creatinine Clear Calc Drug Dose 10.6 ml/min Estimated GFR () 12.2 Estimated GFR (Non- 10.5 BUN/Creatinine Ratio 27.1 (10-20) Calcium Level 8.6 mg/dl (8.5-10.1) Bedside Glucose 147 mg/dl (70-90)
--- NOTE | 2017-03-26 16:16 | Progress Note ---
Internal Med Progress Note Date of Service: Mar 26, 2017. Provider Documentation: SUBJECTIVE: had episode of SOB /chest discomfort last night Cxray shows progressive pulmonary congestion Lasix 40 mg IV X1 ordered breathing much improved today no SOB /orthopnea /no anginal symptom , mentions of feeling much better since yesterday OBJECTIVE: Vital Signs-as noted below Exam: General-chronically ill appearing elderly female , not in distress Eyes-sclera non icteric Neck-no JVD noted Lungs-diminished with rales at base Heart-regular Abdomen-soft Extremities-+ 1 -2 bilat edema Neuro-no focal deficit . Lab data as noted below. ASSESSMENT & PLAN: ACUTE CHF WITH SYSTOLIC DYSFUNCTION /ISCHEMIC CARDIOMYOPATHY : UNSTABLE ANGINA/IN SETTING OF SEVER CAD : s/p cardiac cath yesterday FOUND TO HAVE : LM - Widely patent stent LAD - Widely patent proximal stent; 95% early-mid focal stenosis at take-off of small 1st diagonal, ectatic post stenosis; Diffuse moderate disease in mid segment; distal luminal irregularities as wraps around apex. 2nd diagonal with mild diffuse disease. Circumflex - Large caliber vessel, widely patent overlapping stents from ostium to mid segment; Luminal irregularities in moderate size OM2, OM3. RCA - Dominant, proximal to distal segment overlapping stents with severe in- stent restenosis, 100% occlusion in distal stent. 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 to be on dual antiplatelet therapy for retirement Imdur dose increased form 60 to 90 mg daily for chronic intermittent angina ( hold for SBP < 100 ) cont SL nitro as needed Cardiology following Acute Hypoxemic Respiratory Failure-Multifactorial Acute on Chronic Systolic CHF/SEVERE ICM /CARLOS ON CKD Stage 4 /vol overload respiratory status continues to remain stable currently on 2-3 L 02 vial nasal canula pt denies of any complain of chest pain or SOB SEVERE CAD /ISCHEMIC CARDIOMYOPATHY /NSTEMI multivessel CAD s/p recent high risk PCI to left main /LAD /Circumflex has residual severe RCA disease presented with SOB /Hypoxia, elevated troponin repeat ECHO -shows diminished EF 20 % ( was 40 % on 10/2016 ) cont Dual antiplatelet - aspirin and Plavix ; IV heparin wt based protocol on Coreg /statin s/p cardiac cath with stent placement in LAD CARLOS on CKD stage 4 Cr remains in > 3.6 requiring intermittent Lasix for decompensated CHF appreciate input form Nephrology pt will continue to receive diuretics as clinically indicated if no recovery of renal function /becomes difficult to manage volume and electrolytes -may need dialysis in near future HTN on Coreg and Norvasc Hypothyroidism Synthroid 75mcg DVT ppx heparin FULL CODE-as per D/w pt and daughter DISPOSITION remain very weak and fragile /very poor functional status with ongoing angina / respiratory distress decompensated CHF /CARLOS will benefit form rehab when medically stable ordered for PT/OT eval OOB as tolerated social service consulted for discharge planning Vital Signs: Date Time Temp Pulse Resp B/P (MAP) Pulse Ox O2 Delivery O2 Flow Rate FiO2 03/26/17 17:19 96 Nasal Cannula 3.0 03/26/17 15:08 36.5 61 22 106/59 (75) 97 Nasal Cannula 3.0 03/26/17 14:10 57 16 100 Nasal Cannula 4.0 03/26/17 12:15 96 Nasal Cannula 3.0 03/26/17 11:55 37.0 57 17 98/57 (71) 100 Nasal Cannula 4.0 03/26/17 09:09 37.4 59 59 110/66 (81) 100 Nasal Cannula 4.0 03/26/17 07:50 59 16 100 Nasal Cannula 4.0 03/26/17 07:45 96 Nasal Cannula 3.0 03/26/17 04:02 36.4 61 16 107/65 (79) 98 03/26/17 04:00 96 Nasal Cannula 3.0 03/26/17 02:08 54 16 96 BiPAP/CPAP 30 03/26/17 00:01 96 Nasal Cannula 3.0 03/25/17 23:15 36.3 61 18 123/71 (88) 99 BiPAP 03/25/17 20:13 96 30 03/25/17 20:12 68 13 97 BiPAP/CPAP 30 03/25/17 20:00 96 Nasal Cannula 3.0 03/25/17 19:40 36.6 71 24 115/70 (85) 97 03/25/17 18:27 71 20 113/68 (83) 94 Nasal Cannula 3.0 Lab Results: Results Past 24 Hours Test 03/25/17 20:41 03/25/17 21:02 03/26/17 05:30 03/26/17 06:50 Range/Units Bedside Glucose 168 147 70-90 mg/dl Total Creatine Kinase 77 26-192 U/L Creatine Kinase MB 5.1 0.5-3.6 ng/ml Creatine Kinase MB Ratio 6.6 0-3.0 Troponin I 1.930 0-0.045 ng/ml Prothrombin Time 57.1 9.0-12.0 SECONDS Prothromb Time International Ratio 5.0 0.9-1.1 Activated Partial Thromboplast Time 35.7 21.0-31.0 SECONDS Partial Thromboplastin Ratio 1.4 Sodium Level 129 136-145 mmol/L Potassium Level 3.6 3.5-5.1 mmol/L Chloride Level 85 98-107 mmol/L Carbon Dioxide Level 29 21-32 mmol/L Anion Gap 15.0 3-11 mmol/L Blood Urea Nitrogen 103 7-18 mg/dl Creatinine 3.80 0.60-1.20 mg/dl Est Creatinine Clear Calc Drug Dose 10.6 ml/min Estimated GFR () 12.2 Estimated GFR (Non- 10.5 BUN/Creatinine Ratio 27.1 10-20 Random Glucose 99 70-99 mg/dl Calcium Level 8.6 8.5-10.1 mg/dl Test 03/26/17 11:14 03/26/17 16:06 Range/Units Bedside Glucose 157 141 70-90 mg/dl
--- NOTE | 2017-03-26 19:31 | Pulmonology Progress Note ---
Pulmonary Progress Note Date of Service Mar 26, 2017. Attending Dr. Concepcion Subjective Patient notes continued fatigue as well as dyspnea at rest but currently denies any chest pain, pleurisy or productive sputum VS: I/O: -4.4L (Last 24: -350cc) RR: 16-59 SaO2: 96-100% FiO2: 3-4L BiPAP: Support: 15/5, Rate: 12/min, FiO2: 30% BP: 110-98/66-57 RESP: Bilateral crackles greatest at the bases left CARD: S1 S2 distant heart sounds unable to auscultate for murmurs rubs or gallops ABD: Positive bowel sounds soft nontender EXT: 1+ pitting edema in the dependent regions Labs: INR: 5.0 BUN: 103 Cr: 3.80 Radiology: Chest x-ray 03/25/2017: Bilateral hilar fullness, peribronchial cuffing, costophrenic blunting bilaterally with cephalization Cardiac catheterization 03/24/2017: [id number] Post dilation possible as dissection in the mid LAD LAD JAZMIN 3 flow, stent well expanded with minimal residual stenosis in no apparent cardiac complications Severe multi vessel coronary artery disease 95% early mid LAD stenosis 100% occluded distal RCA stent Successful PCI the mid LAD 2 overlapping drug eluting stent Objective Patient showing any signs respiratory fatigue or failure during our conversation. There is no signs of tachypnea or excessive work of breathing. She still is requiring aggressive mount of oxygen support. I/O: -1.5L WT: 67.4Kg RR: 14-24 SaO2: 93-98% FiO2: 6-9L HR: 60-80 RESP: Crackles at the bases bilaterally CARD: S1-S2 distant heart sounds ABD: Positive bowel sounds soft nontender EXT: Stasis dermatitis but no clubbing cyanosis or edema noted Medications 1. Furosemide 2. Metolazone 3. Heparin drip 4. Levothyroxine 5. DuoNeb 6. Doxycycline 100 milligrams p.o. b.i.d. 7. Plavix 75 milligrams daily Labs: Cr: 2.90 Radiology Bilateral lower extremity venous Doppler studies 03/20/2017: Left lower extremity primarily vein thrombosis/deep venous thrombosis Assessment & Plan 81-year-old female admitted 03/17/2017 with history of non STEMI requiring drug- eluting stents currently and systolic heart failure with volume overload and renal insufficiency with associated hypoxemia: 1. Hypoxemia: Patient's hypoxemia most likely secondary to volume overload with a combination of renal insufficiency cardiac dysfunction. The patient is currently aggressively being treated in his status post cardiac catheterization on 03/24/2017 for her CHF. At this time she is also being monitored by Nephrology with attempted diuresis at this time. Via her respiratory standard the most helpful intervention at this time would most likely be BiPAP to help with her oxygenation as well as afterload reduction. The patient is very wary about the BiPAP mask but notes she will use it if she has too. At this time I would like to try her on a high-flow oxygen system to see if we can create some vasodilation within the pulmonary vasculature and help decrease intrathoracic resistance and possible help diuresis. Data Medications: Current Inpatient Medications Medications (Trade) Dose Ordered Sig/Izaiah Route Start Time Stop Time Status Last Admin Dose Admin Acetaminophen (Tylenol Tab) 650 mg Q4H PRN PO 03/18/17 02:30 04/17/17 02:29 03/25/17 06:06 650 MG Insulin Aspart (novoLOG ASPART) SLIDING SCALE If C... ACHS SC 03/18/17 07:00 04/17/17 06:59 03/21/17 21:52 1 UNITS Glucose (Glucose 40% Gel) 15-30 GRAMS 15 GRAMS... UD PRN PO 03/18/17 02:30 04/17/17 02:29 Glucose (Glucose Chew Tab) 4-8 Tablets 4 Tabl... UD PRN PO 03/18/17 02:30 04/17/17 02:29 Dextrose (Dextrose 50% 50ML Syringe) 25-50ML OF 50% DW IV FOR... UD PRN IV 03/18/17 02:30 04/17/17 02:29 Glucagon (Glucagon Inj) 1 mg UD PRN SQ 03/18/17 02:30 04/17/17 02:29 Hydromorphone HCl (Dilaudid Inj) 0.5 mg Q3H PRN IV 03/18/17 02:30 04/01/17 02:29 03/24/17 17:34 0.5 MG Tramadol HCl (Ultram Tab) 25 mg Q6H PRN PO 03/18/17 02:30 04/17/17 02:29 Atorvastatin Calcium (Lipitor Tab) 80 mg DAILY PO 03/18/17 09:00 04/17/17 08:59 03/26/17 08:25 80 MG Clopidogrel Bisulfate (plAVix TAB) 75 mg DAILY PO 03/18/17 09:00 04/17/17 08:59 03/26/17 08:26 75 MG Senna/Docusate Sodium (Senokot S Tab) 2 tab DAILY PO 03/18/17 09:00 04/17/17 08:59 03/26/17 08:26 2 TAB Aspirin (Ecotrin Tab) 81 mg QAM PO 03/18/17 09:00 04/17/17 08:59 03/26/17 08:23 81 MG Pantoprazole Sodium (Protonix Tab) 40 mg QAM PO 03/19/17 09:00 04/18/17 08:59 03/26/17 08:26 40 MG Levothyroxine Sodium (Synthroid Tab) 75 mcg DAILYBB PO 03/21/17 06:00 04/17/17 06:59 03/26/17 06:07 75 MCG Carvedilol (Coreg Tab) 12.5 mg BID PO 03/22/17 21:00 04/17/17 08:59 03/26/17 08:23 12.5 MG Polyethylene (Miralax Powder Packet) 17 gm BID PO 03/24/17 21:00 04/23/17 08:59 03/26/17 08:25 17 GM Sodium Biphosphate/ Sodium Phosphate (Fleet Enema) 132 ml DAILY PRN MS 03/24/17 12:30 04/23/17 12:29 Warfarin Sodium (Coumadin Tab) 5 mg DAILY@16 PO 03/24/17 16:00 04/23/17 15:59 Future Hold 03/24/17 17:00 5 MG Nitroglycerin (Nitrostat Tab) 0.4 mg PRN PRN SL 03/25/17 18:30 04/24/17 18:29 Isosorbide Mononitrate (Imdur Ext Rel Tab) 90 mg QAM PO 03/26/17 09:00 04/17/17 08:59 03/26/17 08:24 90 MG Ipratropium [place] (Atrovent 0.02% 0.5MG/2.5ML Neb) 0.5 mg Q6H PRN INH 03/25/17 19:00 04/24/17 18:59 03/25/17 20:11 0.5 MG Levalbuterol (Xopenex 0.63 Mg/ 3 Ml Neb) 0.63 mg Q6H PRN INH 03/25/17 19:00 04/24/17 18:59 03/25/17 20:12 0.63 MG Ipratropium [place] (Atrovent 0.02% 0.5MG/2.5ML Neb) 0.5 mg Q6R INH 03/25/17 21:00 04/24/17 20:59 03/26/17 14:05 0.5 MG Levalbuterol (Xopenex 1.25MG/ 0.5ML Neb) 1.25 mg Q6R INH 03/25/17 21:00 04/24/17 20:59 03/26/17 14:05 1.25 MG Ondansetron HCl (Zofran Inj) 4 mg Q6H PRN IV 03/26/17 14:15 04/25/17 14:14 I & O: 24-Hour Column 03/27/17 08:00 Intake Total 200 ml Output Total 150 ml Balance 50 ml Vital Signs: Date Time Temp Pulse Resp B/P (MAP) Pulse Ox O2 Delivery O2 Flow Rate FiO2 03/26/17 19:00 36.5 63 24 99/63 (75) 99 Nasal Cannula 3.0 03/26/17 17:19 96 Nasal Cannula 3.0 03/26/17 15:08 36.5 61 22 106/59 (75) 97 Nasal Cannula 3.0 03/26/17 14:10 57 16 100 Nasal Cannula 4.0 03/26/17 12:15 96 Nasal Cannula 3.0 03/26/17 11:55 37.0 57 17 98/57 (71) 100 Nasal Cannula 4.0 03/26/17 09:09 37.4 59 59 110/66 (81) 100 Nasal Cannula 4.0 03/26/17 07:50 59 16 100 Nasal Cannula 4.0 03/26/17 07:45 96 Nasal Cannula 3.0 03/26/17 04:02 36.4 61 16 107/65 (79) 98 03/26/17 04:00 96 Nasal Cannula 3.0 03/26/17 02:08 54 16 96 BiPAP/CPAP 30 03/26/17 00:01 96 Nasal Cannula 3.0 03/25/17 23:15 36.3 61 18 123/71 (88) 99 BiPAP 03/25/17 20:13 96 30 03/25/17 20:12 68 13 97 BiPAP/CPAP 30 03/25/17 20:00 96 Nasal Cannula 3.0 03/25/17 19:40 36.6 71 24 115/70 (85) 97 Laboratory Results: Last 24 Hours Test 03/25/17 20:41 03/25/17 21:02 03/26/17 05:30 03/26/17 06:50 Bedside Glucose 168 mg/dl 147 mg/dl Total Creatine Kinase 77 U/L Creatine Kinase MB 5.1 ng/ml Creatine Kinase MB Ratio 6.6 Troponin I 1.930 ng/ml Prothrombin Time 57.1 SECONDS Prothromb Time International Ratio 5.0 Activated Partial Thromboplast Time 35.7 SECONDS Partial Thromboplastin Ratio 1.4 Sodium Level 129 mmol/L Potassium Level 3.6 mmol/L Chloride Level 85 mmol/L Carbon Dioxide Level 29 mmol/L Anion Gap 15.0 mmol/L Blood Urea Nitrogen 103 mg/dl Creatinine 3.80 mg/dl Est Creatinine Clear Calc Drug Dose 10.6 ml/min Estimated GFR () 12.2 Estimated GFR (Non- 10.5 BUN/Creatinine Ratio 27.1 Random Glucose 99 mg/dl Calcium Level 8.6 mg/dl Test 03/26/17 11:14 03/26/17 16:06 Bedside Glucose 157 mg/dl 141 mg/dl
[2017-03-27] VITALS (11 sets, daily range): BP systolic 92–103; BP diastolic 53–67; PULSE 51–64; TEMP 36.4–37.5; O2SAT 97–100
[2017-03-27] MEDS: IPRATROPIUM BROMIDE NEB SOLN 0.02% 2.5 ML VIAL INH SCH ×4 (02:23→19:02)
[2017-03-27] MEDS: LEVALBUTEROL 1.25MG/0.5ML NEB INH SCH ×4 (02:23→19:02)
[2017-03-27] MEDS: LEVOTHYROXINE 75 MCG TAB PO SCH (06:05)
[2017-03-27] MEDS: INSULIN ASPART 100 UNITS/ML 3 ML PEN SC SCH ×4 (07:00→20:28)
--- NOTE | 2017-03-27 07:24 | DIAGNOSTIC IMAGING REPORT ---
CHEST ONE VIEW PORTABLE CLINICAL HISTORY: f dyspnea COMPARISON STUDY: 03/25/2017 FINDINGS: Unchanging bibasilar parenchymal infiltrates and/or effusions. Components of congestive failure similar. IMPRESSION: Congestive failure. Cardiomegaly. No change from the prior study. The above report was generated using voice recognition software. It may contain grammatical, syntax or spelling errors. Electronically signed by: Ramesh Martinez M.D. 03/27/2017 7:22 AM Dictated Date/Time: 03/27/2017 7:22 AM
[2017-03-27 07:55] LABS: HEMATOCRIT 27.3 % (37-47); MEAN CELL VOLUME 89.8 fL (80-100); MEAN CORPUSCULAR HEMOGLOBIN 30.3 pg (25-34); MEAN CORPUSCULAR HGB CONC 33.7 g/dl (32-36); MEAN PLATELET VOLUME 11.1 fL (7.4-10.4); PLATELET COUNT 163 K/uL (130-400); RED BLOOD COUNT 3.04 M/uL (4.2-5.4); WHITE BLOOD COUNT 6.98 K/uL (4.8-10.8)
[2017-03-27 08:10] LABS: PARTIAL THROMBOPLASTIN RATIO 1.2
[2017-03-27 08:32] LABS: BUN/CREATININE RATIO 27.3 (10-20); CALCIUM 8.7 mg/dl (8.5-10.1); CREATININE 4.4 mg/dl (0.60-1.20); POTASSIUM 3.9 mmol/L (3.5-5.1)
[2017-03-27] MEDS: POLYETHYLENE (MIRALAX) 17 GM PACK PO SCH ×2 (09:00→20:28)
[2017-03-27] MEDS: CARVEDILOL 12.5 MG TAB PO SCH ×2 (09:00→20:27)
[2017-03-27] MEDS: ISOSORBIDE MONONITRATE 60 MG TABCR PO SCH (09:07)
[2017-03-27] MEDS: CLOPIDOGREL BISULFATE 75 MG TAB PO SCH (09:07)
[2017-03-27] MEDS: ASPIRIN 81 MG ECTAB PO SCH (09:07)
[2017-03-27] MEDS: ATORVASTATIN 40 MG TAB PO SCH (09:07)
[2017-03-27] MEDS: PANTOprazole SOD 40 MG TAB PO SCH (09:08)
[2017-03-27] MEDS: DOCUSATE SODIUM/SENNA 50/8.6MG TAB PO SCH (09:08)
--- NOTE | 2017-03-27 10:55 | Pulmonology Progress Note ---
Pulmonary Progress Note Date of Service Mar 27, 2017. Attending Dr. Concepcion Subjective Patient notes she is less fatigued and decreased episodes of shortness of Breath on the high-flow system: Objective Patient showing any signs respiratory fatigue or failure during our conversation. There is no signs of tachypnea or excessive work of breathing. She still is requiring aggressive mount of oxygen support. VS: Stable on high-flow oxygen delivery system RESP: Crackles at the bases bilaterally CARD: S1-S2 distant heart sounds ABD: Positive bowel sounds soft nontender EXT: Stasis dermatitis but no clubbing cyanosis or edema noted Medications 1. Furosemide 2. Metolazone 3. Heparin drip 4. Levothyroxine 5. DuoNeb 6. Doxycycline 100 milligrams p.o. b.i.d. 7. Plavix 75 milligrams daily Labs: BUN/Cr: 120/4.40 INR (03/26/2017): 5.0 Radiology Bilateral lower extremity venous Doppler studies 03/20/2017: Left lower extremity primarily vein thrombosis/deep venous thrombosis Assessment & Plan 81-year-old female admitted 03/17/2017 with history of non STEMI requiring drug- eluting stents currently and systolic heart failure with volume overload and renal insufficiency with associated hypoxemia: 1. Hypoxemia: Patient's hypoxemia is secondary volume overload with combination of renal sufficiency and cardiac diastolic dysfunction with notably elevated left ventricular end-diastolic pressure. She has responded clinically well to the high-flow nasal oxygen delivery system and has had no trouble at this time with epistaxis. I suggest we continue the high-flow system to help clinically support her at this time. The patient's BUN and creatinine are currently rising but she is followed by Dr. Masterson from the Nephrology Department. 2. DVT: Patient's last INR from 03/26/2017 was 5.0. She is currently therapeutically covered for any DVT/increased risk of pulmonary emboli. If the patient does improve and is able to be discharged from the hospital I suggest we initiate Coumadin at that time as she has an elevated BMI and also renal insufficiency which other anticoagulants have not been study is well in the situation. Sign of: At this time the Pulmonary service will sign off please re-contact us if necessary. Data Medications: Current Inpatient Medications Medications (Trade) Dose Ordered Sig/Izaiah Route Start Time Stop Time Status Last Admin Dose Admin Acetaminophen (Tylenol Tab) 650 mg Q4H PRN PO 03/18/17 02:30 04/17/17 02:29 03/25/17 06:06 650 MG Insulin Aspart (novoLOG ASPART) SLIDING SCALE If C... ACHS SC 03/18/17 07:00 04/17/17 06:59 03/21/17 21:52 1 UNITS Glucose (Glucose 40% Gel) 15-30 GRAMS 15 GRAMS... UD PRN PO 03/18/17 02:30 04/17/17 02:29 Glucose (Glucose Chew Tab) 4-8 Tablets 4 Tabl... UD PRN PO 03/18/17 02:30 04/17/17 02:29 Dextrose (Dextrose 50% 50ML Syringe) 25-50ML OF 50% DW IV FOR... UD PRN IV 03/18/17 02:30 04/17/17 02:29 Glucagon (Glucagon Inj) 1 mg UD PRN SQ 03/18/17 02:30 04/17/17 02:29 Hydromorphone HCl (Dilaudid Inj) 0.5 mg Q3H PRN IV 03/18/17 02:30 04/01/17 02:29 03/24/17 17:34 0.5 MG Tramadol HCl (Ultram Tab) 25 mg Q6H PRN PO 03/18/17 02:30 04/17/17 02:29 Atorvastatin Calcium (Lipitor Tab) 80 mg DAILY PO 03/18/17 09:00 04/17/17 08:59 03/27/17 09:07 80 MG Clopidogrel Bisulfate (plAVix TAB) 75 mg DAILY PO 03/18/17 09:00 04/17/17 08:59 03/27/17 09:07 75 MG Senna/Docusate Sodium (Senokot S Tab) 2 tab DAILY PO 03/18/17 09:00 04/17/17 08:59 03/27/17 09:08 2 TAB Aspirin (Ecotrin Tab) 81 mg QAM PO 03/18/17 09:00 04/17/17 08:59 03/27/17 09:07 81 MG Pantoprazole Sodium (Protonix Tab) 40 mg QAM PO 03/19/17 09:00 04/18/17 08:59 03/27/17 09:08 40 MG Levothyroxine Sodium (Synthroid Tab) 75 mcg DAILYBB PO 03/21/17 06:00 04/17/17 06:59 03/27/17 06:05 75 MCG Carvedilol (Coreg Tab) 12.5 mg BID PO 03/22/17 21:00 04/17/17 08:59 03/26/17 20:39 12.5 MG Polyethylene (Miralax Powder Packet) 17 gm BID PO 03/24/17 21:00 04/23/17 08:59 03/26/17 08:25 17 GM Sodium Biphosphate/ Sodium Phosphate (Fleet Enema) 132 ml DAILY PRN OR 03/24/17 12:30 04/23/17 12:29 Warfarin Sodium (Coumadin Tab) 5 mg DAILY@16 PO 03/24/17 16:00 04/23/17 15:59 Future Hold 03/24/17 17:00 5 MG Nitroglycerin (Nitrostat Tab) 0.4 mg PRN PRN SL 03/25/17 18:30 04/24/17 18:29 Isosorbide Mononitrate (Imdur Ext Rel Tab) 90 mg QAM PO 03/26/17 09:00 04/17/17 08:59 03/27/17 09:07 90 MG Ipratropium [place] (Atrovent 0.02% 0.5MG/2.5ML Neb) 0.5 mg Q6H PRN INH 03/25/17 19:00 04/24/17 18:59 03/25/17 20:11 0.5 MG Levalbuterol (Xopenex 0.63 Mg/ 3 Ml Neb) 0.63 mg Q6H PRN INH 03/25/17 19:00 04/24/17 18:59 03/25/17 20:12 0.63 MG Ipratropium [place] (Atrovent 0.02% 0.5MG/2.5ML Neb) 0.5 mg Q6R INH 03/25/17 21:00 04/24/17 20:59 03/27/17 07:00 0.5 MG Levalbuterol (Xopenex 1.25MG/ 0.5ML Neb) 1.25 mg Q6R INH 03/25/17 21:00 04/24/17 20:59 03/27/17 07:01 1.25 MG Ondansetron HCl (Zofran Inj) 4 mg Q6H PRN IV 03/26/17 14:15 04/25/17 14:14 Vital Signs: Date Time Temp Pulse Resp B/P (MAP) Pulse Ox O2 Delivery O2 Flow Rate FiO2 03/27/17 08:00 High Flow Oxygen 40.0 40 03/27/17 07:42 37.5 56 20 103/67 (79) 100 High Flow Oxygen 03/27/17 07:04 59 16 100 Nasal Cannula 40.0 48 03/27/17 04:06 36.4 57 18 95/58 (70) 100 High Flow Oxygen 40 Humidified Oxygen 03/27/17 04:00 99 High Flow Oxygen 40.0 40 03/27/17 02:24 57 16 99 Nasal Cannula 40.0 48 03/26/17 23:59 100 High Flow Oxygen 40.0 40 03/26/17 23:32 36.7 57 24 100/56 (71) 100 High Flow Oxygen 40 Humidified Oxygen 03/26/17 20:00 99 High Flow Oxygen 40.0 40 03/26/17 19:46 68 16 96 Nasal Cannula 3.0 03/26/17 19:00 36.5 63 24 99/63 (75) 99 Nasal Cannula 3.0 03/26/17 17:19 96 Nasal Cannula 3.0 03/26/17 15:08 36.5 61 22 106/59 (75) 97 Nasal Cannula 3.0 03/26/17 14:10 57 16 100 Nasal Cannula 4.0 03/26/17 12:15 96 Nasal Cannula 3.0 03/26/17 11:55 37.0 57 17 98/57 (71) 100 Nasal Cannula 4.0 Laboratory Results: Last 24 Hours Test 03/26/17 11:14 03/26/17 16:06 03/26/17 20:08 03/27/17 06:55 Bedside Glucose 157 mg/dl 141 mg/dl 145 mg/dl 117 mg/dl Test 03/27/17 07:45 White Blood Count 6.98 K/uL Red Blood Count 3.04 M/uL Hemoglobin 9.2 g/dL Hematocrit 27.3 % Mean Corpuscular Volume 89.8 fL Mean Corpuscular Hemoglobin 30.3 pg Mean Corpuscular Hemoglobin Concent 33.7 g/dl RDW Standard Deviation 43.1 fL RDW Coefficient of Variation 13.2 % Platelet Count 163 K/uL Mean Platelet Volume 11.1 fL Activated Partial Thromboplast Time 31.9 SECONDS Partial Thromboplastin Ratio 1.2 Sodium Level 129 mmol/L Potassium Level 3.9 mmol/L Chloride Level 85 mmol/L Carbon Dioxide Level 29 mmol/L Anion Gap 15.0 mmol/L Blood Urea Nitrogen 120 mg/dl Creatinine 4.40 mg/dl Est Creatinine Clear Calc Drug Dose 9.1 ml/min Estimated GFR () 10.2 Estimated GFR (Non- 8.8 BUN/Creatinine Ratio 27.3 Random Glucose 95 mg/dl Calcium Level 8.7 mg/dl
--- NOTE | 2017-03-27 11:07 | Cardiology Follow-Up ---
Subjective Subjective Date of Service: Mar 27, 2017. 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 States breathing a little more rough overnight but maybe a little better this AM. No real chest pain. Problem List Medical Problems: (1) Acute myocardial infarction Status: Acute (2) Pulmonary edema Status: Acute (3) Renal failure (ARF), acute on chronic Status: Acute Review of Systems Constitutional: No fever, No chills Cardiac: No chest pain Abdomen: No pain, No nausea, No vomiting, No diarrhea Neurologic: No numbness/tingling Heme: No abnormal bleeding/bruising Endo: + fatigue Skin: No rash Objective Vital Signs Last Vital Signs Documentation Date Time Temp Pulse Resp B/P (MAP) Pulse Ox O2 Delivery O2 Flow Rate FiO2 03/27/17 08:00 High Flow Oxygen 40.0 40 03/27/17 07:42 37.5 56 20 103/67 (79) 100 Physical Exam: General Appearance: no apparent distress ENT: hearing grossly normal Respiratory/Chest: + decreased breath sounds (At left base > right base) Cardiovascular: regular rate, rhythm, no edema, + systolic murmur (2/6 systolic murmur) Abdomen: normal bowel sounds, non tender, soft Extremities: + pertinent finding (extremities are warm, right radial artery access site no apparent complications. ecchymosis at right basilic vein rhc site.) Neurologic/Psychiatric: no motor/sensory deficits, alert, normal mood/affect Skin: normal color Assessment and Plan 1. NSTEMI--status post PCI with 2 drug-eluting stent to proximal to mid LAD 2. Acute systolic heart failure/ICM -- severe LV dysfunction with LAD distribution hypokinesis 3. Acute on chronic renal insufficiency 4. Hypoxemic respiratory failure 5. Distal left lower extremity DVT 6. Type 2 diabetes. 7. Anemia. 8 Paroxysmal SVT Limited urine output after no additional diuretics yesterday. BUN/SCr worsening. Well perfused with congestion on exam. On high flow O2 for cardiac hemodynamic benefits per pulmonary -- Diuretics, possible HD per Renal -- Hold evening carvedilol, resume at 3.125 BID -- continue dual antiplatelet therapy with aspirin and Plavix -- continue current long-acting nitrates --will continue follow Medications: Current Inpatient Medications Medications (Trade) Dose Ordered Sig/Izaiah Route Start Time Stop Time Status Last Admin Dose Admin Acetaminophen (Tylenol Tab) 650 mg Q4H PRN PO 03/18/17 02:30 04/17/17 02:29 03/25/17 06:06 650 MG Insulin Aspart (novoLOG ASPART) SLIDING SCALE If C... ACHS SC 03/18/17 07:00 04/17/17 06:59 03/21/17 21:52 1 UNITS Glucose (Glucose 40% Gel) 15-30 GRAMS 15 GRAMS... UD PRN PO 03/18/17 02:30 04/17/17 02:29 Glucose (Glucose Chew Tab) 4-8 Tablets 4 Tabl... UD PRN PO 03/18/17 02:30 04/17/17 02:29 Dextrose (Dextrose 50% 50ML Syringe) 25-50ML OF 50% DW IV FOR... UD PRN IV 03/18/17 02:30 04/17/17 02:29 Glucagon (Glucagon Inj) 1 mg UD PRN SQ 03/18/17 02:30 04/17/17 02:29 Hydromorphone HCl (Dilaudid Inj) 0.5 mg Q3H PRN IV 03/18/17 02:30 04/01/17 02:29 03/24/17 17:34 0.5 MG Tramadol HCl (Ultram Tab) 25 mg Q6H PRN PO 03/18/17 02:30 04/17/17 02:29 Atorvastatin Calcium (Lipitor Tab) 80 mg DAILY PO 03/18/17 09:00 04/17/17 08:59 03/27/17 09:07 80 MG Clopidogrel Bisulfate (plAVix TAB) 75 mg DAILY PO 03/18/17 09:00 04/17/17 08:59 03/27/17 09:07 75 MG Senna/Docusate Sodium (Senokot S Tab) 2 tab DAILY PO 03/18/17 09:00 04/17/17 08:59 03/27/17 09:08 2 TAB Aspirin (Ecotrin Tab) 81 mg QAM PO 03/18/17 09:00 04/17/17 08:59 03/27/17 09:07 81 MG Pantoprazole Sodium (Protonix Tab) 40 mg QAM PO 03/19/17 09:00 04/18/17 08:59 03/27/17 09:08 40 MG Levothyroxine Sodium (Synthroid Tab) 75 mcg DAILYBB PO 03/21/17 06:00 04/17/17 06:59 03/27/17 06:05 75 MCG Carvedilol (Coreg Tab) 12.5 mg BID PO 03/22/17 21:00 04/17/17 08:59 03/26/17 20:39 12.5 MG Polyethylene (Miralax Powder Packet) 17 gm BID PO 03/24/17 21:00 04/23/17 08:59 03/26/17 08:25 17 GM Sodium Biphosphate/ Sodium Phosphate (Fleet Enema) 132 ml DAILY PRN [place] 03/24/17 12:30 04/23/17 12:29 Warfarin Sodium (Coumadin Tab) 5 mg DAILY@16 PO 03/24/17 16:00 04/23/17 15:59 Future Hold 03/24/17 17:00 5 MG Nitroglycerin (Nitrostat Tab) 0.4 mg PRN PRN SL 03/25/17 18:30 04/24/17 18:29 Isosorbide Mononitrate (Imdur Ext Rel Tab) 90 mg QAM PO 03/26/17 09:00 04/17/17 08:59 03/27/17 09:07 90 MG Ipratropium [place] (Atrovent 0.02% 0.5MG/2.5ML Neb) 0.5 mg Q6H PRN INH 03/25/17 19:00 04/24/17 18:59 03/25/17 20:11 0.5 MG Levalbuterol (Xopenex 0.63 Mg/ 3 Ml Neb) 0.63 mg Q6H PRN INH 03/25/17 19:00 04/24/17 18:59 03/25/17 20:12 0.63 MG Ipratropium [place] (Atrovent 0.02% 0.5MG/2.5ML Neb) 0.5 mg Q6R INH 03/25/17 21:00 04/24/17 20:59 03/27/17 07:00 0.5 MG Levalbuterol (Xopenex 1.25MG/ 0.5ML Neb) 1.25 mg Q6R INH 03/25/17 21:00 04/24/17 20:59 03/27/17 07:01 1.25 MG Ondansetron HCl (Zofran Inj) 4 mg Q6H PRN IV 03/26/17 14:15 04/25/17 14:14 Lab Results: 03/27/17 07:45 03/27/17 07:45 Test 03/27/17 06:55 03/27/17 07:45 Bedside Glucose 117 mg/dl (70-90) Red Blood Count 3.04 M/uL (4.2-5.4) Mean Corpuscular Volume 89.8 fL (80-100) Mean Corpuscular Hemoglobin 30.3 pg (25-34) Mean Corpuscular Hemoglobin Concent 33.7 g/dl (32-36) RDW Standard Deviation 43.1 fL (36.4-46.3) RDW Coefficient of Variation 13.2 % (11.5-14.5) Mean Platelet Volume 11.1 fL (7.4-10.4) Activated Partial Thromboplast Time 31.9 SECONDS (21.0-31.0) Partial Thromboplastin Ratio 1.2 Anion Gap 15.0 mmol/L (3-11) Est Creatinine Clear Calc Drug Dose 9.1 ml/min Estimated GFR () 10.2 Estimated GFR (Non- 8.8 BUN/Creatinine Ratio 27.3 (10-20) Calcium Level 8.7 mg/dl (8.5-10.1)
--- NOTE | 2017-03-27 11:10 | Nephrology Progress Note ---
Nephrology Progress Note Date of Service: Mar 27, 2017. Subjective 81 yo female with ollie on ckd from contrast induced nephrotoxicity, s/p cath with two stents. minimal chest discomfort but continues to have difficulty breathing. on high flow oxygen since last night. creatinine continues to worsen. Objective Date Time Temp Pulse Resp B/P (MAP) Pulse Ox O2 Delivery O2 Flow Rate FiO2 03/27/17 08:00 High Flow Oxygen 40.0 40 03/27/17 07:42 37.5 56 20 103/67 (79) 100 High Flow Oxygen 03/27/17 07:04 59 16 100 Nasal Cannula 40.0 48 03/27/17 04:06 36.4 57 18 95/58 (70) 100 High Flow Oxygen 40 Humidified Oxygen 03/27/17 04:00 99 High Flow Oxygen 40.0 40 03/27/17 02:24 57 16 99 Nasal Cannula 40.0 48 03/26/17 23:59 100 High Flow Oxygen 40.0 40 03/26/17 23:32 36.7 57 24 100/56 (71) 100 High Flow Oxygen 40 Humidified Oxygen 03/26/17 20:00 99 High Flow Oxygen 40.0 40 03/26/17 19:46 68 16 96 Nasal Cannula 3.0 03/26/17 19:00 36.5 63 24 99/63 (75) 99 Nasal Cannula 3.0 03/26/17 17:19 96 Nasal Cannula 3.0 03/26/17 15:08 36.5 61 22 106/59 (75) 97 Nasal Cannula 3.0 03/26/17 14:10 57 16 100 Nasal Cannula 4.0 03/26/17 12:15 96 Nasal Cannula 3.0 03/26/17 11:55 37.0 57 17 98/57 (71) 100 Nasal Cannula 4.0 Physical Exam: General-aaox3 Eyes-no scleral icterus ENT-mmm/high flow oxygen Neck-supple Lungs-decreased at bases Heart-rrr Abdomen-bs+ s/nt/nd Extremities-no c/c/e Neuro-nonfocal Current Inpatient Medications Medications (Trade) Dose Ordered Sig/Izaiah Route Start Time Stop Time Status Last Admin Dose Admin Acetaminophen (Tylenol Tab) 650 mg Q4H PRN PO 03/18/17 02:30 04/17/17 02:29 03/25/17 06:06 650 MG Insulin Aspart (novoLOG ASPART) SLIDING SCALE If C... ACHS SC 03/18/17 07:00 04/17/17 06:59 03/21/17 21:52 1 UNITS Glucose (Glucose 40% Gel) 15-30 GRAMS 15 GRAMS... UD PRN PO 03/18/17 02:30 04/17/17 02:29 Glucose (Glucose Chew Tab) 4-8 Tablets 4 Tabl... UD PRN PO 03/18/17 02:30 04/17/17 02:29 Dextrose (Dextrose 50% 50ML Syringe) 25-50ML OF 50% DW IV FOR... UD PRN IV 03/18/17 02:30 04/17/17 02:29 Glucagon (Glucagon Inj) 1 mg UD PRN SQ 03/18/17 02:30 04/17/17 02:29 Hydromorphone HCl (Dilaudid Inj) 0.5 mg Q3H PRN IV 03/18/17 02:30 04/01/17 02:29 03/24/17 17:34 0.5 MG Tramadol HCl (Ultram Tab) 25 mg Q6H PRN PO 03/18/17 02:30 04/17/17 02:29 Atorvastatin Calcium (Lipitor Tab) 80 mg DAILY PO 03/18/17 09:00 04/17/17 08:59 03/27/17 09:07 80 MG Clopidogrel Bisulfate (plAVix TAB) 75 mg DAILY PO 03/18/17 09:00 04/17/17 08:59 03/27/17 09:07 75 MG Senna/Docusate Sodium (Senokot S Tab) 2 tab DAILY PO 03/18/17 09:00 04/17/17 08:59 03/27/17 09:08 2 TAB Aspirin (Ecotrin Tab) 81 mg QAM PO 03/18/17 09:00 04/17/17 08:59 03/27/17 09:07 81 MG Pantoprazole Sodium (Protonix Tab) 40 mg QAM PO 03/19/17 09:00 04/18/17 08:59 03/27/17 09:08 40 MG Levothyroxine Sodium (Synthroid Tab) 75 mcg DAILYBB PO 03/21/17 06:00 04/17/17 06:59 03/27/17 06:05 75 MCG Carvedilol (Coreg Tab) 12.5 mg BID PO 03/22/17 21:00 04/17/17 08:59 03/26/17 20:39 12.5 MG Polyethylene (Miralax Powder Packet) 17 gm BID PO 03/24/17 21:00 04/23/17 08:59 03/26/17 08:25 17 GM Sodium Biphosphate/ Sodium Phosphate (Fleet Enema) 132 ml DAILY PRN [place] 03/24/17 12:30 04/23/17 12:29 Warfarin Sodium (Coumadin Tab) 5 mg DAILY@16 PO 03/24/17 16:00 04/23/17 15:59 Future Hold 03/24/17 17:00 5 MG Nitroglycerin (Nitrostat Tab) 0.4 mg PRN PRN SL 03/25/17 18:30 04/24/17 18:29 Isosorbide Mononitrate (Imdur Ext Rel Tab) 90 mg QAM PO 03/26/17 09:00 04/17/17 08:59 03/27/17 09:07 90 MG Ipratropium [place] (Atrovent 0.02% 0.5MG/2.5ML Neb) 0.5 mg Q6H PRN INH 03/25/17 19:00 04/24/17 18:59 03/25/17 20:11 0.5 MG Levalbuterol (Xopenex 0.63 Mg/ 3 Ml Neb) 0.63 mg Q6H PRN INH 03/25/17 19:00 04/24/17 18:59 03/25/17 20:12 0.63 MG Ipratropium [place] (Atrovent 0.02% 0.5MG/2.5ML Neb) 0.5 mg Q6R INH 03/25/17 21:00 04/24/17 20:59 03/27/17 07:00 0.5 MG Levalbuterol (Xopenex 1.25MG/ 0.5ML Neb) 1.25 mg Q6R INH 03/25/17 21:00 04/24/17 20:59 03/27/17 07:01 1.25 MG Ondansetron HCl (Zofran Inj) 4 mg Q6H PRN IV 03/26/17 14:15 04/25/17 14:14 Last 24 Hours Test 03/26/17 11:14 03/26/17 16:06 03/26/17 20:08 03/27/17 06:55 Bedside Glucose 157 mg/dl 141 mg/dl 145 mg/dl 117 mg/dl Test 03/27/17 07:45 White Blood Count 6.98 K/uL Red Blood Count 3.04 M/uL Hemoglobin 9.2 g/dL Hematocrit 27.3 % Mean Corpuscular Volume 89.8 fL Mean Corpuscular Hemoglobin 30.3 pg Mean Corpuscular Hemoglobin Concent 33.7 g/dl RDW Standard Deviation 43.1 fL RDW Coefficient of Variation 13.2 % Platelet Count 163 K/uL Mean Platelet Volume 11.1 fL Activated Partial Thromboplast Time 31.9 SECONDS Partial Thromboplastin Ratio 1.2 Sodium Level 129 mmol/L Potassium Level 3.9 mmol/L Chloride Level 85 mmol/L Carbon Dioxide Level 29 mmol/L Anion Gap 15.0 mmol/L Blood Urea Nitrogen 120 mg/dl Creatinine 4.40 mg/dl Est Creatinine Clear Calc Drug Dose 9.1 ml/min Estimated GFR () 10.2 Estimated GFR (Non- 8.8 BUN/Creatinine Ratio 27.3 Random Glucose 95 mg/dl Calcium Level 8.7 mg/dl Assessment & Plan ollie on ckd-creatinine continues to worsen. now up to 4.4. may likely require dialysis tomorrow or tuesday depending on volume status and electrolytes. pt likely with contrast induced nephrotoxicity in the setting of ckd and lung disease at baseline. pts chest discomfort improving since the stents however still with difficulty breathing. 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 will give 80 of iv lasix now to try to stimulate urine output to help optimize lungs. unfortunately inr is 5 now. coumadin on hold. if we want to do a dialysis catheter tomorrow, will need inr improved prior to procedure. will recheck inr tomorrow and follow labs.
[2017-03-27] MEDS ORDERED: FUROSEMIDE INJ 80 MG in SYRINGE 0 ML IV ONE (12:00)
[2017-03-27] MEDS: TRAMADOL HCL 50 MG TAB PO PRN (12:30)
--- NOTE | 2017-03-27 16:36 | Progress Note ---
Internal Med Progress Note Date of Service: Mar 27, 2017. Provider Documentation: SUBJECTIVE: sitting on chair, appears to be tired on high flow 02, mentions that she slept better on High flow 02 does not tolerate Bipap well complains of getting SOB when trying to get up and ambulate no anginal symptoms OBJECTIVE: Vital Signs-as noted below Exam: General-chronically ill appearing elderly female , not in distress Eyes-sclera non icteric Neck-no JVD noted Lungs-diminished with rales at base Heart-regular Abdomen-soft Extremities-+ 1 -2 bilat edema Neuro-no focal deficit . Lab data as noted below. ASSESSMENT & PLAN: ACUTE CHF WITH SYSTOLIC DYSFUNCTION /ISCHEMIC CARDIOMYOPATHY : UNSTABLE ANGINA/IN SETTING OF SEVER CAD : s/p cardiac cath FOUND TO HAVE : LM - Widely patent stent LAD - Widely patent proximal stent; 95% early-mid focal stenosis at take-off of small 1st diagonal, ectatic post stenosis; Diffuse moderate disease in mid segment; distal luminal irregularities as wraps around apex. 2nd diagonal with mild diffuse disease. Circumflex - Large caliber vessel, widely patent overlapping stents from ostium to mid segment; Luminal irregularities in moderate size OM2, OM3. RCA - Dominant, proximal to distal segment overlapping stents with severe in- stent restenosis, 100% occlusion in distal stent. 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 dose increased form 60 to 90 mg daily for chronic intermittent angina ( hold for SBP < 100 ) no further symptom of angina for last 48 hrs cont SL nitro as needed Cardiology following Acute Hypoxemic Respiratory Failure-Multifactorial Acute on Chronic Systolic CHF/SEVERE ICM /CARLOS ON CKD Stage 4 /vol overload started on High flow 02 by pulmonology Cxray shows persisted pulmonary effusion SEVERE CAD /ISCHEMIC CARDIOMYOPATHY /NSTEMI multivessel CAD s/p recent high risk PCI to left main /LAD /Circumflex has residual severe RCA disease presented with SOB /Hypoxia, elevated troponin repeat ECHO -shows diminished EF 20 % ( was 40 % on 10/2016 ) cont Dual antiplatelet - aspirin and Plavix ; on Coreg /statin s/p cardiac cath with stent placement in LAD LOWER EXT DVT : was on Coumadin on hold since 03/24 for elevated INR CARLOS on CKD stage 4 Cr > 4 given 80 mg IV Lasix had minimum diuresis appreciate input form Nephrology pt will continue to receive diuretics as clinically indicated possible will need Dialysis soon for refractory renal failure INR remains elevated Vit K given yesterday repeat coags ordered HTN on Coreg and Norvasc Hypothyroidism Synthroid 75mcg DVT ppx INR elevated FULL CODE-as per D/w pt and daughter DISPOSITION remain very weak and fragile /very poor functional status with ongoing angina / respiratory distress decompensated CHF /CARLOS will benefit form rehab when medically stable ordered for PT/OT eval OOB as tolerated social service consulted for discharge planning Vital Signs: Date Time Temp Pulse Resp B/P (MAP) Pulse Ox O2 Delivery O2 Flow Rate FiO2 03/28/17 08:00 High Flow Oxygen 35.0 40 03/28/17 07:32 59 14 100 Nasal Cannula 35.0 43 03/28/17 07:25 36.5 62 19 111/67 (82) 99 High Flow Oxygen 03/28/17 04:00 36.4 67 22 100/59 (73) 100 High Flow Oxygen 35.0 36 03/28/17 04:00 High Flow Oxygen 35.0 40 03/28/17 01:46 65 16 98 Nasal Cannula 39.5 40 03/27/17 23:59 High Flow Oxygen 35.0 40 03/27/17 23:28 36.4 61 22 98/55 (69) 97 High Flow Oxygen 37 Humidified Oxygen 03/27/17 20:00 High Flow Oxygen 40.0 40 03/27/17 19:43 36.5 58 23 100/65 (77) 100 High Flow Oxygen 30.9 03/27/17 19:02 64 16 98 Nasal Cannula 35.0 40 03/27/17 16:00 High Flow Oxygen 40.0 40 03/27/17 15:56 36.4 51 20 93/53 (66) 100 High Flow Oxygen 37.0 03/27/17 14:01 54 16 98 Nasal Cannula 35.0 40 03/27/17 12:00 High Flow Oxygen 40.0 40 03/27/17 11:29 36.5 53 19 92/54 (67) 100 High Flow Oxygen Lab Results: Results Past 24 Hours Test 03/27/17 11:14 03/27/17 16:10 03/27/17 16:54 03/27/17 20:27 Range/Units Bedside Glucose 131 130 144 70-90 mg/dl Prothrombin Time 28.8 9.0-12.0 SECONDS Prothromb Time International Ratio 2.6 0.9-1.1 Test 03/28/17 05:43 03/28/17 07:18 Range/Units Prothrombin Time 30.7 9.0-12.0 SECONDS Prothromb Time International Ratio 2.8 0.9-1.1 Activated Partial Thromboplast Time 38.7 21.0-31.0 SECONDS Partial Thromboplastin Ratio 1.5 Sodium Level 129 136-145 mmol/L Potassium Level 3.9 3.5-5.1 mmol/L Chloride Level 84 98-107 mmol/L Carbon Dioxide Level 28 21-32 mmol/L Anion Gap 17.0 3-11 mmol/L Blood Urea Nitrogen 133 7-18 mg/dl Creatinine 4.80 0.60-1.20 mg/dl Est Creatinine Clear Calc Drug Dose 8.3 ml/min Estimated GFR () 9.2 Estimated GFR (Non- 7.9 BUN/Creatinine Ratio 27.6 10-20 Random Glucose 101 70-99 mg/dl Calcium Level 8.1 8.5-10.1 mg/dl Bedside Glucose 137 70-90 mg/dl
[2017-03-27 17:13] LABS: INR 2.6 (0.9-1.1); PROTHROMBIN TIME (PATIENT) 28.8 SECONDS (9.0-12.0)
[2017-03-28] VITALS (12 sets, daily range): BP systolic 99–111; BP diastolic 59–67; PULSE 58–68; TEMP 36.4–36.6; O2SAT 98–100
[2017-03-28] MEDS: LEVALBUTEROL 1.25MG/0.5ML NEB INH SCH ×4 (01:46→20:14)
[2017-03-28] MEDS: IPRATROPIUM BROMIDE NEB SOLN 0.02% 2.5 ML VIAL INH SCH ×4 (01:46→20:14)
[2017-03-28] MEDS: ONDANSETRON INJ 2 MG/ML 2 ML VIAL IV PRN ×2 (04:17→10:16)
[2017-03-28] MEDS: LEVOTHYROXINE 75 MCG TAB PO SCH (05:58)
[2017-03-28 06:22] LABS: INR 2.8 (0.9-1.1); PARTIAL THROMBOPLASTIN RATIO 1.5; PROTHROMBIN TIME (PATIENT) 30.7 SECONDS (9.0-12.0)
[2017-03-28 06:43] LABS: BUN/CREATININE RATIO 27.6 (10-20); CALCIUM 8.1 mg/dl (8.5-10.1); CREATININE 4.8 mg/dl (0.60-1.20); POTASSIUM 3.9 mmol/L (3.5-5.1)
[2017-03-28] MEDS: INSULIN ASPART 100 UNITS/ML 3 ML PEN SC SCH ×4 (07:00→20:02)
[2017-03-28] MEDS: POLYETHYLENE (MIRALAX) 17 GM PACK PO SCH ×3 (08:18→20:07)
[2017-03-28] MEDS: CARVEDILOL 12.5 MG TAB PO SCH ×2 (09:00→20:04)
[2017-03-28] MEDS: DOCUSATE SODIUM/SENNA 50/8.6MG TAB PO SCH (09:00)
--- NOTE | 2017-03-28 09:04 | Nephrology Progress Note ---
Nephrology Progress Note Date of Service: Mar 28, 2017. Subjective intermittent L chest pain still and very tired, all over "achy," w/ N and minimal po-ate a few bites of breakfast only. hyperesthesias BLE. Objective Date Time Temp Pulse Resp B/P (MAP) Pulse Ox O2 Delivery O2 Flow Rate FiO2 03/28/17 07:32 59 14 100 Nasal Cannula 35.0 43 03/28/17 07:25 36.5 62 19 111/67 (82) 99 High Flow Oxygen 03/28/17 04:00 36.4 67 22 100/59 (73) 100 High Flow Oxygen 35.0 36 03/28/17 04:00 High Flow Oxygen 35.0 40 03/28/17 01:46 65 16 98 Nasal Cannula 39.5 40 03/27/17 23:59 High Flow Oxygen 35.0 40 03/27/17 23:28 36.4 61 22 98/55 (69) 97 High Flow Oxygen 37 Humidified Oxygen 03/27/17 20:00 High Flow Oxygen 40.0 40 03/27/17 19:43 36.5 58 23 100/65 (77) 100 High Flow Oxygen 30.9 03/27/17 19:02 64 16 98 Nasal Cannula 35.0 40 03/27/17 16:00 High Flow Oxygen 40.0 40 03/27/17 15:56 36.4 51 20 93/53 (66) 100 High Flow Oxygen 37.0 03/27/17 14:01 54 16 98 Nasal Cannula 35.0 40 03/27/17 12:00 High Flow Oxygen 40.0 40 03/27/17 11:29 36.5 53 19 92/54 (67) 100 High Flow Oxygen Physical Exam: GEN: ill appearing F w/ increased wob, tired, ate HEENT: Normocephalic, atraumatic. NECK: Supple. RESPIRATORY: Decreased breath sounds bilaterally 1/2 way up and prolonged exp phase CARDIOVASCULAR: Regular rate and rhythm, distant ABDOMEN: Soft, nontender, goodson w/ scant urine EXTREMITIES: no edema with chronic venous skin changes; tender to palpation NEUROLOGIC: generalized weakness, tired, oriented x 3 Current Inpatient Medications Medications (Trade) Dose Ordered Sig/Izaiah Route Start Time Stop Time Status Last Admin Dose Admin Acetaminophen (Tylenol Tab) 650 mg Q4H PRN PO 03/18/17 02:30 04/17/17 02:29 03/25/17 06:06 650 MG Insulin Aspart (novoLOG ASPART) SLIDING SCALE If C... ACHS SC 03/18/17 07:00 04/17/17 06:59 03/21/17 21:52 1 UNITS Glucose (Glucose 40% Gel) 15-30 GRAMS 15 GRAMS... UD PRN PO 03/18/17 02:30 04/17/17 02:29 Glucose (Glucose Chew Tab) 4-8 Tablets 4 Tabl... UD PRN PO 03/18/17 02:30 04/17/17 02:29 Dextrose (Dextrose 50% 50ML Syringe) 25-50ML OF 50% DW IV FOR... UD PRN IV 03/18/17 02:30 04/17/17 02:29 Glucagon (Glucagon Inj) 1 mg UD PRN SQ 03/18/17 02:30 04/17/17 02:29 Hydromorphone HCl (Dilaudid Inj) 0.5 mg Q3H PRN IV 03/18/17 02:30 04/01/17 02:29 03/24/17 17:34 0.5 MG Tramadol HCl (Ultram Tab) 25 mg Q6H PRN PO 03/18/17 02:30 04/17/17 02:29 03/27/17 12:30 25 MG Atorvastatin Calcium (Lipitor Tab) 80 mg DAILY PO 03/18/17 09:00 04/17/17 08:59 03/27/17 09:07 80 MG Clopidogrel Bisulfate (plAVix TAB) 75 mg DAILY PO 03/18/17 09:00 04/17/17 08:59 03/27/17 09:07 75 MG Senna/Docusate Sodium (Senokot S Tab) 2 tab DAILY PO 03/18/17 09:00 04/17/17 08:59 03/27/17 09:08 2 TAB Aspirin (Ecotrin Tab) 81 mg QAM PO 03/18/17 09:00 04/17/17 08:59 03/27/17 09:07 81 MG Pantoprazole Sodium (Protonix Tab) 40 mg QAM PO 03/19/17 09:00 04/18/17 08:59 03/27/17 09:08 40 MG Levothyroxine Sodium (Synthroid Tab) 75 mcg DAILYBB PO 03/21/17 06:00 04/17/17 06:59 03/27/17 06:05 75 MCG Carvedilol (Coreg Tab) 12.5 mg BID PO 03/22/17 21:00 04/17/17 08:59 03/26/17 20:39 12.5 MG Polyethylene (Miralax Powder Packet) 17 gm BID PO 03/24/17 21:00 04/23/17 08:59 03/26/17 08:25 17 GM Sodium Biphosphate/ Sodium Phosphate (Fleet Enema) 132 ml DAILY PRN FL 03/24/17 12:30 04/23/17 12:29 Warfarin Sodium (Coumadin Tab) 5 mg DAILY@16 PO 03/24/17 16:00 04/23/17 15:59 Future Hold 03/24/17 17:00 5 MG Nitroglycerin (Nitrostat Tab) 0.4 mg PRN PRN SL 03/25/17 18:30 04/24/17 18:29 Isosorbide Mononitrate (Imdur Ext Rel Tab) 90 mg QAM PO 03/26/17 09:00 04/17/17 08:59 03/27/17 09:07 90 MG Ipratropium Barnard (Atrovent 0.02% 0.5MG/2.5ML Neb) 0.5 mg Q6H PRN INH 03/25/17 19:00 04/24/17 18:59 03/25/17 20:11 0.5 MG Levalbuterol (Xopenex 0.63 Mg/ 3 Ml Neb) 0.63 mg Q6H PRN INH 03/25/17 19:00 04/24/17 18:59 03/25/17 20:12 0.63 MG Ipratropium Barnard (Atrovent 0.02% 0.5MG/2.5ML Neb) 0.5 mg Q6R INH 03/25/17 21:00 04/24/17 20:59 03/28/17 07:31 0.5 MG Levalbuterol (Xopenex 1.25MG/ 0.5ML Neb) 1.25 mg Q6R INH 03/25/17 21:00 04/24/17 20:59 03/28/17 07:32 1.25 MG Ondansetron HCl (Zofran Inj) 4 mg Q6H PRN IV 03/26/17 14:15 04/25/17 14:14 03/28/17 04:17 4 MG Last 24 Hours Test 03/27/17 11:14 03/27/17 16:10 03/27/17 16:54 03/27/17 20:27 Bedside Glucose 131 mg/dl 130 mg/dl 144 mg/dl Prothrombin Time 28.8 SECONDS Prothromb Time International Ratio 2.6 Test 03/28/17 05:43 03/28/17 07:18 Prothrombin Time 30.7 SECONDS Prothromb Time International Ratio 2.8 Activated Partial Thromboplast Time 38.7 SECONDS Partial Thromboplastin Ratio 1.5 Sodium Level 129 mmol/L Potassium Level 3.9 mmol/L Chloride Level 84 mmol/L Carbon Dioxide Level 28 mmol/L Anion Gap 17.0 mmol/L Blood Urea Nitrogen 133 mg/dl Creatinine 4.80 mg/dl Est Creatinine Clear Calc Drug Dose 8.3 ml/min Estimated GFR () 9.2 Estimated GFR (Non- 7.9 BUN/Creatinine Ratio 27.6 Random Glucose 101 mg/dl Calcium Level 8.1 mg/dl Bedside Glucose 137 mg/dl Other Studies: 03/27 cxr > congestive failure Assessment & Plan 81-year-old female with chronic kidney disease stage 4 with a baseline creatinine of around 2.5, DM, severe CAD w/ recent high risk lad stent prior to admission and s/p JASMYNE x 2 to LAD this admission presented 03/18 with chest pain as well as shortness of breath and found to have acute non-ST elevation myocardial infarction as well as possible pulmonary embolism, + deep venous thrombosis and pulmonary edema/hypoxemic respiratory failure. -acute on advanced chronic renal failure, worsening. from a baseline of 2.5 her creatinine has increased further today at 4.8; -would give another 80 mg IV lasix x 2 doses today < these are temporizing measures -believe she will need dialysis next 24-48 hrs and will ask vascular to evaluate her for TDC placement; INR will need to be corrected -cont daily bmp and strict I/O -not currently on a fluid limit >> she is however hardly eating >not currently on renal diet >> K acceptable for now however -acute heart failure/ ischemic [employer] she has had a drop in ejection fraction from 40% to 25%; severe underlying CAD w / recent intervention and still diffuse disease > s/p 9/7 L heart cath/stent on -multifactorial hypoxemia pulm following; on high gabriel 02 appreciate consult; will follow with you. care coordinated w/ Dr. Cruz.
[2017-03-28] MEDS: ASPIRIN 81 MG ECTAB PO SCH (09:20)
[2017-03-28] MEDS: ATORVASTATIN 40 MG TAB PO SCH (09:20)
[2017-03-28] MEDS: PANTOprazole SOD 40 MG TAB PO SCH (09:21)
[2017-03-28] MEDS: ISOSORBIDE MONONITRATE 60 MG TABCR PO SCH (09:21)
[2017-03-28] MEDS: CLOPIDOGREL BISULFATE 75 MG TAB PO SCH (09:21)
[2017-03-28] MEDS ORDERED: PHYTONADIONE 5 MG TAB PO STA (09:24)
[2017-03-28] MEDS ORDERED: PHYTONADIONE INJ 5 MG in SODIUM CHLORIDE 0.9% 50ML 50 ML IV STA (09:35)
[2017-03-28] MEDS ORDERED: FUROSEMIDE INJ 80 MG in SYRINGE 0 ML IV ONE (09:45)
--- NOTE | 2017-03-28 10:12 | Surgery Consultation ---
Consultation Date of Service Mar 28, 2017. Chief Complaint Acute on chronic renal failure, need permcath History of Present Illness The patient is a 81 year old female with multiple medical problems, admitted with ACS and found to have NSTEMI, s/p coronary stenting, respiratory failure, DVT/PE, and acute on chronic renal failure, seen today for insertion of permcath for HD. Pt admits fatigue, anxiety, and VALDES/SOB, decreased appetite. Denies GOLDSTEIN, fever, chills, chest pain currently, abd pain, N/V, rest pain, claudication, other complaints. Vitals Vital Signs Past 12 Hours Date Time Temp Pulse Resp B/P (MAP) Pulse Ox O2 Delivery O2 Flow Rate FiO2 03/28/17 08:00 High Flow Oxygen 35.0 40 03/28/17 07:32 59 14 100 Nasal Cannula 35.0 43 03/28/17 07:25 36.5 62 19 111/67 (82) 99 High Flow Oxygen 03/28/17 04:00 36.4 67 22 100/59 (73) 100 High Flow Oxygen 35.0 36 03/28/17 04:00 High Flow Oxygen 35.0 40 03/28/17 01:46 65 16 98 Nasal Cannula 39.5 40 03/27/17 23:59 High Flow Oxygen 35.0 40 03/27/17 23:28 36.4 61 22 98/55 (69) 97 High Flow Oxygen 37 Humidified Oxygen Allergies Coded Allergies: Lorazepam (Verified Adverse Reaction, Mild, 0, 03/21/17) excessive sedation Home Medications Scheduled Amlodipine (Norvasc), 5 MG PO DAILY Atorvastatin (Lipitor), 80 MG PO DAILY Carvedilol (Coreg), 6.25 MG PO AMPM Cholecalciferol (Vitamin D3), 2,000 UNIT PO DAILY Clopidogrel (Plavix), 75 MG PO DAILY Cyanocobalamin (Vitamin B-12), 1,000 MCG PO DAILY Furosemide (Lasix), 40 MG PO DAILY Home O2 Therapy (Oxygen), 2 LITERS NA HS Isosorbide Mononitrate (Imdur Ext Rel), 60 MG PO QAM Levothyroxine Sodium (Levothyroxine Sodium), 88 MCG PO DAILY Senna/Docusate Sod (Senokot S), 2 TAB PO DAILY Scheduled PRN Nitroglycerin (Nitrostat), 0.4 MG UT UD PRN for Chest Pain Problem List Medical Problems: (1) Diabetes (2) History of heart disease (3) Myocardial infarction (4) Renal failure (5) Respiratory failure, acute Surgical Problems: (1) History of intravascular stent placement Surgical / Medical History Hx Cardiac Surgery: Yes Hx Abdominal Surgery: No Hx Cancer Surgery: No Hx Thoracic Surgery: No Hx Orthopedic: No Hx Urinary Tract Surgery: No HX Other Surgery: No Past Medical/Surgical History: Heart Disease, High Cholesterol, Hypertension, [place], Pulmonary Emboli, Thyroid Disease Family History No pertinent family history + HTN, CAD Social History Smoking Status: Never Smoker Hx Tobacco Use In Past Year?: No Hx Alcohol Use - Type & Amnt: No Hx Substance Use -Type & Amnt: No Review of Systems Constitutional: + malaise, No fever Skin: No change in color Eyes: No visual changes ENMT: No sore throat Respiratory: + VALDES, + orthopnea, + short of breath, No cough, No hemoptysis Cardiovascular: No chest pain, No palpitations, No syncope, No edema, No intermittent claudication Gastrointestinal: No abdominal pain, No nausea, No vomiting Genitourinary - Female: No dysuria Neurologic: + lethargy, No dizziness, No headache, No numbness, No tingling Physical Exam Constitutional: General Apperance: well-nourished, well-developed Level of Distress: NAD, acutely ill, chronically ill Psychiatric: Mental Status: active & alert, normal mood, anxious Orientation: oriented except where noted, to time, to place, to person Memory: recent memory normal, remote memory normal Head: normocephalic, atraumatic Eyes: EOM: EOMI ENMT: normal ENT inspection, hearing grossly normal Neck: supple, trachea midline Lungs: Respiratory effort: no dyspnea Auscultation: no rhonchi, deminished air movement, decreased breath sounds, wet rales/crackles Cardiovascular: Apical Impulse: not displaced Heart Auscultation: RRR, no murmurs, no gallops Peripheral Pulses: Pulses: full and equal, in all extremities except if noted Bruits: none appreciated Carotid Pulse: normal on the left, normal on the right Brachial Pulses: normal on the left, normal on the right Radial Pulse: normal on the left, normal on the right Femoral Pulse: normal on the left, normal on the right Posterior Tibialis Pulse: decreased on the left, decreased on the right Dorsalis Pedis Pulse: decreased on the left, decreased on the right Abdomen: Bowel Sounds: normal Inspection & Palpation: soft, non-distended, no tenderness, guarding & rebound Musculoskeletal: normal strength (5/5 throughout), normal tone Extremities: Upper Right: no cyanosis, no varicosities, edema Upper Left: no cyanosis, no varicosities, no palpable cord, edema Lower Right: no cyanosis, no varicosities, no palpable cord, edema Lower Left: no cyanosis, no varicosities, no palpable cord, edema Neurologic: Cranial Nerves: grossly intact Sensation: grossly intact Assessment and Plan ASSESSMENT and PLAN: Acute on chronic renal disease Pt for permcath insertion under anesthesia tomorrow. Procedure, risks, benefits, and alternatives discussed with pt, she expresses understanding and agreement.
--- NOTE | 2017-03-28 10:16 | Progress Note ---
Internal Med Progress Note Date of Service: Mar 28, 2017. Provider Documentation: SUBJECTIVE: had uneventful night continues on High flow 02 40% Fio2 mentions breathing much better urine out put remains low despite high dose of Lasix ( 80 mg IV given yesterday ) evaluated by nephrology -will need dialysis vascular surgery consult placed IV Vit K ordered for elevated INR pt is tearful on prospect of dialysis and possibility on being on dialysis senior care pt is counselled i did ask her she can let us know if she does not want any of the invasive procedure as it may not give her senior care quality or longevity her prognosis remains poor she is unsure , at present wants to have dialysis if it makes her feel better OBJECTIVE: Vital Signs-as noted below Exam: General-chronically ill appearing elderly female , anxious /tearful Eyes-sclera non icteric Neck-no JVD noted Lungs-diminished with rales at base Heart-regular Abdomen-soft Extremities-+ 1 -2 bilat edema Neuro-no focal deficit . Lab data as noted below. ASSESSMENT & PLAN: CARLOS/ATN on CKD stage 4 Cr continues to be elevated > 4 with oliguria /aneuria large dose of IV Lasix given had minimum diuresis appreciate input form Nephrology will need Dialysis for refractory renal failure /vol overload Vascular surgery consulted -Dr Nicole aware , consent for Perm Cath obtained form Pt INR remains elevated 2.8 , ordered for Vit K 5 mg IV today repeat INR to be checked at 6 pm will give repeat Vit K dose if INR still > 2 pt's prognosis remains poor , pt is aware ACUTE CHF WITH SYSTOLIC DYSFUNCTION /ISCHEMIC CARDIOMYOPATHY : UNSTABLE ANGINA/NSTEMI /IN SETTING OF SEVER CAD : s/p cardiac cath FOUND TO HAVE : LM - Widely patent stent LAD - Widely patent proximal stent; 95% early-mid focal stenosis at take-off of small 1st diagonal, ectatic post stenosis; Diffuse moderate disease in mid segment; distal luminal irregularities as wraps around apex. 2nd diagonal with mild diffuse disease. Circumflex - Large caliber vessel, widely patent overlapping stents from ostium to mid segment; Luminal irregularities in moderate size OM2, OM3. RCA - Dominant, proximal to distal segment overlapping stents with severe in- stent restenosis, 100% occlusion in distal stent. 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 to be on dual antiplatelet therapy for senior care Imdur dose increased form 60 to 90 mg daily for chronic intermittent angina ( hold for SBP < 100 ) no further symptom of angina since adjustment of nitro dose cont SL nitro as needed given recent JASMYNE stent -pt will need to be on uninterrupted tx on Aspirin / Plavix Cardiology following Acute Hypoxemic Respiratory Failure-Multifactorial Acute on Chronic Systolic CHF/SEVERE ICM /CARLOS ON CKD Stage 4 /vol overload on High flow 02 Fi02 40 % pulmonology following Cxray shows persisted pulmonary effusion will need Dialysis for vol overload , no able to diuresis with high dose of IV Lasix due to CARLOS prognosis remains poor SEVERE CAD /ISCHEMIC CARDIOMYOPATHY /NSTEMI multivessel CAD s/p recent high risk PCI to left main /LAD /Circumflex has residual severe RCA disease presented with SOB /Hypoxia, elevated troponin repeat ECHO -shows diminished EF 20 % ( was 40 % on 10/2016 ) s/p cardiac cath with stent placement in LAD cont Dual antiplatelet - aspirin and Plavix ; on Coreg /statin LOWER EXT DVT : was on Coumadin on hold since 03/24 for elevated INR UTI WITH COAG NEGATIVE STAPH IN URINE CULTURE : oxacillin resistant on urine culture 03/21 and 03/22 possible due to indwelling Matos ordered for IV Vancomycin 1 gm X1 pharmacy consulted repeat urine culture ordered today HTN on Coreg and Norvasc Hypothyroidism Synthroid 75mcg DVT ppx INR elevated getting vit K for elevated INR /needs Perm Cath placement FULL CODE-as per D/w pt and daughter DISPOSITION pt's over all prognosis remains poor remain very weak and fragile /very poor functional status with ongoing angina / respiratory distress decompensated CHF /CARLOS was living with Daughter will need rehab /SNF when medically stable and arrangements for out pt dialysis PT/OT eval OOB as tolerated social service updated for discharge planning Vital Signs: Date Time Temp Pulse Resp B/P (MAP) Pulse Ox O2 Delivery O2 Flow Rate FiO2 03/28/17 16:00 100 Nasal Cannula 3.0 03/28/17 14:53 36.6 58 20 99/62 (74) 100 Nasal Cannula 3.0 03/28/17 14:17 59 14 100 Nasal Cannula 35.0 30 03/28/17 12:00 High Flow Oxygen 35.0 40 03/28/17 11:53 36.4 59 18 100/ (33) 100 High Flow Oxygen 03/28/17 08:00 High Flow Oxygen 35.0 40 03/28/17 07:32 59 14 100 Nasal Cannula 35.0 43 03/28/17 07:25 36.5 62 19 111/67 (82) 99 High Flow Oxygen 03/28/17 04:00 36.4 67 22 100/59 (73) 100 High Flow Oxygen 35.0 36 03/28/17 04:00 High Flow Oxygen 35.0 40 03/28/17 01:46 65 16 98 Nasal Cannula 39.5 40 03/27/17 23:59 High Flow Oxygen 35.0 40 03/27/17 23:28 36.4 61 22 98/55 (69) 97 High Flow Oxygen 37 Humidified Oxygen 03/27/17 20:00 High Flow Oxygen 40.0 40 03/27/17 19:43 36.5 58 23 100/65 (77) 100 High Flow Oxygen 30.9 03/27/17 19:02 64 16 98 Nasal Cannula 35.0 40 Lab Results: Results Past 24 Hours Test 03/27/17 20:27 03/28/17 05:43 03/28/17 07:18 03/28/17 11:01 Range/Units Bedside Glucose 144 137 138 70-90 mg/dl Prothrombin Time 30.7 9.0-12.0 SECONDS Prothromb Time International Ratio 2.8 0.9-1.1 Activated Partial Thromboplast Time 38.7 21.0-31.0 SECONDS Partial Thromboplastin Ratio 1.5 Sodium Level 129 136-145 mmol/L Potassium Level 3.9 3.5-5.1 mmol/L Chloride Level 84 98-107 mmol/L Carbon Dioxide Level 28 21-32 mmol/L Anion Gap 17.0 3-11 mmol/L Blood Urea Nitrogen 133 7-18 mg/dl Creatinine 4.80 0.60-1.20 mg/dl Est Creatinine Clear Calc Drug Dose 8.3 ml/min Estimated GFR () 9.2 Estimated GFR (Non- 7.9 BUN/Creatinine Ratio 27.6 10-20 Random Glucose 101 70-99 mg/dl Calcium Level 8.1 8.5-10.1 mg/dl Test 03/28/17 16:05 03/28/17 18:31 Range/Units Bedside Glucose 149 70-90 mg/dl Microbiology Results 03/28/17 Urine Culture, Received Pending
[2017-03-28] MEDS ORDERED: VANCOMYCIN CONSULT ACTIVE PRN (10:45)
--- NOTE | 2017-03-28 10:57 | Pharmacy Progress Note ---
Pharmacy Abx Initial Consult Date of Service Mar 28, 2017. Pharmacy Dosing Scope Date of Consult: 03/28/17 Consultation requested by: Dr. Cruz Pharmacy is consulted to initiate Vancomycin IV dosing therapy, order appropriate labs and adjust drug dose/frequency. Subjective The patient is a 81 year old female admitted on Mar 18, 2017 at 01:26. Objective Height (Feet): 5 Height (Inches): 3.00 Weight (Kilograms): 65.000 Vital Signs (Past 12Hrs) Vital Signs Past 12 Hours Date Time Temp Pulse Resp B/P (MAP) Pulse Ox O2 Delivery O2 Flow Rate FiO2 03/28/17 08:00 High Flow Oxygen 35.0 40 03/28/17 07:32 59 14 100 Nasal Cannula 35.0 43 03/28/17 07:25 36.5 62 19 111/67 (82) 99 High Flow Oxygen 03/28/17 04:00 36.4 67 22 100/59 (73) 100 High Flow Oxygen 35.0 36 03/28/17 04:00 High Flow Oxygen 35.0 40 03/28/17 01:46 65 16 98 Nasal Cannula 39.5 40 03/27/17 23:59 High Flow Oxygen 35.0 40 03/27/17 23:28 36.4 61 22 98/55 (69) 97 High Flow Oxygen 37 Humidified Oxygen Micro Results Date/Time Source Procedure Growth Status 03/22/17 16:20 Nasal MRSA DNA Surveillance Screen - Final Specimen Negative for MRSA by DNA Probe Complete 03/22/17 18:00 Urine,Catheterized Urine Culture - Final Coag Neg Staph Not Saprophytic Complete 03/21/17 00:00 Urine , Clean Catch Urine Culture - Final Coag Neg Staph Not Saprophytic Complete 03/18/17 05:10 Urine , Clean Catch Urine Culture - Final MORE THAN THREE TYPES OF ORGANISMS RI... Complete Risk Factors for Resistance * Current hospitalization > 5 days Assessment & Plan Assessment 81 year old female with an uncomplicated UTI with cultures from 03/21 and 03/22 positive for coag neg staph oxacillin resistant. Patient to have permacath placement 03/29 for HD. Plan Vancomycin for treatment of uncomplicated UTI. Vancomycin IV * Loading dose: 1250 mg (20 mg/kg) * Goal pre-HD level for Uncomplicated UTI : 15 to 20 mcg/mL * Random level ordered for 03/29/17 with am labs Pharmacy will continue to follow and will adjust dose/frequency as necessary. Thank you.
[2017-03-28] MEDS ORDERED: VANCOMYCIN INJ 1,250 MG in SODIUM CHLORIDE 0.9% 250ML 250 ML IV ONE (11:00)
--- NOTE | 2017-03-28 13:54 | Clinical Documentation Query ---
CLINICAL DOCUMENTATION QUERY Dr. NICOLAS, In your clinical opinion is this patient being managed for: ( x ) CARLOS with ATN ( ) Not Agree ( ) Other explanation of clinical findings (Please Explain) ( ) Unable to determine (Please Define) ( ) Need to Discuss The medical record reflects the following clinical findings, treatment, and risk factors. Clinical Indicators: 81 yo female presenting with NSTEMI. Initially Cr 2.60 which has continued to worsen to Cr 4.80. Pt's urine output has remained low despite high dose lasix Treatment: nephrology consult, plan for hemodialysis, vascular surgery consult, serial PRP's Risk Factors: NSTEMI, ischemic cardiomyopathy, acute systolic CHF, age Please clarify and document your clinical opinion in the progress notes and discharge summary. Terms such as "probable", "suspected", "likely", "questionable", "possible", or "still to be ruled out" are acceptable. IF IN AGREEMENT, YOU MUST DOCUMENT ABOVE DIAGNOSTIC STATEMENT IN DAILY PROGRESS NOTES AND DISCHARGE SUMMARY. This document is not part of the patient's record. Thank You, Mary Amato, ERYN [phone]
[2017-03-28] MEDS: FUROSEMIDE INJ 80 MG in SYRINGE 0 ML IV SCH (16:48)
[2017-03-28 18:54] LABS: INR 1.5 (0.9-1.1); PROTHROMBIN TIME (PATIENT) 16.7 SECONDS (9.0-12.0)
--- NOTE | 2017-03-28 20:40 | Anesthesiology Progress Note ---
Anesthesia Progress Note Date of Service Mar 28, 2017. Progress Notes This is an 81 y/o w female with worsening renal function presenting for a permacath for H/D.PMHx is sig. for HTN,Hyperlipidemia,LLE DVT,Hx/o SVT,Mod., Mod MR,severe multivessel CAD,s/p NSTEMI november 2016 and 03/17/2017,s/p ptca/ multiple stents,pulm. HTN,ICM, nocturnal hypoxemia,Gerd,H/H,Hx/o gastric ulcer w /bleed,Hypothyroidism,and NIDDM. Discussed anesthesia w/pt,risks vs benefits, all questions answered.
[2017-03-28] MEDS: ACETAMINOPHEN 325 MG TAB PO PRN (22:14)
[2017-03-29] VITALS (26 sets, daily range): BP systolic 88–115; BP diastolic 37–70; PULSE 58–92; TEMP 36.4–36.6; O2SAT 93–100
[2017-03-29] MEDS: LEVALBUTEROL 1.25MG/0.5ML NEB INH SCH ×4 (02:02→19:40)
[2017-03-29] MEDS: IPRATROPIUM BROMIDE NEB SOLN 0.02% 2.5 ML VIAL INH SCH ×4 (02:02→19:40)
[2017-03-29] MEDS ORDERED: CEFAZOLIN 1000MG/55 ML D5W IV SCH (06:00)
[2017-03-29 06:13] LABS: HEMATOCRIT 25.5 % (37-47); MEAN CELL VOLUME 89.2 fL (80-100); MEAN CORPUSCULAR HEMOGLOBIN 30.4 pg (25-34); MEAN CORPUSCULAR HGB CONC 34.1 g/dl (32-36); MEAN PLATELET VOLUME 10.3 fL (7.4-10.4); PLATELET COUNT 199 K/uL (130-400); RED BLOOD COUNT 2.86 M/uL (4.2-5.4); WHITE BLOOD COUNT 8.69 K/uL (4.8-10.8)
[2017-03-29 06:23] LABS: INR 1.2 (0.9-1.1); PARTIAL THROMBOPLASTIN RATIO 1.1; PROTHROMBIN TIME (PATIENT) 13.4 SECONDS (9.0-12.0)
[2017-03-29 06:59] LABS: BUN/CREATININE RATIO 27.1 (10-20); CALCIUM 8.1 mg/dl (8.5-10.1); CREATININE 5.2 mg/dl (0.60-1.20)
[2017-03-29] MEDS: INSULIN ASPART 100 UNITS/ML 3 ML PEN SC SCH ×4 (07:00→21:00)
[2017-03-29] MEDS ORDERED: CEFAZOLIN IV 1,000 MG in DEXTROSE 5% 50ML 50 ML IV ONE (08:00)
[2017-03-29] MEDS ORDERED: EPOETIN ALFA 10,000 UNITS/ML VIAL IV. ONE (08:00)
[2017-03-29] MEDS ORDERED: FENTANYL CITRATE INJ 50 MCG/1 ML 2 ML VIAL ONE (08:07)
[2017-03-29] MEDS ORDERED: ONDANSETRON INJ 2 MG/ML 2 ML VIAL ONE (08:07)
[2017-03-29] MEDS ORDERED: PROPOFOL IV EMULSION 10 MG/ML 20 ML VIAL IV ONE (08:07)
[2017-03-29] MEDS ORDERED: LIDOCAINE HCL 2% 2 ML VIAL (20MG/ML) ONE (08:07)
[2017-03-29] MEDS ORDERED: ETOMIDATE 2 MG/ML 20 ML VIAL IV ONE (08:07)
--- NOTE | 2017-03-29 08:07 | Progress Note ---
Progress Note Date of Service Mar 29, 2017. Progress Note Patient for insertion of a permcath. I have discussed the risks options and benefits of the procedure with the patient. The patient understands the risks options and benefits and agrees to the procedure. I have examined the patient, reviewed the History & Physical and in the interval since the performance of the History & Physical I have noted the following changes of clinical significance: No changes noted
[2017-03-29] MEDS ORDERED: HEPARIN SOD (PORCINE) 5000 UNIT/ML 1 ML VIAL ONE (08:09)
[2017-03-29] MEDS ORDERED: EpHEDrine SULFATE INJ 50 MG/ML AMP IV PRN (08:15)
[2017-03-29] MEDS ORDERED: ATROPINE SULFATE 0.1 MG/ML 5ML SYR IV PRN (08:15)
[2017-03-29] MEDS ORDERED: FENTANYL CITRATE INJ 50 MCG/1 ML 2 ML VIAL IV PRN (08:15)
[2017-03-29] MEDS ORDERED: LIDOCAINE HCL 1% 20 ML VIAL INJ ONE (08:49)
[2017-03-29] MEDS ORDERED: HEPARIN SOD (PORCINE) 5000 UNIT/ML 1 ML VIAL IV ONE (08:55)
[2017-03-29] MEDS: CARVEDILOL 12.5 MG TAB PO SCH ×2 (09:00→21:00)
[2017-03-29] MEDS: POLYETHYLENE (MIRALAX) 17 GM PACK PO SCH ×2 (09:00→21:00)
[2017-03-29] MEDS: DOCUSATE SODIUM/SENNA 50/8.6MG TAB PO SCH (09:00)
[2017-03-29] MEDS: ISOSORBIDE MONONITRATE 60 MG TABCR PO SCH (09:00)
[2017-03-29] MEDS: CLOPIDOGREL BISULFATE 75 MG TAB PO SCH (09:00)
[2017-03-29] MEDS ORDERED: EPOETIN ALFA INJ 8,000 UNITS in SYRINGE 0 ML IV. SCH (09:00)
[2017-03-29] MEDS: FUROSEMIDE INJ 80 MG in SYRINGE 0 ML IV SCH ×2 (09:00→16:07)
[2017-03-29] MEDS: ASPIRIN 81 MG ECTAB PO SCH (09:00)
--- NOTE | 2017-03-29 09:03 | [facility] Operative Report ---
Operative Report Operative Date Mar 29, 2017. Pre-Operative Diagnosis acute renal failure Post-Operative Diagnosis same Procedure(s) Performed Insertion Of Perm Catheter, Right Internal Jugular Approach, Ultrasound Localization Of Right Internal Jugular Vein, Fluoroscopy For Positioning Surgeon Dr. Nicole Family Law Paralegal Surgeon(s) none Estimated Blood Loss 5 ml Findings tip in distal svc Specimens none Anesthesia MAC Disposition Recovery Room / PACU Indications This is a 81-year-old female who was admitted with a myocardial infarction. She is in acute renal failure with fluid overload. PermCath insertion was recommended. She understood the risks options and benefits and agreed to go ahead with this procedure. Description of Procedure Patient was takent to the angio suite and placed in the supine position. The right side of the neck and chest wall were prepped and draped in a sterile manner. Local anesthesia was then administered to the appropriate areas of the neck and chest wall. Ultrasound was then used to locate the right internal jugular vein. The vein compressed easily, had no filing defects, and was patent. The vein was then punctured under direct ultrasound imaging. A guidewire was then passed centrally under fluoroscopic imaging. A stab wound was then made in the anterior chest wall and a 19 cm permcath was passed from the stab wound on the chest wall to the puncture site on the neck. The puncture site was then dilated till the 14Fr peel away sheath was inserted. The permcath was then inserted through the sheath to a central position in the distal superior vena cava. The peel away sheath was then removed. The catheter was then sutured in place using nylon sutures. The puncture was then closed using a 4-0 Vicryl subcuticular suture. Dermabond was used for a dressing on the puncture site. Both ports aspirated and flushed easily and were then packed with heparin. A sterile dressing was applied to the catheter. The patient left the angio suite in good condition and tolerated the procedure well. I attest to the content of the Intraoperative Record and any orders documented therein. Any exceptions are noted below.
--- NOTE | 2017-03-29 10:10 | Anesthesiology Progress Note ---
Anesthesia Post Op Note Date & Time Mar 29, 2017 at 10:10 Vital Signs Pain Intensity: 0 Vital Signs Past 12 Hours Date Time Temp Pulse Resp B/P (MAP) Pulse Ox O2 Delivery O2 Flow Rate FiO2 03/29/17 09:55 62 18 111/59 97 Nasal Cannula 2 03/29/17 09:45 61 13 109/57 96 Nasal Cannula 2 03/29/17 09:35 63 14 107/72 96 Nasal Cannula 2 03/29/17 09:25 63 17 103/73 98 Oxymask 10 03/29/17 09:15 61 14 106/55 100 Oxymask 10 03/29/17 09:07 36.0 58 12 88/49 97 Oxymask 10 03/29/17 08:25 36.3 69 18 116/51 (72) 97 Nasal Cannula 2 03/29/17 08:00 99 Nasal Cannula 3.0 03/29/17 07:49 63 16 99 Nasal Cannula 3.0 03/29/17 07:42 36.4 64 18 107/68 (81) 100 Nasal Cannula 3.0 03/29/17 04:11 36.6 59 20 97/55 (69) 99 Nasal Cannula 3.0 03/29/17 04:00 Nasal Cannula 3.0 03/29/17 02:02 58 16 100 Nasal Cannula 3.0 03/28/17 23:59 Nasal Cannula 3.0 03/28/17 23:51 36.5 64 21 111/62 (78) 100 Nasal Cannula 3.0 Notes Mental Status: alert / awake / arousable, participated in evaluation Pt Amnestic to Procedure: Yes Nausea / Vomiting: adequately controlled Pain: adequately controlled Airway Patency, RR, SpO2: stable & adequate BP & HR: stable & adequate Hydration State: stable & adequate Anesthetic Complications: no major complications apparent
[2017-03-29] MEDS: ONDANSETRON INJ 2 MG/ML 2 ML VIAL IV PRN (10:18)
--- NOTE | 2017-03-29 11:50 | Progress Note ---
Internal Med Progress Note Date of Service: Mar 29, 2017. Provider Documentation: SUBJECTIVE: Seen and examined at bedside Currently being planned for HD Got HD catheter placed States having some pain at the catheter site Poor historian OBJECTIVE: Vital Signs-as noted below Physical Exam: General Appearance:chronically ill appearing Head: normocephalic, Atraumatic Eyes: normal inspection, EOMI, PERRL Neck: supple, Trachea midline Respiratory/Chest: Diminished breath sounds, CTA Cardiovascular: S1, S2, No murmur Abdomen/GI:Soft, Non tender, Bowel sounds present Extremities/Musculoskelatal:normal inspection, 1+ b/l edema Neurologic/Psych:grossly no focal neurological deficits Skin: normal color, warm Lab data as noted below. ASSESSMENT & PLAN: CARLOS/ATN on CKD IV Baseline Cr:2.5 Got HD catheter placed Appreciate Nephrology/Vascular surgery help HD per Nephrology ACUTE CHF WITH SYSTOLIC DYSFUNCTION /ISCHEMIC CARDIOMYOPATHY : UNSTABLE ANGINA/NSTEMI /IN SETTING OF SEVERE CAD : s/p cardiac cath and stent Continue dual antiplatelet therapy on Coreg /statin Also continue Imdur (dose increased form 60 to 90 mg daily for chronic intermittent angina) continue SL nitro as needed Cardiology following Acute Hypoxemic Respiratory Failure-Multifactorial Secondary to Acute on Chronic Systolic CHF/Severe ICM /CARLOS on CKD Stage 4 /vol overload Appreciate pulmonology Input Dialysis to address volume overload Oxygen support SEVERE CAD /ISCHEMIC CARDIOMYOPATHY /NSTEMI multivessel CAD s/p recent high risk PCI to left main /LAD /Circumflex has residual severe RCA disease repeat ECHO -shows diminished EF 20 % ( was 40 % on 10/2016 ) s/p cardiac cath with stent placement in LAD Continue current meds LOWER EXT DVT : was on Coumadin on hold since 03/24 for elevated INR Plan to resume when appropriate Monitor INR UTI WITH COAG NEGATIVE STAPH IN URINE CULTURE : oxacillin resistant on urine culture 03/21 and 03/22 possible due to indwelling Matos S/P IV Vancomycin pharmacy consulted repeat urine culture pending HTN on Coreg and Norvasc Hypothyroidism Synthroid 75mcg DVT px INR initially elevated, reversed for HD cathter placement FULL CODE-as per D/w pt and daughter DISPOSITION pt's over all prognosis remains poor very poor functional status was living with Daughter Needs rehab /SNF when medically stable and arrangements for out pt dialysis PT/OT eval social service updated for discharge planning Vital Signs: Date Time Temp Pulse Resp B/P (MAP) Pulse Ox O2 Delivery O2 Flow Rate FiO2 03/29/17 11:02 36.6 62 107/70 (82) 03/29/17 10:53 36.6 62 22 107/70 (82) 99 Nasal Cannula 2.0 03/29/17 10:35 36.2 62 22 108/53 98 Nasal Cannula 2 03/29/17 10:25 62 16 111/56 99 Nasal Cannula 03/29/17 10:15 63 18 110/62 96 Nasal Cannula 2 03/29/17 10:05 63 18 111/52 96 Nasal Cannula 2 03/29/17 09:55 62 18 111/59 97 Nasal Cannula 2 03/29/17 09:45 61 13 109/57 96 Nasal Cannula 2 03/29/17 09:35 63 14 107/72 96 Nasal Cannula 2 03/29/17 09:25 63 17 103/73 98 Oxymask 10 03/29/17 09:15 61 14 106/55 100 Oxymask 10 03/29/17 09:07 36.0 58 12 88/49 97 Oxymask 10 03/29/17 08:25 36.3 69 18 116/51 (72) 97 Nasal Cannula 2 03/29/17 08:00 99 Nasal Cannula 3.0 03/29/17 07:49 63 16 99 Nasal Cannula 3.0 03/29/17 07:42 36.4 64 18 107/68 (81) 100 Nasal Cannula 3.0 03/29/17 04:11 36.6 59 20 97/55 (69) 99 Nasal Cannula 3.0 03/29/17 04:00 Nasal Cannula 3.0 03/29/17 02:02 58 16 100 Nasal Cannula 3.0 03/28/17 23:59 Nasal Cannula 3.0 03/28/17 23:51 36.5 64 21 111/62 (78) 100 Nasal Cannula 3.0 03/28/17 20:14 66 16 99 Nasal Cannula 3.0 03/28/17 20:00 100 Nasal Cannula 3.0 03/28/17 19:28 36.4 68 20 103/66 (78) 99 Nasal Cannula 2.0 03/28/17 16:00 100 Nasal Cannula 3.0 03/28/17 14:53 36.6 58 20 99/62 (74) 100 Nasal Cannula 3.0 03/28/17 14:17 59 14 100 Nasal Cannula 35.0 30 03/28/17 12:00 High Flow Oxygen 35.0 40 03/28/17 11:53 36.4 59 18 100/ (33) 100 High Flow Oxygen Lab Results: Results Past 24 Hours Test 03/28/17 16:05 03/28/17 18:02 03/28/17 20:01 03/29/17 05:58 Range/Units Bedside Glucose 149 176 70-90 mg/dl Prothrombin Time 16.7 13.4 9.0-12.0 SECONDS Prothromb Time International Ratio 1.5 1.2 0.9-1.1 White Blood Count 8.69 4.8-10.8 K/uL Red Blood Count 2.86 4.2-5.4 M/uL Hemoglobin 8.7 12.0-16.0 g/dL Hematocrit 25.5 37-47 % Mean Corpuscular Volume 89.2 80-100 fL Mean Corpuscular Hemoglobin 30.4 25-34 pg Mean Corpuscular Hemoglobin Concent 34.1 32-36 g/dl RDW Standard Deviation 43.9 36.4-46.3 fL RDW Coefficient of Variation 13.4 11.5-14.5 % Platelet Count 199 130-400 K/uL Mean Platelet Volume 10.3 7.4-10.4 fL Activated Partial Thromboplast Time 29.4 21.0-31.0 SECONDS Partial Thromboplastin Ratio 1.1 Sodium Level 129 136-145 mmol/L Potassium Level 4.0 3.5-5.1 mmol/L Chloride Level 86 98-107 mmol/L Carbon Dioxide Level 29 21-32 mmol/L Anion Gap 14.0 3-11 mmol/L Blood Urea Nitrogen 138 7-18 mg/dl Creatinine 5.20 0.60-1.20 mg/dl Est Creatinine Clear Calc Drug Dose 7.8 ml/min Estimated GFR () 8.3 Estimated GFR (Non- 7.2 BUN/Creatinine Ratio 27.1 10-20 Random Glucose 105 70-99 mg/dl Calcium Level 8.1 8.5-10.1 mg/dl Random Vancomycin Level 15.1 mcg/ml Test 03/29/17 06:53 03/29/17 08:04 03/29/17 09:12 03/29/17 10:50 Range/Units Bedside Glucose 131 139 149 70-90 mg/dl Microbiology Results 03/28/17 Urine Culture, Received Pending
[2017-03-29 11:53] LABS: HEPATITIS B AB NEG
--- NOTE | 2017-03-29 12:28 | Progress Note ---
Progress Note Date of Service Mar 29, 2017. Progress Note Patient feels SOB but currently saturating 99% on 2L NC. Will obtain Stat CXR post procedure after catheter placement. Discussed with ICU team regarding patient. Appreciate input and will await for Ticket Maker evaluation.
--- NOTE | 2017-03-29 13:06 | DIAGNOSTIC IMAGING REPORT ---
CHEST ONE VIEW PORTABLE CLINICAL HISTORY: Dyspnea S/P Perm. catheter placement COMPARISON STUDY: 03/27/2017 FINDINGS: PermCath placed in the superior vena cava. No evidence pneumothorax. Bilateral pleural effusions unchanged. No evidence pneumothorax. IMPRESSION: PermCath placed in the superior vena cava. No evidence for pneumothorax. The above report was generated using voice recognition software. It may contain grammatical, syntax or spelling errors. Electronically signed by: Ramesh Martinez M.D. 03/29/2017 1:05 PM Dictated Date/Time: 03/29/2017 1:04 PM
[2017-03-29] MEDS ORDERED: LIDOCAINE/EPINEPHRINE 1% 20 ML VIAL ONE (13:55)
[2017-03-29 14:31] LABS: HEMATOCRIT 25.8 % (37-47)
--- NOTE | 2017-03-29 15:19 | Pharmacy Progress Note ---
Pharmacy Antibiotic Prog Note Date of Service Mar 29, 2017. Subjective The patient is currently receiving vancomycin based on drug levels. The patient is currently on day # 2 of vancomycin IV therapy for UTI due to coag. neg. staph. Objective Height (Feet): 5 Height (Inches): 3.00 Weight (Kilograms): 67.100 Levels: Item Value Date Time Random Vancomycin Level 15.1 mcg/ml 03/29/17 0558 Previous dose hung 03/28/17 at 1100. Level today drawn before dialysis. Lab Results (24hrs): Test 03/28/17 18:02 03/29/17 05:58 03/29/17 08:04 03/29/17 09:12 Prothrombin Time 16.7 SECONDS (9.0-12.0) 13.4 SECONDS (9.0-12.0) Prothromb Time International Ratio 1.5 (0.9-1.1) 1.2 (0.9-1.1) White Blood Count 8.69 K/uL (4.8-10.8) Red Blood Count 2.86 M/uL (4.2-5.4) Hemoglobin 8.7 g/dL (12.0-16.0) Hematocrit 25.5 % (37-47) Mean Corpuscular Volume 89.2 fL (80-100) Mean Corpuscular Hemoglobin 30.4 pg (25-34) Mean Corpuscular Hemoglobin Concent 34.1 g/dl (32-36) RDW Standard Deviation 43.9 fL (36.4-46.3) RDW Coefficient of Variation 13.4 % (11.5-14.5) Platelet Count 199 K/uL (130-400) Mean Platelet Volume 10.3 fL (7.4-10.4) Activated Partial Thromboplast Time 29.4 SECONDS (21.0-31.0) Partial Thromboplastin Ratio 1.1 Sodium Level 129 mmol/L (136-145) Potassium Level 4.0 mmol/L (3.5-5.1) Chloride Level 86 mmol/L (98-107) Carbon Dioxide Level 29 mmol/L (21-32) Anion Gap 14.0 mmol/L (3-11) Blood Urea Nitrogen 138 mg/dl (7-18) Creatinine 5.20 mg/dl (0.60-1.20) Est Creatinine Clear Calc Drug Dose 7.8 ml/min Estimated GFR () 8.3 Estimated GFR (Non- 7.2 BUN/Creatinine Ratio 27.1 (10-20) Random Glucose 105 mg/dl (70-99) Calcium Level 8.1 mg/dl (8.5-10.1) Random Vancomycin Level 15.1 mcg/ml Bedside Glucose 139 mg/dl (70-90) 149 mg/dl (70-90) Test 03/29/17 10:50 03/29/17 14:21 Hepatitis B Surface Antigen NEG (NEG) Hepatitis B Surface Antibody NEG Hemoglobin 8.9 g/dL (12.0-16.0) Hematocrit 25.8 % (37-47) Micro Results: 03/21 Clean catch urine- coag neg staph- sens dapto, nitrofur, vanco (ANN=2) 03/22 cath urine- coag neg staph- same sens 03/28 cath urine- more than 3 organisms, likely contaminants Recent Pertinent Medications Item Value Date Time Vancomycin HCl 265 ml @ 125 mls/hr 03/29/17 1800 750 mg/Sodium TODAY@1800/IV Chloride Cefazolin Sodium 55 ml @ 100 mls/hr 03/29/17 0600 Vancomycin HCl 275 ml @ 125 mls/hr 03/28/17 1100 1250 mg/Sodium 1100 ONCE/IV 03/28/17 1200 Chloride Cefazolin given preop for insertion of perm catheter. Assessment & Plan This drug level is: Therapeutic. Patient had dialysis today after perm cath insertion. Vancomycin 750 mg to be given after dialysis. Further dosing to be determined by vancomycin levels. Goal trough level estimate: between 15-20 mcg/mL. Random level has been ordered for: 03/31/17 with am labs (before next scheduled dialysis). Pharmacy will continue to follow and will adjust dose/frequency as necessary. Thank you
[2017-03-29] MEDS: LEVOTHYROXINE 75 MCG TAB PO SCH (16:06)
[2017-03-29] MEDS: PANTOprazole SOD 40 MG TAB PO SCH (16:06)
[2017-03-29] MEDS: ATORVASTATIN 40 MG TAB PO SCH (16:07)
[2017-03-29] MEDS ORDERED: VANCOMYCIN INJ 750 MG in SODIUM CHLORIDE 0.9% 250ML 250 ML IV SCH (18:00)
[2017-03-29] MEDS: HYDROmorphone INJ 0.5 MG/0.5 ML SYR IV PRN ×2 (19:44→23:49)
[2017-03-30] VITALS (33 sets, daily range): BP systolic 79–122; BP diastolic 40–67; PULSE 60–132; TEMP 35.8–37; O2SAT 98–100
[2017-03-30] MEDS: IPRATROPIUM BROMIDE NEB SOLN 0.02% 2.5 ML VIAL INH SCH ×3 (01:58→14:08)
[2017-03-30] MEDS: LEVALBUTEROL 1.25MG/0.5ML NEB INH SCH ×3 (01:59→14:08)
[2017-03-30] MEDS: LEVOTHYROXINE 75 MCG TAB PO SCH (06:32)
[2017-03-30] MEDS: INSULIN ASPART 100 UNITS/ML 3 ML PEN SC SCH ×4 (07:00→21:00)
[2017-03-30 07:26] LABS: INR 1.3 (0.9-1.1); PARTIAL THROMBOPLASTIN RATIO 1.1
[2017-03-30 07:47] LABS: BUN/CREATININE RATIO 20.4 (10-20); CALCIUM 8.2 mg/dl (8.5-10.1); CREATININE 4.1 mg/dl (0.60-1.20); POTASSIUM 4.5 mmol/L (3.5-5.1)
[2017-03-30] MEDS ORDERED: EPOETIN ALFA INJ 8,000 UNITS in SYRINGE 0 ML IV. SCH (08:00)
[2017-03-30] MEDS ORDERED: IRON SUCROSE INJ 100 MG in SYRINGE 0 ML IV ONE (08:00)
[2017-03-30] MEDS ORDERED: EPOETIN ALFA 10,000 UNITS/ML VIAL IV. ONE (08:00)
[2017-03-30] MEDS ORDERED: HEPARIN SOD (PORCINE) 1000 UNIT/ML 10 ML VIAL IV SCH ×2 (08:00)
[2017-03-30] MEDS: CARVEDILOL 12.5 MG TAB PO SCH ×2 (08:16→13:23)
[2017-03-30] MEDS: CLOPIDOGREL BISULFATE 75 MG TAB PO SCH (08:18)
[2017-03-30] MEDS: DOCUSATE SODIUM/SENNA 50/8.6MG TAB PO SCH (08:18)
[2017-03-30] MEDS: ISOSORBIDE MONONITRATE 60 MG TABCR PO SCH (08:18)
[2017-03-30] MEDS: ASPIRIN 81 MG ECTAB PO SCH (08:19)
[2017-03-30] MEDS: FUROSEMIDE INJ 80 MG in SYRINGE 0 ML IV SCH (08:19)
[2017-03-30] MEDS: POLYETHYLENE (MIRALAX) 17 GM PACK PO SCH ×2 (08:20→20:59)
[2017-03-30] MEDS: PANTOprazole SOD 40 MG TAB PO SCH (09:28)
[2017-03-30] MEDS: ATORVASTATIN 40 MG TAB PO SCH (09:28)
--- NOTE | 2017-03-30 10:10 | Anesthesiology Progress Note ---
Anesthesia Post Op Note Date & Time Mar 30, 2017 at 10:09 Vital Signs Pain Intensity: 4.0 Vital Signs Past 12 Hours Date Time Temp Pulse Resp B/P (MAP) Pulse Ox O2 Delivery O2 Flow Rate FiO2 03/30/17 08:00 100 Nasal Cannula 2.0 03/30/17 07:52 37.0 73 18 101/67 (78) 100 03/30/17 07:05 66 16 100 Nasal Cannula 3.0 03/30/17 04:00 100 Nasal Cannula 3.0 03/30/17 03:21 36.4 60 20 104/64 (77) 100 Nasal Cannula 3.0 03/30/17 00:00 99 Nasal Cannula 3.0 03/29/17 23:34 36.4 65 18 106/60 (75) 99 Nasal Cannula 3.0 Notes Mental Status: alert / awake / arousable, participated in evaluation Pt Amnestic to Procedure: Yes Nausea / Vomiting: adequately controlled Pain: adequately controlled Airway Patency, RR, SpO2: stable & adequate BP & HR: stable & adequate Hydration State: stable & adequate Anesthetic Complications: no major complications apparent
--- NOTE | 2017-03-30 11:51 | Nephrology Progress Note ---
Nephrology Progress Note Date of Service: Mar 30, 2017. Subjective chest pain a bit better; still very tired, breathing a bit better. still w/ poor appetite and hyperesthesias BLE. some oozing around TDC site yesterday; tolerated tx Objective Date Time Temp Pulse Resp B/P (MAP) Pulse Ox O2 Delivery O2 Flow Rate FiO2 03/30/17 11:08 36.4 71 16 100/61 (74) 99 Nasal Cannula 2.0 03/30/17 08:00 100 Nasal Cannula 2.0 03/30/17 07:52 37.0 73 18 101/67 (78) 100 03/30/17 07:05 66 16 100 Nasal Cannula 3.0 03/30/17 04:00 100 Nasal Cannula 3.0 03/30/17 03:21 36.4 60 20 104/64 (77) 100 Nasal Cannula 3.0 03/30/17 00:00 99 Nasal Cannula 3.0 03/29/17 23:34 36.4 65 18 106/60 (75) 99 Nasal Cannula 3.0 03/29/17 21:12 59 102/66 (78) 03/29/17 20:00 100 Nasal Cannula 3.0 03/29/17 19:40 61 18 100 Nasal Cannula 3.0 03/29/17 19:28 36.4 60 21 104/68 (80) 100 Nasal Cannula 3.0 03/29/17 16:00 99 Nasal Cannula 2.0 03/29/17 15:15 36.4 65 18 96/66 (76) 100 Nasal Cannula 3.0 03/29/17 14:27 68 18 100 Nasal Cannula 3.0 03/29/17 13:16 36.4 65 113/40 (64) 03/29/17 13:02 92 93 3.0 03/29/17 13:00 61 112/52 03/29/17 12:45 61 114/54 03/29/17 12:30 63 115/48 03/29/17 12:15 59 100/48 03/29/17 12:00 58 101/50 03/29/17 12:00 99 Nasal Cannula 2.0 Physical Exam: GEN: ill appearing F w/ today less wob, tired HEENT: Normocephalic, atraumatic. NECK: Supple. RESPIRATORY: Decreased breath sounds bilaterally and prolonged exp phase CARDIOVASCULAR: Regular rate and rhythm, distant ABDOMEN: Soft, nontender, goodson w/ scant urine EXTREMITIES: no edema with chronic venous skin changes; tender to palpation NEUROLOGIC: generalized weakness, tired, oriented x 3 Current Inpatient Medications Medications (Trade) Dose Ordered Sig/Izaiah Route Start Time Stop Time Status Last Admin Dose Admin Acetaminophen (Tylenol Tab) 650 mg Q4H PRN PO 03/18/17 02:30 04/17/17 02:29 03/28/17 22:14 650 MG Insulin Aspart (novoLOG ASPART) SLIDING SCALE If C... ACHS SC 03/18/17 07:00 04/17/17 06:59 03/21/17 21:52 1 UNITS Glucose (Glucose 40% Gel) 15-30 GRAMS 15 GRAMS... UD PRN PO 03/18/17 02:30 04/17/17 02:29 Glucose (Glucose Chew Tab) 4-8 Tablets 4 Tabl... UD PRN PO 03/18/17 02:30 04/17/17 02:29 Dextrose (Dextrose 50% 50ML Syringe) 25-50ML OF 50% DW IV FOR... UD PRN IV 03/18/17 02:30 04/17/17 02:29 Glucagon (Glucagon Inj) 1 mg UD PRN SQ 03/18/17 02:30 04/17/17 02:29 Hydromorphone HCl (Dilaudid Inj) 0.5 mg Q3H PRN IV 03/18/17 02:30 04/01/17 02:29 03/29/17 23:49 0.5 MG Tramadol HCl (Ultram Tab) 25 mg Q6H PRN PO 03/18/17 02:30 04/17/17 02:29 03/27/17 12:30 25 MG Atorvastatin Calcium (Lipitor Tab) 80 mg DAILY PO 03/18/17 09:00 04/17/17 08:59 03/30/17 09:28 80 MG Clopidogrel Bisulfate (plAVix TAB) 75 mg DAILY PO 03/18/17 09:00 04/17/17 08:59 03/30/17 08:18 75 MG Senna/Docusate Sodium (Senokot S Tab) 2 tab DAILY PO 03/18/17 09:00 04/17/17 08:59 03/30/17 08:18 2 TAB Aspirin (Ecotrin Tab) 81 mg QAM PO 03/18/17 09:00 04/17/17 08:59 03/30/17 08:19 81 MG Pantoprazole Sodium (Protonix Tab) 40 mg QAM PO 03/19/17 09:00 04/18/17 08:59 03/30/17 09:28 40 MG Levothyroxine Sodium (Synthroid Tab) 75 mcg DAILYBB PO 03/21/17 06:00 04/17/17 06:59 03/30/17 06:32 75 MCG Carvedilol (Coreg Tab) 12.5 mg BID PO 03/22/17 21:00 04/17/17 08:59 03/26/17 20:39 12.5 MG Polyethylene (Miralax Powder Packet) 17 gm BID PO 03/24/17 21:00 04/23/17 08:59 03/30/17 08:20 17 GM Sodium Biphosphate/ Sodium Phosphate (Fleet Enema) 132 ml DAILY PRN [place] 03/24/17 12:30 04/23/17 12:29 Nitroglycerin (Nitrostat Tab) 0.4 mg PRN PRN SL 03/25/17 18:30 04/24/17 18:29 Isosorbide Mononitrate (Imdur Ext Rel Tab) 90 mg QAM PO 03/26/17 09:00 04/17/17 08:59 03/30/17 08:18 90 MG Ipratropium [place] (Atrovent 0.02% 0.5MG/2.5ML Neb) 0.5 mg Q6H PRN INH 03/25/17 19:00 04/24/17 18:59 03/25/17 20:11 0.5 MG Levalbuterol (Xopenex 0.63 Mg/ 3 Ml Neb) 0.63 mg Q6H PRN INH 03/25/17 19:00 04/24/17 18:59 03/25/17 20:12 0.63 MG Ipratropium [place] (Atrovent 0.02% 0.5MG/2.5ML Neb) 0.5 mg Q6R INH 03/25/17 21:00 04/24/17 20:59 03/30/17 07:08 0.5 MG Levalbuterol (Xopenex 1.25MG/ 0.5ML Neb) 1.25 mg Q6R INH 03/25/17 21:00 04/24/17 20:59 03/30/17 07:08 1.25 MG Ondansetron HCl (Zofran Inj) 4 mg Q6H PRN IV 03/26/17 14:15 04/25/17 14:14 03/29/17 10:18 4 MG Furosemide 80 mg/ Syringe 8 ml @ 4 mls/min BID17 IV 03/28/17 17:00 04/27/17 16:59 03/30/17 08:19 4 MLS/MIN Vancomycin HCl (Consult) 1 ea UD PRN N/A 03/28/17 10:45 04/27/17 10:44 Epoetin Derian 8000 units/Syringe 0.4 ml @ 1 mls/min TODAY@0800 IV. 03/30/17 08:00 03/30/17 18:00 Last 24 Hours Test 03/29/17 14:21 03/29/17 16:04 03/29/17 20:05 03/30/17 06:38 Hemoglobin 8.9 g/dL Hematocrit 25.8 % Bedside Glucose 125 mg/dl 93 mg/dl 115 mg/dl Test 03/30/17 06:44 03/30/17 11:02 Prothrombin Time 14.0 SECONDS Prothromb Time International Ratio 1.3 Activated Partial Thromboplast Time 29.6 SECONDS Partial Thromboplastin Ratio 1.1 Sodium Level 131 mmol/L Potassium Level 4.5 mmol/L Chloride Level 94 mmol/L Carbon Dioxide Level 27 mmol/L Anion Gap 10.0 mmol/L Blood Urea Nitrogen 84 mg/dl Creatinine 4.10 mg/dl Est Creatinine Clear Calc Drug Dose 9.7 ml/min Estimated GFR () 11.1 Estimated GFR (Non- 9.6 BUN/Creatinine Ratio 20.4 Random Glucose 96 mg/dl Calcium Level 8.2 mg/dl Iron Level 38 mcg/dl Total Iron Binding Capacity 278 mcg/dl Transferrin 227 mg/dl Transferrin % Saturation 12 % Bedside Glucose 121 mg/dl Assessment & Plan 81-year-old female with baseline chronic kidney disease stage 4 with prior creatinine around 2.5, DM, severe CAD w/ recent high risk lad stent prior to admission and s/p JASMYNE x 2 to LAD this admission presented 9/1 with chest pain as well as shortness of breath and found to have acute non-ST elevation myocardial infarction as well as possible pulmonary embolism, + deep venous thrombosis and pulmonary edema/hypoxemic respiratory failure. acute on advanced chronic renal failure >> CARLOS >> had first HD 03/29; for another tx today and plan again tomorrow then TRSat -lasix on hold for now -plan HD no heparin d/t oozing at tdc >> also ordered repeat cbc -vascular assistance appreciated -cont daily bmp and strict I/O -not currently on a fluid limit >> she is however hardly eating >not currently on renal diet >> K acceptable for now however and we want to encourage po so for now monitor for need to start anemia of chronic disease >for epo and IV iron w/ HD -daily cbc for now pls -acute heart failure/ ischemic [employer] she has had a drop in ejection fraction from 40% to 25%; severe underlying CAD w / recent intervention and still diffuse disease > s/p 03/24 L heart cath/stent -multifactorial hypoxemia pulm following; now back to 3L 02 appreciate consult; will follow with you.
--- NOTE | 2017-03-30 12:00 | Progress Note ---
Internal Med Progress Note Date of Service: Mar 30, 2017. Provider Documentation: SUBJECTIVE: Seen and examined at bedside Feels tired and upset about her medical condition Bleeding at the HD catheter site yesterday and overnight CBC pending Planned for HD today Had some chest discomfort this morning which resolved Family at bedside OBJECTIVE: Vital Signs-as noted below Physical Exam: General Appearance:chronically ill appearing Head: normocephalic, Atraumatic Eyes: normal inspection, EOMI, PERRL Neck: supple, Trachea midline Respiratory/Chest: Diminished breath sounds, CTA Cardiovascular: S1, S2, No murmur Abdomen/GI:Soft, Non tender, Bowel sounds present Extremities/Musculoskelatal:normal inspection, 1+ b/l edema Neurologic/Psych:grossly no focal neurological deficits Skin: normal color, warm Lab data as noted below. ASSESSMENT & PLAN: CARLOS/ATN on CKD IV Baseline Cr:2.5 Got HD catheter placed on 03/29 Appreciate Nephrology/Vascular surgery help HD per Nephrology Planned for HD today ACUTE CHF WITH SYSTOLIC DYSFUNCTION /ISCHEMIC CARDIOMYOPATHY : UNSTABLE ANGINA/NSTEMI /IN SETTING OF SEVERE CAD : s/p cardiac cath and stent Continue dual antiplatelet therapy on Coreg /statin Also continue Imdur (dose increased form 60 to 90 mg daily for chronic intermittent angina) continue SL nitro as needed Cardiology following Acute Hypoxemic Respiratory Failure-Multifactorial Secondary to Acute on Chronic Systolic CHF/Severe ICM /CARLOS on CKD Stage 4 /vol overload Appreciate pulmonology Input Dialysis to address volume overload Oxygen support . saturating 100% on 2l NC SEVERE CAD /ISCHEMIC CARDIOMYOPATHY /NSTEMI multivessel CAD s/p recent high risk PCI to left main /LAD /Circumflex has residual severe RCA disease repeat ECHO -shows diminished EF 20 % ( was 40 % on 10/2016 ) s/p cardiac cath with stent placement in LAD Continue current meds LOWER EXT DVT : was on Coumadin on hold since 03/24 for elevated INR Plan to resume when appropriate (as currently being monitored for Dialysis catheter site bleeding) Monitor INR UTI WITH COAG NEGATIVE STAPH IN URINE CULTURE : oxacillin resistant on urine culture 03/21 and 03/22 possible due to indwelling Matos S/P IV Vancomycin pharmacy consulted repeat urine culture: contamination HTN on Coreg and Norvasc Hypothyroidism Synthroid 75mcg DVT px INR initially elevated, reversed for HD catheter placement Currently no anticoagulation secondary to bleeding issues FULL CODE-as per D/w pt and daughter DISPOSITION pt's over all prognosis remains poor very poor functional status was living with Daughter Needs rehab /SNF when medically stable and arrangements for out pt dialysis PT/OT eval social service updated for discharge planning Vital Signs: Date Time Temp Pulse Resp B/P (MAP) Pulse Ox O2 Delivery O2 Flow Rate FiO2 03/30/17 12:00 100 Nasal Cannula 2.0 03/30/17 11:08 36.4 71 16 100/61 (74) 99 Nasal Cannula 2.0 03/30/17 08:00 100 Nasal Cannula 2.0 03/30/17 07:52 37.0 73 18 101/67 (78) 100 03/30/17 07:05 66 16 100 Nasal Cannula 3.0 03/30/17 04:00 100 Nasal Cannula 3.0 03/30/17 03:21 36.4 60 20 104/64 (77) 100 Nasal Cannula 3.0 03/30/17 00:00 99 Nasal Cannula 3.0 03/29/17 23:34 36.4 65 18 106/60 (75) 99 Nasal Cannula 3.0 03/29/17 21:12 59 102/66 (78) 03/29/17 20:00 100 Nasal Cannula 3.0 03/29/17 19:40 61 18 100 Nasal Cannula 3.0 03/29/17 19:28 36.4 60 21 104/68 (80) 100 Nasal Cannula 3.0 03/29/17 16:00 99 Nasal Cannula 2.0 03/29/17 15:15 36.4 65 18 96/66 (76) 100 Nasal Cannula 3.0 03/29/17 14:27 68 18 100 Nasal Cannula 3.0 03/29/17 13:16 36.4 65 113/40 (64) 03/29/17 13:02 92 93 3.0 03/29/17 13:00 61 112/52 03/29/17 12:45 61 114/54 03/29/17 12:30 63 115/48 Lab Results: Results Past 24 Hours Test 03/29/17 14:21 03/29/17 16:04 03/29/17 20:05 03/30/17 06:38 Range/Units Hemoglobin 8.9 12.0-16.0 g/dL Hematocrit 25.8 37-47 % Bedside Glucose 125 93 115 70-90 mg/dl Test 03/30/17 06:44 03/30/17 11:02 03/30/17 11:53 Range/Units Prothrombin Time 14.0 9.0-12.0 SECONDS Prothromb Time International Ratio 1.3 0.9-1.1 Activated Partial Thromboplast Time 29.6 21.0-31.0 SECONDS Partial Thromboplastin Ratio 1.1 Sodium Level 131 136-145 mmol/L Potassium Level 4.5 3.5-5.1 mmol/L Chloride Level 94 98-107 mmol/L Carbon Dioxide Level 27 21-32 mmol/L Anion Gap 10.0 3-11 mmol/L Blood Urea Nitrogen 84 7-18 mg/dl Creatinine 4.10 0.60-1.20 mg/dl Est Creatinine Clear Calc Drug Dose 9.7 ml/min Estimated GFR () 11.1 Estimated GFR (Non- 9.6 BUN/Creatinine Ratio 20.4 10-20 Random Glucose 96 70-99 mg/dl Calcium Level 8.2 8.5-10.1 mg/dl Iron Level 38 35-150 mcg/dl Total Iron Binding Capacity 278 250-450 mcg/dl Transferrin 227 200-360 mg/dl Transferrin % Saturation 12 15-50 % Bedside Glucose 121 70-90 mg/dl
[2017-03-30 12:47] LABS: HEMATOCRIT 23.8 % (37-47); MEAN CELL VOLUME 91.5 fL (80-100); MEAN CORPUSCULAR HGB CONC 32.8 g/dl (32-36); MEAN PLATELET VOLUME 10.9 fL (7.4-10.4); PLATELET COUNT 172 K/uL (130-400); WHITE BLOOD COUNT 8.85 K/uL (4.8-10.8)
[2017-03-30 15:33] LABS: FIBRINOGEN* 320 mg/dl (184-400); INR 1.4 (0.9-1.1); PARTIAL THROMBOPLASTIN RATIO 1.2; PROTHROMBIN TIME (PATIENT) 14.9 SECONDS (9.0-12.0)
--- NOTE | 2017-03-30 15:51 | Cardiology Follow-Up ---
Subjective Date of Service: Mar 30, 2017. Pt evaluation today including: conversation w/ patient, conversation w/ family , physical exam, chart review, lab review, review of studies, review of inpatient medication list, conversation w/ attending History of Present Illness Patient claims to be feeling poorly overall but better than she did approximately 1 hour ago. She has complained of generalized chest discomfort and a sensation of feeling achy all over. She is requesting an anxiolytics. She denies breathing difficulty currently. She has some concerns regarding dialysis again today given the difficulty she experienced yesterday. She is not currently aware of her heart racing. Social History Smoking Status: Never Smoker History of Alcohol Use: No Review of Systems Cardiac: No chest pain Objective Vital Signs Past 12 Hours Date Time Temp Pulse Resp B/P (MAP) Pulse Ox O2 Delivery O2 Flow Rate FiO2 03/30/17 15:15 36.8 108 20 83/54 (64) 100 Nasal Cannula 2.0 03/30/17 14:30 106 18 79/56 (64) 100 Nasal Cannula 2.0 03/30/17 14:15 106 18 83/50 (61) 100 Nasal Cannula 2.0 03/30/17 14:00 132 16 79/53 (62) 100 Nasal Cannula 2.0 03/30/17 13:30 36.4 120 16 83/53 (63) 100 Nasal Cannula 2.0 03/30/17 12:00 100 Nasal Cannula 2.0 03/30/17 11:08 36.4 71 16 100/61 (74) 99 Nasal Cannula 2.0 03/30/17 08:00 100 Nasal Cannula 2.0 03/30/17 07:52 37.0 73 18 101/67 (78) 100 03/30/17 07:05 66 16 100 Nasal Cannula 3.0 03/30/17 04:00 100 Nasal Cannula 3.0 Last Recorded Weight-Kilograms: 64.800 Intake & Output 8-Hour Column 03/30/17 03/31/17 03/31/17 16:00 00:00 08:00 Output Total 150 ml Balance -150 ml 24-Hour Column 03/31/17 08:00 Output Total 150 ml Balance -150 ml Physical Exam Constitutional: General Apperance: well-nourished, well-developed Level of Distress: NAD, acutely ill, chronically ill Lungs: Respiratory effort: no dyspnea Auscultation: no rhonchi, deminished air movement, decreased breath sounds, wet rales/crackles Cardiovascular: Apical Impulse: not displaced Peripheral Pulses: Bruits: none appreciated Carotid Pulse: normal on the left, normal on the right Radial Pulse: normal on the left, normal on the right Femoral Pulse: normal on the left, normal on the right Dorsalis Pedis Pulse: decreased on the left, decreased on the right Evaluation of her chest dialysis catheter reveals ecchymosis as well as evidence of prior bleeding. Data Laboratory Results: Last 24 Hours Test 03/29/17 16:04 03/29/17 20:05 03/30/17 06:38 03/30/17 06:44 Bedside Glucose 125 mg/dl 93 mg/dl 115 mg/dl Prothrombin Time 14.0 SECONDS Prothromb Time International Ratio 1.3 Activated Partial Thromboplast Time 29.6 SECONDS Partial Thromboplastin Ratio 1.1 Sodium Level 131 mmol/L Potassium Level 4.5 mmol/L Chloride Level 94 mmol/L Carbon Dioxide Level 27 mmol/L Anion Gap 10.0 mmol/L Blood Urea Nitrogen 84 mg/dl Creatinine 4.10 mg/dl Est Creatinine Clear Calc Drug Dose 9.7 ml/min Estimated GFR () 11.1 Estimated GFR (Non- 9.6 BUN/Creatinine Ratio 20.4 Random Glucose 96 mg/dl Calcium Level 8.2 mg/dl Iron Level 38 mcg/dl Total Iron Binding Capacity 278 mcg/dl Transferrin 227 mg/dl Transferrin % Saturation 12 % Test 03/30/17 11:02 03/30/17 11:53 03/30/17 14:51 Bedside Glucose 121 mg/dl White Blood Count 8.85 K/uL Red Blood Count 2.60 M/uL Hemoglobin 7.8 g/dL Hematocrit 23.8 % Mean Corpuscular Volume 91.5 fL Mean Corpuscular Hemoglobin 30.0 pg Mean Corpuscular Hemoglobin Concent 32.8 g/dl RDW Standard Deviation 46.0 fL RDW Coefficient of Variation 13.9 % Platelet Count 172 K/uL Mean Platelet Volume 10.9 fL Absolute Reticulocyte Count 0.09 10^6/uL Percent Reticulocyte Count 3.4 % Prothrombin Time 14.9 SECONDS Prothromb Time International Ratio 1.4 Activated Partial Thromboplast Time 30.7 SECONDS Partial Thromboplastin Ratio 1.2 Fibrinogen 320 mg/dl Fibrin Degradation Products 10-40 mcg/ml Assessment and Plan 1. Atrial fibrillation: Patient developed atrial fibrillation earlier this afternoon. According to the nursing staff this did result in some drop in her blood pressure. She has an element of diffuse discomfort along her chest which may be related to some pressure which was held for an extended period yesterday due to bleeding around her dialysis catheter. She did receive 12.5 mg of carvedilol. Overall her rate control appears to be adequate currently. I do not feel as she if she needs more aggressive rate control despite her symptoms. She is mildly hypotensive but this appears to be a fairly normal blood pressure for her. I think we can attempt continuation of b.i.d. carvedilol at a lower dose. Perhaps 3.125 mg twice daily with suffice. We will need to monitor her blood pressure closely with this therapy. He will have some additional benefits with respect to her cardiomyopathy. If she has lower blood pressures and rate control becomes problematic initiation of amiodarone therapy initially with infusion and then oral amiodarone can be considered. Despite having atrial fibrillation and multiple risk factors for stroke, her current history of bleeding precludes systemic anticoagulation at this time. 2. Coronary artery disease: Patient has severe coronary artery disease in a portion of the myocardium which is poorly revascularized. She has some symptoms of chest discomfort currently. Her blood pressure is also low. Her heart rate is relatively high. Her hemoglobin is low. She would likely benefit from transfusion of 1 unit of blood if this can be accomplished during dialysis. Given her recent complex coronary intervention she will need to be maintained on aspirin and Plavix indefinitely. 3. Acute decompensated left ventricular failure: Patient does not respond well to diuretics and is currently dependent on dialysis for removal of fluid. She had a poor experience with dialysis yesterday due to significant bleeding from her catheter site. We encouraged her to consider an additional run of dialysis today which may improve her volume status and allow for transfusion of blood. This may in fact reduce her risk of recurrent atrial fibrillation and certainly would reduce her risk for recurrent coronary ischemia. Her blood pressures been quite low and this has impaired our ability to provide optimal medical therapy with beta-blockers and Denny inhibition.
--- NOTE | 2017-03-30 19:20 | Progress Note ---
Progress Note Date of Service Mar 30, 2017. Progress Note Patient was noted to develop new onset atrial fibrillation and was held on coreg for last 3 days secondary to relative low blood pressure. Patient's heart rate was as high in 130-140s. Patient was resumed on Coreg and cardiology was informed. Patient was advised to resume coreg at a lower dose starting tomorrow. Planned for a unit of PRBC with dialysis today. Patient has been having intermittent pauses and dizziness. Discussed with ICU team and family is updated. Possibly need to be transferred to ICU for further management
[2017-03-30] MEDS ORDERED: ATROPINE SULFATE 0.1 MG/ML 5ML SYR IV PRN (19:30)
--- NOTE | 2017-03-30 20:09 | Critical Care Progress Note ---
Critical Care Progress Note Date of Service Mar 30, 2017. ICU Day ICU Day Number: [address] Sanchez Subjective Alida Grewal is a pleasant 81yo female who was admitted to [facility] on 03/17 for chest pain. Her stay has been complicated with STEMI, pulmonary edema, hypoxemia, DVT and increasing creatinine. Most recently pt was on the telemetry floor, when around 1850 I received a phone call with concerns that this patient was "about to code". While on the phone I was told be the attendance secretary that the pt was bradying down and "is now in asystole". I arrived to her room to find the pt in A. Fib with RVR (hr 100-130's). She did indeed reny down to the low 40' s in my presence. She complained of feeling dizzy/strange during these episodes. She did have a 4 and 8 second pause recorded on telemetry. Pt never loss consciousness. She was alert and oriented. Originally pt wanted to be made DNI/DNR. She later changed her mind; stating "my daughter would want me to undergo CPR." So her could status was changed back to Level 1. I spoke at length with her about possible need for permanent pacemaker. She stated she would be willing to undergo such a procedure if needed. Pt was transferred back to the ICU for HD and possible Introducer placement for transvenous pacer placement. However, pt arrived in NSR with not further cardiac events. Pt successfully underwent HD remaining hemodynamically stable throughout. She received 1unit of PRBCs during HD. Pt denies numbness, tingling, change of vision. She denies dyspnea, cough, chest pain/pressure, palpitations, abd pain, nausea, bowel changes, or irritation from indwelling goodson. Pt denies general pain and has not current complaints. Objective Vital Signs - as noted Laboratory Data - as noted Physical Exam: General - NAD, resting comfortable in ICU on HD Eyes - PERRL, EOMI No icterus, gaze conjugate ENT - no lesions or candidiasis Neck - Supple, trachea midline, no masses or lymphadenopathy, no JVD or bruits Lungs - No paradoxical chest wall movement, clear to auscultation bilaterally, no wheezes, rales, or rhonchi Heart - Reg rate and rhythm, No murmur, rubs, clicks, or gallops appreciated Abdomen - BS present, no bruits noted, tympanic to percussion, soft, nontender, nondistended, no organomegaly Extremities - No edema, pedal pulses intact Neuro - A&OX3 Strength moves all extremities Current SOFA Score SOFA Score Response (Comments) Value PaO2/FiO2 (mmHg) < 300 2 SaO2 / FIO2 221 - 301 1 Platelets (x10) > 150 0 Bilirubin (mg/dL) < 1.2 0 Jaiden Coma Score 15 0 Level of Hypotension No Hypotension 0 Creatinine (mg/dL) 3.5 - 4.9 3 Total 6 Previous SOFA Scores 5 Assessment & Plan PLAN: Neuro * Pain currently well controlled * Monitor for changes in mental status Resp: * Supplemental oxygen as required * Pt full code in event of Cardiac/Pulmonary arrest * Monitor on telemetry * Respiratory Regimen in place CV: * New onset A. Fib, Return of NSR * Monitor on Telemetry * Dr. Bacon following * Continue prescribed Cardiac meds Fluids/Renal: * Hold fluid, Pt currently undergoing HD * Strict I&Os * Repeat Labs in AM s/p Dialysis treatment * ESRD * Emergent Dialysis Now: 450mL removed * Monitor for hypotension GI/Nutrition: * NPO overnight; monitor for improvement then advance diet Heme: * H&H: 1unit PRBCs with HD 03/30 * 7.8/23.8; plts 172 Endocrine: * Accu-Checks per protocol, started insulin infusion for 2 blood sugars greater than 180 CCT: 42 Minutes; This time is exclusive of all separately billable procedures. Thank you for involving us in the care of this patient. Please refer to Dr. Hal Sanchez's addendum for further recommendations. I have personally evaluated and examined this patient. I agree with assessment and plan of Justice Barnes PA-C. Consults & Procedures Consultants: cardiology pulmonary Procedures: right sided heart cath Data Medications: Current Inpatient Medications Medications (Trade) Dose Ordered Sig/Izaiah Route Start Time Stop Time Status Last Admin Dose Admin Acetaminophen (Tylenol Tab) 650 mg Q4H PRN PO 03/18/17 02:30 04/17/17 02:29 03/28/17 22:14 650 MG Insulin Aspart (novoLOG ASPART) SLIDING SCALE If C... ACHS SC 03/18/17 07:00 04/17/17 06:59 03/21/17 21:52 1 UNITS Glucose (Glucose 40% Gel) 15-30 GRAMS 15 GRAMS... UD PRN PO 03/18/17 02:30 04/17/17 02:29 Glucose (Glucose Chew Tab) 4-8 Tablets 4 Tabl... UD PRN PO 03/18/17 02:30 04/17/17 02:29 Dextrose (Dextrose 50% 50ML Syringe) 25-50ML OF 50% DW IV FOR... UD PRN IV 03/18/17 02:30 04/17/17 02:29 Glucagon (Glucagon Inj) 1 mg UD PRN SQ 03/18/17 02:30 04/17/17 02:29 Hydromorphone HCl (Dilaudid Inj) 0.5 mg Q3H PRN IV 03/18/17 02:30 04/01/17 02:29 03/29/17 23:49 0.5 MG Tramadol HCl (Ultram Tab) 25 mg Q6H PRN PO 03/18/17 02:30 04/17/17 02:29 03/27/17 12:30 25 MG Atorvastatin Calcium (Lipitor Tab) 80 mg DAILY PO 03/18/17 09:00 04/17/17 08:59 03/30/17 09:28 80 MG Clopidogrel Bisulfate (plAVix TAB) 75 mg DAILY PO 03/18/17 09:00 04/17/17 08:59 03/30/17 08:18 75 MG Senna/Docusate Sodium (Senokot S Tab) 2 tab DAILY PO 03/18/17 09:00 04/17/17 08:59 03/30/17 08:18 2 TAB Aspirin (Ecotrin Tab) 81 mg QAM PO 03/18/17 09:00 04/17/17 08:59 03/30/17 08:19 81 MG Pantoprazole Sodium (Protonix Tab) 40 mg QAM PO 03/19/17 09:00 04/18/17 08:59 03/30/17 09:28 40 MG Levothyroxine Sodium (Synthroid Tab) 75 mcg DAILYBB PO 03/21/17 06:00 04/17/17 06:59 03/30/17 06:32 75 MCG Polyethylene (Miralax Powder Packet) 17 gm BID PO 03/24/17 21:00 04/23/17 08:59 03/30/17 08:20 17 GM Sodium Biphosphate/ Sodium Phosphate (Fleet Enema) 132 ml DAILY PRN PA 03/24/17 12:30 04/23/17 12:29 Nitroglycerin (Nitrostat Tab) 0.4 mg PRN PRN SL 03/25/17 18:30 04/24/17 18:29 Isosorbide Mononitrate (Imdur Ext Rel Tab) 90 mg QAM PO 03/26/17 09:00 04/17/17 08:59 03/30/17 08:18 90 MG Ipratropium [place] (Atrovent 0.02% 0.5MG/2.5ML Neb) 0.5 mg Q6H PRN INH 03/25/17 19:00 04/24/17 18:59 03/25/17 20:11 0.5 MG Levalbuterol (Xopenex 0.63 Mg/ 3 Ml Neb) 0.63 mg Q6H PRN INH 03/25/17 19:00 04/24/17 18:59 03/25/17 20:12 0.63 MG Ondansetron HCl (Zofran Inj) 4 mg Q6H PRN IV 03/26/17 14:15 04/25/17 14:14 03/29/17 10:18 4 MG Furosemide 80 mg/ Syringe 8 ml @ 4 mls/min BID17 IV 03/28/17 17:00 04/27/17 16:59 Future Hold 03/30/17 08:19 4 MLS/MIN Vancomycin HCl (Consult) 1 ea UD PRN N/A 03/28/17 10:45 04/27/17 10:44 Iron Sucrose 100 mg/Syringe 5 ml @ 1 mls/min TODAY@0800 IV 03/31/17 08:00 03/31/17 16:00 Heparin Sodium (Porcine) (No Heparin In Dialysis) 1 ea TODAY@0800 N/A 03/31/17 08:00 03/31/17 16:00 Epoetin Derian 8000 units/Syringe 0.4 ml @ 1 mls/min TODAY@0800 IV. 03/31/17 08:00 03/31/17 16:00 Carvedilol (Coreg Tab) 3.125 mg BID PO 03/31/17 09:00 04/17/17 08:59 Atropine Sulfate (Atropine Sulfate 0.1MG/Ml Inj) 0.5 mg PRN PRN IV 03/30/17 19:30 04/29/17 19:29 I & O: 24-Hour Column 03/31/17 08:00 Output Total 150 ml Balance -150 ml Vital Signs: Date Time Temp Pulse Resp B/P (MAP) Pulse Ox O2 Delivery O2 Flow Rate FiO2 03/30/17 17:00 83/49 (60) 03/30/17 16:00 100 Nasal Cannula 2.0 03/30/17 16:00 83/49 (60) 03/30/17 15:15 36.8 108 20 83/54 (64) 100 Nasal Cannula 2.0 03/30/17 14:30 106 18 79/56 (64) 100 Nasal Cannula 2.0 03/30/17 14:15 106 18 83/50 (61) 100 Nasal Cannula 2.0 03/30/17 14:00 132 16 79/53 (62) 100 Nasal Cannula 2.0 03/30/17 13:30 36.4 120 16 83/53 (63) 100 Nasal Cannula 2.0 03/30/17 12:00 100 Nasal Cannula 2.0 03/30/17 11:08 36.4 71 16 100/61 (74) 99 Nasal Cannula 2.0 03/30/17 08:00 100 Nasal Cannula 2.0 03/30/17 07:52 37.0 73 18 101/67 (78) 100 03/30/17 07:05 66 16 100 Nasal Cannula 3.0 03/30/17 04:00 100 Nasal Cannula 3.0 03/30/17 03:21 36.4 60 20 104/64 (77) 100 Nasal Cannula 3.0 03/30/17 00:00 99 Nasal Cannula 3.0 03/29/17 23:34 36.4 65 18 106/60 (75) 99 Nasal Cannula 3.0 03/29/17 21:12 59 102/66 (78) Laboratory Results: Last 24 Hours Test 03/29/17 20:05 03/30/17 06:38 03/30/17 06:44 03/30/17 11:02 Bedside Glucose 93 mg/dl 115 mg/dl 121 mg/dl Prothrombin Time 14.0 SECONDS Prothromb Time International Ratio 1.3 Activated Partial Thromboplast Time 29.6 SECONDS Partial Thromboplastin Ratio 1.1 Sodium Level 131 mmol/L Potassium Level 4.5 mmol/L Chloride Level 94 mmol/L Carbon Dioxide Level 27 mmol/L Anion Gap 10.0 mmol/L Blood Urea Nitrogen 84 mg/dl Creatinine 4.10 mg/dl Est Creatinine Clear Calc Drug Dose 9.7 ml/min Estimated GFR () 11.1 Estimated GFR (Non- 9.6 BUN/Creatinine Ratio 20.4 Random Glucose 96 mg/dl Calcium Level 8.2 mg/dl Iron Level 38 mcg/dl Total Iron Binding Capacity 278 mcg/dl Transferrin 227 mg/dl Transferrin % Saturation 12 % Test 03/30/17 11:53 03/30/17 14:51 03/30/17 16:23 03/30/17 20:00 White Blood Count 8.85 K/uL Red Blood Count 2.60 M/uL Hemoglobin 7.8 g/dL Hematocrit 23.8 % Mean Corpuscular Volume 91.5 fL Mean Corpuscular Hemoglobin 30.0 pg Mean Corpuscular Hemoglobin Concent 32.8 g/dl RDW Standard Deviation 46.0 fL RDW Coefficient of Variation 13.9 % Platelet Count 172 K/uL Mean Platelet Volume 10.9 fL Peripheral Blood Smear Path Consult Absolute Reticulocyte Count 0.09 10^6/uL Percent Reticulocyte Count 3.4 % Prothrombin Time 14.9 SECONDS Prothromb Time International Ratio 1.4 Activated Partial Thromboplast Time 30.7 SECONDS Partial Thromboplastin Ratio 1.2 Fibrinogen 320 mg/dl Fibrin Degradation Products 10-40 mcg/ml Bedside Glucose 122 mg/dl
[2017-03-30 23:24] LABS: HEMATOCRIT 28.7 % (37-47)
[2017-03-31] VITALS (41 sets, daily range): BP systolic 73–113; BP diastolic 41–70; PULSE 59–119; TEMP 35.4–36.7; O2SAT 92–100
[2017-03-31 05:54] LABS: HEMATOCRIT 27.3 % (37-47); MEAN CELL VOLUME 91.9 fL (80-100); MEAN CORPUSCULAR HEMOGLOBIN 30.6 pg (25-34); MEAN CORPUSCULAR HGB CONC 33.3 g/dl (32-36); MEAN PLATELET VOLUME 10.1 fL (7.4-10.4); PLATELET COUNT 123 K/uL (130-400); RED BLOOD COUNT 2.97 M/uL (4.2-5.4); WHITE BLOOD COUNT 9.05 K/uL (4.8-10.8)
[2017-03-31 06:09] LABS: INR 1.4 (0.9-1.1); PARTIAL THROMBOPLASTIN RATIO 1.3; PROTHROMBIN TIME (PATIENT) 15.4 SECONDS (9.0-12.0)
[2017-03-31 06:32] LABS: BUN/CREATININE RATIO 16.2 (10-20); CALCIUM 8.1 mg/dl (8.5-10.1); CREATININE 3.1 mg/dl (0.60-1.20); MAGNESIUM 2.4 mg/dl (1.8-2.4); POTASSIUM 3.8 mmol/L (3.5-5.1)
[2017-03-31 06:37] LABS: THYROID STIMULATING HORMONE 1.08 uIu/ml (0.300-4.500)
[2017-03-31] MEDS: INSULIN ASPART 100 UNITS/ML 3 ML PEN SC SCH ×4 (06:45→21:36)
[2017-03-31] MEDS ORDERED: IRON SUCROSE INJ 100 MG in SYRINGE 0 ML IV SCH (08:00)
[2017-03-31] MEDS ORDERED: EPOETIN ALFA 10,000 UNITS/ML VIAL IV. ONE (08:00)
[2017-03-31] MEDS ORDERED: EPOETIN ALFA INJ 8,000 UNITS in SYRINGE 0 ML IV. SCH (08:00)
[2017-03-31] MEDS: DOCUSATE SODIUM/SENNA 50/8.6MG TAB PO SCH (09:00)
[2017-03-31] MEDS ORDERED: CARVEDILOL 3.125 MG TAB PO SCH (09:00)
[2017-03-31] MEDS: POLYETHYLENE (MIRALAX) 17 GM PACK PO SCH ×2 (09:00→20:48)
--- NOTE | 2017-03-31 09:13 | Progress Note ---
Internal Med Progress Note Date of Service: Mar 31, 2017. Provider Documentation: SUBJECTIVE: Seen and examined at bedside Currently getting Dialysis States feeling better today Denies chest pain, SOB, palpitations Had few pauses this morning, currently in Afib HR in 100s, asymptomatic OBJECTIVE: Vital Signs-as noted below Physical Exam: General Appearance:chronically ill appearing Head: normocephalic, Atraumatic Eyes: normal inspection, EOMI, PERRL Neck: supple, Trachea midline Respiratory/Chest: Diminished breath sounds, CTA Cardiovascular: Irregularly Irregular, No murmur Abdomen/GI:Soft, Non tender, Bowel sounds present Extremities/Musculoskelatal:normal inspection, 1+ b/l edema Neurologic/Psych:grossly no focal neurological deficits Skin: normal color, warm Lab data as noted below. ASSESSMENT & PLAN: NEW ONSET ATRIAL FIBRILLATION Also has intermittent pauses May need pacemaker Rate is controlled On Coreg Cardiology following CARLOS/ATN on CKD IV Baseline Cr:2.5 Got HD catheter placed on 03/29 Appreciate Nephrology/Vascular surgery help HD per Nephrology Currently getting HD ACUTE CHF WITH SYSTOLIC DYSFUNCTION /ISCHEMIC CARDIOMYOPATHY : UNSTABLE ANGINA/NSTEMI /IN SETTING OF SEVERE CAD : s/p cardiac cath and stent Continue dual antiplatelet therapy on Coreg /statin Also continue Imdur (dose increased form 60 to 90 mg daily for chronic intermittent angina) continue SL nitro as needed Cardiology following Acute Hypoxemic Respiratory Failure-Multifactorial Secondary to Acute on Chronic Systolic CHF/Severe ICM /CARLOS on CKD Stage 4 /vol overload Appreciate pulmonology Input Dialysis to address volume overload Oxygen support . saturating 98% on 3l NC SEVERE CAD /ISCHEMIC CARDIOMYOPATHY /NSTEMI multivessel CAD s/p recent high risk PCI to left main /LAD /Circumflex has residual severe RCA disease repeat ECHO -shows diminished EF 20 % ( was 40 % on 10/2016 ) s/p cardiac cath with stent placement in LAD Continue current meds LOWER EXT DVT : was on Coumadin on hold since 03/24 for elevated INR Plan to resume Coumadin when appropriate Monitor INR UTI WITH COAG NEGATIVE STAPH IN URINE CULTURE : oxacillin resistant on urine culture 03/21 and 03/22 possible due to indwelling Matos S/P IV Vancomycin pharmacy consulted repeat urine culture: contamination Denies urinary symptoms HTN BP on lower side on Coreg Norvasc on hold Hypothyroidism Synthroid 75mcg DVT px INR initially elevated, reversed for HD catheter placement Currently no anticoagulation secondary to bleeding issues and possible need for pacemaker placement FULL CODE-as per D/w pt and daughter DISPOSITION pt's over all prognosis remains poor very poor functional status was living with Daughter Needs rehab /SNF when medically stable and arrangements for out pt dialysis PT/OT eval social service updated for discharge planning Vital Signs: Date Time Temp Pulse Resp B/P (MAP) Pulse Ox O2 Delivery O2 Flow Rate FiO2 03/31/17 08:00 36.7 118 98/54 (69) 03/31/17 06:30 14 90/57 (68) 98 Nasal Cannula 3.0 03/31/17 05:01 59 18 89/50 (63) 100 Nasal Cannula 3.0 03/31/17 04:01 36.6 59 12 98/48 (65) 100 Nasal Cannula 3.0 03/31/17 04:00 Nasal Cannula 3.0 03/31/17 03:01 63 17 97/52 (67) 100 Nasal Cannula 3.0 03/31/17 02:16 65 14 100/55 (70) 100 03/31/17 02:01 65 13 96/58 (71) 100 Nasal Cannula 3.0 03/31/17 01:46 66 13 103/55 (71) 100 03/31/17 01:31 68 13 113/62 (79) 98 03/31/17 01:16 65 13 106/57 (73) 03/31/17 01:01 66 12 101/53 (69) 100 03/31/17 00:31 67 13 100/53 (69) 100 03/31/17 00:16 67 13 98/48 (65) 100 03/31/17 00:01 36.5 67 13 107/53 (71) 100 Nasal Cannula 3.0 03/30/17 23:59 Nasal Cannula 3.0 03/30/17 23:46 67 13 105/50 (68) 100 03/30/17 23:01 72 19 110/56 (74) 100 Nasal Cannula 3.0 03/30/17 22:50 35.8 69 109/65 (80) 03/30/17 22:46 70 19 113/54 (73) 100 03/30/17 22:41 69 19 118/65 (82) 98 Nasal Cannula 03/30/17 22:30 66 109/65 03/30/17 22:30 67 31 109/65 (80) 99 03/30/17 22:16 67 19 122/48 (72) 99 Nasal Cannula 3.0 03/30/17 22:15 68 122/48 03/30/17 22:00 69 103/63 03/30/17 21:45 69 110/57 03/30/17 21:30 72 114/54 03/30/17 21:15 69 105/47 03/30/17 21:00 66 97/49 03/30/17 20:45 65 91/40 03/30/17 20:30 65 90/62 03/30/17 20:15 65 90/54 03/30/17 20:05 66 100/50 03/30/17 20:00 Nasal Cannula 3.0 03/30/17 19:55 36.4 68 96/55 (69) 03/30/17 17:00 83/49 (60) 03/30/17 16:00 100 Nasal Cannula 2.0 03/30/17 16:00 83/49 (60) 03/30/17 15:15 36.8 108 20 83/54 (64) 100 Nasal Cannula 2.0 03/30/17 14:30 106 18 79/56 (64) 100 Nasal Cannula 2.0 03/30/17 14:15 106 18 83/50 (61) 100 Nasal Cannula 2.0 03/30/17 14:00 132 16 79/53 (62) 100 Nasal Cannula 2.0 03/30/17 13:30 36.4 120 16 83/53 (63) 100 Nasal Cannula 2.0 03/30/17 12:00 100 Nasal Cannula 2.0 03/30/17 11:08 36.4 71 16 100/61 (74) 99 Nasal Cannula 2.0 Lab Results: Results Past 24 Hours Test 03/30/17 11:02 03/30/17 11:53 03/30/17 14:51 03/30/17 16:23 Range/Units Bedside Glucose 121 122 70-90 mg/dl White Blood Count 8.85 4.8-10.8 K/uL Red Blood Count 2.60 4.2-5.4 M/uL Hemoglobin 7.8 12.0-16.0 g/dL Hematocrit 23.8 37-47 % Mean Corpuscular Volume 91.5 80-100 fL Mean Corpuscular Hemoglobin 30.0 25-34 pg Mean Corpuscular Hemoglobin Concent 32.8 32-36 g/dl RDW Standard Deviation 46.0 36.4-46.3 fL RDW Coefficient of Variation 13.9 11.5-14.5 % Platelet Count 172 130-400 K/uL Mean Platelet Volume 10.9 7.4-10.4 fL Peripheral Blood Smear Path Consult Absolute Reticulocyte Count 0.09 0.02-0.10 10^6/uL Percent Reticulocyte Count 3.4 0.5-2.0 % Prothrombin Time 14.9 9.0-12.0 SECONDS Prothromb Time International Ratio 1.4 0.9-1.1 Activated Partial Thromboplast Time 30.7 21.0-31.0 SECONDS Partial Thromboplastin Ratio 1.2 Fibrinogen 320 184-400 mg/dl Fibrin Degradation Products 10-40 <10 mcg/ml Test 03/30/17 23:12 03/30/17 23:16 03/31/17 05:32 Range/Units Hemoglobin 9.9 9.1 12.0-16.0 g/dL Hematocrit 28.7 27.3 37-47 % Bedside Glucose 126 70-90 mg/dl White Blood Count 9.05 4.8-10.8 K/uL Red Blood Count 2.97 4.2-5.4 M/uL Mean Corpuscular Volume 91.9 80-100 fL Mean Corpuscular Hemoglobin 30.6 25-34 pg Mean Corpuscular Hemoglobin Concent 33.3 32-36 g/dl RDW Standard Deviation 47.6 36.4-46.3 fL RDW Coefficient of Variation 14.4 11.5-14.5 % Platelet Count 123 130-400 K/uL Mean Platelet Volume 10.1 7.4-10.4 fL Prothrombin Time 15.4 9.0-12.0 SECONDS Prothromb Time International Ratio 1.4 0.9-1.1 Activated Partial Thromboplast Time 33.9 21.0-31.0 SECONDS Partial Thromboplastin Ratio 1.3 Sodium Level 135 136-145 mmol/L Potassium Level 3.8 3.5-5.1 mmol/L Chloride Level 98 98-107 mmol/L Carbon Dioxide Level 28 21-32 mmol/L Anion Gap 9.0 3-11 mmol/L Blood Urea Nitrogen 50 7-18 mg/dl Creatinine 3.10 0.60-1.20 mg/dl Est Creatinine Clear Calc Drug Dose 13.4 ml/min Estimated GFR () 15.6 Estimated GFR (Non- 13.4 BUN/Creatinine Ratio 16.2 10-20 Random Glucose 103 70-99 mg/dl Calcium Level 8.1 8.5-10.1 mg/dl Phosphorus Level 6.0 2.5-4.9 mg/dl Magnesium Level 2.4 1.8-2.4 mg/dl Thyroid Stimulating Hormone (TSH) 1.080 0.300-4.500 uIu/ml Free Thyroxine 1.19 0.80-1.60 ng/dl Random Vancomycin Level 14.5 mcg/ml Microbiology Results 03/31/17 MRSA DNA Surveillance Screen, Received Pending
[2017-03-31] MEDS: ASPIRIN 81 MG ECTAB PO SCH (09:30)
[2017-03-31] MEDS: CLOPIDOGREL BISULFATE 75 MG TAB PO SCH (09:30)
[2017-03-31] MEDS: PANTOprazole SOD 40 MG TAB PO SCH (09:30)
[2017-03-31] MEDS: ATORVASTATIN 40 MG TAB PO SCH (09:30)
[2017-03-31] MEDS: LEVOTHYROXINE 75 MCG TAB PO SCH (09:30)
[2017-03-31] MEDS: ISOSORBIDE MONONITRATE 60 MG TABCR PO SCH (09:31)
[2017-03-31] MEDS ORDERED: KEFZOL SPECIAL PROCEDURE STOCK 1 GM ADDVIAL IV ONE (14:33)
[2017-03-31] MEDS ORDERED: BACITRACIN OINT 0.9 GM PKT ONE (14:34)
[2017-03-31] MEDS ORDERED: LIDOCAINE HCL 1% 20 ML VIAL ONE (14:34)
[2017-03-31] MEDS ORDERED: BACITRACIN 50000 UNIT VIAL ONE (14:34)
[2017-03-31] MEDS ORDERED: VANCOMYCIN INJ 750 MG in SODIUM CHLORIDE 0.9% 250ML 250 ML IV ONE (14:45)
--- NOTE | 2017-03-31 16:20 | Procedure Note ---
Procedure Note Date of Service Mar 31, 2017. Procedure Note Procedure performed: Implantation of dual-chamber permanent pacemaker Staff plastics technician:Hira Bacon Indication: The patient is an 81-year-old woman who recently developed atrial fibrillation. She has noted on monitoring to have both rapid atrial fibrillation as well as conversion pauses lasting over 8 seconds in duration. This was associated with some dizziness and lightheadedness. Based on her need for additional rate control she was felt to have an indication for permanent pacing due to tachy-reny syndrome. She was therefore advised undergo permanent pacemaker implantation for symptomatic non reversible sinus node dysfunction. Dual-chamber device was selected as she is currently in sinus rhythm which to maintain AV synchrony. The patient was informed of the risks benefits and alternatives to the intended procedure and she wished to proceed. She was taken to the electrophysiology suite in a fasting state. A preoperative antibiotic had been administered. The patient was monitored electrocardiographically throughout today's procedure and conscious sedation was administered per protocol. The left upper pectoral area is prepped and draped in usual sterile fashion. This area was anesthetized using subcutaneous menstruation of a xylocaine solution. An incision was made at this site and carried down to the prepectoralis fascia using sharp dissection. Electrocautery was also employed for dissection as well as for hemostasis. A device pocket was fashioned tissues above the pectoralis muscle. Subsequent to this maneuver the left axillary vein was accessed using modified Seldinger technique. Sheaths were placed over guidewires at this site use salt a passage of the pacing leads to the respective chambers under fluoroscopic guidance. This included right atrial and right ventricular leads. Adequate sensing and threshold parameters were obtained prior to Active fixation of the leads to the endocardial surface. The proximal portion leads were then sutured the prepectoral fascia using nonabsorbable suture. The device pocket was irrigated with antibiotic solution. The leads were then attached to the device. The device and leads were then placed in the pocket and pocket was closed in 3 layers of absorbable suture. Steri-Strips and sterile dressing were applied. The device was tested noninvasively prior to conclusion of the procedure. The patient tolerated procedure well there no immediate complications. Equipment used: New pulse generator: [employer]. Model number A2DR01. Serial number [id number] Right atrial lead: [employer]. Model 5. 076. Serial number [id number] Right ventricular lead: [employer]. Model 5. 076. Serial number [id number] Measured data. Right atrial lead: P-waves measure 1.8 millivolts. Pacing threshold was 1.3 volts at 0.4 milliseconds with a pacing impedance of 529 Ohms Right ventricular lead: R-waves measured 5.6 millivolts. Pacing threshold is 1.2 volts at 0.4 milliseconds with a pacing impedance of 718 Ohms Impression: Successful implantation of dual-chamber permanent pacemaker
--- NOTE | 2017-03-31 18:01 | Dialysis Progress Note ---
Nephrology Dialysis Note Date of Service: Mar 31, 2017. Subjective seen on dialysis this am at about 0940; she had a fib w/ RVR and flipped between this and NSR last evening early and again a 0600 approx this am; also with several multisecond pauses. still very tired, breathing a bit better. still w/ poor appetite and hyperesthesias BLE. Objective Date Time Temp Pulse Resp B/P (MAP) Pulse Ox O2 Delivery O2 Flow Rate FiO2 03/31/17 16:15 62 13 90/51 (64) 100 03/31/17 16:00 Nasal Cannula 3.0 03/31/17 16:00 64 15 93/52 (66) 100 03/31/17 15:49 36.7 66 15 85/49 (61) 100 03/31/17 15:40 62 16 82/48 (59) 98 Nasal Cannula 2 03/31/17 15:30 62 16 79/48 (58) 98 Nasal Cannula 2 03/31/17 14:00 109 18 90/70 (77) 100 03/31/17 13:00 104 16 86/64 (71) 92 03/31/17 12:17 35.4 119 93/51 (65) 03/31/17 12:00 Nasal Cannula 3.0 03/31/17 12:00 36.4 64 17 73/61 (65) 100 03/31/17 11:15 119 76/43 03/31/17 11:00 64 87/41 03/31/17 11:00 113 25 100 03/31/17 10:45 90 93/60 03/31/17 10:30 99 97/61 03/31/17 10:15 107 94/59 03/31/17 10:15 93 99/53 03/31/17 10:00 106 18 100 03/31/17 10:00 104 96/54 03/31/17 09:45 108 101/66 03/31/17 09:30 105 108/66 03/31/17 09:15 113 106/58 03/31/17 09:00 110 18 100 03/31/17 09:00 99 106/61 03/31/17 08:45 90 103/59 03/31/17 08:30 107 105/62 03/31/17 08:15 107 100/54 03/31/17 08:00 36.7 118 98/54 (69) 03/31/17 08:00 Nasal Cannula 3.0 03/31/17 08:00 Nasal Cannula 03/31/17 08:00 36.7 118 13 100 03/31/17 06:30 14 90/57 (68) 98 Nasal Cannula 3.0 03/31/17 05:01 59 18 89/50 (63) 100 Nasal Cannula 3.0 03/31/17 04:01 36.6 59 12 98/48 (65) 100 Nasal Cannula 3.0 03/31/17 04:00 Nasal Cannula 3.0 03/31/17 03:01 63 17 97/52 (67) 100 Nasal Cannula 3.0 03/31/17 02:16 65 14 100/55 (70) 100 03/31/17 02:01 65 13 96/58 (71) 100 Nasal Cannula 3.0 03/31/17 01:46 66 13 103/55 (71) 100 03/31/17 01:31 68 13 113/62 (79) 98 03/31/17 01:16 65 13 106/57 (73) 03/31/17 01:01 66 12 101/53 (69) 100 03/31/17 00:31 67 13 100/53 (69) 100 03/31/17 00:16 67 13 98/48 (65) 100 03/31/17 00:01 36.5 67 13 107/53 (71) 100 Nasal Cannula 3.0 03/30/17 23:59 Nasal Cannula 3.0 03/30/17 23:46 67 13 105/50 (68) 100 03/30/17 23:01 72 19 110/56 (74) 100 Nasal Cannula 3.0 03/30/17 22:50 35.8 69 109/65 (80) 03/30/17 22:46 70 19 113/54 (73) 100 03/30/17 22:41 69 19 118/65 (82) 98 Nasal Cannula 03/30/17 22:30 66 109/65 03/30/17 22:30 67 31 109/65 (80) 99 03/30/17 22:16 67 19 122/48 (72) 99 Nasal Cannula 3.0 03/30/17 22:15 68 122/48 03/30/17 22:00 69 103/63 03/30/17 21:45 69 110/57 03/30/17 21:30 72 114/54 03/30/17 21:15 69 105/47 03/30/17 21:00 66 97/49 03/30/17 20:45 65 91/40 03/30/17 20:30 65 90/62 03/30/17 20:15 65 90/54 03/30/17 20:05 66 100/50 03/30/17 20:00 Nasal Cannula 3.0 03/30/17 19:55 36.4 68 96/55 (69) Physical Exam: GEN: ill appearing F w/ today more wob, tired HEENT: Normocephalic, atraumatic. NECK: Supple. RESPIRATORY: Decreased breath sounds bilaterally and prolonged exp phase CARDIOVASCULAR: irregularly irregular in 90s, distant ABDOMEN: Soft, nontender, goodson w/ scant urine EXTREMITIES: no edema with chronic venous skin changes; tender to palpation NEUROLOGIC: generalized weakness, tired, oriented x 3 Current Inpatient Medications Medications (Trade) Dose Ordered Sig/Izaiah Route Start Time Stop Time Status Last Admin Dose Admin Acetaminophen (Tylenol Tab) 650 mg Q4H PRN PO 03/18/17 02:30 04/17/17 02:29 03/28/17 22:14 650 MG Insulin Aspart (novoLOG ASPART) SLIDING SCALE If C... ACHS SC 03/18/17 07:00 04/17/17 06:59 03/21/17 21:52 1 UNITS Glucose (Glucose 40% Gel) 15-30 GRAMS 15 GRAMS... UD PRN PO 03/18/17 02:30 04/17/17 02:29 Glucose (Glucose Chew Tab) 4-8 Tablets 4 Tabl... UD PRN PO 03/18/17 02:30 04/17/17 02:29 Dextrose (Dextrose 50% 50ML Syringe) 25-50ML OF 50% DW IV FOR... UD PRN IV 03/18/17 02:30 04/17/17 02:29 Glucagon (Glucagon Inj) 1 mg UD PRN SQ 03/18/17 02:30 04/17/17 02:29 Hydromorphone HCl (Dilaudid Inj) 0.5 mg Q3H PRN IV 03/18/17 02:30 04/01/17 02:29 03/29/17 23:49 0.5 MG Tramadol HCl (Ultram Tab) 25 mg Q6H PRN PO 03/18/17 02:30 04/17/17 02:29 03/27/17 12:30 25 MG Atorvastatin Calcium (Lipitor Tab) 80 mg DAILY PO 03/18/17 09:00 04/17/17 08:59 03/31/17 09:30 80 MG Clopidogrel Bisulfate (plAVix TAB) 75 mg DAILY PO 03/18/17 09:00 04/17/17 08:59 03/31/17 09:30 75 MG Senna/Docusate Sodium (Senokot S Tab) 2 tab DAILY PO 03/18/17 09:00 04/17/17 08:59 03/30/17 08:18 2 TAB Aspirin (Ecotrin Tab) 81 mg QAM PO 03/18/17 09:00 04/17/17 08:59 03/31/17 09:30 81 MG Pantoprazole Sodium (Protonix Tab) 40 mg QAM PO 03/19/17 09:00 04/18/17 08:59 03/31/17 09:30 40 MG Levothyroxine Sodium (Synthroid Tab) 75 mcg DAILYBB PO 03/21/17 06:00 04/17/17 06:59 03/31/17 09:30 75 MCG Polyethylene (Miralax Powder Packet) 17 gm BID PO 03/24/17 21:00 04/23/17 08:59 03/30/17 08:20 17 GM Sodium Biphosphate/ Sodium Phosphate (Fleet Enema) 132 ml DAILY PRN SD 03/24/17 12:30 04/23/17 12:29 Nitroglycerin (Nitrostat Tab) 0.4 mg PRN PRN SL 03/25/17 18:30 04/24/17 18:29 Isosorbide Mononitrate (Imdur Ext Rel Tab) 90 mg QAM PO 03/26/17 09:00 04/17/17 08:59 03/31/17 09:31 90 MG Ipratropium [place] (Atrovent 0.02% 0.5MG/2.5ML Neb) 0.5 mg Q6H PRN INH 03/25/17 19:00 04/24/17 18:59 03/25/17 20:11 0.5 MG Levalbuterol (Xopenex 0.63 Mg/ 3 Ml Neb) 0.63 mg Q6H PRN INH 03/25/17 19:00 04/24/17 18:59 03/25/17 20:12 0.63 MG Ondansetron HCl (Zofran Inj) 4 mg Q6H PRN IV 03/26/17 14:15 04/25/17 14:14 03/29/17 10:18 4 MG Furosemide 80 mg/ Syringe 8 ml @ 4 mls/min BID17 IV 03/28/17 17:00 04/27/17 16:59 Future Hold 03/30/17 08:19 4 MLS/MIN Carvedilol (Coreg Tab) 3.125 mg BID PO 03/31/17 09:00 04/17/17 08:59 Future Hold 03/31/17 09:32 3.125 MG Atropine Sulfate (Atropine Sulfate 0.1MG/Ml Inj) 0.5 mg PRN PRN IV 03/30/17 19:30 04/29/17 19:29 Heparin Sodium (Porcine) (Heparin Sq 5000 Unit/0.5ml) 5,000 unit Q12 SQ 03/31/17 10:00 04/30/17 09:59 Last 24 Hours Test 03/30/17 23:12 03/30/17 23:16 03/31/17 05:32 03/31/17 08:08 Hemoglobin 9.9 g/dL 9.1 g/dL Hematocrit 28.7 % 27.3 % Bedside Glucose 126 mg/dl 98 mg/dl White Blood Count 9.05 K/uL Red Blood Count 2.97 M/uL Mean Corpuscular Volume 91.9 fL Mean Corpuscular Hemoglobin 30.6 pg Mean Corpuscular Hemoglobin Concent 33.3 g/dl RDW Standard Deviation 47.6 fL RDW Coefficient of Variation 14.4 % Platelet Count 123 K/uL Mean Platelet Volume 10.1 fL Prothrombin Time 15.4 SECONDS Prothromb Time International Ratio 1.4 Activated Partial Thromboplast Time 33.9 SECONDS Partial Thromboplastin Ratio 1.3 Sodium Level 135 mmol/L Potassium Level 3.8 mmol/L Chloride Level 98 mmol/L Carbon Dioxide Level 28 mmol/L Anion Gap 9.0 mmol/L Blood Urea Nitrogen 50 mg/dl Creatinine 3.10 mg/dl Est Creatinine Clear Calc Drug Dose 13.4 ml/min Estimated GFR () 15.6 Estimated GFR (Non- 13.4 BUN/Creatinine Ratio 16.2 Random Glucose 103 mg/dl Calcium Level 8.1 mg/dl Phosphorus Level 6.0 mg/dl Magnesium Level 2.4 mg/dl Thyroid Stimulating Hormone (TSH) 1.080 uIu/ml Free Thyroxine 1.19 ng/dl Random Vancomycin Level 14.5 mcg/ml Test 03/31/17 11:58 03/31/17 15:55 Bedside Glucose 104 mg/dl 118 mg/dl Date/Time Source Procedure Growth Status 03/31/17 00:00 Nasal MRSA DNA Surveillance Screen - Final Specimen Negative for MRSA by DNA Probe Complete Assessment & Plan 81-year-old female with baseline chronic kidney disease stage 4 with prior creatinine around 2.5, DM, severe CAD w/ recent high risk lad stent prior to admission and s/p JASMYNE x 2 to LAD this admission presented 03/18 with chest pain as well as shortness of breath and found to have acute non-ST elevation myocardial infarction as well as possible pulmonary embolism, + deep venous thrombosis and pulmonary edema/hypoxemic respiratory failure. acute on advanced chronic renal failure >> CARLOS >> had first HD 03/29; for another tx today and plan to rest tomorrow then TRSat -lasix on hold for now -plan HD no heparin d/t oozing at tdc -vascular assistance appreciated -cont daily bmp and strict I/O -not currently on a fluid limit >> she is however hardly eating >not currently on renal diet >> K acceptable for now however and we want to encourage po so for now monitor for need to start anemia of chronic disease >for epo and IV iron w/ HD -daily cbc for now pls -acute heart failure/ ischemic NURSE LIAISON she has had a drop in ejection fraction from 40% to 25%; severe underlying CAD w / recent intervention and still diffuse disease > s/p 03/24 L heart cath/stent -multifactorial hypoxemia pulm following; now back to 3L 02 appreciate consult; will follow with you. Care coordinated w/ Dr Sanchez
--- NOTE | 2017-03-31 21:13 | Critical Care Progress Note ---
Critical Care Progress Note Date of Service Mar 31, 2017. ICU Day ICU Day Number: [address] Sanchez Subjective Patient resting comfortably in bed this morning. Last night that patient spontaneously converted back to NSR but this morning reverted back to A fib at 7am this morning. The patient denies any shortness of breath, chest pain or lightheaded episodes. The patient was lightheaded last night during her episodes of bradycardia where she would have 5-8 second pauses. She has not any of those pauses yet this morning. Objective Physical Exam: General - NAD, resting comfortable in ICU on HD Eyes - PERRL, EOMI, No icterus ENT - no lesions or candidiasis Neck - Supple, trachea midline, no masses or lymphadenopathy, no JVD or bruits Lungs - No paradoxical chest wall movement, clear to auscultation bilaterally, no wheezes, rales, or rhonchi Heart - Heart rate irregularly irregular, No murmur, rubs, clicks, or gallops appreciated Abdomen - BS present, no bruits noted, tympanic to percussion, soft, nontender, nondistended, no organomegaly Extremities - No edema, pedal pulses intact Neuro - A&OX3 Strength moves all extremities Current SOFA Score SOFA Score Response (Comments) Value PaO2/FiO2 (mmHg) < 300 2 SaO2 / FIO2 221 - 301 1 Platelets (x10) > 150 0 Bilirubin (mg/dL) < 1.2 0 [place] Coma Score 15 0 Level of Hypotension No Hypotension 0 Creatinine (mg/dL) 3.5 - 4.9 3 Total 6 Previous SOFA Scores 5 Assessment & Plan Patient is an 82 year old female that presented to [facility] with c/p on 03/17. Last night the patient converted to Atrial Fibrillation with episodes of bradycardia down to the 40's with pauses of 5-8 seconds. The patient was transferred to the ICU over night and converted back to NSR. This morning the patient reverted to Afib then underwent another course of dialysis. Neuro - CAM-ICU negative - Pain currently well controlled - Monitor for changes in mental status Resp: - 3L NC --> Goal to maintain O2 sat > 90% - Pt full code in event of Cardiac/Pulmonary arrest CV: - Cath with stenting by Dr. Amato during this admission, continuing dual antiplatelet therapy - New onset Atrial Fib overnight, Return of NSR - Monitor on Telemetry - Dr. Bacon following - Last Echo Grade 1 diastolic dysfunction, EF 25-30% (EF was 40% 10/2016) - Hold Coreg (lowered dose during admission but still bradycardic) - Consult Cardiology regarding AICD vs Pacer --> Implantation of Dual Chamber Cardiac Pacemaker this afternoon by Dr. Bacon - Lower Extremity DVT - holding Coumadin d/t supratherapeutic INR Fluids/Renal: - ESRD - Receiving dialysis this morning --> Her third cycle since admission - UTI with Coag Negative Staph --> Vancomycin Day 10/20 - HD Catheter placed on 03/29 - Strict I&Os - Holding Lasix - No fluid limit at this point - K+ 3.8 GI/Nutrition: - NPO - Protonix - Bowel Regimen of Docusate, Senna, Miralax BID Heme: - H&H increased to 9.1 s/p 1 unit of PRBC - Heparin BID Endocrine: - Accu-Checks per protocol, started insulin infusion for 2 blood sugars greater than 180 ID - Vancomycin for an uncomplicated UTI --> Day 10/20 Resident Physician Supervision Note: Dr. Encinas was resident physician during care of patient. I separately evaluated patient and did history and exam. I discussed the case with the resident and generally agree with the findings and plan. I discussed this case with cardiology regarding possible need for permanent pacemaker placement. Documented By: Hal Sanchez DO Consults & Procedures Consultants: cardiology pulmonary Procedures: right sided heart cath Data Medications: Current Inpatient Medications Medications (Trade) Dose Ordered Sig/Izaiah Route Start Time Stop Time Status Last Admin Dose Admin Acetaminophen (Tylenol Tab) 650 mg Q4H PRN PO 03/18/17 02:30 04/17/17 02:29 03/28/17 22:14 650 MG Insulin Aspart (novoLOG ASPART) SLIDING SCALE If C... ACHS SC 03/18/17 07:00 04/17/17 06:59 03/21/17 21:52 1 UNITS Glucose (Glucose 40% Gel) 15-30 GRAMS 15 GRAMS... UD PRN PO 03/18/17 02:30 04/17/17 02:29 Glucose (Glucose Chew Tab) 4-8 Tablets 4 Tabl... UD PRN PO 03/18/17 02:30 04/17/17 02:29 Dextrose (Dextrose 50% 50ML Syringe) 25-50ML OF 50% DW IV FOR... UD PRN IV 03/18/17 02:30 04/17/17 02:29 Glucagon (Glucagon Inj) 1 mg UD PRN SQ 03/18/17 02:30 04/17/17 02:29 Hydromorphone HCl (Dilaudid Inj) 0.5 mg Q3H PRN IV 03/18/17 02:30 04/01/17 02:29 03/29/17 23:49 0.5 MG Tramadol HCl (Ultram Tab) 25 mg Q6H PRN PO 03/18/17 02:30 04/17/17 02:29 03/27/17 12:30 25 MG Atorvastatin Calcium (Lipitor Tab) 80 mg DAILY PO 03/18/17 09:00 04/17/17 08:59 03/31/17 09:30 80 MG Clopidogrel Bisulfate (plAVix TAB) 75 mg DAILY PO 03/18/17 09:00 04/17/17 08:59 03/31/17 09:30 75 MG Senna/Docusate Sodium (Senokot S Tab) 2 tab DAILY PO 03/18/17 09:00 04/17/17 08:59 03/30/17 08:18 2 TAB Aspirin (Ecotrin Tab) 81 mg QAM PO 03/18/17 09:00 04/17/17 08:59 03/31/17 09:30 81 MG Pantoprazole Sodium (Protonix Tab) 40 mg QAM PO 03/19/17 09:00 04/18/17 08:59 03/31/17 09:30 40 MG Levothyroxine Sodium (Synthroid Tab) 75 mcg DAILYBB PO 03/21/17 06:00 04/17/17 06:59 03/31/17 09:30 75 MCG Polyethylene (Miralax Powder Packet) 17 gm BID PO 03/24/17 21:00 04/23/17 08:59 03/30/17 08:20 17 GM Sodium Biphosphate/ Sodium Phosphate (Fleet Enema) 132 ml DAILY PRN AL 03/24/17 12:30 04/23/17 12:29 Nitroglycerin (Nitrostat Tab) 0.4 mg PRN PRN SL 03/25/17 18:30 04/24/17 18:29 Isosorbide Mononitrate (Imdur Ext Rel Tab) 90 mg QAM PO 03/26/17 09:00 04/17/17 08:59 03/31/17 09:31 90 MG Ipratropium [place] (Atrovent 0.02% 0.5MG/2.5ML Neb) 0.5 mg Q6H PRN INH 03/25/17 19:00 04/24/17 18:59 03/25/17 20:11 0.5 MG Levalbuterol (Xopenex 0.63 Mg/ 3 Ml Neb) 0.63 mg Q6H PRN INH 03/25/17 19:00 04/24/17 18:59 03/25/17 20:12 0.63 MG Ondansetron HCl (Zofran Inj) 4 mg Q6H PRN IV 03/26/17 14:15 04/25/17 14:14 03/29/17 10:18 4 MG Furosemide 80 mg/ Syringe 8 ml @ 4 mls/min BID17 IV 03/28/17 17:00 04/27/17 16:59 Future Hold 03/30/17 08:19 4 MLS/MIN Carvedilol (Coreg Tab) 3.125 mg BID PO 03/31/17 09:00 04/17/17 08:59 Future Hold 03/31/17 09:32 3.125 MG Atropine Sulfate (Atropine Sulfate 0.1MG/Ml Inj) 0.5 mg PRN PRN IV 03/30/17 19:30 04/29/17 19:29 Heparin Sodium (Porcine) (Heparin Sq 5000 Unit/0.5ml) 5,000 unit Q12 SQ 03/31/17 10:00 04/30/17 09:59 I & O: 24-Hour Column 04/01/17 08:00 Intake Total 100 ml Output Total 45 ml Balance 55 ml Vital Signs: Date Time Temp Pulse Resp B/P (MAP) Pulse Ox O2 Delivery O2 Flow Rate FiO2 03/31/17 20:01 36.4 62 15 100/51 (67) 100 Nasal Cannula 2.0 03/31/17 17:30 66 17 99/55 (70) 100 03/31/17 17:15 63 15 89/53 (65) 100 03/31/17 17:00 65 19 79/50 (60) 100 03/31/17 16:45 63 15 93/50 (64) 100 03/31/17 16:30 60 13 87/44 (58) 100 03/31/17 16:15 62 13 90/51 (64) 100 03/31/17 16:00 Nasal Cannula 3.0 03/31/17 16:00 64 15 93/52 (66) 100 03/31/17 15:49 36.7 66 15 85/49 (61) 100 03/31/17 15:40 62 16 82/48 (59) 98 Nasal Cannula 2 03/31/17 15:30 62 16 79/48 (58) 98 Nasal Cannula 2 03/31/17 14:00 109 18 90/70 (77) 100 03/31/17 13:00 104 16 86/64 (71) 92 03/31/17 12:17 35.4 119 93/51 (65) 03/31/17 12:00 Nasal Cannula 3.0 03/31/17 12:00 36.4 64 17 73/61 (65) 100 03/31/17 11:15 119 76/43 03/31/17 11:00 64 87/41 03/31/17 11:00 113 25 100 03/31/17 10:45 90 93/60 03/31/17 10:30 99 97/61 03/31/17 10:15 107 94/59 03/31/17 10:15 93 99/53 03/31/17 10:00 106 18 100 03/31/17 10:00 104 96/54 03/31/17 09:45 108 101/66 03/31/17 09:30 105 108/66 03/31/17 09:15 113 106/58 03/31/17 09:00 110 18 100 03/31/17 09:00 99 106/61 03/31/17 08:45 90 103/59 03/31/17 08:30 107 105/62 03/31/17 08:15 107 100/54 03/31/17 08:00 36.7 118 98/54 (69) 03/31/17 08:00 Nasal Cannula 3.0 03/31/17 08:00 Nasal Cannula 03/31/17 08:00 36.7 118 13 100 03/31/17 06:30 14 90/57 (68) 98 Nasal Cannula 3.0 03/31/17 05:01 59 18 89/50 (63) 100 Nasal Cannula 3.0 03/31/17 04:01 36.6 59 12 98/48 (65) 100 Nasal Cannula 3.0 03/31/17 04:00 Nasal Cannula 3.0 03/31/17 03:01 63 17 97/52 (67) 100 Nasal Cannula 3.0 03/31/17 02:16 65 14 100/55 (70) 100 03/31/17 02:01 65 13 96/58 (71) 100 Nasal Cannula 3.0 03/31/17 01:46 66 13 103/55 (71) 100 03/31/17 01:31 68 13 113/62 (79) 98 03/31/17 01:16 65 13 106/57 (73) 03/31/17 01:01 66 12 101/53 (69) 100 03/31/17 00:31 67 13 100/53 (69) 100 03/31/17 00:16 67 13 98/48 (65) 100 03/31/17 00:01 36.5 67 13 107/53 (71) 100 Nasal Cannula 3.0 03/30/17 23:59 Nasal Cannula 3.0 03/30/17 23:46 67 13 105/50 (68) 100 03/30/17 23:01 72 19 110/56 (74) 100 Nasal Cannula 3.0 03/30/17 22:50 35.8 69 109/65 (80) 03/30/17 22:46 70 19 113/54 (73) 100 03/30/17 22:41 69 19 118/65 (82) 98 Nasal Cannula 03/30/17 22:30 66 109/65 03/30/17 22:30 67 31 109/65 (80) 99 03/30/17 22:16 67 19 122/48 (72) 99 Nasal Cannula 3.0 03/30/17 22:15 68 122/48 03/30/17 22:00 69 103/63 03/30/17 21:45 69 110/57 03/30/17 21:30 72 114/54 03/30/17 21:15 69 105/47 03/30/17 21:00 66 97/49 03/30/17 20:45 65 91/40 Laboratory Results: Last 24 Hours Test 03/30/17 23:12 03/30/17 23:16 03/31/17 05:32 03/31/17 08:08 Hemoglobin 9.9 g/dL 9.1 g/dL Hematocrit 28.7 % 27.3 % Bedside Glucose 126 mg/dl 98 mg/dl White Blood Count 9.05 K/uL Red Blood Count 2.97 M/uL Mean Corpuscular Volume 91.9 fL Mean Corpuscular Hemoglobin 30.6 pg Mean Corpuscular Hemoglobin Concent 33.3 g/dl RDW Standard Deviation 47.6 fL RDW Coefficient of Variation 14.4 % Platelet Count 123 K/uL Mean Platelet Volume 10.1 fL Prothrombin Time 15.4 SECONDS Prothromb Time International Ratio 1.4 Activated Partial Thromboplast Time 33.9 SECONDS Partial Thromboplastin Ratio 1.3 Sodium Level 135 mmol/L Potassium Level 3.8 mmol/L Chloride Level 98 mmol/L Carbon Dioxide Level 28 mmol/L Anion Gap 9.0 mmol/L Blood Urea Nitrogen 50 mg/dl Creatinine 3.10 mg/dl Est Creatinine Clear Calc Drug Dose 13.4 ml/min Estimated GFR () 15.6 Estimated GFR (Non- 13.4 BUN/Creatinine Ratio 16.2 Random Glucose 103 mg/dl Calcium Level 8.1 mg/dl Phosphorus Level 6.0 mg/dl Magnesium Level 2.4 mg/dl Thyroid Stimulating Hormone (TSH) 1.080 uIu/ml Free Thyroxine 1.19 ng/dl Random Vancomycin Level 14.5 mcg/ml Test 03/31/17 11:58 03/31/17 15:55 Bedside Glucose 104 mg/dl 118 mg/dl Resident Tracking Resident Involvement: Resident Care Provided Care Provided: Adult Hospital Medicine
[2017-03-31] MEDS: HEPARIN SOD 5000 UNIT/0.5 ML CARP SQ SCH (21:38)
[2017-04-01] VITALS (23 sets, daily range): BP systolic 59–153; BP diastolic 22–114; PULSE 57–135; TEMP 36.3–37; O2SAT 97–100
[2017-04-01 01:00] LABS: MAGNESIUM 2.2 mg/dl (1.8-2.4); POTASSIUM 3.7 mmol/L (3.5-5.1)
[2017-04-01 01:04] LABS: PHOSPHORUS 4.5 mg/dl (2.5-4.9)
[2017-04-01] MEDS: TRAMADOL HCL 50 MG TAB PO PRN (04:45)
[2017-04-01 05:37] LABS: HEMATOCRIT 28.9 % (37-47); MEAN CELL VOLUME 94.4 fL (80-100); MEAN CORPUSCULAR HEMOGLOBIN 29.7 pg (25-34); MEAN CORPUSCULAR HGB CONC 31.5 g/dl (32-36); MEAN PLATELET VOLUME 10.6 fL (7.4-10.4); PLATELET COUNT 105 K/uL (130-400); RED BLOOD COUNT 3.06 M/uL (4.2-5.4); WHITE BLOOD COUNT 12.75 K/uL (4.8-10.8)
[2017-04-01] MEDS: LEVOTHYROXINE 75 MCG TAB PO SCH (05:51)
[2017-04-01 05:52] LABS: INR 1.7 (0.9-1.1); PROTHROMBIN TIME (PATIENT) 18.2 SECONDS (9.0-12.0)
[2017-04-01] MEDS ORDERED: CEFAZOLIN SOD 1000MG/55 ML D5W IV SCH (06:00)
[2017-04-01 06:06] LABS: BUN/CREATININE RATIO 11.1 (10-20); CALCIUM 8.2 mg/dl (8.5-10.1); CREATININE 3.2 mg/dl (0.60-1.20); MAGNESIUM 2.2 mg/dl (1.8-2.4); POTASSIUM 3.9 mmol/L (3.5-5.1)
--- NOTE | 2017-04-01 07:08 | DIAGNOSTIC IMAGING REPORT ---
CHEST 2 VIEWS ROUTINE HISTORY: EXACT TIME ORDERED Evaluate for pneumothorax and lead placement COMPARISON: Chest 03/29/2017. FINDINGS: Left-sided dual-chamber pacemaker. The leads appear intact. No pneumothorax. Mild pulmonary edema, cardiomegaly, and small bilateral pleural effusions.. Right jugular catheter terminates in the SVC. IMPRESSION: 1. Left-sided dual-chamber pacemaker. No pneumothorax. 2. Mild pulmonary edema and small bilateral pleural effusions persist. Electronically signed by: Rivera Gambino M.D. 04/01/2017 7:06 AM Dictated Date/Time: 04/01/2017 7:05 AM
[2017-04-01] MEDS: INSULIN ASPART 100 UNITS/ML 3 ML PEN SC SCH ×4 (07:36→20:33)
[2017-04-01] MEDS: POLYETHYLENE (MIRALAX) 17 GM PACK PO SCH ×3 (09:00→20:29)
--- NOTE | 2017-04-01 09:02 | Progress Note ---
Internal Med Progress Note Date of Service: Apr 01, 2017. Provider Documentation: SUBJECTIVE: Seen and examined at bedside Feels tired and reports generalized soreness Denies chest pain, SOB, dizziness, N/V Had dual-chamber pacemaker implantation yesterday OBJECTIVE: Vital Signs-as noted below Physical Exam: General Appearance:chronically ill appearing Head: normocephalic, Atraumatic Eyes: normal inspection, EOMI, PERRL Neck: supple, Trachea midline Respiratory/Chest: Diminished breath sounds, CTA Cardiovascular: S1, S2, No murmur Abdomen/GI:Soft, Non tender, Bowel sounds present Extremities/Musculoskelatal:normal inspection, 1+ b/l edema Neurologic/Psych:grossly no focal neurological deficits Skin: normal color, warm Lab data as noted below. ASSESSMENT & PLAN: [employer] S/P dual-chamber permanent pacemaker implantation on 03/31 Rate is controlled Ideally need to be on beta brian, would defer to cardiology as BP relatively low Resume coumadin Monitor INR: 1.7 today Appreciate Cardiology Input CARLOS/ATN on CKD IV Baseline Cr:2.5 Got HD catheter placed on 03/29 Appreciate Nephrology/Vascular surgery help HD per Nephrology ACUTE CHF WITH SYSTOLIC DYSFUNCTION /ISCHEMIC CARDIOMYOPATHY : UNSTABLE ANGINA/NSTEMI /IN SETTING OF SEVERE CAD : s/p cardiac cath and stent Continue dual antiplatelet therapy, statin, Imdur continue SL nitro as needed Cardiology following Acute Hypoxemic Respiratory Failure-Multifactorial Secondary to Acute on Chronic Systolic CHF/Severe ICM /CARLOS on CKD Stage 4 /vol overload Appreciate pulmonology Input Monitor Volume status Dialysis to address volume overload Oxygen support . saturating 100% on 2l NC SEVERE CAD /ISCHEMIC CARDIOMYOPATHY /NSTEMI multivessel CAD s/p recent high risk PCI to left main /LAD /Circumflex has residual severe RCA disease repeat ECHO -shows diminished EF 20 % ( was 40 % on 10/2016 ) s/p cardiac cath with stent placement in LAD S/P dual-chamber permanent pacemaker Continue current meds LOWER EXT DVT : was on Coumadin Initially held coumadin for elevated INR Coumadin resumed Monitor INR UTI WITH COAG NEGATIVE STAPH IN URINE CULTURE : oxacillin resistant on urine culture 03/21 and 03/22 possible due to indwelling Matos S/P IV Vancomycin pharmacy consulted repeat urine culture: contamination Denies urinary symptoms HTN Stable Coreg and Norvasc on hold Hypothyroidism Synthroid 75mcg DVT px on coumadin FULL CODE-as per D/w pt and daughter DISPOSITION pt's over all prognosis remains poor very poor functional status was living with Daughter Needs rehab /SNF when medically stable and arrangements for out pt dialysis PT/OT eval social service updated for discharge planning Vital Signs: Date Time Temp Pulse Resp B/P (MAP) Pulse Ox O2 Delivery O2 Flow Rate FiO2 04/01/17 06:00 65 18 122/66 (84) 100 Nasal Cannula 2.0 04/01/17 04:01 36.3 65 16 109/54 (72) 100 Nasal Cannula 2.0 04/01/17 04:00 Nasal Cannula 2.0 04/01/17 03:01 65 14 112/56 (74) 100 Nasal Cannula 2.0 04/01/17 02:01 63 19 114/59 (77) 100 Nasal Cannula 2.0 04/01/17 00:01 36.3 64 17 94/45 (61) 100 Nasal Cannula 2.0 04/01/17 00:00 Nasal Cannula 2.0 03/31/17 22:01 62 12 98/45 (62) 100 Nasal Cannula 2.0 03/31/17 20:01 36.4 62 15 100/51 (67) 100 Nasal Cannula 2.0 03/31/17 20:00 Nasal Cannula 2.0 03/31/17 17:30 66 17 99/55 (70) 100 03/31/17 17:15 63 15 89/53 (65) 100 03/31/17 17:00 65 19 79/50 (60) 100 03/31/17 16:45 63 15 93/50 (64) 100 03/31/17 16:30 60 13 87/44 (58) 100 03/31/17 16:15 62 13 90/51 (64) 100 03/31/17 16:00 Nasal Cannula 3.0 03/31/17 16:00 64 15 93/52 (66) 100 03/31/17 15:49 36.7 66 15 85/49 (61) 100 03/31/17 15:40 62 16 82/48 (59) 98 Nasal Cannula 2 03/31/17 15:30 62 16 79/48 (58) 98 Nasal Cannula 2 03/31/17 14:00 109 18 90/70 (77) 100 03/31/17 13:00 104 16 86/64 (71) 92 03/31/17 12:17 35.4 119 93/51 (65) 03/31/17 12:00 Nasal Cannula 3.0 03/31/17 12:00 36.4 64 17 73/61 (65) 100 03/31/17 11:15 119 76/43 03/31/17 11:00 64 87/41 03/31/17 11:00 113 25 100 03/31/17 10:45 90 93/60 03/31/17 10:30 99 97/61 03/31/17 10:15 107 94/59 03/31/17 10:15 93 99/53 03/31/17 10:00 106 18 100 03/31/17 10:00 104 96/54 03/31/17 09:45 108 101/66 03/31/17 09:30 105 108/66 03/31/17 09:15 113 106/58 03/31/17 09:00 110 18 100 03/31/17 09:00 99 106/61 Lab Results: Results Past 24 Hours Test 03/31/17 11:58 03/31/17 15:55 03/31/17 21:26 04/01/17 00:22 Range/Units Bedside Glucose 104 118 118 70-90 mg/dl Potassium Level 3.7 3.5-5.1 mmol/L Phosphorus Level 4.5 2.5-4.9 mg/dl Magnesium Level 2.2 1.8-2.4 mg/dl Test 04/01/17 05:13 04/01/17 05:54 Range/Units White Blood Count 12.75 4.8-10.8 K/uL Red Blood Count 3.06 4.2-5.4 M/uL Hemoglobin 9.1 12.0-16.0 g/dL Hematocrit 28.9 37-47 % Mean Corpuscular Volume 94.4 80-100 fL Mean Corpuscular Hemoglobin 29.7 25-34 pg Mean Corpuscular Hemoglobin Concent 31.5 32-36 g/dl RDW Standard Deviation 50.5 36.4-46.3 fL RDW Coefficient of Variation 14.9 11.5-14.5 % Platelet Count 105 130-400 K/uL Mean Platelet Volume 10.6 7.4-10.4 fL Nucleated RBC Absolute Count (auto) 0.06 0-0 K/uL Nucleated Red Blood Cells % 0.5 % Prothrombin Time 18.2 9.0-12.0 SECONDS Prothromb Time International Ratio 1.7 0.9-1.1 Sodium Level 137 136-145 mmol/L Potassium Level 3.9 3.5-5.1 mmol/L Chloride Level 99 98-107 mmol/L Carbon Dioxide Level 29 21-32 mmol/L Anion Gap 9.0 3-11 mmol/L Blood Urea Nitrogen 36 7-18 mg/dl Creatinine 3.20 0.60-1.20 mg/dl Est Creatinine Clear Calc Drug Dose 12.7 ml/min Estimated GFR () 15.0 Estimated GFR (Non- 12.9 BUN/Creatinine Ratio 11.1 10-20 Random Glucose 119 70-99 mg/dl Calcium Level 8.2 8.5-10.1 mg/dl Magnesium Level 2.2 1.8-2.4 mg/dl Bedside Glucose 123 70-90 mg/dl
--- NOTE | 2017-04-01 09:08 | Nephrology Progress Note ---
Nephrology Progress Note Date of Service: Apr 01, 2017. Subjective got pacer yesterday; prior to this on HD d/t cardiac issues and bradying down, had no fluid removed w/ hd. still very tired, breathing poor. no appetite Objective Date Time Temp Pulse Resp B/P (MAP) Pulse Ox O2 Delivery O2 Flow Rate FiO2 04/01/17 06:00 65 18 122/66 (84) 100 Nasal Cannula 2.0 04/01/17 04:01 36.3 65 16 109/54 (72) 100 Nasal Cannula 2.0 04/01/17 04:00 Nasal Cannula 2.0 04/01/17 03:01 65 14 112/56 (74) 100 Nasal Cannula 2.0 04/01/17 02:01 63 19 114/59 (77) 100 Nasal Cannula 2.0 04/01/17 00:01 36.3 64 17 94/45 (61) 100 Nasal Cannula 2.0 04/01/17 00:00 Nasal Cannula 2.0 03/31/17 22:01 62 12 98/45 (62) 100 Nasal Cannula 2.0 03/31/17 20:01 36.4 62 15 100/51 (67) 100 Nasal Cannula 2.0 03/31/17 20:00 Nasal Cannula 2.0 03/31/17 17:30 66 17 99/55 (70) 100 03/31/17 17:15 63 15 89/53 (65) 100 03/31/17 17:00 65 19 79/50 (60) 100 03/31/17 16:45 63 15 93/50 (64) 100 03/31/17 16:30 60 13 87/44 (58) 100 03/31/17 16:15 62 13 90/51 (64) 100 03/31/17 16:00 Nasal Cannula 3.0 03/31/17 16:00 64 15 93/52 (66) 100 03/31/17 15:49 36.7 66 15 85/49 (61) 100 03/31/17 15:40 62 16 82/48 (59) 98 Nasal Cannula 2 03/31/17 15:30 62 16 79/48 (58) 98 Nasal Cannula 2 03/31/17 14:00 109 18 90/70 (77) 100 03/31/17 13:00 104 16 86/64 (71) 92 03/31/17 12:17 35.4 119 93/51 (65) 03/31/17 12:00 Nasal Cannula 3.0 03/31/17 12:00 36.4 64 17 73/61 (65) 100 03/31/17 11:15 119 76/43 03/31/17 11:00 64 87/41 03/31/17 11:00 113 25 100 03/31/17 10:45 90 93/60 03/31/17 10:30 99 97/61 03/31/17 10:15 107 94/59 03/31/17 10:15 93 99/53 03/31/17 10:00 106 18 100 03/31/17 10:00 104 96/54 03/31/17 09:45 108 101/66 03/31/17 09:30 105 108/66 03/31/17 09:15 113 106/58 Physical Exam: GEN: ill appearing F w/ today more wob w/ belly breathing, tired HEENT: Normocephalic, atraumatic. NECK: Supple. RESPIRATORY: Decreased breath sounds bilaterally and prolonged exp phase CARDIOVASCULAR: RRR 60s, distant ABDOMEN: Soft, nontender, goodson w/ scant urine EXTREMITIES: no edema with chronic venous skin changes; tender to palpation NEUROLOGIC: generalized weakness, tired, oriented x 3 Current Inpatient Medications Medications (Trade) Dose Ordered Sig/Izaiah Route Start Time Stop Time Status Last Admin Dose Admin Acetaminophen (Tylenol Tab) 650 mg Q4H PRN PO 03/18/17 02:30 04/17/17 02:29 03/28/17 22:14 650 MG Insulin Aspart (novoLOG ASPART) SLIDING SCALE If C... ACHS SC 03/18/17 07:00 04/17/17 06:59 03/21/17 21:52 1 UNITS Glucose (Glucose 40% Gel) 15-30 GRAMS 15 GRAMS... UD PRN PO 03/18/17 02:30 04/17/17 02:29 Glucose (Glucose Chew Tab) 4-8 Tablets 4 Tabl... UD PRN PO 03/18/17 02:30 04/17/17 02:29 Dextrose (Dextrose 50% 50ML Syringe) 25-50ML OF 50% DW IV FOR... UD PRN IV 03/18/17 02:30 04/17/17 02:29 Glucagon (Glucagon Inj) 1 mg UD PRN SQ 03/18/17 02:30 04/17/17 02:29 Tramadol HCl (Ultram Tab) 25 mg Q6H PRN PO 03/18/17 02:30 04/17/17 02:29 04/01/17 04:45 25 MG Atorvastatin Calcium (Lipitor Tab) 80 mg DAILY PO 03/18/17 09:00 04/17/17 08:59 03/31/17 09:30 80 MG Clopidogrel Bisulfate (plAVix TAB) 75 mg DAILY PO 03/18/17 09:00 04/17/17 08:59 03/31/17 09:30 75 MG Senna/Docusate Sodium (Senokot S Tab) 2 tab DAILY PO 03/18/17 09:00 04/17/17 08:59 03/30/17 08:18 2 TAB Aspirin (Ecotrin Tab) 81 mg QAM PO 03/18/17 09:00 04/17/17 08:59 03/31/17 09:30 81 MG Pantoprazole Sodium (Protonix Tab) 40 mg QAM PO 03/19/17 09:00 04/18/17 08:59 03/31/17 09:30 40 MG Levothyroxine Sodium (Synthroid Tab) 75 mcg DAILYBB PO 03/21/17 06:00 04/17/17 06:59 04/01/17 05:51 75 MCG Polyethylene (Miralax Powder Packet) 17 gm BID PO 03/24/17 21:00 04/23/17 08:59 03/30/17 08:20 17 GM Sodium Biphosphate/ Sodium Phosphate (Fleet Enema) 132 ml DAILY PRN NH 03/24/17 12:30 04/23/17 12:29 Nitroglycerin (Nitrostat Tab) 0.4 mg PRN PRN SL 03/25/17 18:30 04/24/17 18:29 Isosorbide Mononitrate (Imdur Ext Rel Tab) 90 mg QAM PO 03/26/17 09:00 04/17/17 08:59 03/31/17 09:31 90 MG Ipratropium [place] (Atrovent 0.02% 0.5MG/2.5ML Neb) 0.5 mg Q6H PRN INH 03/25/17 19:00 04/24/17 18:59 03/25/17 20:11 0.5 MG Levalbuterol (Xopenex 0.63 Mg/ 3 Ml Neb) 0.63 mg Q6H PRN INH 03/25/17 19:00 04/24/17 18:59 03/25/17 20:12 0.63 MG Ondansetron HCl (Zofran Inj) 4 mg Q6H PRN IV 03/26/17 14:15 04/25/17 14:14 03/29/17 10:18 4 MG Atropine Sulfate (Atropine Sulfate 0.1MG/Ml Inj) 0.5 mg PRN PRN IV 03/30/17 19:30 04/29/17 19:29 Heparin Sodium (Porcine) (Heparin Sq 5000 Unit/0.5ml) 5,000 unit Q12 SQ 03/31/17 10:00 04/30/17 09:59 03/31/17 21:38 5,000 UNIT Warfarin Sodium (Coumadin Tab) 2 mg DAILY@16 PO 04/01/17 16:00 05/01/17 15:59 UNV Last 24 Hours Test 03/31/17 11:58 03/31/17 15:55 03/31/17 21:26 04/01/17 00:22 Bedside Glucose 104 mg/dl 118 mg/dl 118 mg/dl Potassium Level 3.7 mmol/L Phosphorus Level 4.5 mg/dl Magnesium Level 2.2 mg/dl Test 04/01/17 05:13 04/01/17 05:54 White Blood Count 12.75 K/uL Red Blood Count 3.06 M/uL Hemoglobin 9.1 g/dL Hematocrit 28.9 % Mean Corpuscular Volume 94.4 fL Mean Corpuscular Hemoglobin 29.7 pg Mean Corpuscular Hemoglobin Concent 31.5 g/dl RDW Standard Deviation 50.5 fL RDW Coefficient of Variation 14.9 % Platelet Count 105 K/uL Mean Platelet Volume 10.6 fL Nucleated RBC Absolute Count (auto) 0.06 K/uL Nucleated Red Blood Cells % 0.5 % Prothrombin Time 18.2 SECONDS Prothromb Time International Ratio 1.7 Sodium Level 137 mmol/L Potassium Level 3.9 mmol/L Chloride Level 99 mmol/L Carbon Dioxide Level 29 mmol/L Anion Gap 9.0 mmol/L Blood Urea Nitrogen 36 mg/dl Creatinine 3.20 mg/dl Est Creatinine Clear Calc Drug Dose 12.7 ml/min Estimated GFR () 15.0 Estimated GFR (Non- 12.9 BUN/Creatinine Ratio 11.1 Random Glucose 119 mg/dl Calcium Level 8.2 mg/dl Magnesium Level 2.2 mg/dl Bedside Glucose 123 mg/dl Assessment & Plan 81-year-old female with baseline chronic kidney disease stage 4 with prior creatinine around 2.5, DM, severe CAD w/ recent high risk lad stent prior to admission and s/p JASMYNE x 2 to LAD this admission presented 03/18 with chest pain as well as shortness of breath and found to have acute non-ST elevation myocardial infarction as well as possible pulmonary embolism, + deep venous thrombosis and pulmonary edema/hypoxemic respiratory failure. acute on advanced chronic renal failure >> likely at this point ESRD but will observe >> had first HD 03/29; for another tx today and tentatively then TRSat -lasix on hold for now -plan HD no heparin d/t procedure yesterday -vascular assistance appreciated -cont daily bmp and strict I/O -not currently on a fluid limit >> she is however hardly eating >not currently on renal diet >> K acceptable for now however and we want to encourage po so for now monitor for need to start anemia of chronic disease >for epo and IV iron w/ HD -daily cbc for now pls -acute heart failure/ ischemic [employer] IN[employer]CTOR she has had a drop in ejection fraction from 40% to 25%; severe underlying CAD w / recent intervention and still diffuse disease > s/p 03/24 L heart cath/stent, s/ p 03/31 pacer -multifactorial hypoxemia pulm following; now back to 2L 02 appreciate consult; will follow with you. 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
[2017-04-01] MEDS: DOCUSATE SODIUM/SENNA 50/8.6MG TAB PO SCH (09:18)
[2017-04-01] MEDS: ASPIRIN 81 MG ECTAB PO SCH (09:18)
[2017-04-01] MEDS: ATORVASTATIN 40 MG TAB PO SCH (09:18)
[2017-04-01] MEDS: CLOPIDOGREL BISULFATE 75 MG TAB PO SCH (09:18)
[2017-04-01] MEDS: PANTOprazole SOD 40 MG TAB PO SCH (09:18)
[2017-04-01] MEDS: ISOSORBIDE MONONITRATE 60 MG TABCR PO SCH (09:19)
[2017-04-01] MEDS: HEPARIN SOD 5000 UNIT/0.5 ML CARP SQ SCH ×2 (09:20→20:30)
--- NOTE | 2017-04-01 10:21 | Critical Care Progress Note ---
Critical Care Progress Note Date of Service Apr 01, 2017. ICU Day ICU Day Number: [address] Rubio Subjective Patient is resting comfortably in bed this morning with no acute complaints. She has not had any episodes of lightheadedness or palpitations this morning. She has tolerated the pacemaker placement well and denies any chest pain over the area. Objective Physical Exam: General - NAD, WD/WN Eyes - PERRL, EOMI, No icterus ENT - no lesions or candidiasis Neck - Supple, trachea midline, no masses or lymphadenopathy, no JVD or bruits Lungs - No paradoxical chest wall movement, clear to auscultation bilaterally, no wheezes, rales, or rhonchi Heart - Regular rate and rhythm, Steri-strips over left side of chest where pacemaker was placed, area is nontender and c/d//i Abdomen - BS present, no bruits noted, tympanic to percussion, soft, nontender, nondistended, no organomegaly Extremities - No edema, pedal pulses intact Neuro - A&OX3 Current SOFA Score SOFA Score Response (Comments) Value PaO2/FiO2 (mmHg) < 300 2 SaO2 / FIO2 221 - 301 1 Platelets (x10) > 150 0 Bilirubin (mg/dL) < 1.2 0 Jaiden Coma Score 15 0 Level of Hypotension No Hypotension 0 Creatinine (mg/dL) 3.5 - 4.9 3 Total 6 Previous SOFA Scores 5 Assessment & Plan Patient is an 82 year old female that presented to [facility] with c/p on 03/17. The patient had been intermittently converting to Afib and with bradycardic episodes and pauses of 5-[address] Bacon placed a pacemaker in the patient yesterday and since has been in NSR with a HR in the 60. She will undergo another cycle of dialysis this morning which she can hopefully tolerate better since she is now normal sinus rhythm. Patient is currently stable and will be transferred over to telemetry. Neuro - CAM-ICU negative - Pain currently well controlled - Monitor for changes in mental status Resp: - 2L NC --> Goal to maintain O2 sat > 90% - Pt full code in event of Cardiac/Pulmonary arrest - CXR Today: Left sided pacemaker, no pneumothorax, mild pulmonary edema and small b/l pleural effusions that are unchanged CV: - Successful implantation of Dual Chamber Cardiac Pacemaker by Dr. Bacon on - Pacemaker set to pace with HR below 60 - No episodes of Afib since placement of pacemaker, currently NSR --> Blood pressure has appeared to improve so if remains stable consider resuming beta brian therapy - Cath with stenting by Dr. Amato during this admission, continuing dual antiplatelet therapy - Monitor on Telemetry - Last Echo Grade 1 diastolic dysfunction, EF 25-30% (EF was 40% 10/2016) - Hold Coreg (lowered dose during admission but still bradycardic) - Lower Extremity DVT - Resume Coumadin 2mg at 1600 Fluids/Renal: - Patient will undergo another cycle of HD this morning - ESRD - Creatinine of 3.2 - UTI with Coag Negative Staph --> Vancomycin Day 11/19 - HD Catheter placed on 03/29 - Strict I&Os - Holding Lasix - No fluid limit at this point GI/Nutrition: - Renal Heart Healthy Diet - Protonix - Bowel Regimen of Docusate, Senna, Miralax BID Heme: - H&H increased to 9.1 s/p 1 unit of PRBC - Heparin BID Endocrine: - Accu-Checks per protocol, started insulin infusion for 2 blood sugars greater than 180 ID - Vancomycin for an uncomplicated UTI --> Day 11/19 Consults & Procedures Consultants: cardiology pulmonary Procedures: right sided heart cath Data Medications: Current Inpatient Medications Medications (Trade) Dose Ordered Sig/Izaiah Route Start Time Stop Time Status Last Admin Dose Admin Acetaminophen (Tylenol Tab) 650 mg Q4H PRN PO 03/18/17 02:30 04/17/17 02:29 03/28/17 22:14 650 MG Insulin Aspart (novoLOG ASPART) SLIDING SCALE If C... ACHS SC 03/18/17 07:00 04/17/17 06:59 03/21/17 21:52 1 UNITS Glucose (Glucose 40% Gel) 15-30 GRAMS 15 GRAMS... UD PRN PO 03/18/17 02:30 04/17/17 02:29 Glucose (Glucose Chew Tab) 4-8 Tablets 4 Tabl... UD PRN PO 03/18/17 02:30 04/17/17 02:29 Dextrose (Dextrose 50% 50ML Syringe) 25-50ML OF 50% DW IV FOR... UD PRN IV 03/18/17 02:30 04/17/17 02:29 Glucagon (Glucagon Inj) 1 mg UD PRN SQ 03/18/17 02:30 04/17/17 02:29 Tramadol HCl (Ultram Tab) 25 mg Q6H PRN PO 03/18/17 02:30 04/17/17 02:29 04/01/17 04:45 25 MG Atorvastatin Calcium (Lipitor Tab) 80 mg DAILY PO 03/18/17 09:00 04/17/17 08:59 04/01/17 09:18 80 MG Clopidogrel Bisulfate (plAVix TAB) 75 mg DAILY PO 03/18/17 09:00 04/17/17 08:59 04/01/17 09:18 75 MG Senna/Docusate Sodium (Senokot S Tab) 2 tab DAILY PO 03/18/17 09:00 04/17/17 08:59 04/01/17 09:18 2 TAB Aspirin (Ecotrin Tab) 81 mg QAM PO 03/18/17 09:00 04/17/17 08:59 04/01/17 09:18 81 MG Pantoprazole Sodium (Protonix Tab) 40 mg QAM PO 03/19/17 09:00 04/18/17 08:59 04/01/17 09:18 40 MG Levothyroxine Sodium (Synthroid Tab) 75 mcg DAILYBB PO 03/21/17 06:00 04/17/17 06:59 04/01/17 05:51 75 MCG Polyethylene (Miralax Powder Packet) 17 gm BID PO 03/24/17 21:00 04/23/17 08:59 03/30/17 08:20 17 GM Sodium Biphosphate/ Sodium Phosphate (Fleet Enema) 132 ml DAILY PRN ND 03/24/17 12:30 04/23/17 12:29 Nitroglycerin (Nitrostat Tab) 0.4 mg PRN PRN SL 03/25/17 18:30 04/24/17 18:29 Isosorbide Mononitrate (Imdur Ext Rel Tab) 90 mg QAM PO 03/26/17 09:00 04/17/17 08:59 04/01/17 09:19 90 MG Ipratropium [place] (Atrovent 0.02% 0.5MG/2.5ML Neb) 0.5 mg Q6H PRN INH 03/25/17 19:00 10/8/17 18:59 03/25/17 20:11 0.5 MG Levalbuterol (Xopenex 0.63 Mg/ 3 Ml Neb) 0.63 mg Q6H PRN INH 03/25/17 19:00 04/24/17 18:59 03/25/17 20:12 0.63 MG Ondansetron HCl (Zofran Inj) 4 mg Q6H PRN IV 03/26/17 14:15 04/25/17 14:14 03/29/17 10:18 4 MG Atropine Sulfate (Atropine Sulfate 0.1MG/Ml Inj) 0.5 mg PRN PRN IV 03/30/17 19:30 04/29/17 19:29 Heparin Sodium (Porcine) (Heparin Sq 5000 Unit/0.5ml) 5,000 unit Q12 SQ 03/31/17 10:00 04/30/17 09:59 04/01/17 09:20 5,000 UNIT Warfarin Sodium (Coumadin Tab) 2 mg DAILY@16 PO 04/01/17 16:00 05/01/17 15:59 Heparin Sodium (Porcine) (No Heparin In Dialysis) 1 ea ONE N/A 04/01/17 09:00 04/01/17 18:00 Vital Signs: Date Time Temp Pulse Resp B/P (MAP) Pulse Ox O2 Delivery O2 Flow Rate FiO2 04/01/17 06:00 65 18 122/66 (84) 100 Nasal Cannula 2.0 04/01/17 04:01 36.3 65 16 109/54 (72) 100 Nasal Cannula 2.0 04/01/17 04:00 Nasal Cannula 2.0 04/01/17 03:01 65 14 112/56 (74) 100 Nasal Cannula 2.0 04/01/17 02:01 63 19 114/59 (77) 100 Nasal Cannula 2.0 04/01/17 00:01 36.3 64 17 94/45 (61) 100 Nasal Cannula 2.0 04/01/17 00:00 Nasal Cannula 2.0 03/31/17 22:01 62 12 98/45 (62) 100 Nasal Cannula 2.0 03/31/17 20:01 36.4 62 15 100/51 (67) 100 Nasal Cannula 2.0 03/31/17 20:00 Nasal Cannula 2.0 03/31/17 17:30 66 17 99/55 (70) 100 03/31/17 17:15 63 15 89/53 (65) 100 03/31/17 17:00 65 19 79/50 (60) 100 03/31/17 16:45 63 15 93/50 (64) 100 03/31/17 16:30 60 13 87/44 (58) 100 03/31/17 16:15 62 13 90/51 (64) 100 03/31/17 16:00 Nasal Cannula 3.0 03/31/17 16:00 64 15 93/52 (66) 100 03/31/17 15:49 36.7 66 15 85/49 (61) 100 03/31/17 15:40 62 16 82/48 (59) 98 Nasal Cannula 2 03/31/17 15:30 62 16 79/48 (58) 98 Nasal Cannula 2 03/31/17 14:00 109 18 90/70 (77) 100 03/31/17 13:00 104 16 86/64 (71) 92 03/31/17 12:17 35.4 119 93/51 (65) 03/31/17 12:00 Nasal Cannula 3.0 03/31/17 12:00 36.4 64 17 73/61 (65) 100 03/31/17 11:15 119 76/43 03/31/17 11:00 64 87/41 03/31/17 11:00 113 25 100 03/31/17 10:45 90 93/60 03/31/17 10:30 99 97/61 03/31/17 10:15 107 94/59 03/31/17 10:15 93 99/53 Laboratory Results: Last 24 Hours Test 03/31/17 11:58 03/31/17 15:55 03/31/17 21:26 04/01/17 00:22 Bedside Glucose 104 mg/dl 118 mg/dl 118 mg/dl Potassium Level 3.7 mmol/L Phosphorus Level 4.5 mg/dl Magnesium Level 2.2 mg/dl Test 04/01/17 05:13 04/01/17 05:54 White Blood Count 12.75 K/uL Red Blood Count 3.06 M/uL Hemoglobin 9.1 g/dL Hematocrit 28.9 % Mean Corpuscular Volume 94.4 fL Mean Corpuscular Hemoglobin 29.7 pg Mean Corpuscular Hemoglobin Concent 31.5 g/dl RDW Standard Deviation 50.5 fL RDW Coefficient of Variation 14.9 % Platelet Count 105 K/uL Mean Platelet Volume 10.6 fL Nucleated RBC Absolute Count (auto) 0.06 K/uL Nucleated Red Blood Cells % 0.5 % Prothrombin Time 18.2 SECONDS Prothromb Time International Ratio 1.7 Sodium Level 137 mmol/L Potassium Level 3.9 mmol/L Chloride Level 99 mmol/L Carbon Dioxide Level 29 mmol/L Anion Gap 9.0 mmol/L Blood Urea Nitrogen 36 mg/dl Creatinine 3.20 mg/dl Est Creatinine Clear Calc Drug Dose 12.7 ml/min Estimated GFR () 15.0 Estimated GFR (Non- 12.9 BUN/Creatinine Ratio 11.1 Random Glucose 119 mg/dl Calcium Level 8.2 mg/dl Magnesium Level 2.2 mg/dl Bedside Glucose 123 mg/dl Resident Tracking Resident Involvement: Resident Care Provided Care Provided: [facility] Medicine Assessment and Plan I have evaluated and discussed this case with the team. She has done well and no longer has a requirement for ICU care. She will be transferred out to a telemetry floor. Today she is awake and alert. No cardiopulmonary complaints. No GI/ complaints. No new neuro complaints Vitals--afeb and VSS PE HEENT--stable Respiratory--exchange is good Cardio--rate and volume ok GI--functional and soft Neuro--intact Derm--no new targets Imp/Rec--Afib with bradycardia--she is stable to be moved out of the ICU. Agree with the resident documentation.
[2017-04-01] MEDS ORDERED: SODIUM CHLORIDE 0.9% 1000ML 250 ML IV ONE (14:30)
--- NOTE | 2017-04-01 14:33 | Progress Note ---
Progress Note Date of Service Apr 01, 2017. Progress Note Received a call from RN that while Dialysis patient's BP was in 80s and had Afib RVR in 120-130s. 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 Patient's condition was updated to Cardiology. Patient continued to have Labile BP and HR in 130s. Will give NSS 250ml and reassess. Currently saturating 100% on 2L NC
[2017-04-01] MEDS ORDERED: WARFARIN SOD 2 MG TAB PO SCH (16:00)
--- NOTE | 2017-04-01 17:02 | Cardiology Follow-Up ---
Subjective Date of Service: Apr 01, 2017. Pt evaluation today including: conversation w/ patient, conversation w/ family , physical exam, conversation w/ environmental consultant History of Present Illness Early this morning the patient claims to be feeling somewhat better than yesterday. She appeared to have more strength and stated that she had only mild discomfort at the pacemaker implant site. I had a 2nd conversation with the patient later today after dialysis she was quite fatigued. She did not report any symptoms of pain. She did describe some worsening breathing trouble. Social History Smoking Status: Never Smoker History of Alcohol Use: No Review of Systems Cardiac: No chest pain Objective Vital Signs Past 12 Hours Date Time Temp Pulse Resp B/P (MAP) Pulse Ox O2 Delivery O2 Flow Rate FiO2 04/01/17 15:57 36.8 65 18 93/57 (69) 100 04/01/17 14:00 36.4 135 116/56 (76) 04/01/17 13:40 123 77/40 04/01/17 13:35 135 59/29 04/01/17 13:30 127 153/114 04/01/17 13:25 125 78/39 04/01/17 13:15 120 76/38 04/01/17 13:00 85 102/39 04/01/17 12:45 96 86/46 04/01/17 12:30 57 96/22 04/01/17 12:20 61 79/43 04/01/17 12:01 36.3 65 86/47 (60) 04/01/17 12:00 98 Nasal Cannula 2.0 04/01/17 11:47 36.9 77 16 90/54 (66) 98 04/01/17 11:14 Nasal Cannula 04/01/17 08:00 Nasal Cannula 2.0 04/01/17 08:00 64 18 113/55 (74) 100 Nasal Cannula 2.0 04/01/17 06:00 65 18 122/66 (84) 100 Nasal Cannula 2.0 Last Recorded Weight-Kilograms: 68.300 Intake & Output 8-Hour Column 04/01/17 04/02/17 04/02/17 16:00 00:00 08:00 Intake Total 120 ml Output Total 110 ml Balance 10 ml 24-Hour Column 04/02/17 08:00 Intake Total 120 ml Output Total 110 ml Balance 10 ml Physical Exam Constitutional: General Apperance: well-nourished, well-developed Level of Distress: NAD, acutely ill, chronically ill Lungs: Respiratory effort: no dyspnea Auscultation: no rhonchi, deminished air movement, decreased breath sounds, wet rales/crackles Cardiovascular: Apical Impulse: not displaced Peripheral Pulses: Bruits: none appreciated Carotid Pulse: normal on the left, normal on the right Radial Pulse: normal on the left, normal on the right Femoral Pulse: normal on the left, normal on the right Dorsalis Pedis Pulse: decreased on the left, decreased on the right Evaluation of pacemaker implant site did reveal a small scab which was removed. A 2nd bandage was applied. There was mild ecchymosis but no hematoma. Data Laboratory Results: Last 24 Hours Test 03/31/17 21:26 04/01/17 00:22 04/01/17 05:13 04/01/17 05:54 Bedside Glucose 118 mg/dl 123 mg/dl Potassium Level 3.7 mmol/L 3.9 mmol/L Phosphorus Level 4.5 mg/dl Magnesium Level 2.2 mg/dl 2.2 mg/dl White Blood Count 12.75 K/uL Red Blood Count 3.06 M/uL Hemoglobin 9.1 g/dL Hematocrit 28.9 % Mean Corpuscular Volume 94.4 fL Mean Corpuscular Hemoglobin 29.7 pg Mean Corpuscular Hemoglobin Concent 31.5 g/dl RDW Standard Deviation 50.5 fL RDW Coefficient of Variation 14.9 % Platelet Count 105 K/uL Mean Platelet Volume 10.6 fL Nucleated RBC Absolute Count (auto) 0.06 K/uL Nucleated Red Blood Cells % 0.5 % Prothrombin Time 18.2 SECONDS Prothromb Time International Ratio 1.7 Sodium Level 137 mmol/L Chloride Level 99 mmol/L Carbon Dioxide Level 29 mmol/L Anion Gap 9.0 mmol/L Blood Urea Nitrogen 36 mg/dl Creatinine 3.20 mg/dl Est Creatinine Clear Calc Drug Dose 12.7 ml/min Estimated GFR () 15.0 Estimated GFR (Non- 12.9 BUN/Creatinine Ratio 11.1 Random Glucose 119 mg/dl Calcium Level 8.2 mg/dl Test 04/01/17 11:03 04/01/17 12:36 Bedside Glucose 154 mg/dl Imaging: Chest x-ray obtained this morning revealed stable lead placement. There is no evidence of pneumothorax Telemetry reviewed: Patient was in a sinus rhythm for the majority of the day. In the afternoon she did have a period of atrial fibrillation while on dialysis. This did result in some higher heart rates. She has since returned to sinus rhythm I performed a complete device interrogation earlier today. She has normal sensing and thresholds on the atrial and ventricular leads. There were does normal device function. Assessment and Plan 1. Atrial fibrillation: Patient was doing quite well until she had dialysis. Very likely that the volume shifts precipitate some of her episodes of atrial fibrillation. She did have some higher heart rates today likely associated with some mild volume depletion. She subsequently converted back to a sinus rhythm. The ideal treatment in her case would be re-initiation of beta blockade. This would address her ischemic cardiomyopathy, severe coronary disease and high ventricular rates during atrial fibrillation. However, her blood pressure is quite labile and earlier today she had systolics in the 70s. I think this effectively precludes use of carvedilol currently. An alternative would be initiation of amiodarone therapy. I think this would affect an element of rhythm control but also help to control her higher heart rates during periods of atrial fibrillation. No concerns over bradycardia given her recent pacemaker placement.. She has been started on systemic anticoagulation with warfarin. 2. Coronary artery disease: Severe coronary artery disease. Will continue dual anti-platelet therapy. No current symptoms of chest discomfort. Tolerating dialysis in this respect well. Continue high-dose atorvastatin. 3. Acute decompensated left ventricular failure: She claim to have an element of worsening dyspnea later today. There was some difficulty during dialysis with her overall stability. Whether she will be able to tolerate continued dialysis and volume removal has yet to be seen. Ideally she would be on beta- blockade and Denny inhibition. However given her hemodynamic instability this will be deferred currently..
[2017-04-01] MEDS ORDERED: AMIODARONE 200 MG TAB PO SCH (17:15)
[2017-04-01] MEDS: AMIODARONE 200 MG TAB PO SCH (17:53)
[2017-04-02] VITALS (7 sets, daily range): BP systolic 83–130; BP diastolic 49–74; PULSE 59–116; TEMP 36.5–37; O2SAT 95–98
[2017-04-02] MEDS: LEVOTHYROXINE 75 MCG TAB PO SCH (06:16)
[2017-04-02] MEDS: INSULIN ASPART 100 UNITS/ML 3 ML PEN SC SCH ×4 (07:00→20:06)
[2017-04-02 07:27] LABS: HEMATOCRIT 26.6 % (37-47); MEAN CORPUSCULAR HEMOGLOBIN 30.7 pg (25-34); MEAN PLATELET VOLUME 10.7 fL (7.4-10.4); PLATELET COUNT 101 K/uL (130-400); RED BLOOD COUNT 2.77 M/uL (4.2-5.4); WHITE BLOOD COUNT 11.04 K/uL (4.8-10.8)
[2017-04-02 07:49] LABS: BUN/CREATININE RATIO 10.3 (10-20); CALCIUM 8.6 mg/dl (8.5-10.1); CREATININE 3.4 mg/dl (0.60-1.20); POTASSIUM 3.8 mmol/L (3.5-5.1)
[2017-04-02 07:57] LABS: INR 2.1 (0.9-1.1); PROTHROMBIN TIME (PATIENT) 23.1 SECONDS (9.0-12.0)
[2017-04-02] MEDS: POLYETHYLENE (MIRALAX) 17 GM PACK PO SCH ×2 (08:01→21:00)
[2017-04-02] MEDS: CLOPIDOGREL BISULFATE 75 MG TAB PO SCH (08:08)
[2017-04-02] MEDS: ATORVASTATIN 40 MG TAB PO SCH (08:08)
[2017-04-02] MEDS: ASPIRIN 81 MG ECTAB PO SCH (08:08)
[2017-04-02] MEDS: ISOSORBIDE MONONITRATE 60 MG TABCR PO SCH (08:09)
[2017-04-02] MEDS: DOCUSATE SODIUM/SENNA 50/8.6MG TAB PO SCH (08:10)
[2017-04-02] MEDS: PANTOprazole SOD 40 MG TAB PO SCH (08:11)
[2017-04-02] MEDS: AMIODARONE 200 MG TAB PO SCH ×2 (08:12→21:12)
[2017-04-02] MEDS: HEPARIN SOD 5000 UNIT/0.5 ML CARP SQ SCH (08:16)
--- NOTE | 2017-04-02 10:02 | Nephrology Progress Note ---
Nephrology Progress Note Date of Service: Apr 02, 2017. Subjective for second day in row had to abort dialysis w/ minimal fluid removal d/t cardiac arrhythmia and hypotension. pt tired and sob today; working at eating. no pain currently. states "I don't know what to do," and "I don't want to talk about the end," and "I was dreaming about too much and thought it (my health) would be different." no n/v Objective Date Time Temp Pulse Resp B/P (MAP) Pulse Ox O2 Delivery O2 Flow Rate FiO2 04/02/17 08:03 36.6 63 20 130/74 (92) 98 Nasal Cannula 1.0 04/02/17 04:31 36.6 63 17 87/55 (66) 98 Nasal Cannula 1.0 04/02/17 04:00 Nasal Cannula 2.0 04/02/17 00:14 36.5 64 17 85/57 (66) 95 Nasal Cannula 1.0 04/02/17 00:00 Nasal Cannula 2.0 04/01/17 20:00 Nasal Cannula 2.0 04/01/17 20:00 91/59 (70) 04/01/17 19:25 37.0 66 20 88/57 (67) 97 Nasal Cannula 3.0 04/01/17 16:30 73/44 (54) 95/59 (71) 04/01/17 16:00 Nasal Cannula 2.0 04/01/17 15:57 36.8 65 18 93/57 (69) 100 04/01/17 14:00 36.4 135 116/56 (76) 04/01/17 13:40 123 77/40 04/01/17 13:35 135 59/29 04/01/17 13:30 127 153/114 04/01/17 13:25 125 78/39 04/01/17 13:15 120 76/38 04/01/17 13:00 85 102/39 04/01/17 12:45 96 86/46 04/01/17 12:30 57 96/22 04/01/17 12:20 61 79/43 04/01/17 12:01 36.3 65 86/47 (60) 04/01/17 12:00 98 Nasal Cannula 2.0 04/01/17 11:47 36.9 77 16 90/54 (66) 98 04/01/17 11:14 Nasal Cannula Physical Exam: GEN: ill appearing F w/ today marked wob w/ belly breathing, tired, on 02NC HEENT: Normocephalic, atraumatic. NECK: Supple. RESPIRATORY: Decreased breath sounds bilaterally and prolonged exp phase CARDIOVASCULAR: RRR 60s, distant ABDOMEN: Soft, nontender, goodson w/ scant urine EXTREMITIES: no edema with chronic venous skin changes; tender to palpation NEUROLOGIC: generalized weakness, tired, oriented x 3 Current Inpatient Medications Medications (Trade) Dose Ordered Sig/Izaiah Route Start Time Stop Time Status Last Admin Dose Admin Acetaminophen (Tylenol Tab) 650 mg Q4H PRN PO 03/18/17 02:30 04/17/17 02:29 03/28/17 22:14 650 MG Insulin Aspart (novoLOG ASPART) SLIDING SCALE If C... ACHS SC 03/18/17 07:00 04/17/17 06:59 03/21/17 21:52 1 UNITS Glucose (Glucose 40% Gel) 15-30 GRAMS 15 GRAMS... UD PRN PO 03/18/17 02:30 04/17/17 02:29 Glucose (Glucose Chew Tab) 4-8 Tablets 4 Tabl... UD PRN PO 03/18/17 02:30 04/17/17 02:29 Dextrose (Dextrose 50% 50ML Syringe) 25-50ML OF 50% DW IV FOR... UD PRN IV 03/18/17 02:30 04/17/17 02:29 Glucagon (Glucagon Inj) 1 mg UD PRN SQ 03/18/17 02:30 04/17/17 02:29 Tramadol HCl (Ultram Tab) 25 mg Q6H PRN PO 03/18/17 02:30 04/17/17 02:29 04/01/17 04:45 25 MG Atorvastatin Calcium (Lipitor Tab) 80 mg DAILY PO 03/18/17 09:00 04/17/17 08:59 04/02/17 08:08 80 MG Clopidogrel Bisulfate (plAVix TAB) 75 mg DAILY PO 03/18/17 09:00 04/17/17 08:59 04/02/17 08:08 75 MG Senna/Docusate Sodium (Senokot S Tab) 2 tab DAILY PO 03/18/17 09:00 04/17/17 08:59 04/02/17 08:10 2 TAB Aspirin (Ecotrin Tab) 81 mg QAM PO 03/18/17 09:00 04/17/17 08:59 04/02/17 08:08 81 MG Pantoprazole Sodium (Protonix Tab) 40 mg QAM PO 03/19/17 09:00 04/18/17 08:59 04/02/17 08:11 40 MG Levothyroxine Sodium (Synthroid Tab) 75 mcg DAILYBB PO 03/21/17 06:00 04/17/17 06:59 04/02/17 06:16 75 MCG Polyethylene (Miralax Powder Packet) 17 gm BID PO 03/24/17 21:00 04/23/17 08:59 03/30/17 08:20 17 GM Sodium Biphosphate/ Sodium Phosphate (Fleet Enema) [address] 03/24/17 12:30 04/23/17 12:29 Nitroglycerin (Nitrostat Tab) 0.4 mg PRN PRN SL 03/25/17 18:30 04/24/17 18:29 Isosorbide Mononitrate (Imdur Ext Rel Tab) 90 mg QAM PO 03/26/17 09:00 04/17/17 08:59 04/02/17 08:09 90 MG Ipratropium [place]ron[place] (Atrovent 0.02% 0.5MG/2.5ML Neb) 0.5 mg Q6H PRN INH 03/25/17 19:00 04/24/17 18:59 03/25/17 20:11 0.5 MG Levalbuterol (Xopenex 0.63 Mg/ 3 Ml Neb) 0.63 mg Q6H PRN INH 03/25/17 19:00 04/24/17 18:59 03/25/17 20:12 0.63 MG Ondansetron HCl (Zofran Inj) 4 mg Q6H PRN IV 03/26/17 14:15 04/25/17 14:14 03/29/17 10:18 4 MG Atropine Sulfate (Atropine Sulfate 0.1MG/Ml Inj) 0.5 mg PRN PRN IV 03/30/17 19:30 04/29/17 19:29 Heparin Sodium (Porcine) (Heparin Sq 5000 Unit/0.5ml) 5,000 unit Q12 SQ 03/31/17 10:00 04/30/17 09:59 04/02/17 08:16 5,000 UNIT Warfarin Sodium (Coumadin Tab) 2 mg DAILY@16 PO 04/01/17 16:00 05/01/17 15:59 04/01/17 16:32 2 MG Amiodarone HCl (Cordarone Tab) 400 mg BID PO 04/01/17 17:15 05/01/17 17:14 04/02/17 08:12 400 MG Last 24 Hours Test 04/01/17 11:03 04/01/17 16:38 04/01/17 20:32 04/02/17 06:45 Bedside Glucose 154 mg/dl 138 mg/dl 162 mg/dl White Blood Count 11.04 K/uL Red Blood Count 2.77 M/uL Hemoglobin 8.5 g/dL Hematocrit 26.6 % Mean Corpuscular Volume 96.0 fL Mean Corpuscular Hemoglobin 30.7 pg Mean Corpuscular Hemoglobin Concent 32.0 g/dl RDW Standard Deviation 51.0 fL RDW Coefficient of Variation 15.3 % Platelet Count 101 K/uL Mean Platelet Volume 10.7 fL Prothrombin Time 23.1 SECONDS Prothromb Time International Ratio 2.1 Sodium Level 136 mmol/L Potassium Level 3.8 mmol/L Chloride Level 99 mmol/L Carbon Dioxide Level 29 mmol/L Anion Gap 8.0 mmol/L Blood Urea Nitrogen 35 mg/dl Creatinine 3.40 mg/dl Est Creatinine Clear Calc Drug Dose 12.1 ml/min Estimated GFR () 13.9 Estimated GFR (Non- 12.0 BUN/Creatinine Ratio 10.3 Random Glucose 162 mg/dl Calcium Level 8.6 mg/dl Test 04/02/17 06:58 Bedside Glucose 164 mg/dl Assessment & Plan 81-year-old female with baseline chronic kidney disease stage 4 with prior creatinine around 2.5, DM, severe CAD w/ recent high risk lad stent prior to admission and s/p JASMYNE x 2 to LAD this admission presented 03/18 with chest pain as well as shortness of breath and found to have acute non-ST elevation myocardial infarction as well as possible pulmonary embolism, + deep venous thrombosis and pulmonary edema/hypoxemic respiratory failure. got pacer 03/31. acute on advanced chronic renal failure >> likely at this point ESRD but will observe >> had first HD 03/29; -dialysis has been limited by AF w/ RVR and hypotension; even if we had CRRT at this institution, not clear to me that she would tolerate that -plan no HD today as she has done so poorly on attempts last 2 days -cont daily bmp and strict I/O -not currently on a fluid limit >> she is however hardly eating >not currently on renal diet >> K acceptable for now however and we want to encourage po so for now monitor for need to start >cardiology and I discussed putting her on a pressor or on amio gtt and trying HD that way >> however dopamine not likely to be weanable and IV amio concern for hypotension; challenging situation >>>>strongly suggest palliative care consult, mostly to facilitate idalmis/ ongoing discussion of goals of care here; we are reaching clinical limits of what we can do to help and at times even to support this patient; I spent > 10 minutes discussing what she wants, what she doesn't want -- she is still understandably working through many issues about her current health anemia of chronic disease >for epo and IV iron w/ HD -daily cbc for now pls -acute heart failure/ ischemic [employer] she has had a drop in ejection fraction from 40% to 25%; severe underlying CAD w / recent intervention and still diffuse disease > s/p 03/24 L heart cath/stent, s/ p 03/31 pacer. cardiology following -multifactorial hypoxemia pulm following; now back to 1-2L 02 appreciate consult; will follow with you. Care coordinated w/ [facility]
--- NOTE | 2017-04-02 11:17 | Progress Note ---
Internal Med Progress Note Date of Service: Apr 02, 2017. Provider Documentation: SUBJECTIVE: Seen and examined at bedside Feels tired Has some SOB Denies chest pain, dizziness, N/V Tried to readdress code status: Patient was unsure to make the decision yet Has not tolerated HD yesterday OBJECTIVE: Vital Signs-as noted below Physical Exam: General Appearance:chronically ill appearing Head: normocephalic, Atraumatic Eyes: normal inspection, EOMI, PERRL Neck: supple, Trachea midline Respiratory/Chest: Diminished breath sounds, CTA Cardiovascular: S1, S2, No murmur Abdomen/GI:Soft, Non tender, Bowel sounds present Extremities/Musculoskelatal:normal inspection, 1+ b/l edema Neurologic/Psych:grossly no focal neurological deficits Skin: normal color, warm Lab data as noted below. ASSESSMENT & PLAN: TACHY AMRIT SYNDROME S/P dual-chamber permanent pacemaker implantation on 03/31 Continue amiodarone for rate control Continue coumadin Monitor INR: 2.1 today Appreciate Cardiology Input CARLOS/ATN on CKD IV Baseline Cr:2.5 Got HD catheter placed on 03/29 Appreciate Nephrology/Vascular surgery help Not tolerating HD Monitor I/Os Poor prognosis Palliative care consulted to address goals of care ACUTE CHF WITH SYSTOLIC DYSFUNCTION /ISCHEMIC CARDIOMYOPATHY : UNSTABLE ANGINA/NSTEMI /IN SETTING OF SEVERE CAD : s/p cardiac cath and stent Continue dual antiplatelet therapy, statin, Imdur continue SL nitro as needed Cardiology following Acute Hypoxemic Respiratory Failure-Multifactorial Secondary to Acute on Chronic Systolic CHF/Severe ICM /CARLOS on CKD Stage 4 /vol overload Appreciate pulmonology Input Monitor Volume status Dialysis to address volume overload Oxygen support . saturating 98% on 1litre SEVERE CAD /ISCHEMIC CARDIOMYOPATHY /NSTEMI multivessel CAD s/p recent high risk PCI to left main /LAD /Circumflex has residual severe RCA disease repeat ECHO -shows diminished EF 20 % ( was 40 % on 10/2016 ) s/p cardiac cath with stent placement in LAD S/P dual-chamber permanent pacemaker Continue current meds LOWER EXT DVT : was on Coumadin Initially held coumadin for elevated INR continue Coumadin Monitor INR UTI WITH COAG NEGATIVE STAPH IN URINE CULTURE : oxacillin resistant on urine culture 03/21 and 03/22 possible due to indwelling Matos S/P IV Vancomycin pharmacy consulted repeat urine culture: contamination Denies urinary symptoms HTN Stable Coreg discontinued Hypothyroidism Synthroid 75mcg DVT px on coumadin FULL CODE-as per D/w pt and daughter DISPOSITION pt's over all prognosis remains poor very poor functional status was living with Daughter Needs rehab /SNF when medically stable and arrangements for out pt dialysis PT/OT eval social service updated for discharge planning Vital Signs: Date Time Temp Pulse Resp B/P (MAP) Pulse Ox O2 Delivery O2 Flow Rate FiO2 04/02/17 08:03 36.6 63 20 130/74 (92) 98 Nasal Cannula 1.0 04/02/17 08:00 Nasal Cannula 2.0 04/02/17 04:31 36.6 63 17 87/55 (66) 98 Nasal Cannula 1.0 04/02/17 04:00 Nasal Cannula 2.0 04/02/17 00:14 36.5 64 17 85/57 (66) 95 Nasal Cannula 1.0 04/02/17 00:00 Nasal Cannula 2.0 04/01/17 20:00 Nasal Cannula 2.0 04/01/17 20:00 91/59 (70) 04/01/17 19:25 37.0 66 20 88/57 (67) 97 Nasal Cannula 3.0 04/01/17 16:30 73/44 (54) 95/59 (71) 04/01/17 16:00 Nasal Cannula 2.0 04/01/17 15:57 36.8 65 18 93/57 (69) 100 04/01/17 14:00 36.4 135 116/56 (76) 04/01/17 13:40 123 77/40 04/01/17 13:35 135 59/29 04/01/17 13:30 127 153/114 04/01/17 13:25 125 78/39 04/01/17 13:15 120 76/38 04/01/17 13:00 85 102/39 04/01/17 12:45 96 86/46 04/01/17 12:30 57 96/22 04/01/17 12:20 61 79/43 04/01/17 12:01 36.3 65 86/47 (60) 04/01/17 12:00 98 Nasal Cannula 2.0 04/01/17 11:47 36.9 77 16 90/54 (66) 98 04/01/17 11:14 Nasal Cannula Lab Results: Results Past 24 Hours Test 04/01/17 16:38 04/01/17 20:32 04/02/17 06:45 04/02/17 06:58 Range/Units Bedside Glucose 138 162 164 70-90 mg/dl White Blood Count 11.04 4.8-10.8 K/uL Red Blood Count 2.77 4.2-5.4 M/uL Hemoglobin 8.5 12.0-16.0 g/dL Hematocrit 26.6 37-47 % Mean Corpuscular Volume 96.0 80-100 fL Mean Corpuscular Hemoglobin 30.7 25-34 pg Mean Corpuscular Hemoglobin Concent 32.0 32-36 g/dl RDW Standard Deviation 51.0 36.4-46.3 fL RDW Coefficient of Variation 15.3 11.5-14.5 % Platelet Count 101 130-400 K/uL Mean Platelet Volume 10.7 7.4-10.4 fL Prothrombin Time 23.1 9.0-12.0 SECONDS Prothromb Time International Ratio 2.1 0.9-1.1 Sodium Level 136 136-145 mmol/L Potassium Level 3.8 3.5-5.1 mmol/L Chloride Level 99 98-107 mmol/L Carbon Dioxide Level 29 21-32 mmol/L Anion Gap 8.0 3-11 mmol/L Blood Urea Nitrogen 35 7-18 mg/dl Creatinine 3.40 0.60-1.20 mg/dl Est Creatinine Clear Calc Drug Dose 12.1 ml/min Estimated GFR () 13.9 Estimated GFR (Non- 12.0 BUN/Creatinine Ratio 10.3 10-20 Random Glucose 162 70-99 mg/dl Calcium Level 8.6 8.5-10.1 mg/dl
[2017-04-02] MEDS ORDERED: WARFARIN SOD 1 MG TAB PO SCH (16:00)
[2017-04-03] VITALS (12 sets, daily range): BP systolic 63–97; BP diastolic 24–64; PULSE 60–105; TEMP 36.4–36.8; O2SAT 96–100
[2017-04-03] MEDS ORDERED: AMIODARONE 200 MG TAB PO ONE (04:27)
[2017-04-03] MEDS ORDERED: ALBUMIN HUMAN 25% 12.5 GM/50 ML VIAL IV ONE (04:30)
[2017-04-03 04:47] LABS: BASO % 0.3 %; BASO ABS # 0.03 K/uL (0-0.2); EOS % 1.2 %; HEMATOCRIT 26.1 % (37-47); IG% 0.7 %; LYMPH % 7.5 %; LYMPH ABS # 0.76 K/uL (1.2-3.4); MEAN CELL VOLUME 94.9 fL (80-100); MEAN CORPUSCULAR HEMOGLOBIN 30.9 pg (25-34); MEAN CORPUSCULAR HGB CONC 32.6 g/dl (32-36); MEAN PLATELET VOLUME 11.6 fL (7.4-10.4); MONO % 16.2 %; NEUT % 74.1 %; PLATELET COUNT 106 K/uL (130-400); RED BLOOD COUNT 2.75 M/uL (4.2-5.4); WHITE BLOOD COUNT 10.13 K/uL (4.8-10.8)
[2017-04-03 04:57] LABS: INR 3.1 (0.9-1.1); PROTHROMBIN TIME (PATIENT) 34.5 SECONDS (9.0-12.0)
[2017-04-03 05:06] LABS: BUN/CREATININE RATIO 10.7 (10-20); CALCIUM 8.2 mg/dl (8.5-10.1); CREATININE 4.4 mg/dl (0.60-1.20); MAGNESIUM 2.3 mg/dl (1.8-2.4); POTASSIUM 4.3 mmol/L (3.5-5.1)
[2017-04-03 05:19] LABS: COMPLETE YES; ECHINOCYTES 1+; OVALOCYTES 1+; POLYCHROMASIA 1+; VACUOLIZATION 1+
[2017-04-03] MEDS: LEVOTHYROXINE 75 MCG TAB PO SCH (05:36)
[2017-04-03] MEDS: INSULIN ASPART 100 UNITS/ML 3 ML PEN SC SCH ×4 (07:00→22:05)
[2017-04-03] MEDS: POLYETHYLENE (MIRALAX) 17 GM PACK PO SCH ×2 (07:31→21:00)
[2017-04-03] MEDS: ISOSORBIDE MONONITRATE 60 MG TABCR PO SCH (07:31)
[2017-04-03] MEDS: PANTOprazole SOD 40 MG TAB PO SCH (08:36)
[2017-04-03] MEDS: DOCUSATE SODIUM/SENNA 50/8.6MG TAB PO SCH (08:37)
[2017-04-03] MEDS: CLOPIDOGREL BISULFATE 75 MG TAB PO SCH (08:38)
[2017-04-03] MEDS: ASPIRIN 81 MG ECTAB PO SCH (08:38)
[2017-04-03] MEDS: ATORVASTATIN 40 MG TAB PO SCH (08:38)
--- NOTE | 2017-04-03 09:01 | Progress Note ---
Internal Med Progress Note Date of Service: Apr 03, 2017. Provider Documentation: SUBJECTIVE: Seen and examined at bedside Patient is hypotensive and renal function worsening Patient feels exhausted and expressed to be comfortable Reported that she preferred no CPR/Intubation if she becomes unconscious Denies chest pain,sob,dizziness, N/V Continues to be in afib She understands her condition and needs HD but is not able to tolerate OBJECTIVE: Vital Signs-as noted below Physical Exam: General Appearance:chronically ill appearing Head: normocephalic, Atraumatic Eyes: normal inspection, EOMI, PERRL Neck: supple, Trachea midline Respiratory/Chest: Diminished breath sounds, CTA Cardiovascular: Irregularly, irregular, No murmur Abdomen/GI:Soft, Non tender, Bowel sounds present Extremities/Musculoskelatal:normal inspection, 1+ b/l edema Neurologic/Psych:grossly no focal neurological deficits Skin: normal color, warm Lab data as noted below. ASSESSMENT & PLAN: TACHY AMRIT SYNDROME S/P dual-chamber permanent pacemaker implantation on 03/31 Continue amiodarone for rate control Continue coumadin Monitor INR: 3.1 today Appreciate Cardiology Input CARLOS/ATN on CKD IV Baseline Cr:2.5 Got HD catheter placed on 03/29 Appreciate Nephrology/Vascular surgery help Not tolerating HD Monitor I/Os Poor prognosis Palliative care consulted Renal function worsening Patient feels exhausted and expressed being tired fighting and wants to be comfortable ACUTE CHF WITH SYSTOLIC DYSFUNCTION /ISCHEMIC CARDIOMYOPATHY : UNSTABLE ANGINA/NSTEMI /IN SETTING OF SEVERE CAD : s/p cardiac cath and stent Continue dual antiplatelet therapy, statin Imdur held secondary to hypotension continue SL nitro as needed Cardiology following Acute Hypoxemic Respiratory Failure-Multifactorial Secondary to Acute on Chronic Systolic CHF/Severe ICM /CARLOS on CKD Stage 4 /vol overload Appreciate pulmonology Input Monitor Volume status Dialysis to address volume overload Oxygen support . saturating 100% on 2 liters SEVERE CAD /ISCHEMIC CARDIOMYOPATHY /NSTEMI multivessel CAD s/p recent high risk PCI to left main /LAD /Circumflex has residual severe RCA disease repeat ECHO -shows diminished EF 20 % ( was 40 % on 10/2016 ) s/p cardiac cath with stent placement in LAD S/P dual-chamber permanent pacemaker Continue current meds LOWER EXT DVT : was on Coumadin Coumadin held Monitor INR: therapeutic UTI WITH COAG NEGATIVE STAPH IN URINE CULTURE : oxacillin resistant on urine culture 03/21 and 03/22 possible due to indwelling Matos S/P IV Vancomycin pharmacy consulted repeat urine culture: contamination Denies urinary symptoms HTN Stable Coreg discontinued Hypothyroidism Synthroid 75mcg DVT px on coumadin CODE STATUS: DNI/DNR: Discussed with patient DISPOSITION pt's over all prognosis remains poor very poor functional status was living with Daughter PT/OT eval social service and palliative care consulted Vital Signs: Date Time Temp Pulse Resp B/P (MAP) Pulse Ox O2 Delivery O2 Flow Rate FiO2 04/03/17 08:23 103 65/44 (51) 100 Nasal Cannula 2.0 04/03/17 08:17 63/45 (51) 04/03/17 07:17 36.6 102 16 72/58 (63) 100 Nasal Cannula 2.0 04/03/17 04:56 36.4 102 16 97/64 (75) 96 Nasal Cannula 2.0 04/03/17 04:09 36.5 105 16 78/54 (62) 98 Nasal Cannula 2.0 04/03/17 04:00 Nasal Cannula 2.0 04/03/17 00:00 Nasal Cannula 2.0 04/02/17 23:05 36.8 116 14 85/56 (66) 98 Nasal Cannula 3.0 04/02/17 20:00 Nasal Cannula 1.0 04/02/17 19:33 36.9 62 18 86/51 (63) 95 Nasal Cannula 1.0 04/02/17 16:00 Nasal Cannula 2.0 04/02/17 15:32 36.5 59 18 83/49 (60) 95 Nasal Cannula 1.0 04/02/17 12:00 Nasal Cannula 1.0 04/02/17 11:44 37.0 68 16 90/58 (69) 98 Lab Results: Results Past 24 Hours Test 04/02/17 11:13 04/02/17 16:29 04/02/17 20:04 04/03/17 04:39 Range/Units Bedside Glucose 171 170 165 70-90 mg/dl White Blood Count 10.13 4.8-10.8 K/uL Red Blood Count 2.75 4.2-5.4 M/uL Hemoglobin 8.5 12.0-16.0 g/dL Hematocrit 26.1 37-47 % Mean Corpuscular Volume 94.9 80-100 fL Mean Corpuscular Hemoglobin 30.9 25-34 pg Mean Corpuscular Hemoglobin Concent 32.6 32-36 g/dl Platelet Count 106 130-400 K/uL Mean Platelet Volume 11.6 7.4-10.4 fL Neutrophils (%) (Auto) 74.1 % Lymphocytes (%) (Auto) 7.5 % Monocytes (%) (Auto) 16.2 % Eosinophils (%) (Auto) 1.2 % Basophils (%) (Auto) 0.3 % Neutrophils # (Auto) 7.51 1.4-6.5 K/uL Lymphocytes # (Auto) 0.76 1.2-3.4 K/uL Monocytes # (Auto) 1.64 0.11-0.59 K/uL Eosinophils # (Auto) 0.12 0-0.5 K/uL Basophils # (Auto) 0.03 0-0.2 K/uL RDW Standard Deviation 51.5 36.4-46.3 fL RDW Coefficient of Variation 15.4 11.5-14.5 % Immature Granulocyte % (Auto) 0.7 % Immature Granulocyte # (Auto) 0.07 0.00-0.02 K/uL Toxic Vacuolation 1+ Polychromasia 1+ Ovalocytes 1+ Echinocytes 1+ Prothrombin Time 34.5 9.0-12.0 SECONDS Prothromb Time International Ratio 3.1 0.9-1.1 Sodium Level 132 136-145 mmol/L Potassium Level 4.3 3.5-5.1 mmol/L Chloride Level 97 98-107 mmol/L Carbon Dioxide Level 26 21-32 mmol/L Anion Gap 9.0 3-11 mmol/L Blood Urea Nitrogen 47 7-18 mg/dl Creatinine 4.40 0.60-1.20 mg/dl Est Creatinine Clear Calc Drug Dose 9.4 ml/min Estimated GFR () 10.2 Estimated GFR (Non- 8.8 BUN/Creatinine Ratio 10.7 10-20 Random Glucose 133 70-99 mg/dl Lactic Acid Level 1.2 0.4-2.0 mmol/L Calcium Level 8.2 8.5-10.1 mg/dl Magnesium Level 2.3 1.8-2.4 mg/dl Test 04/03/17 06:54 Range/Units Bedside Glucose 132 70-90 mg/dl
[2017-04-03] MEDS ORDERED: NURSING VERBAL MED ORDER ONE (09:30)
[2017-04-03] MEDS ORDERED: SODIUM CHLORIDE 0.9% 250ML 250 ML IV ONE (10:00)
--- NOTE | 2017-04-03 14:16 | Progress Note ---
Progress Note Date of Service Apr 03, 2017. Progress Note Discussed with Patient and her daughter in detail. Patient expressed that she prefers comfort measures only and had difficulty with breathing.
[2017-04-03] MEDS ORDERED: LORAZEPAM 0.5 MG TAB PO PRN (14:30)
[2017-04-03] MEDS ORDERED: MoRPHine SULFATE 5 MG/0.25 ML UDP PO PRN ×2 (15:00→18:00)
[2017-04-03] MEDS: HYDROmorphone INJ 0.5 MG/0.5 ML SYR IV PRN (17:30)
[2017-04-03] MEDS: ONDANSETRON INJ 2 MG/ML 2 ML VIAL IV PRN (20:03)
[2017-04-03] MEDS: AMIODARONE 200 MG TAB PO SCH (21:00)
[2017-04-04] VITALS: BP 84/54; PULSE 60; TEMP 36.4; O2SAT 99
[2017-04-04] MEDS: LEVOTHYROXINE 75 MCG TAB PO SCH (05:21)
[2017-04-04] MEDS: ONDANSETRON INJ 2 MG/ML 2 ML VIAL IV PRN (06:03)
[2017-04-04] MEDS: INSULIN ASPART 100 UNITS/ML 3 ML PEN SC SCH ×4 (06:30→21:00)
[2017-04-04 07:29] VITALS: BP 87/56; PULSE 95; TEMP 35.8; O2SAT 90
[2017-04-04] MEDS: AMIODARONE 200 MG TAB PO SCH ×2 (07:58→21:00)
[2017-04-04] MEDS: ASPIRIN 81 MG ECTAB PO SCH (07:59)
[2017-04-04] MEDS: ATORVASTATIN 40 MG TAB PO SCH (07:59)
[2017-04-04] MEDS: PANTOprazole SOD 40 MG TAB PO SCH (07:59)
[2017-04-04] MEDS: POLYETHYLENE (MIRALAX) 17 GM PACK PO SCH ×2 (07:59→21:00)
[2017-04-04] MEDS: DOCUSATE SODIUM/SENNA 50/8.6MG TAB PO SCH (07:59)
[2017-04-04] MEDS: CLOPIDOGREL BISULFATE 75 MG TAB PO SCH (07:59)
[2017-04-04] MEDS: ISOSORBIDE MONONITRATE 60 MG TABCR PO SCH (07:59)
--- NOTE | 2017-04-04 13:40 | Palliative Care Consultation ---
Consultation Date of Consultation: Apr 04, 2017. Requesting Physician: Dr. Calloway Attending Physician: Dr. Calloway Reason for Consultation: Goals of care History of Present Illness This 81 year old female patient presented to the hospital 18 days ago with c/o chest pain and shortness of breath. History obtained mostly from record as patient and daughter were tearful and upset, did not offer much information. Patient moved here from the [facility] [place] in December 2016, lives with daughter. She has an extensive past medical history including chronic systolic heart failure secondary to ischemic cardiomyopathy (EF of 40% from a 2D echo from November 2016); CAD status post stenting, hypertension, hyperlipidemia, hypothyroidism, chronic renal insufficiency (baseline creatinine of 2 to 2.5), chronic anemia (baseline hemoglobin 10), and nocturnal hypoxemia on home O2 at night as per records. She has had an extended and complicated hospital stay due to acute renal failure requiring dialysis, tachy-reny syndrome s/p pacemaker insertion 03/31, CHF exacerbation with 20% (down from 40% in November 2016), respiratory failure secondary to CHF/CARLOS/volume overload. Patient has continued to decline and deteriorate. She has not been able to tolerate dialysis- it was stopped prematurely both times it was attempted. Decision was apparently made last evening to discontinue medications, stop dialysis, and transition to comfort measures only. Palliative care consulted. I met with patient and her daughter, Jayshree Shaw, in room 251-1. Patient is awake, alert and oriented x4. Patient is not having pain at this time, states her SOB is better than it has been. Pain is all over body, general achiness. She stated that she just wants to be comfortable, confirmed that medications and dialysis were stopped. Jayshree was extremely tearful and unable to offer me any history, goals of care, or plan. Patient was worried about Jayshree and didn' t want her to be upset, so patient said, "Can't you just leave me alone?" I stepped into the hallway with Jayshree, who continued to cry and said that she doesn't want to talk about anything in front of her mom. We discussed moving patient to SNF for hospice/comfort care, she is reluctant but is agreeable to continuing the discussion. Patient had the same reaction when I talked about moving out of the hospital. Limited ROS and physical exam as patient wanted to be left alone. Past Medical/Surgical History Medical History: as above Social History Smoking Status: Never Smoker History of Alcohol Use: No Drug Use: none Marital Status: single Review of Systems Constitutional: + weakness ENT: + trouble swallowing Respiratory: No wheezing, No shortness of breath Cardiac: No chest pain Abdomen: No pain, No nausea, No vomiting Allergies Coded Allergies: Lorazepam (Verified Adverse Reaction, Mild, 0, 03/29/17) excessive sedation Medications Current Inpatient Medications Medications (Trade) Dose Ordered Sig/Izaiah Route Start Time Stop Time Status Last Admin Dose Admin Acetaminophen (Tylenol Tab) 650 mg Q4H PRN PO 03/18/17 02:30 04/17/17 02:29 03/28/17 22:14 650 MG Insulin Aspart (novoLOG ASPART) SLIDING SCALE If C... ACHS SC 03/18/17 07:00 04/17/17 06:59 03/21/17 21:52 1 UNITS Glucose (Glucose 40% Gel) 15-30 GRAMS 15 GRAMS... UD PRN PO 03/18/17 02:30 04/17/17 02:29 Glucose (Glucose Chew Tab) 4-8 Tablets 4 Tabl... UD PRN PO 03/18/17 02:30 04/17/17 02:29 Dextrose (Dextrose 50% 50ML Syringe) 25-50ML OF 50% DW IV FOR... UD PRN IV 03/18/17 02:30 04/17/17 02:29 Glucagon (Glucagon Inj) 1 mg UD PRN SQ 03/18/17 02:30 04/17/17 02:29 Tramadol HCl (Ultram Tab) 25 mg Q6H PRN PO 03/18/17 02:30 04/17/17 02:29 04/01/17 04:45 25 MG Atorvastatin Calcium (Lipitor Tab) 80 mg DAILY PO 03/18/17 09:00 04/17/17 08:59 04/03/17 08:38 80 MG Clopidogrel Bisulfate (plAVix TAB) 75 mg DAILY PO 03/18/17 09:00 04/17/17 08:59 04/03/17 08:38 75 MG Senna/Docusate Sodium (Senokot S Tab) 2 tab DAILY PO 03/18/17 09:00 04/17/17 08:59 04/03/17 08:37 2 TAB Aspirin (Ecotrin Tab) 81 mg QAM PO 03/18/17 09:00 04/17/17 08:59 04/03/17 08:38 81 MG Pantoprazole Sodium (Protonix Tab) 40 mg QAM PO 03/19/17 09:00 04/18/17 08:59 04/03/17 08:36 40 MG Levothyroxine Sodium (Synthroid Tab) 75 mcg DAILYBB PO 03/21/17 06:00 04/17/17 06:59 04/03/17 05:36 75 MCG Polyethylene (Miralax Powder Packet) 17 gm BID PO 03/24/17 21:00 04/23/17 08:59 03/30/17 08:20 17 GM Sodium Biphosphate/ Sodium Phosphate (Fleet Enema) 132 ml DAILY PRN OH 03/24/17 12:30 04/23/17 12:29 Nitroglycerin (Nitrostat Tab) 0.4 mg PRN PRN SL 03/25/17 18:30 04/24/17 18:29 Isosorbide Mononitrate (Imdur Ext Rel Tab) 90 mg QAM PO 03/26/17 09:00 04/17/17 08:59 04/02/17 08:09 90 MG Ipratropium [place] (Atrovent 0.02% 0.5MG/2.5ML Neb) 0.5 mg Q6H PRN INH 03/25/17 19:00 04/24/17 18:59 03/25/17 20:11 0.5 MG Levalbuterol (Xopenex 0.63 Mg/ 3 Ml Neb) 0.63 mg Q6H PRN INH 03/25/17 19:00 04/24/17 18:59 03/25/17 20:12 0.63 MG Ondansetron HCl (Zofran Inj) 4 mg Q6H PRN IV 03/26/17 14:15 04/25/17 14:14 04/04/17 06:03 4 MG Atropine Sulfate (Atropine Sulfate 0.1MG/Ml Inj) 0.5 mg PRN PRN IV 03/30/17 19:30 04/29/17 19:29 Amiodarone HCl (Cordarone Tab) 400 mg BID PO 04/03/17 21:00 05/01/17 17:14 Lorazepam (Ativan Tab) 0.5 mg Q6H PRN PO 04/03/17 14:30 05/03/17 14:29 Morphine Sulfate (Roxanol Oral Soln) 15 mg Q3H PRN PO 04/03/17 18:00 04/17/17 14:59 Hydromorphone HCl (Dilaudid Inj) 0.5 mg Q3H PRN IV 04/03/17 17:15 04/17/17 17:14 04/03/17 17:30 0.5 MG Physical Exam Date Time Temp Pulse Resp B/P (MAP) Pulse Ox O2 Delivery O2 Flow Rate FiO2 04/04/17 08:00 Nasal Cannula 2.0 04/04/17 07:29 35.8 95 16 87/56 (66) 90 Nasal Cannula 2.0 04/04/17 01:30 Nasal Cannula 2.0 04/04/17 00:00 36.4 60 18 84/54 (64) 99 2.0 04/03/17 16:00 Nasal Cannula 2.0 04/03/17 15:33 36.8 60 16 100 2.0 04/03/17 15:09 60 16 86/24 (44) 100 General Appearance: no apparent distress, + obese, + pertinent finding ( chornically ill-appearing, deconditioned) ENT: hearing grossly normal Neck: supple, no JVD Respiratory: no respiratory distress, no accessory muscle use Musculoskeletal: pertinent finding (poor muscle tone) Neurologic/Psychiatric: alert, normal mood/affect, oriented x 3 Skin: + pertinent finding (scattered ecchymosis all over body) Laboratory Results Last 24 Hours Test 04/04/17 08:03 Bedside Glucose 94 mg/dl Assessment & Plan Palliative Performance Scale: 20 % (not able to get OOB, not eating much at all , total care) Problem list: Weakness SOB Tachy-reny syndrome CARLOS on CKD, requiring HD- not tolerating Acute CHF exacerbation- EF 20% NSTEMI, hx CAD and ischemic cardiomyopathy Respiratory failure-multifactorial secondary to above Goals of care (Z51.5) Palliative care recs: -Patient confirmed comfort measures only. Did not want to discuss anything end- of-life related. -Recommend transition to SNF with hospice care. I did discuss this with patient and daughter, they seemed to agree. -Patient has widespread pain, recommend fentanyl patch 12mcg/hr TD Q72h. -Roxanol 5mg PO Q3h PRN pain or SOB. -Lorazepam 1mg SL Q4h PRN anxiety/agitation. -Case management is updated. Thank you kindly for this consult. I will follow as needed.
[2017-04-04] MEDS ORDERED: FENTANYL 12 MCG/HR TDSY TD SCH (14:30)
--- NOTE | 2017-04-04 14:31 | Progress Note ---
Internal Med Progress Note Date of Service: Apr 04, 2017. Provider Documentation: SUBJECTIVE: Seen and examined at bedside States feeling comfortable Denies pain, SOB Family at bedside Poor appetite OBJECTIVE: Vital Signs-as noted below Physical Exam: General Appearance:chronically ill appearing Head: normocephalic, Atraumatic Eyes: normal inspection, EOMI, PERRL Neck: supple, Trachea midline Respiratory/Chest: Diminished breath sounds, CTA Cardiovascular: Irregularly, irregular, No murmur Abdomen/GI:Soft, Non tender, Bowel sounds present Extremities/Musculoskelatal:normal inspection, 1+ b/l edema Neurologic/Psych:grossly no focal neurological deficits Skin: normal color, warm Lab data as noted below. ASSESSMENT & PLAN: TACHY [employer] SY[employer]OME S/P dual-chamber permanent pacemaker implantation on 03/31 Continue amiodarone for rate control Continue coumadin Monitor INR: 3.1 Appreciate Cardiology Input Currently Comfort measures only CARLOS/ATN on CKD IV Baseline Cr:2.5 Got HD catheter placed on 03/29 Appreciate Nephrology/Vascular surgery help Not tolerating HD Monitor I/Os Poor prognosis Appreciate Palliative care Input Patient feels exhausted and expressed being tired fighting and wants to be comfortable ACUTE CHF WITH SYSTOLIC DYSFUNCTION /ISCHEMIC CARDIOMYOPATHY : UNSTABLE ANGINA/NSTEMI /IN SETTING OF SEVERE CAD : s/p cardiac cath and stent On dual antiplatelet therapy, statin Imdur held secondary to hypotension continue SL nitro as needed Appreciate Cardiology help Acute Hypoxemic Respiratory Failure-Multifactorial Secondary to Acute on Chronic Systolic CHF/Severe ICM /CARLOS on CKD Stage 4 /vol overload Appreciate pulmonology Input Monitor Volume status Dialysis to address volume overload Oxygen support . saturating 90% on 2 liters SEVERE CAD /ISCHEMIC CARDIOMYOPATHY /NSTEMI multivessel CAD s/p recent high risk PCI to left main /LAD /Circumflex has residual severe RCA disease repeat ECHO -shows diminished EF 20 % ( was 40 % on 10/2016 ) s/p cardiac cath with stent placement in LAD S/P dual-chamber permanent pacemaker Continue current meds LOWER EXT DVT : was on Coumadin Coumadin held Monitor INR: therapeutic UTI WITH COAG NEGATIVE STAPH IN URINE CULTURE : oxacillin resistant on urine culture 03/21 and 03/22 possible due to indwelling Matos S/P IV Vancomycin pharmacy consulted repeat urine culture: contamination Denies urinary symptoms HTN Stable Coreg discontinued Hypothyroidism Synthroid 75mcg DVT px on coumadin CODE STATUS: DNI/DNR: Discussed with patient DISPOSITION pt's over all prognosis very poor very poor functional status was living with Daughter Currently comfort measures only Plan to DC when bed available palliative care following Vital Signs: Date Time Temp Pulse Resp B/P (MAP) Pulse Ox O2 Delivery O2 Flow Rate FiO2 04/04/17 08:00 Nasal Cannula 2.0 04/04/17 07:29 35.8 95 16 87/56 (66) 90 Nasal Cannula 2.0 04/04/17 01:30 Nasal Cannula 2.0 04/04/17 00:00 36.4 60 18 84/54 (64) 99 2.0 04/03/17 16:00 Nasal Cannula 2.0 04/03/17 15:33 36.8 60 16 100 2.0 04/03/17 15:09 60 16 86/24 (44) 100 Lab Results: Results Past 24 Hours Test 04/04/17 08:03 Range/Units Bedside Glucose 94 70-90 mg/dl
[2017-04-04] MEDS: CHECK FENTANYL PATCH PLACEMENT SCH (15:59)
[2017-04-05] MEDS: CHECK FENTANYL PATCH PLACEMENT SCH ×4 (03:27→23:52)
[2017-04-05] MEDS: LEVOTHYROXINE 75 MCG TAB PO SCH (06:03)
[2017-04-05] MEDS: INSULIN ASPART 100 UNITS/ML 3 ML PEN SC SCH ×4 (06:30→21:00)
[2017-04-05] MEDS: ISOSORBIDE MONONITRATE 60 MG TABCR PO SCH (07:25)
[2017-04-05] MEDS: POLYETHYLENE (MIRALAX) 17 GM PACK PO SCH ×2 (07:25→21:00)
[2017-04-05] MEDS: ATORVASTATIN 40 MG TAB PO SCH (07:27)
[2017-04-05] MEDS: PANTOprazole SOD 40 MG TAB PO SCH (07:27)
[2017-04-05] MEDS: CLOPIDOGREL BISULFATE 75 MG TAB PO SCH (07:27)
[2017-04-05] MEDS: AMIODARONE 200 MG TAB PO SCH ×2 (07:27→21:00)
[2017-04-05] MEDS: ASPIRIN 81 MG ECTAB PO SCH (07:27)
[2017-04-05] MEDS: DOCUSATE SODIUM/SENNA 50/8.6MG TAB PO SCH (07:28)
[2017-04-05 07:36] VITALS: BP 100/60; PULSE 60
--- NOTE | 2017-04-05 11:02 | Progress Note ---
Internal Med Progress Note Date of Service: Apr 05, 2017. Provider Documentation: SUBJECTIVE: Seen and examined at bedside Feels better today Denies pain, SOB Appetitive better OBJECTIVE: Vital Signs-as noted below Physical Exam: General Appearance:chronically ill appearing Head: normocephalic, Atraumatic Eyes: normal inspection, EOMI, PERRL Neck: supple, Trachea midline Respiratory/Chest: Diminished breath sounds, CTA Cardiovascular: Irregularly, irregular, No murmur Abdomen/GI:Soft, Non tender, Bowel sounds present Extremities/Musculoskelatal:normal inspection, 1+ b/l edema Neurologic/Psych:grossly no focal neurological deficits Skin: normal color, warm Lab data as noted below. ASSESSMENT & PLAN: TACHY [employer] S/P dual-chamber permanent pacemaker implantation on 03/31 Continue amiodarone for rate control Continue coumadin INR: 3.1 Appreciate Cardiology Input Currently Comfort measures only CARLOS/ATN on CKD IV Baseline Cr:2.5 Got HD catheter placed on 03/29 Appreciate Nephrology/Vascular surgery help Not tolerating HD Monitor I/Os Poor prognosis Appreciate Palliative care Input Patient feels exhausted and expressed being tired fighting and wants to be comfortable ACUTE CHF WITH SYSTOLIC DYSFUNCTION /ISCHEMIC CARDIOMYOPATHY : UNSTABLE ANGINA/NSTEMI /IN SETTING OF SEVERE CAD : s/p cardiac cath and stent On dual antiplatelet therapy, statin, Imdur continue SL nitro as needed Appreciate Cardiology help Acute Hypoxemic Respiratory Failure-Multifactorial Secondary to Acute on Chronic Systolic CHF/Severe ICM /CARLOS on CKD Stage 4 /vol overload Appreciate pulmonology Input Not tolerating Dialysis Oxygen support . SEVERE CAD /ISCHEMIC CARDIOMYOPATHY /NSTEMI multivessel CAD s/p recent high risk PCI to left main /LAD /Circumflex has residual severe RCA disease repeat ECHO -shows diminished EF 20 % ( was 40 % on 10/2016 ) s/p cardiac cath with stent placement in LAD S/P dual-chamber permanent pacemaker Continue current meds LOWER EXT DVT : was on Coumadin Coumadin held Monitor INR: therapeutic UTI WITH COAG NEGATIVE STAPH IN URINE CULTURE : oxacillin resistant on urine culture 03/21 and 03/22 possible due to indwelling Matos S/P IV Vancomycin repeat urine culture: contamination Denies urinary symptoms HTN Stable Coreg discontinued Hypothyroidism Synthroid 75mcg DVT px on coumadin CODE STATUS: DNI/DNR: Discussed with patient DISPOSITION pt's over all prognosis very poor very poor functional status was living with Daughter Currently comfort measures only Plan to DC when placement available palliative care following Vital Signs: Date Time Temp Pulse Resp B/P (MAP) Pulse Ox O2 Delivery O2 Flow Rate FiO2 04/05/17 08:00 Nasal Cannula 2.0 04/05/17 07:36 60 100/60 (73) 04/05/17 00:00 Nasal Cannula 2.0 04/04/17 16:00 Nasal Cannula 2.0
--- NOTE | 2017-04-05 15:28 | Palliative Care Progress Note ---
Palliative Care Progress Note Date of Service Apr 05, 2017. Subjective Pt evaluation today including: conversation w/ patient, physical exam, chart review, conversation w/ marketing sales consultant, review of inpatient medication list Pain: 7/10 PO Intake: "not much" Voiding: goodson catheter in place (oliguric, almost anuric) -Patient is in slightly better spirits today. -The fentanyl patch is working for her, she said. However, she still rated her pain at 7/10, but says she is comfortable with that. She has Roxanol PRN and does ask for it when she wants/needs it. -She met with case management today and is agreeable to SNF, states she doesn't have a choice. -Patient still has a lot of worries, particularly related to going to [facility]. Review of Systems Constitutional: + weakness ENT: + trouble swallowing (did better with pills today) Respiratory: + shortness of breath, No cough, No wheezing Cardiac: No chest pain, No edema Abdomen: No pain, No nausea, No vomiting Female : No problem reported Psychiatric: + problem reported (worrisome) Objective Vital Signs Date Time Temp Pulse Resp B/P (MAP) Pulse Ox O2 Delivery O2 Flow Rate FiO2 04/05/17 08:00 Nasal Cannula 2.0 04/05/17 07:36 60 100/60 (73) 04/05/17 00:00 Nasal Cannula 2.0 04/04/17 16:00 Nasal Cannula 2.0 Physical Exam General Appearance: no apparent distress, + obese, + pertinent finding ( chronically ill-appearing. deconditioned) ENT: hearing grossly normal Neck: supple, no JVD Respiratory/Chest: no respiratory distress, no accessory muscle use, + decreased breath sounds Cardiovascular: regular rate, rhythm, no edema, + normal peripheral pulses Abdomen: normal bowel sounds, non tender, soft Neurologic/Psychiatric: alert, normal mood/affect, oriented x 3 Skin: + pertinent finding (scattered scabs and ecchymosis all over) Assessment and Plan Problem list: Weakness SOB Tachy-reny syndrome CARLOS on CKD, requiring HD- not tolerating Acute CHF exacerbation- EF 20% NSTEMI, hx CAD and ischemic cardiomyopathy Respiratory failure-multifactorial secondary to above Goals of care (Z51.5) Palliative care recs: -Comfort measures only continues. -Patient requested her pills today, okay to continue them as long as she is able /wants to take them. -Continue fentanyl patch and Roxanol PRN. -Plan remains for SNF: skilled vs. hospice. Either way, goal is for comfort. -I will offer POLST form to patient and daughter, Jayshree. Thanks again for the consult. I will follow as needed. Palliative Performance Scale: 20 % (not able to get OOB, not eating much at all , total care) [facility]
[2017-04-06] MEDS: LEVOTHYROXINE 75 MCG TAB PO SCH (05:21)
[2017-04-06] MEDS: HYDROmorphone INJ 0.5 MG/0.5 ML SYR IV PRN (05:33)
[2017-04-06] MEDS: INSULIN ASPART 100 UNITS/ML 3 ML PEN SC SCH ×4 (06:30→20:19)
[2017-04-06] MEDS: CHECK FENTANYL PATCH PLACEMENT SCH ×2 (08:00→16:00)
[2017-04-06] MEDS: ISOSORBIDE MONONITRATE 60 MG TABCR PO SCH (09:00)
[2017-04-06] MEDS: ASPIRIN 81 MG ECTAB PO SCH (09:00)
[2017-04-06] MEDS: AMIODARONE 200 MG TAB PO SCH ×2 (09:00→20:55)
[2017-04-06] MEDS: ATORVASTATIN 40 MG TAB PO SCH (09:00)
[2017-04-06] MEDS: CLOPIDOGREL BISULFATE 75 MG TAB PO SCH (09:00)
[2017-04-06] MEDS: PANTOprazole SOD 40 MG TAB PO SCH (09:00)
[2017-04-06] MEDS: POLYETHYLENE (MIRALAX) 17 GM PACK PO SCH ×2 (09:00→20:56)
[2017-04-06] MEDS: DOCUSATE SODIUM/SENNA 50/8.6MG TAB PO SCH (09:00)
--- NOTE | 2017-04-06 15:25 | Progress Note ---
Internal Med Progress Note Date of Service: Apr 06, 2017. Provider Documentation: Seen and examined at bedside. Denies pain, SOB. OBJECTIVE: Physical Exam: General Appearance: no acute distress Head: normocephalic, atraumatic Eyes: normal inspection, EOMI Neck: supple, Trachea midline Respiratory/Chest: no wheezing or rhonchi appreciated Cardiovascular: Irregularly, irregular, No murmur Abdomen/GI:Soft, Non tender, Bowel sounds present Extremities:normal inspection, 1+ b/l edema Neurologic/Psych:grossly no focal neurological deficits Skin: normal color, warm ASSESSMENT & PLAN: TACHY AMRIT SYNDROME S/P dual-chamber permanent pacemaker implantation on 03/31 Coumadin was last given on 04/02/17 with last INR checked on 04/03/17, currently comfort measures Continue amiodarone for rate control CARLOS/ATN on CKD IV s/p hemodialysis catheter placed on 03/29, but did not tolerating hemodialysis, and patient declining further dialysis ACUTE CHF WITH SYSTOLIC DYSFUNCTION /ISCHEMIC CARDIOMYOPATHY : UNSTABLE ANGINA/NSTEMI /IN SETTING OF SEVERE CAD : s/p cardiac cath and stent On dual antiplatelet therapy, statin, Imdur continue SL nitro as needed Acute Hypoxemic Respiratory Failure-Multifactorial Secondary to Acute on Chronic Systolic CHF/Severe ICM /CARLOS on CKD Stage 4 / volume overload Not tolerating Dialysis Oxygen support SEVERE CAD /ISCHEMIC CARDIOMYOPATHY /NSTEMI multivessel CAD s/p recent high risk PCI to left main /LAD /Circumflex has residual severe RCA disease repeat ECHO -shows diminished EF 20 % ( was 40 % on 10/2016 ) s/p cardiac cath with stent placement in LAD S/P dual-chamber permanent pacemaker Continue current meds DVT on ultrasound lower extremity thrombus identified within the left peroneal veins consistent with deep vein thrombosis was on Coumadin but coumadin has been held as labs draws has been declined by patient UTI WITH COAG NEGATIVE STAPH IN URINE CULTURE : oxacillin resistant on urine culture 03/21 and 03/22 possible due to indwelling Matos S/P IV Vancomycin repeat urine culture: contamination HTN Stable Coreg had been discontinued Hypothyroidism Synthroid 75mcg DVT px was on coumadin but that was stopped, has known lower extremity DVT and cannot use SCDs, not on subcutaneous anticoagulation because of comfort care CODE STATUS: DNI/DNR: DISPOSITION pt's over all prognosis very poor very poor functional status was living with Daughter Currently comfort measures only Plan to DC when placement available palliative care following Vital Signs: Date Time Temp Pulse Resp B/P (MAP) Pulse Ox O2 Delivery O2 Flow Rate FiO2 04/06/17 08:15 Nasal Cannula 2.0 04/06/17 00:00 Nasal Cannula 2.0 04/05/17 16:00 Nasal Cannula 2.0
[2017-04-06 16:00] VITALS: O2SAT 90
[2017-04-06 17:46] VITALS: BP 92/58; PULSE 56; TEMP 36.8; O2SAT 96
[2017-04-06 20:55] VITALS: BP 96/52; PULSE 57; O2SAT 92
[2017-04-06 23:04] VITALS: BP 89/53; PULSE 59; TEMP 36.5; O2SAT 97
[2017-04-07] MEDS: CHECK FENTANYL PATCH PLACEMENT SCH ×2 (00:19→08:00)
[2017-04-07] MEDS: ONDANSETRON INJ 2 MG/ML 2 ML VIAL IV PRN (05:15)
[2017-04-07] MEDS: HYDROmorphone INJ 0.5 MG/0.5 ML SYR IV PRN (05:15)
[2017-04-07] MEDS: LEVOTHYROXINE 75 MCG TAB PO SCH (06:30)
[2017-04-07] MEDS: CLOPIDOGREL BISULFATE 75 MG TAB PO SCH (09:00)
[2017-04-07] MEDS: DOCUSATE SODIUM/SENNA 50/8.6MG TAB PO SCH (09:00)
[2017-04-07] MEDS: ASPIRIN 81 MG ECTAB PO SCH (09:00)
[2017-04-07] MEDS: ATORVASTATIN 40 MG TAB PO SCH (09:00)
[2017-04-07] MEDS: PANTOprazole SOD 40 MG TAB PO SCH (09:00)
[2017-04-07] MEDS: POLYETHYLENE (MIRALAX) 17 GM PACK PO SCH (09:00)
[2017-04-07] MEDS: ISOSORBIDE MONONITRATE 60 MG TABCR PO SCH (09:00)
[2017-04-07] MEDS: AMIODARONE 200 MG TAB PO SCH (09:00)
[2017-04-07] MEDS: INSULIN ASPART 100 UNITS/ML 3 ML PEN SC SCH (09:59)
--- NOTE | 2017-04-07 12:22 | Progress Note ---
Progress Note Date of Service Apr 07, 2017. Progress Note Note Medical provider called by nurse. Nurse reporting patient may been having seizure like activity and choking with cold extremities. Patient assessed at the bedside. Patient was not verbally responsive. Patient was seen having secretions from the mouth. Was gagging and intermittently breathing. Attempts were made to set up suction however minimal suctioning could be obtained. Patient initially with faint heart sounds and pulses more palpable in left upper extremity vs right upper extremity. Patient's code status was DNR/DNI. Medical provider attempted to raise head and neck in extension position to try to maintain airway. Patient then minimally responsive to sternal rub with heart sounds and pulses no longer present. Time of 11:50 AM Physical Exam at Time of General: non verbal, non responsive to sternal rub or pressing of nail beds Eyes: no extraoccular movements, no light reflex Lungs: no breath sounds audible Heart: no heart sounds audible, EKG performed to confirm lack of electrical activity of the heart
--- NOTE | 2017-04-07 12:25 | Discharge Summary ---
Discharge Summary Date of Service Apr 07, 2017. Discharge Summary Admission Date: Mar 18, 2017 at 01:26 Discharge Disposition: Principal Diagnosis: NSTEMI--status post PCI with 2 drug-eluting stent to proximal to mid LAD Acute systolic heart failure/ICM -- severe LV dysfunction with LAD distribution hypokinesis Acute on chronic renal insufficiency Hypoxemic respiratory failure Distal left lower extremity DVT Type 2 diabetes. Anemia. Paroxysmal SVT Procedures: dialysis, permacath placed for dialysis, cardiac cath stents Consultations: ICU, nephrology, cardiology Admission Information HPI (per Admitting provider): Medical history significant for chronic systolic heart failure secondary to ischemic cardiomyopathy (EF of 40% from a 2D echo from November 2016); CAD status post stenting, hypertension, hyperlipidemia, hypothyroidism, chronic renal insufficiency (baseline creatinine of 2 to 2.5), chronic anemia (baseline hemoglobin 10). nocturnal hypoxemia on home O2 at night as per records. Shaw is a previous resident of [place] who moved moved to [place] to be with her daughter in December 2016. Recent confinement at [facility] in [place] in October 2016 for non-ST elevation [place]. 2D echo at that time showed LVH, EF of 40%, hypokinetic LV in the inferior and mid segment, mild MS, moderate MR, moderate . Emergent catheterization done showed left main calcification 70%, luminal irregularities proximal LAD, discrete calcified 90% ostial lesion; left circumflex, in-stent restenosis; proximal RCA in 1998. CABG was recommended, but the patient was deemed to be poor surgical candidate. High-risk PCI done. Successful PCI of the distal left main. Patient underwent high-risk PCI of left main, LAD, and left circumflex. Post PCI course complicated by CHF. Shaw subsequently transferred to rehab facility then relocated to [place] under the care of her daughter in December 2016. In the last few days; anginal episodes, chest discomfort, worsening, short-term incomplete relief with nitroglycerin tabs. No unusual cough symptoms. Patient admits to some leg swelling. Patient brought to the Emergency Room, noted to be in respiratory distress. BiPAP initiated, Lasix given for CHF. IV Heparin, Nitroglycerin drip initiated for ACS. Patient currently more comfortable. Nitro drip currently being down titrated. Physical Exam (per Admitting): PHYSICAL EXAMINATION: VITAL SIGNS: Blood pressure was noted to be 129/80, pulse 102, RR 26 later 18, temperature 37 sats 91 on 4 liters, later 97 on BiPAP. GENERAL: Noted to be anxious. Minimal respiratory distress SKIN: Pallor. HEENT: Pale palpebral mucosa. Dry buccal mucosa. BiPAP in place. NECK: Short neck. LUNGS: Decreased breath sounds. HEART: Regular rate and rhythm, systolic murmur. ABDOMEN: Some distention. NT EXTREMITIES: Some lower extremity edema, no tenderness. NEUROLOGIC: No gross focality. Hospital Course 81-year-old female who was initially admitted 03/17/2017 with complaints of intermittent chest pain lasting 3 days associated with shortness of breath in addition to bilateral lower extremity swelling. Her PMHx is positive for extensive CAD with valvular disease: moderate aortic stenosis, moderate mitral regurgitation, elevated pulmonary artery pressures. She had NSTEMI in October 2016 status post cardiac catheterization in recluse with severe LAD and ostial circumflex disease. She had cardiac cath and drug eluting stents placed to LAD. She was [facility] to the [facility] and found to have a STEMI with troponin was elevated to 0.933 which increased to 1.05; ST elevations in leads V1 and V3, associated with T-wave inversions in lead 1 aVL, V5 and V6. Given Cr 2.8 no angiography was performed. Her course has been complicated with pulmonary edema necessitating on and off BIPAP and bilateral pleural effusions. She was placed on BiPAP and given Lasix, heparin and nitroglycerin drip. She was admitted to telemetry for further monitoring. The medical team was unable to transition her to O2 supplementation on sustained basis, she would become hypoxic. Meanwhile her creatinine continued to worsened to 3.2 She was placed on a lasix drip which was then stopped. She was transferred to MICU for refractory respiratory failure CARLOS on CKD and was in chest pain when she came in. Restarted on the heparin drip. CARLOS/ATN on CKD IV: s/p hemodialysis catheter placed on 03/29, but did not tolerating hemodialysis, and patient declining further dialysis For TACHY AMRIT SYNDROME: S/P dual-chamber permanent pacemaker implantation on Acute Hypoxemic Respiratory Failure-Multifactorial: Secondary to Acute on Chronic Systolic CHF/Severe ICM /CARLOS on CKD Stage 4 /volume overload Not tolerating Dialysis DVT on ultrasound lower extremity thrombus identified within the left peroneal veins consistent with deep vein thrombosis was on Coumadin but coumadin has been held as labs draws has been declined by patient Coumadin was last given on 04/02/17 with last INR checked on 04/03/17, and then stopped as patient and family indicated for comfort, palliative care measures. DNR/DNI. Patient had accepting hospice facility on 04/07/17 when: Medical provider called by nurse. Nurse reporting patient may been having seizure like activity and choking with cold extremities. Patient assessed at the bedside. Patient was not verbally responsive. Patient was seen having secretions from the mouth. Was gagging and intermittently breathing. Attempts were made to set up suction however minimal suctioning could be obtained. Patient initially with faint heart sounds and pulses more palpable in left upper extremity vs right upper extremity. Patient's code status was DNR/DNI. Medical provider attempted to raise head and neck in extension position to try to maintain airway. Patient then minimally responsive to sternal rub with heart sounds and pulses no longer present. Time of 11:50 AM Physical Exam at Time of General: non verbal, non responsive to sternal rub or pressing of nail beds Eyes: no extraoccular movements, no light reflex Lungs: no breath sounds audible Heart: no heart sounds audible, EKG performed to confirm lack of electrical activity of the heart patient has . Time of 11:50 AM on 04/07/2017 Total time spent on discharge = This includes examination of the patient, discharge planning, medication reconciliation, and communication with other providers. Discharge Instructions Note Medical provider called by nurse. Nurse reporting patient may been having seizure like activity and choking with cold extremities. Patient assessed at the bedside. Patient was not verbally responsive. Patient was seen having secretions from the mouth. Was gagging and intermittently breathing. Attempts were made to set up suction however minimal suctioning could be obtained. Patient initially with faint heart sounds and pulses more palpable in left upper extremity vs right upper extremity. Patient's code status was DNR/DNI. Medical provider attempted to raise head and neck in extension position to try to maintain airway. Patient then minimally responsive to sternal rub with heart sounds and pulses no longer present. Time of 11:50 AM Physical Exam at Time of General: non verbal, non responsive to sternal rub or pressing of nail beds Eyes: no extraoccular movements, no light reflex Lungs: no breath sounds audible Heart: no heart sounds audible, EKG performed to confirm lack of electrical activity of the heart patient has . Time of 11:50 AM on 04/07/2017
[2017-04-07] MEDS ORDERED: FENTANYL PATCH REMOVE & WASTE SCH (14:29)
== END 2017-04-07 11:50 | disposition expired | DRG 242 ==
LOC: C.EDC 23:47 → C.2T 03-18 01:26 → ENRESERV 03-18 01:39 → C.MSICU 03-22 11:25 → CANRESERV 03-24 12:22 → ENRESERV 03-24 12:22 → CANBEDREQ 03-24 12:27 → C.2T 03-25 12:09 → C.MSICU 03-30 19:45 → C.2T 04-01 11:15 → ENRESERV 04-03 14:45 → C.MS2W 04-03 15:43
PROVIDERS: ADMIT Internal Medicine; ATTEND Hospitalist
PROC: 4A023N6 Measurement of Cardiac Sampling and Pressure, Right Heart, Percutaneous Approach (ICD-10-PCS; 2017-03-23)
PROC: 027035Z Dilation of Coronary Artery, One Artery with Two Drug-eluting Intraluminal Devices, Percutaneous Approach (ICD-10-PCS; 2017-03-24)
PROC: B211YZZ Fluoroscopy of Multiple Coronary Arteries using Other Contrast (ICD-10-PCS; 2017-03-24)
PROC: 4A023N7 Measurement of Cardiac Sampling and Pressure, Left Heart, Percutaneous Approach (ICD-10-PCS; 2017-03-24)
PROC: 02HV33Z Insertion of Infusion Device into Superior Vena Cava, Percutaneous Approach (ICD-10-PCS; 2017-03-29)
PROC: 0JH60XZ Insertion of Tunneled Vascular Access Device into Chest Subcutaneous Tissue and Fascia, Open Approach (ICD-10-PCS; 2017-03-29)
PROC: 02H63MZ Insertion of Cardiac Lead into Right Atrium, Percutaneous Approach (ICD-10-PCS; principal; 2017-03-31 14:30)
PROC: 0JH606Z Insertion of Pacemaker, Dual Chamber into Chest Subcutaneous Tissue and Fascia, Open Approach (ICD-10-PCS; principal; 2017-03-31 14:30)
PROC: 02HK3MZ Insertion of Cardiac Lead into Right Ventricle, Percutaneous Approach (ICD-10-PCS; principal; 2017-03-31 14:30)
DX: I21.4 Non-ST elevation (NSTEMI) myocardial infarction (principal); I50.23 Acute on chronic systolic (congestive) heart failure; J96.01 Acute respiratory failure with hypoxia; N17.0 Acute kidney failure with tubular necrosis; Z51.5 Encounter for palliative care; I47.1 Supraventricular tachycardia; N17.9 Acute kidney failure, unspecified; I82.402 Acute embolism and thrombosis of unspecified deep veins of left lower extremity; N18.4 Chronic kidney disease, stage 4 (severe); I13.0 Hypertensive heart and chronic kidney disease with heart failure and stage 1 through stage 4 chronic kidney disease, or unspecified chronic kidney disease; E87.0 Hyperosmolality and hypernatremia; N39.0 Urinary tract infection, site not specified; I49.5 Sick sinus syndrome; I48.91 Unspecified atrial fibrillation; B95.8 Unspecified staphylococcus as the cause of diseases classified elsewhere; I25.10 Atherosclerotic heart disease of native coronary artery without angina pectoris; I25.5 Ischemic cardiomyopathy; I27.2 Other secondary pulmonary hypertension; I25.2 Old myocardial infarction; E11.9 Type 2 diabetes mellitus without complications; D63.1 Anemia in chronic kidney disease; E78.5 Hyperlipidemia, unspecified; E03.9 Hypothyroidism, unspecified; Z51.81 Encounter for therapeutic drug level monitoring; Z79.899 Other long term (current) drug therapy; Z79.02 Long term (current) use of antithrombotics/antiplatelets; Z99.81 Dependence on supplemental oxygen; Z66 Do not resuscitate; Z95.5 Presence of coronary angioplasty implant and graft; Z82.49 Family history of ischemic heart disease and other diseases of the circulatory system; Z83.3 Family history of diabetes mellitus